=== PATIENT | male | born 1960 | race Caucasian/White ===

== ENCOUNTER 2021-09-21 10:55 | Inpatient (IN) ==
[2021-09-21] MEDS ORDERED: SODIUM CHLORIDE 0.9% 1000ML 1,000 ML IV STA (11:52)
[2021-09-21] MEDS ORDERED: ONDANSETRON INJ 2 MG/ML 2 ML VIAL IV STA (12:28)
[2021-09-21] MEDS ORDERED: FAMOTIDINE 20MG IV PUSH 20 MG/5 ML SYR IV STA (12:28)
[2021-09-21] MEDS ORDERED: PANTOprazole 80 MG in DEXTROSE 5% 100 ML IV ONE (12:28)
[2021-09-21] MEDS ORDERED: PANTOPRAZOLE BOLUS/DRIP 1 EA IV STA (12:28)
[2021-09-21] MEDS ORDERED: HYDROmorphone INJ 0.5 MG/0.5 ML SYR IV PRN (12:28)
[2021-09-21 12:58] LABS: INR 1.2 (0.9-1.1); Partial Thromboplastin Ratio 0.9; Partial Thromboplastin Time 24.8 Seconds (21.0-31.0); Prothrombin Time 12.3 Seconds (9.0-12.0)
[2021-09-21 13:18] LABS: Albumin Globulin Ratio 1.7 (0.9-2); Albumin Level 4.5 gm/dl (3.4-5.0); BUN Creatinine Ratio 21.4 (10-20); Bilirubin,Total 1.4 mg/dl (0.2-1.0); Calcium 8.8 mg/dl (8.5-10.1); Creatinine Clr Calc Pharmacy 108.4 ml/min; Est GFR (African American) 95.4 ml/min; Est GFR (Non-African American) 82.3 ml/min; Globulin 2.6 gm/dl (2.5-4.0); Mean Corpuscular Hgb Conc 33.4 g/dL (32-36); Nucleated RBC # (auto) 0.27 K/uL (0-0); Nucleated RBC % (auto) 0.5 %; Platelet Count 10 K/uL (130-400); Potassium 4.1 mmol/L (3.5-5.1); Total Protein 7.1 gm/dl (6.0-8.3)
[2021-09-21 13:23] LABS: Appearance Urine Clear (Clear); Bilirubin Urine Negative (Negative); Blood Urine Negative (Negative); Color Urine Yellow; Glucose Urine UA Negative (Negative); Ketones Urine Negative (Negative); Leukocyte Esterase Urine Negative (Negative); Nitrite Urine Negative (Negative); Protein Urine Negative (Negative); Specific Gravity Urine 1.008 (1.000-1.030); Urobilinogen Urine Negative (Negative); pH Urine 6.5 (4.5-7.5)
[2021-09-21 13:39] LABS: Hemoglobin 13.7 g/dL (14.0-18.0); Mean Corpuscular Hemoglobin 29.7 pg (25-34); Mean Corpuscular Volume 88.7 fL (80-100); RDW Coefficient of Variation 17.1 % (11.5-14.5); RDW Standard Deviation 54.6 fL (36.4-46.3); Red Blood Count 4.62 M/uL (4.7-6.1); White Blood Count 50.77 K/uL (4.8-10.8)
--- NOTE | 2021-09-21 13:58 | CT Scan Report ---
CT head/brain wo con CLINICAL HISTORY: 61 years-old Male with headache, low plts. Acute headache TECHNIQUE: Multiple axial CT images of the head were obtained without contrast. A dose lowering tech nique was utilized adhering to the principles of ALARA. CT DOSE: 614.27 mGy.cm COMPARISON: CTA head 09/18/2021, 10/23/2020 FINDINGS: No acute intracranial hemorrhage, midline shift, intracranial mass, hydrocephalus, territorial ischem ia or abnormal extra-axial collection. The calvarium is intact. The paranasal sinuses, mastoid air cells, and middle ear cavities are clear . IMPRESSION: No acute intracranial abnormality. ACT 112: Negative or not required by law. The above report was generated using voice recognition software. It may contain grammatical, syntax o r spelling errors. Electronically signed by: Mello Sampson M.D. 09/21/2021 1:56 PM
[2021-09-21 14:03] LABS: Lyme Ab IgG w/WB Rflx Negative (Negative)
[2021-09-21 14:04] LABS: Lyme Ab IgM w/WB Rflx Negative (Negative)
[2021-09-21 14:10] LABS: ALC (manual) 2.03 K/uL (1.2-3.4); ANC (manual) 29.95 K/uL (1.4-6.5); Hypogranular Neutrophils 1+; Lymphocytes # (manual) 2.03 K/uL (1.2-3.4); Metamyelocytes # (manual) 2.54 K/uL (0-0); Monocytes # (manual) 12.69 K/uL (0.11-0.59); Myelocytes # (manual) 3.55 K/uL (0-0); Neutrophils # (manual) 29.95 K/uL (1.4-6.5)
[2021-09-21] MEDS: PANTOprazole 40 MG in DEXTROSE 5% 100 ML IV SCH ×2 (14:27→21:00)
--- NOTE | 2021-09-21 14:40 | History & Physical Report ---
Date of Service September 21, 2021 Assessment & Plan (1) Thrombocytopenia: Plan: Patient with history of CML. ER discussed the case with Dr. Centeno, his buck swamper from [place]. He noted that their target would be a platelet count of 30 and agreed with platelet transfusion. Will transfuse platelets. Will complete 4th dose of 40 mg of decadron. will recheck platelets BID. will consider official hematology consult in AM if number continue to be low. (2) CML (chronic myelocytic leukemia): Plan: No signs of active infection (3) Acute GI bleeding: Plan: melena due to low platelets will hold off endoscopy. no need for transfusion. will monitor hemoglobin (4) Anemia: Plan: hemoglobin is 13. will monitor (5) HTN (hypertension): Plan: resume bp meds (6) Hypercholesteremia: Plan: resume atorvastatin History of Present Illness Chief Complaint: headache Primary Care Provider: Jessica Cuevas MD 61 yo male with history of CML presents to the ER with a subacute headache and new onset melena. Patient has been to the ER multiple times for headache and thrombocytopenia this week. Patient is finishing his 4th dose of 40 mg of decadron today. Patient reports though that his headache is constant, accompanied by photophobia. Patient reports his headache is 6/10 intensity. In regards to his stools, he had 2 BM this AM and they were both black. One was loose, and "regular amount of stool. The other Bowel movement was small. Patient returnd to the ER and again was found to be thrombocytoepenic. Discussion with Hematology from [facility] recommended an admission. ER had discussed the case with Dr. Centeno, his buck swamper from [place]. He noted that their target would be a platelet count of 30 and agreed with platelet transfusion. Allergies Allergy/AdvReac Type Severity Reaction Status Date / Time No Known Allergies Allergy Mild 0 Verified 09/19/21 19:27 Home Medications Medication Instructions Recorded Confirmed Type omeprazole 20 mg capsule,delayed 20 mg PO DAILY PRN 04/30/18 09/19/21 History release amlodipine 5 mg-olmesartan 40 mg 1 tab PO QAM 09/18/21 09/19/21 History tablet atorvastatin 20 mg tablet 20 mg PO QAM 09/18/21 09/19/21 History ondansetron HCl 4 mg tablet 4 mg PO Q6H PRN #20 tab 05/17/22 05/18/22 Rx testosterone cypionate 100 mg/mL 150 mg IM Q14D 09/18/21 09/19/21 History intramuscular oil Past Med/Surg History Medical History Depression HTN (hypertension) Hypercholesteremia Social History Smoking Status: Never smoker Hx Alcohol Use: Yes Alcohol type: beer Hx Substance Use: No Preferred Language: [place] Communication Ability: Effective Slip Seat Coverer Required: No Beliefs That Will Affect Care: None marital status: Current Living Situation: Spouse Other Information That Helps Us Care for You: No Feels Safe at Home: Yes Safety Concerns: Feels Safe At This Time Assistive Devices: None Review of Systems Constitutional: no fever and no body aches Eyes: no blind spots and no discharge Ear, Nose, Mouth, Throat: no ear pain and no tinnitus Respiratory: no cough and no change in sputum Cardiovascular: no chest pain and no radiating jaw, neck or arm pain Gastrointestinal: no abdominal pain Genitourinary: no dysuria Musculoskeletal: no back pain Integumentary: no rash Neurologic: no gait abnormality Psychiatric: no behavioral changes Endocrine: no fatigue and no polyphagia Hematologic / Lymphatic: no lymphadenopathy Allergy / Immunological: no GI upset with certain foods Physical Exam Constitutional: WD/WN, vitals as above Eyes: PERRL, conjunctivae normal, anicteric sclerae ENMT: external ear and nose normal, oropharynx normal Neck: trachea midline, no thyromegaly Respiratory: normal respiratory effort, lungs clear to auscultation Cardiovascular: RRR, no murmur, no edema Gastrointestinal (Abdomen): normal bowel sounds, soft, nontender, no hepatosplenomegaly Musculoskeletal: no cyanosis or clubbing, extremities motor strength 5/5 Skin: no rashes, warm and dry Neurologic: PERRL, EOMI, accommodation nl, no face palsy, no dysarthria Psychiatric: A+Ox3, euthymic affect Lymphatic: no cervical or axillary lymphadenopathy Results & Data Results & Data ([facility]) Vital Signs (Past 12 Hours) Vital Signs Temp Pulse Resp BP Pulse Ox 09/21/21 13:00 63 19 153/81 H 96 09/21/21 12:31 98 09/21/21 11:10 36.8 C 68 20 156/75 H 96 Code Status & VTE Plan VTE Prophylaxis Plan VTE Prophylaxis will be ordered: Yes PG Care Time/CCT Total # of Minutes Spent Total Time Spent with Patient: Total time spent is greater than 50% in coordination of care (as documented) at patient's floor/unit and/or counseling patient: Coding Level of Care Code 43230 Initial Inpt Care Lvl 3 Diagnoses Thrombocytopenia D69.6 CML (chronic myelocytic leukemia) C92.10 Acute GI bleeding K92.2 Anemia D64.9 HTN (hypertension) I10 Hypercholesteremia E78.00
[2021-09-21] MEDS ORDERED: ONDANSETRON 4 MG OD TAB PO PRN (14:42)
[2021-09-21] MEDS ORDERED: PANTOprazole 40 MG TAB PO PRN (14:42)
--- NOTE | 2021-09-21 14:44 | Emergency Department Note ---
Impression & Plan Acute GI bleeding, Headache, Thrombocytopenia, Anemia ED Provider Note INFORMANT: Patient ED PROVIDER(S): Tani Thrasher MD CHIEF COMPLAINT: Black stools PLAN: Disposition: Admitted Condition: Good Outpatient prescription management: none Referral: None MEDICAL DECISION MAKING: Patient presented because of black stool. He was Hemoccult positive. Vital signs stable. He had a headache and underwent head CT imaging due to his history of thrombocytopenia. This was negative. Patient's ECG showed a sinus rhythm. His white blood cell count has increased from his recent priors. His H&H is stable. Patient's platelet count is stable as well. He was given IV Pepcid and Protonix. I did have discussed case with Dr. Keith of [facility]. He agreed with the acid suppression and admission. I discussed the case with Dr. Centeno, his regional sales executive from [place]. He noted that their target would be a platelet count of 30 and agreed with platelet transfusion. He agreed with the GI recommendations. He did asked for the patient to have his 4- day steroid course finished in the hospital here. He is on day 4 today. He also mentioned to have his platelet count checked twice daily. Patient was consented for platelet transfusion and first transfusion ordered. [facility] and outlined the GI and hematology consultation. They will admit the patient for further management. Triage Nursing notes reviewed and agree them. Vital Signs: reviewed and remarkable for no significant abnormalities Differential diagnosis: Diverticulosis, AVM, coagulopathy, colitis, inflammatory bowel disease, malignancy, Nanette-King tear, esophagitis, peptic ulcer disease, variceal bleed, gastritis, intracranial bleeding, hemorrhoids, as well as other pathologies. Diagnostics interpreted by me: EC Lead ECG performed and revealed Normal sinus rhythm at 68, normal [place], QRS normal. No elevation or depression. No PACs or PVCs Cardiac Monitoring: Cardiac monitoring ordered by me: The patient was placed on continuous cardiac monitoring and observed. It revealed a normal sinus rhythm a t 63 beats per minute without ectopy or evidence of dysrhythmia. Imaging studies: Head CT: A noncontrast CT scan of the head was performed and was negative for tumor, fracture, intracranial hemorrhage, or other acute pathology. HPI: The patient is a 61year old male who presents to the Emergency Room with complaints of black stools. This started today and is a new problem for the patient patient has a history of CML and thrombocytopenia. He was recently seen for platelet transfusion on the and here in the ER. Patient was started on steroids per hematology at that time. He does note some mild upset stomach. He did take a dose of Pepto-Bismol on Friday and Friday of this week, 4 and 3 days ago. The patient notes persisting headaches. Rates the pain as a 6 out of 10. Prior head CT was negative. Pt denies LOC, fevers, chills, diaphoresis, visual changes, neck pain, chest pain, breathing difficulties, nausea, vomiting, abdominal pain, back pain, hematochezia, urinary symptoms, numbness, weakness, lymphadenopathy, rash, or other complaints. ROS: See above HPI for pertinent positives & negatives. A total of 10 systems reviewed and were otherwise negative. PAST MEDICAL HISTORY:See Below , normal cytopenia, CML PAST SURGICAL HISTORY:See Below, FAMILY HISTORY:See Below SOCIAL HISTORY:See Below, non-smoker HOME MEDICATIONS:See Below ALLERGIES:See Below VITALS:See Below PHYSICAL EXAMINATION: GENERAL: Awake, alert, well-appearing, in no distress HENT: Normocephalic, atraumatic. Oropharynx unremarkable. EYES: Normal conjunctiva. Sclera non-icteric. NECK: Inspection normal. Non-tender. Supple. No nuchal rigidity. FROM. No masses. RESPIRATORY: Clear to auscultation. No wheezes. No rales. Normal respiratory effort. CARDIAC: Normal rate. Normal rhythm. No murmurs. No rubs. Extremities warm and well perfused. Pulses equal. No JVD. GI: Soft, non-distended. No tenderness to palpation. No rebound or guarding. No masses. RECTAL: Dark brown stool Hemoccult positive.. MUSCULOSKELETAL: Atraumatic. Chest examination reveals no tenderness. The back is symmetrical on inspection without obvious abnormality. There is no CVA tenderness to palpation. No joint edema. LOWER EXTREMITIES: Calves are equal size bilaterally and non-tender. No edema. N o discoloration. NEURO: Normal sensorium. No sensory or motor deficits noted. SKIN: No rash or jaundice noted. Tani Thrasher MD Past Med/Surg History Medical History (Updated 09/21/21 @ 14:44 by Tani Thrasher MD) Depression HTN (hypertension) Hypercholesteremia Social History Smoking Status: Never smoker Preferred Language: [place] Citizen Current Living Situation: Family Feels Safe at Home: Yes Allergies Allergies Allergy/AdvReac Type Severity Reaction Status Date / Time No Known Allergies Allergy Mild 0 Verified 09/19/21 19:27 Home Meds Home Medications Medication Instructions Recorded Confirmed omeprazole 20 mg capsule,delayed 20 mg PO DAILY PRN 04/30/18 09/19/21 release amlodipine 5 mg-olmesartan 40 mg 1 tab PO QAM 09/18/21 09/19/21 tablet atorvastatin 20 mg tablet 20 mg PO QAM 09/18/21 09/19/21 testosterone cypionate 100 mg/mL 150 mg IM Q14D 09/18/21 09/19/21 intramuscular oil Previous Rx's Medication Instructions Recorded ondansetron HCl 4 mg tablet 4 mg PO Q6H PRN #20 tab 09/18/21 Results & Data (ED) Vital Signs Vital Signs - 24 hr 09/21/21 11:10 09/21/21 12:31 09/21/21 13:00 Temperature 36.8 C Temperature Source Temporal Artery Scan Pulse Rate 68 63 Pulse Rate from SpO2 Sensor 63 Respiratory Rate 20 19 Respiratory Effort / Characteristics Non-Labored Spontaneous Respiratory Depth Normal Respiratory Pattern Regular Blood Pressure 156/75 H 153/81 H Blood Pressure Mean 102 105 Blood Pressure Position Sitting Pulse Oximetry 96 98 96 Oxygen Delivery Method Room Air Room Air Room Air Sepsis Recent Fever Within 48 Hours No Sepsis New/Unexplained Change in Mental Status N/A Sepsis Action Taken by Nursing No Action Required Laboratory Data Result diagrams: 09/21/21 12:29 09/21/21 12:29 Lab Results 09/21/21 09/21/21 09/21/21 Range/Units 12:29 12:29 12:29 WBC 50.77 H* (4.8-10.8) K/uL RBC 4.62 L (4.7-6.1) M/uL Hgb 13.7 L (14.0-18.0) g/dL Hct 41.0 L (42-52) % MCV 88.7 (80-100) fL MCH 29.7 (25-34) pg MCHC 33.4 (32-36) g/dL RDW Std Deviation 54.6 H (36.4-46.3) fL RDW Coeff of Sayra 17.1 H (11.5-14.5) % Plt Count 10 L* (130-400) K/uL Absolute Nucleated RBC 0.27 H (0-0) K/uL Nucleated RBC % (auto) 0.5 % Neutrophils % (Manual) 59.0 % Lymphocytes % (Manual) 4.0 % Monocytes % (Manual) 25.0 % Metamyelocytes % (Man) 5.0 % Myelocytes % (Man) 7.0 % Neutrophils # (Manual) 29.95 H (1.4-6.5) K/uL Total Absolute Neuts 29.95 H (1.4-6.5) K/uL Lymphocytes # (Manual) 2.03 (1.2-3.4) K/uL Total Abs Lymphocytes 2.03 (1.2-3.4) K/uL Monocytes # (Manual) 12.69 H (0.11-0.59) K/uL Metamyelocytes # (Man) 2.54 H (0-0) K/uL Myelocytes # (Manual) 3.55 H (0-0) K/uL Hypogranular Neuts 1+ PT 12.3 H (9.0-12.0) Seconds INR 1.2 H (0.9-1.1) APTT 24.8 (21.0-31.0) Seconds PTT Ratio 0.9 Sodium (136-145) mmol/L Potassium (3.5-5.1) mmol/L Chloride (98-107) mmol/L Carbon Dioxide (21-32) mmol/L Anion Gap (3-11) BUN (6-23) mg/dl Creatinine (0.6-1.4) mg/dl Est Cr Clr Drug Dosing ml/min Est GFR ( Amer) ml/min Est GFR (Non-Af Amer) ml/min BUN/Creatinine Ratio (10-20) Glucose (70-99(Fasting)) mg/dl Calcium (8.5-10.1) mg/dl Total Bilirubin (0.2-1.0) mg/dl AST (13-39) U/L ALT (7-52) U/L Alkaline Phosphatase (34-104) U/L Total Protein (6.0-8.3) gm/dl Albumin (3.4-5.0) gm/dl Globulin (2.5-4.0) gm/dl Albumin/Globulin Ratio (0.9-2) Urine Color Urine Appearance (Clear) Urine pH (4.5-7.5) Ur Specific [place] (1.000-1.030) Urine Protein (Negative) Urine Glucose (UA) (Negative) Urine Ketones (Negative) Urine Blood (Negative) Urine Nitrite (Negative) Urine Bilirubin (Negative) Urine Urobilinogen (Negative) Ur Leukocyte Esterase (Negative) POC Stool Occult Blood (Negative) Anaplasma Smear See Comment Lyme Disease IgG Ab (Negative) Lyme Disease IgM Ab (Negative) SARS-CoV-2, RNA, NAAT (NEGATIVE) Blood Type O Positive Antibody Screen NEGATIVE 09/21/21 09/21/21 09/21/21 Range/Units 12:29 12:31 12:33 WBC (4.8-10.8) K/uL RBC (4.7-6.1) M/uL Hgb (14.0-18.0) g/dL Hct (42-52) % MCV (80-100) fL MCH (25-34) pg MCHC (32-36) g/dL RDW Std Deviation (36.4-46.3) fL RDW Coeff of Sayra (11.5-14.5) % Plt Count (130-400) K/uL Absolute Nucleated RBC (0-0) K/uL Nucleated RBC % (auto) % Neutrophils % (Manual) % Lymphocytes % (Manual) % Monocytes % (Manual) % Metamyelocytes % (Man) % Myelocytes % (Man) % Neutrophils # (Manual) (1.4-6.5) K/uL Total Absolute Neuts (1.4-6.5) K/uL Lymphocytes # (Manual) (1.2-3.4) K/uL Total Abs Lymphocytes (1.2-3.4) K/uL Monocytes # (Manual) (0.11-0.59) K/uL Metamyelocytes # (Man) (0-0) K/uL Myelocytes # (Manual) (0-0) K/uL Hypogranular Neuts PT (9.0-12.0) Seconds INR (0.9-1.1) APTT (21.0-31.0) Seconds PTT Ratio Sodium 139 (136-145) mmol/L Potassium 4.1 (3.5-5.1) mmol/L Chloride 106 (98-107) mmol/L Carbon Dioxide 27 (21-32) mmol/L Anion Gap 6 (3-11) BUN 21 (6-23) mg/dl Creatinine 0.98 (0.6-1.4) mg/dl Est Cr Clr Drug Dosing 108.4 ml/min Est GFR ( Amer) 95.4 ml/min Est GFR (Non-Af Amer) 82.3 ml/min BUN/Creatinine Ratio 21.4 H (10-20) Glucose 121 H (70-99(Fasting)) mg/dl Calcium 8.8 (8.5-10.1) mg/dl Total Bilirubin 1.4 H (0.2-1.0) mg/dl AST 22 (13-39) U/L ALT 18 (7-52) U/L Alkaline Phosphatase 48 (34-104) U/L Total Protein 7.1 (6.0-8.3) gm/dl Albumin 4.5 (3.4-5.0) gm/dl Globulin 2.6 (2.5-4.0) gm/dl Albumin/Globulin Ratio 1.7 (0.9-2) Urine Color Urine Appearance (Clear) Urine pH (4.5-7.5) Ur Specific [place] (1.000-1.030) Urine Protein (Negative) Urine Glucose (UA) (Negative) Urine Ketones (Negative) Urine Blood (Negative) Urine Nitrite (Negative) Urine Bilirubin (Negative) Urine Urobilinogen (Negative) Ur Leukocyte Esterase (Negative) POC Stool Occult Blood Positive A (Negative) Anaplasma Smear Cancelled Lyme Disease IgG Ab (Negative) Lyme Disease IgM Ab (Negative) SARS-CoV-2, RNA, NAAT (NEGATIVE) Blood Type Antibody Screen 09/21/21 09/21/21 09/21/21 Range/Units 12:33 12:35 12:38 WBC (4.8-10.8) K/uL RBC (4.7-6.1) M/uL Hgb (14.0-18.0) g/dL Hct (42-52) % MCV (80-100) fL MCH (25-34) pg MCHC (32-36) g/dL RDW Std Deviation (36.4-46.3) fL RDW Coeff of Sayra (11.5-14.5) % Plt Count (130-400) K/uL Absolute Nucleated RBC (0-0) K/uL Nucleated RBC % (auto) % Neutrophils % (Manual) % Lymphocytes % (Manual) % Monocytes % (Manual) % Metamyelocytes % (Man) % Myelocytes % (Man) % Neutrophils # (Manual) (1.4-6.5) K/uL Total Absolute Neuts (1.4-6.5) K/uL Lymphocytes # (Manual) (1.2-3.4) K/uL Total Abs Lymphocytes (1.2-3.4) K/uL Monocytes # (Manual) (0.11-0.59) K/uL Metamyelocytes # (Man) (0-0) K/uL Myelocytes # (Manual) (0-0) K/uL Hypogranular Neuts PT (9.0-12.0) Seconds INR (0.9-1.1) APTT (21.0-31.0) Seconds PTT Ratio Sodium (136-145) mmol/L Potassium (3.5-5.1) mmol/L Chloride (98-107) mmol/L Carbon Dioxide (21-32) mmol/L Anion Gap (3-11) BUN (6-23) mg/dl Creatinine (0.6-1.4) mg/dl Est Cr Clr Drug Dosing ml/min Est GFR ( Amer) ml/min Est GFR (Non-Af Amer) ml/min BUN/Creatinine Ratio (10-20) Glucose (70-99(Fasting)) mg/dl Calcium (8.5-10.1) mg/dl Total Bilirubin (0.2-1.0) mg/dl AST (13-39) U/L ALT (7-52) U/L Alkaline Phosphatase (34-104) U/L Total Protein (6.0-8.3) gm/dl Albumin (3.4-5.0) gm/dl Globulin (2.5-4.0) gm/dl Albumin/Globulin Ratio (0.9-2) Urine Color Yellow Urine Appearance Clear (Clear) Urine pH 6.5 (4.5-7.5) Ur Specific [place] 1.008 (1.000-1.030) Urine Protein Negative (Negative) Urine Glucose (UA) Negative (Negative) Urine Ketones Negative (Negative) Urine Blood Negative (Negative) Urine Nitrite Negative (Negative) Urine Bilirubin Negative (Negative) Urine Urobilinogen Negative (Negative) Ur Leukocyte Esterase Negative (Negative) POC Stool Occult Blood (Negative) Anaplasma Smear Lyme Disease IgG Ab Negative (Negative) Lyme Disease IgM Ab Negative (Negative) SARS-CoV-2, RNA, NAAT NEGATIVE (NEGATIVE) Blood Type Antibody Screen Administered Medications Hydromorphone HCl (Hydromorphone Inj 0.5 Mg/0.5 Ml Syr) 0.5 mg IV Q15M PRN PRN Reason: Pain Stop: 10/05/21 12:27 Last Admin: 09/21/21 13:45 Dose: 0.5 mg Documented by: [id number] Sodium Chloride (Nss 1000ml) 1,000 mls @ 125 mls/hr IV .Q8H STA Stop: 09/21/21 19:51 Last Admin: 09/21/21 13:46 Dose: 125 mls/hr Documented by: [id number] Pantoprazole Sodium 40 mg/ (Dextrose) 100 mls @ 20 mls/hr IV Q5H [id number] Stop: 10/21/21 12:44 Last Admin: 09/21/21 14:27 Dose: 8 mg/hr, 20 mls/hr Documented by: [id number] Discontinued Medications Famotidine (Pepcid 20mg Iv Push) 20 mg in 5 mls @ 2.5 mls/min IV NOW STA Stop: 09/21/21 12:29 Last Admin: 09/21/21 13:45 Dose: 2.5 mls/min Documented by: [id number] Pantoprazole Sodium (Protonix Bolus/Drip) 0 mls @ 1 mls/hr IV ONE STA Stop: 09/21/21 12:29 Last Admin: 09/21/21 13:46 Dose: Not Given Documented by: [id number] Pantoprazole Sodium 80 mg/ (Dextrose) 120 mls @ 400 mls/hr IV NOW ONE Stop: 09/21/21 12:45 Last Admin: 09/21/21 13:44 Dose: 400 mls/hr Documented by: [id number] Ondansetron HCl (Ondansetron Inj 2 Mg/Ml 2 Ml Vial) 4 mg IV NOW STA Stop: 09/21/21 12:29 Last Admin: 09/21/21 13:45 Dose: 4 mg Documented by: [id number] Imaging Data Radiologist's Impression: Head CT 09/21/21 12:27 CT head/brain wo con CLINICAL HISTORY: 61 years-old Male with headache, low plts. Acute headache TECHNIQUE: Multiple axial CT images of the head were obtained without contrast. A dose lowering technique was utilized adhering to the principles of ALARA. CT DOSE: 614.27 mGy.cm COMPARISON: CTA head 09/18/2021, 10/23/2020 FINDINGS: No acute intracranial hemorrhage, midline shift, intracranial mass, hydrocephalus, territorial ischemia or abnormal extra-axial collection. The calvarium is intact. The paranasal sinuses, mastoid air cells, and middle ear cavities are clear. IMPRESSION: No acute intracranial abnormality. ACT 112: Negative or not required by law. The above report was generated using voice recognition software. It may contain grammatical, syntax or spelling errors. Electronically signed by: Mello Sampson M.D. 09/21/2021 1:56 PM Discharge Plan Visit Data Chief Complaint: Referred by Doctor Stated Complaint: BLACK STOOL, REFERRED BY TANISHA PINEDA ED Provider: Tani Thrasher Discharge Problem: Acute GI bleeding, Headache, Thrombocytopenia, Anemia Forms Stand Alone Forms: [facility] Prescriptions Prescriptions: No Action omeprazole 20 mg capsule,delayed release(DR/EC) 20 mg PO DAILY PRN (Reason: Acid Reflux) RF: 0 atorvastatin 20 mg tablet 20 mg PO QAM RF: 0 testosterone cypionate 100 mg/mL oil 150 mg IM Q14D RF: 0 amlodipine-olmesartan 5-40 mg tablet 1 tab PO QAM RF: 0 ondansetron HCl 4 mg tablet 4 mg PO Q6H PRN (Reason: nausea and vomiting) Qty: 20 RF: 0 Referrals Referrals: Jessica Cuevas MD [Primary Care Provider] -
--- NOTE | 2021-09-21 17:15 | Gastrointestinal Consultation ---
Date of Consultation September 21, 2021 Assessment & Plan (1) Anemia: Black stool may have been Peptobismol or UGI bleeding or combination of above. In ER stool brown. Hgb did drift down. Etiology can be from low platelets with normal anatom but PUD also in the diferential. Would not be a good idea to do EGD in setting of low platelets. Recommend sustained reasonable plt count before scoping. If however, he has profuse bleeding then would could do EGD with preop plts give. REcommend PPI. Clear liquids until I make a decision tomorrow in case he rapidly bleeds. I, Gerson Keith MD have spent 33 minutes of discrete time performing the activities of this visit which include but are not limited to review of the medical record, obtaining a history, physical exam, and entering information in the electronic record. History of Present Illness Reason for Consultation: CC black stools HPI with patient for H and P. [place] [facility] [place] with CMML and low platelets. He had recent low plts as low as 3 and on steroids at present. He takes Advid for headaches and recently has been having more of those. Some nausea he wonders if secondary to headaches. He has GERD and takes omeprazole prn. He took peptobismol a couple of doses this week. He noted black stools this am. Stools in ER on rectal exam dark brown but heme positive. Hgb 15 on 09/18/2021 and [address] today neg. Allergies Allergy/AdvReac Type Severity Reaction Status Date / Time No Known Allergies Allergy Mild 0 Verified 09/19/21 19:27 Home Medications Medication Instructions Recorded Confirmed Type omeprazole 20 mg capsule,delayed 20 mg PO DAILY PRN 04/30/18 09/19/21 History release amlodipine 5 mg-olmesartan 40 mg 1 tab PO QAM 09/18/21 09/19/21 History tablet atorvastatin 20 mg tablet 20 mg PO QAM 09/18/21 09/19/21 History ondansetron HCl 4 mg tablet 4 mg PO Q6H PRN #20 tab 09/18/21 09/19/21 Rx testosterone cypionate 100 mg/mL 150 mg IM Q14D 09/18/21 09/19/21 History intramuscular oil Patient History Medical History (Updated 09/21/21 @ 14:44 by Tani Thrasher MD) Depression HTN (hypertension) Hypercholesteremia Social History Smoking Status: Never smoker Preferred Language: [place] Current Living Situation: Family Feels Safe at Home: Yes Review of Systems Review of Systems: All systems reviewed & are unremarkable except as noted in HPI & below Physical Exam Constitutional: WD/WN, vitals as above Eyes: PERRL, conjunctivae normal, anicteric sclerae ENMT: Ears: no external ear abnormality Neck: normal visual inspection and trachea midline Respiratory: normal respiratory effort, lungs clear to auscultation Cardiovascular: RRR, no murmur, no edema Gastrointestinal (Abdomen): normal bowel sounds, soft, nontender, no hepatosplenomegaly Skin: normal turgor Neurologic: PERRL, EOMI, accommodation nl, no face palsy, no dysarthria Psychiatric: A+Ox3, euthymic affect Results & Data ([facility]) Vital Signs (Past 12 Hours) Vital Signs Temp Pulse Resp BP Pulse Ox 09/21/21 16:03 36.8 C 63 20 128/54 L 95 09/21/21 16:00 61 18 128/54 L 95 09/21/21 15:43 36.8 C 69 19 149/68 H 97 09/21/21 15:30 69 24 94 09/21/21 15:21 66 16 98/63 L 96 09/21/21 15:00 69 22 93 09/21/21 14:30 63 23 149/66 H 94 09/21/21 14:19 66 19 147/64 H 95 09/21/21 14:00 64 21 09/21/21 13:31 71 19 204/75 H 09/21/21 13:30 68 21 09/21/21 13:00 63 19 153/81 H 96 09/21/21 12:31 98 09/21/21 11:10 36.8 C 68 20 156/75 H 96
[2021-09-21] MEDS ORDERED: dexAMETHasone 4 MG TAB PO ONE (17:37)
[2021-09-21] MEDS ORDERED: diphenhydrAMINE 50 MG/ML VIAL IV STA (17:38)
[2021-09-21] MEDS ORDERED: PROCHLORPERAZINE 10 MG in SYRINGE 8 ML IV ONE (17:38)
--- NOTE | 2021-09-21 18:14 | Electrocardiogram Report ---
Test Reason : Blood Pressure : / mmHG Vent. Rate : 068 BPM Atrial Rate : 068 BPM P-R Int : 152 ms QRS Dur : 102 ms QT Int : 404 ms P-R-T Axes : 011 032 022 degrees QTc Int : 429 ms Normal sinus rhythm Normal ECG When compared with ECG of 23-OCT-2020 10:18, No significant change was found Confirmed by Babak Sams ([id number]) on 09/21/2021 6:14:34 PM Referred By: Confirmed By:Kayode Sams
[2021-09-21 19:31] LABS: Hematocrit (blood only) 38.3 % (42-52); Hemoglobin 13.1 g/dL (14.0-18.0); Platelet Count 6 K/uL (130-400); Platelet Estimate SIGNIFIC DECREASED (Normal)
[2021-09-21] MEDS: ACETAMINOPHEN 325 MG TAB PO PRN (20:28)
[2021-09-21] MEDS ORDERED: hydrALAZINE 10 MG TAB PO ONE (21:38)
[2021-09-22] MEDS: PANTOprazole 40 MG in DEXTROSE 5% 100 ML IV SCH ×6 (02:20→22:09)
[2021-09-22 07:03] LABS: Hematocrit (blood only) 40.3 % (42-52); Hemoglobin 13.3 g/dL (14.0-18.0); Mean Corpuscular Hemoglobin 29.6 pg (25-34); Mean Corpuscular Volume 89.6 fL (80-100); Nucleated RBC # (auto) 0.69 K/uL (0-0); Nucleated RBC % (auto) 2.1 %; Platelet Count 6 K/uL (130-400); RDW Coefficient of Variation 17.1 % (11.5-14.5); RDW Standard Deviation 55.1 fL (36.4-46.3); White Blood Count 32.84 K/uL (4.8-10.8)
[2021-09-22 07:21] LABS: Platelet Estimate SIGNIFIC DECREASED (Normal)
[2021-09-22] MEDS: ATORVASTATIN 20 MG TAB PO SCH (07:49)
[2021-09-22] MEDS: amLODIPine BESYLATE 5 MG TAB PO SCH (07:49)
[2021-09-22] MEDS: OLMESARTAN MEDOXOMIL 40 MG TAB PO SCH (07:49)
[2021-09-22] MEDS ORDERED: NON-FORMULARY MEDICATION (Amlodipine-Olmesartan 5-40 mg tablet) PO SCH (09:00)
[2021-09-22] MEDS: ACETAMINOPHEN 325 MG TAB PO PRN ×2 (15:08→22:09)
[2021-09-22] MEDS ORDERED: IMMUNE GLOBULIN (HUMAN) SOLN IV ONE (15:34)
[2021-09-22] MEDS: IMMUN GLOBG(IGG)/MALT/IGA OV50 200 ML IV SCH ×5 (16:54→20:55)
--- NOTE | 2021-09-22 17:03 | Hospitalist Progress Note ---
Date of Service September 22, 2021 Assessment & Plan (1) Thrombocytopenia: Plan: Patient with history of CML. ER discussed the case with Dr. Centeno, his city tax auditor from [place]. He noted that their target would be a platelet count of 30 and agreed with platelet transfusion. Will transfuse platelets on 09/22 as count dropped to 6. Consult [facility] hematology On 09/22 completed 4th dose of 40 mg of decadron. will recheck platelets BID. Ordered IVIG on 09/22 (2) CML (chronic myelocytic leukemia): Plan: No signs of active infection (3) Acute GI bleeding: Plan: melena due to low platelets will hold off endoscopy. no need for transfusion. hemoglobin is stable today. (4) Anemia: Plan: hemoglobin is 13. will monitor (5) HTN (hypertension): Plan: BP is elevated. On amlodipine and olmesartan (6) Hypercholesteremia: Plan: resume atorvastatin Admission and Anticipated Discharge Date Admission Date: September 21, 2021 Subjective Patient reports his headache improved after the cocktail. But the headache returned today. Currently it is a 10/12 Review of Systems Review of Systems: All systems reviewed & are unremarkable except as noted in HPI & below Physical Exam Constitutional: WD/WN, vitals as above Eyes: PERRL, conjunctivae normal, anicteric sclerae ENMT: external ear and nose normal, oropharynx normal Neck: trachea midline, no thyromegaly Respiratory: normal respiratory effort, lungs clear to auscultation Cardiovascular: RRR, no murmur, no edema Gastrointestinal (Abdomen): normal bowel sounds, soft, nontender, no hepatosplenomegaly Musculoskeletal: no cyanosis or clubbing, extremities motor strength 5/5 Skin: no rashes, warm and dry Neurologic: PERRL, EOMI, accommodation nl, no face palsy, no dysarthria Psychiatric: A+Ox3, euthymic affect Lymphatic: no cervical or axillary lymphadenopathy Results & Data Results & Data ([facility]) Vital Signs (Past 12 Hours) Vital Signs Temp Pulse Pulse Resp BP BP Pulse Ox 09/22/21 14:18 36.8 C 70 18 137/66 94 09/22/21 14:17 36.8 C 70 17 137/66 94 09/22/21 13:21 36.7 C 72 16 145/68 H 95 09/22/21 12:51 36.7 C 70 17 185/65 H 95 09/22/21 12:36 37.1 C 71 18 170/75 H 94 09/22/21 12:19 36.4 C L 71 18 161/73 H 96 09/22/21 11:00 36.8 C 64 20 150/64 H 95 09/22/21 09:43 59 L 09/22/21 06:00 36.7 C 66 18 140/74 96 PG Care Time/CCT Total # of Minutes Spent Total Time Spent with Patient: Total time spent is greater than 50% in coordination of care (as documented) at patient's floor/unit and/or counseling patient: Coding Level of Care Code 97567 Subseq Hosp Care Lvl 3 Diagnoses Thrombocytopenia D69.6 CML (chronic myelocytic leukemia) C92.10 Acute GI bleeding K92.2 Anemia D64.9 HTN (hypertension) I10 Hypercholesteremia E78.00
--- NOTE | 2021-09-22 17:05 | Gastroenterology Progress Note ---
Date of Service September 22, 2021 Assessment & Plan (1) Anemia: Plan: Black stool may have been Peptobismol or UGI bleeding or combination of above. In ER stool brown. Hgb did drift down prior to admit. Etiology can be from low platelets with normal anatomy but PUD also in the diferential. Would not be a good idea to do EGD in setting of low platelets. Recommend sustained reasonable plt count before scoping. If however, he has profuse bleeding then would could do EGD with preop plts give. Continue PPI to cover UGI bleeding and can convert to oral. No stools today and Hgb stable so active bleeding has stopped at present. Ok to advance to solid diet and I have ordered that. I, Gerson Keith MD have spent 14 minutes of discrete time performing the activities of this visit which include but are not limited to review of the medical record, obtaining a history, physical exam, and entering information in the electronic record. Admission and Anticipated Discharge Date Admission Date: September 21, 2021 Subjective CC f/u GI bleeding HPI with patient for H and P. No abd pain. No stools today. Hgb 13.2 vs 13.1. Physical Exam Constitutional: WD/WN, vitals as above Gastrointestinal (Abdomen): normal bowel sounds, soft, nontender, no hepatosplenomegaly Results & Data ([facility]) Vital Signs (Past 12 Hours) Vital Signs Temp Pulse Pulse Resp BP BP Pulse Ox 09/22/21 14:18 36.8 C 70 18 137/66 94 09/22/21 14:17 36.8 C 70 17 137/66 94 09/22/21 13:21 36.7 C 72 16 145/68 H 95 09/22/21 12:51 36.7 C 70 17 185/65 H 95 09/22/21 12:36 37.1 C 71 18 170/75 H 94 09/22/21 12:19 36.4 C L 71 18 161/73 H 96 09/22/21 11:00 36.8 C 64 20 150/64 H 95 09/22/21 09:43 59 L 09/22/21 06:00 36.7 C 66 18 140/74 96
[2021-09-22 18:49] LABS: Hematocrit (blood only) 39.4 % (42-52); Hemoglobin 13.1 g/dL (14.0-18.0); Platelet Count 11 K/uL (130-400)
[2021-09-22 18:50] LABS: Platelet Estimate SIGNIFIC DECREASED (Normal)
[2021-09-23] MEDS: PANTOprazole 40 MG in DEXTROSE 5% 100 ML IV SCH ×5 (02:19→22:58)
[2021-09-23 07:14] LABS: Hematocrit (blood only) 38.1 % (42-52); Mean Corpuscular Hemoglobin 30.3 pg (25-34); Mean Corpuscular Hgb Conc 34.1 g/dL (32-36); Mean Corpuscular Volume 88.8 fL (80-100); Nucleated RBC % (auto) 5.9 %; Platelet Count 4 K/uL (130-400); Platelet Estimate SIGNIFIC DECREASED (Normal); RDW Coefficient of Variation 17.1 % (11.5-14.5); RDW Standard Deviation 54.6 fL (36.4-46.3); Red Blood Count 4.29 M/uL (4.7-6.1); White Blood Count 37.14 K/uL (4.8-10.8)
[2021-09-23] MEDS ORDERED: IMMUNE GLOBULIN (HUMAN) SOLN IV STA (08:11)
[2021-09-23] MEDS: ATORVASTATIN 20 MG TAB PO SCH (08:15)
[2021-09-23] MEDS: OLMESARTAN MEDOXOMIL 40 MG TAB PO SCH (08:15)
[2021-09-23] MEDS: amLODIPine BESYLATE 5 MG TAB PO SCH (08:15)
[2021-09-23 09:12] LABS: Immature Platelet Fraction 48.3 % (0.9-8.3)
[2021-09-23] MEDS: IMMUN GLOBG(IGG)/MALT/IGA OV50 200 ML IV SCH ×5 (09:37→14:10)
--- NOTE | 2021-09-23 14:44 | Gastroenterology Progress Note ---
Date of Service September 23, 2021 Assessment & Plan (1) Anemia: Plan: Black stool may have been Peptobismol or UGI bleeding or combination of above. In ER stool brown. Hgb did drift down prior to admit. Etiology can be from low platelets with normal anatomy but PUD also in the diferential. Would not be a good idea to do EGD in setting of low platelets. Recommend sustained reasonable plt count before scoping. If however, he has profuse bleeding then would could do EGD with preop plts give. Continue PPI to cover UGI bleeding---ok to convert to oral PPI Stools are brown/green so no active bleeding. Plts continue to be low but if they are markedly improve in am then can do EGD. Will make NPO post MN in case plts are sufficient to do EGD. IGerson MD have spent 12 minutes of discrete time performing the activities of this visit which include but are not limited to review of the medical record, obtaining a history, physical exam, and entering information in the electronic record. Admission and Anticipated Discharge Date Admission Date: September 21, 2021 Subjective cc f/u GI bleeding HPI with patient for H and P. No abd pain. Per patient and nursing 2 stools today brown/green. No black nor bloody stools. Hgb 13 today vs 13.1. Plts 4 this am. Physical Exam Constitutional: WD/WN, vitals as above Gastrointestinal (Abdomen): normal bowel sounds, soft, nontender, no hepatosplenomegaly Results & Data ([facility]) Vital Signs (Past 12 Hours) Vital Signs Temp Pulse Pulse Resp BP BP Pulse Ox 09/23/21 14:20 36.9 C 68 18 151/65 H 96 09/23/21 11:00 36.8 C 61 20 166/76 H 96 09/23/21 06:44 36.9 C 68 18 133/82 96
--- NOTE | 2021-09-23 15:20 | Hospitalist Progress Note ---
Date of Service September 23, 2021 Assessment & Plan (1) Thrombocytopenia: Plan: Patient with history of CMML. ER discussed the case with Dr. Centeno, his three dimensional map modeler from [place]. He noted that their target would be a platelet count of 30 and agreed with platelet transfusion. Will transfuse platelets on 09/22 as count dropped to 6. Consult [facility] hematology On 09/22 completed 4th dose of 40 mg of decadron. will recheck platelets BID. Ordered 1 gr/kg IVIG on 09/22 2nd dose of IVIG 1gr/kg on 09/23 Awaiting response. Platelets dropped to 4 on 09/23 d/w hematology: agree with above plan. ordered immature platelet fraction which was elevated. (2) CML (chronic myelocytic leukemia): Plan: No signs of active infection (3) Acute GI bleeding: Plan: melena due to low platelets will hold off endoscopy. no need for transfusion. hemoglobin is stable today. (4) Anemia: Plan: hemoglobin is 13. will monitor (5) HTN (hypertension): Plan: BP is elevated. On amlodipine and olmesartan (6) Hypercholesteremia: Plan: resume atorvastatin Admission and Anticipated Discharge Date Admission Date: September 21, 2021 Subjective 61 yo male reports no new symptoms today. Patient reports his headaches have improved. updated patient/ Review of Systems Review of Systems: All systems reviewed & are unremarkable except as noted in HPI & below Physical Exam Constitutional: WD/WN, vitals as above Eyes: PERRL, conjunctivae normal, anicteric sclerae ENMT: external ear and nose normal, oropharynx normal Neck: trachea midline, no thyromegaly Respiratory: normal respiratory effort, lungs clear to auscultation Cardiovascular: RRR, no murmur, no edema Gastrointestinal (Abdomen): normal bowel sounds, soft, nontender, no hepatosplenomegaly Musculoskeletal: no cyanosis or clubbing, extremities motor strength 5/5 Skin: no rashes, warm and dry Neurologic: PERRL, EOMI, accommodation nl, no face palsy, no dysarthria Psychiatric: A+Ox3, euthymic affect Lymphatic: no cervical or axillary lymphadenopathy Results & Data Results & Data ([facility]) Vital Signs (Past 12 Hours) Vital Signs Temp Pulse Pulse Resp BP BP Pulse Ox 09/23/21 15:00 36.7 C 70 16 149/64 H 94 05/22/22 14:45 37.5 C 69 18 153/72 H 95 09/23/21 14:20 36.9 C 68 18 151/65 H 96 09/23/21 11:00 36.8 C 61 20 166/76 H 96 09/23/21 08:00 57 L 09/23/21 06:44 36.9 C 68 18 133/82 96 PG Care Time/CCT Total # of Minutes Spent Total Time Spent with Patient: Total time spent is greater than 50% in coordination of care (as documented) at patient's floor/unit and/or counseling patient: Coding Level of Care Code 02324 Subseq Hosp Care Lvl 3 Diagnoses Thrombocytopenia D69.6 CML (chronic myelocytic leukemia) C92.10 Acute GI bleeding K92.2 Anemia D64.9 HTN (hypertension) I10 Hypercholesteremia E78.00 Time Spent (min) 35
[2021-09-23 19:09] LABS: Hematocrit (blood only) 35.4 % (42-52); Hemoglobin 12.1 g/dL (14.0-18.0); Platelet Count 9 K/uL (130-400); Platelet Estimate SIGNIFIC DECREASED (Normal)
[2021-09-23] MEDS: MELATONIN 3 MG TAB PO PRN (21:32)
[2021-09-23] MEDS ORDERED: Nursing to Pharmacy Communication SCH (23:00)
[2021-09-24] MEDS: PANTOprazole 40 MG in DEXTROSE 5% 100 ML IV SCH ×5 (03:44→23:00)
--- NOTE | 2021-09-24 08:32 | Gastroenterology Progress Note ---
Date of Service September 24, 2021 Assessment & Plan (1) Acute GI bleeding: Plan: Anemia: Patient has had no further black stools since admission. No bowel movement yet today but to yesterday which were green in color. Tentative plan was EGD depending on platelet count. His platelet count this morning is 3 so will defer EGD at this time. Okay to ADAT. Patient verbalizes agreement and understanding of this plan. Continue PPI to cover upper GI bleed. Case reviewed with Dr. Keith. Please refer to supervising physician addendum for further recommendations. I have spent 15 minutes of discrete time performing the activities of this visit which include but are not limited to review of the medical record, obtaining a history, physical exam, and entering information in the electronic record. (2) Anemia: (3) CML (chronic myelocytic leukemia): (4) Thrombocytopenia: Admission and Anticipated Discharge Date Admission Date: September 21, 2021 Supervising Physician Co-Signing Physician Notes I have seen and examined the patient. I agree with note above by UNA Watts except as noted below. HPI with patient for H and P. Pt denies abd pain. CT a/p today shows splenomegaly. Stools per patietn normal in color. Plts remain lowat 3k today. Hgb stable. PE Abdomen pos bs, soft, no guarding nor rebound A/P GI bleeding--no active bleeding. plts too low to scope without urgent need. Continue PPI. As the supervising physician, I , Gerson Keith MD have spent 10 minutes of discrete time performing the activities of this visit which include but not limited to review of the medical records, obtaining a history, physical exam and entering information in the electronic record. UNA Watts has reported spending 15 minutes of discrete time with the activities of this visit. Subjective Patient awake alert and oriented this morning sitting in bed and position of comfort. He has no voiced GI complaints this morning. Denies any abdominal pain, nausea, vomiting. No bowel movement yet today. He had 2 bowel movements yesterday which were green in color. He does want me to know that he was eating peanut butter prior to admission that was one of the brands that are currently being recalled. Review of Systems Review of Systems: All systems reviewed & are unremarkable except as noted in Subjective Physical Exam Constitutional: WD/WN, vitals as above Gastrointestinal (Abdomen): normal bowel sounds, soft, nontender, no hepatosplenomegaly Results & Data ([facility]) Vital Signs (Past 12 Hours) Vital Signs Temp Pulse Pulse Resp BP Pulse Ox 09/24/21 07:23 54 L 09/24/21 06:22 37.0 C 63 18 151/80 H 97 09/23/21 22:27 37.1 C 58 L 20 150/77 H 97 09/23/21 22:17 54 L Laboratory Results Laboratory Results - last 24 hr 09/21/21 09/23/21 09/24/21 12:29 18:13 07:44 WBC 23.79 H RBC 4.25 L Hgb 12.1 L 12.4 L Hct 35.4 L 37.7 L MCV 88.7 MCH 29.2 MCHC 32.9 RDW Std Deviation 55.0 H RDW Coeff of Sayra 17.1 H Plt Count 9 L* D 3 L* D Absolute Nucleated RBC 1.85 H Nucleated RBC % (auto) 7.8 Platelet Estimate SIGNIFIC DECREASED SIGNIFIC DECREASED Blood Type O Positive Antibody Screen NEGATIVE
[2021-09-24 08:50] LABS: Hematocrit (blood only) 37.7 % (42-52); Hemoglobin 12.4 g/dL (14.0-18.0); Mean Corpuscular Hemoglobin 29.2 pg (25-34); Mean Corpuscular Volume 88.7 fL (80-100); Nucleated RBC # (auto) 1.85 K/uL (0-0); Nucleated RBC % (auto) 7.8 %; Platelet Count 3 K/uL (130-400); RDW Coefficient of Variation 17.1 % (11.5-14.5); Red Blood Count 4.25 M/uL (4.7-6.1); White Blood Count 23.79 K/uL (4.8-10.8)
[2021-09-24 08:56] LABS: Mean Corpuscular Hgb Conc 32.9 g/dL (32-36); Platelet Estimate SIGNIFIC DECREASED (Normal)
[2021-09-24] MEDS: amLODIPine BESYLATE 5 MG TAB PO SCH (09:33)
[2021-09-24] MEDS: OLMESARTAN MEDOXOMIL 40 MG TAB PO SCH (09:33)
[2021-09-24] MEDS: ATORVASTATIN 20 MG TAB PO SCH (09:33)
[2021-09-24] MEDS: ACETAMINOPHEN 325 MG TAB PO PRN ×2 (10:05→16:50)
[2021-09-24] MEDS ORDERED: IMMUNE GLOBULIN (HUMAN) SOLN IV ONE (10:11)
[2021-09-24 12:11] LABS: ALC (manual) 1.86 K/uL (1.2-3.4); ANC (manual) 11.58 K/uL (1.4-6.5); Lymphocytes # (manual) 1.86 K/uL (1.2-3.4); Lymphocytes % (manual) 7.8 %; Metamyelocytes # (manual) 0.21 K/uL (0-0); Metamyelocytes % (manual) 0.9 %; Monocytes # (manual) 8.69 K/uL (0.11-0.59); Monocytes % (manual) 36.5 %; Myelocytes # (manual) 1.45 K/uL (0-0); Myelocytes % (manual) 6.1 %; Neutrophils # (manual) 11.58 K/uL (1.4-6.5); Neutrophils % (manual) 48.7 %
[2021-09-24] MEDS: IMMUN GLOBG(IGG)/MALT/IGA OV50 200 ML IV SCH ×5 (12:23→16:52)
[2021-09-24] MEDS: PANTOprazole 40 MG TAB PO SCH (13:06)
[2021-09-24] MEDS: predniSONE 10 MG TABLET PO SCH (13:06)
--- NOTE | 2021-09-24 13:06 | CT Scan Report ---
CT abd pelvis wo con CLINICAL HISTORY: ITP, thrombocytopenia . Bilateral flank pain COMPARISON STUDY: 10/23/2020 CT DOSE: 1292.32 mGycm TECHNIQUE: Standard CT of the Abdomen and Pelvis was performed without IV contrast. The patient did not receive oral contrast. A dose lowering technique was utilized adhering to the principles of ALAR A. FINDINGS: Lung base: The lung bases are clear. 3 mm lingular nodule is again seen. Abdominal cavity: There is no evidence for abdominal mass, adenopathy or ascites. Liver: The liver is homogeneous in attenuation on these limited noncontrast images.. Spleen: The spleen is homogeneous in attenuation on these limited noncontrast images. There is again megaly. Pancreas: The pancreas is homogeneous in attenuation on these limited noncontrast images. Gall Bladder: The gallbladder is well distended with no evidence for cholelithiasis, wall thickening or pericholecystic edema.. Adrenal glands: The adrenal glands are normal in size and attenuation on these limited noncontrast im ages. Kidneys: The kidneys are homogeneous in attenuation on these limited noncontrast images. There are 2, 2 to 3 mm nonobstructing right renal calculi and a single 2 mm left renal calculus. There is also no nobstructing with no evidence for hydronephrosis bilaterally. There is no gross renal mass on these l imited noncontrast images. Bowel: The bowel loops are normally placed within the abdomen and pelvis without evidence for dilatat ion or obstruction. There is no evidence for mass lesion. There are no inflammatory changes present. There is no evidence for free air. There is a normal appendix in the right lower quadrant. Bladder: There is no evidence for focal bladder wall thickening, calculus or diverticulum. : There is no evidence for pelvic mass or adenopathy. Vasculature: There is no evidence for focal aneurysmal dilatation of the abdominal aorta. Atheroscler otic calcification is present. Osseous structures: There is no acute osseous pathology. Degenerative changes are seen within the spi ne. IMPRESSION: 1. Compared to the previous examination, there is again evidence for splenomegaly. 2. Otherwise, no acute intra-abdominal or pelvic abnormality on these limited noncontrast images. 3. Nonobstructing bilateral renal calculi are again seen. 4. Additional nonacute findings are delineated above. ACT 112: Negative or not required by law. Electronically signed by: Jesse Rojas M.D. 09/24/2021 1:04 PM
--- NOTE | 2021-09-24 13:47 | Hospitalist Progress Note ---
Date of Service September 24, 2021 Assessment & Plan (1) Thrombocytopenia: Plan: Patient with history of CMML. ER discussed the case with Dr. Centeno, his launderer hand from [place]. He noted that their target would be a platelet count of 30 and agreed with platelet transfusion. Will transfuse platelets on 09/22 as count dropped to 6. Consult [facility] hematology On 09/22 completed 4th dose of 40 mg of decadron. will recheck platelets BID. Ordered 1 gr/kg IVIG on 09/22 2nd dose of IVIG 1gr/kg on 09/23 3rd dose of IVIG on 09/24 Awaiting response. Platelets dropped to 3 on 09/24 transfuse another of platelets. D/W Dr. Centeno, no transfer needed at this time. continue current plan. d/w hematology: agree with above plan. ordered immature platelet fraction which was elevated. (2) CML (chronic myelocytic leukemia): Plan: No signs of active infection (3) Acute GI bleeding: Plan: melena due to low platelets will hold off endoscopy. no need for transfusion. hemoglobin is stable today. (4) Anemia: Plan: hemoglobin is stable will monitor (5) HTN (hypertension): Plan: BP is elevated. On amlodipine and olmesartan (6) Hypercholesteremia: Plan: resume atorvastatin Admission and Anticipated Discharge Date Admission Date: September 21, 2021 Subjective Patient denies any fever, chills, nausea, vomiting. Review of Systems Review of Systems: All systems reviewed & are unremarkable except as noted in HPI & below Physical Exam Constitutional: WD/WN, vitals as above Eyes: PERRL, conjunctivae normal, anicteric sclerae ENMT: external ear and nose normal, oropharynx normal Neck: trachea midline, no thyromegaly Respiratory: normal respiratory effort, lungs clear to auscultation Cardiovascular: RRR, no murmur, no edema Gastrointestinal (Abdomen): normal bowel sounds, soft, nontender, no hepatosplenomegaly Musculoskeletal: no cyanosis or clubbing, extremities motor strength 5/5 Skin: no rashes, warm and dry Neurologic: PERRL, EOMI, accommodation nl, no face palsy, no dysarthria Psychiatric: A+Ox3, euthymic affect Lymphatic: no cervical or axillary lymphadenopathy Results & Data Results & Data ([facility]) Vital Signs (Past 12 Hours) Vital Signs Temp Pulse Pulse Resp BP BP Pulse Ox 09/24/21 11:54 36.6 C 68 18 158/68 H 96 09/24/21 11:25 36.7 C 65 18 160/76 H 95 09/24/21 11:10 36.7 C 63 16 144/84 H 95 09/24/21 10:53 36.7 C 64 18 161/74 H 96 09/24/21 07:23 54 L 09/24/21 06:22 37.0 C 63 18 151/80 H 97 PG Care Time/CCT Total # of Minutes Spent Total Time Spent with Patient: Total time spent is greater than 50% in coordination of care (as documented) at patient's floor/unit and/or counseling patient: Coding Level of Care Code 38539 Subseq Hosp Care Lvl 3 Diagnoses Thrombocytopenia D69.6 CML (chronic myelocytic leukemia) C92.10 Acute GI bleeding K92.2 Anemia D64.9 HTN (hypertension) I10 Hypercholesteremia E78.00 Time Spent (min) 40
--- NOTE | 2021-09-24 17:42 | Consultation Report ---
DATE OF SERVICE: 09/24/2021. REASON FOR CONSULTATION: CMML and ITP. HISTORY OF PRESENT ILLNESS: The patient is a pleasant 61-year-old gentleman being followed primarily by Hematology at [facility] under the care of Dr. Centeno for CMML and ITP. Patient has also had intermittent follow up locally at [facility] with Rubia/Dr. Tim. He was admitted with severe thrombocytopenia, suspected to be due to ITP, for which he has received high dose dexamethasone 40 mg daily x4 days and also received IVIG 1 gram per kg per day x2 days. Despite this, platelet count has remained low with CBC from today demonstrating platelet count of 3000. During my evaluation of patient, he states that he noticed significant headaches several days ago which was similar to prior presentation last year at which time he was found to have severely low platelet count which responsed to dexamethasone 40 mg daily x4 days. CT head obtained during admission was negative for bleeding. He denies recent infections, weight loss, fever, chills, night sweats or any other issues. PAST MEDICAL HISTORY: 1. CMML. 2. Hypertension. 3. Hypercholesterolemia. 4. Depression. SOCIAL HISTORY: Denies smoking history. Drinks alcohol occasionally and denies illicit drug use. HOME MEDICATIONS: Omeprazole 20 mg p.o. daily, amlodipine/olmesartan, atorvastatin 20 mg p.o. daily, Zofran 4 mg p.o. q. 6 hours as needed, testosterone supplementation 150 mg IM every 14 days. ALLERGIES: No known drug allergies. REVIEW OF SYSTEMS: Unremarkable except for occasional headaches. PHYSICAL EXAMINATION: VITAL SIGNS: Blood pressure 145/79, heart rate 60, respiratory rate 18, temperature 37.1, oxygen saturation 95% on room air. GENERAL: Obese gentleman in no obvious distress. RESPIRATORY: Lung sounds were generally clear bilaterally. CARDIOVASCULAR: Heart was regular rate and rhythm without significant murmur, gallops or rubs. GASTROINTESTINAL: Positive for splenomegaly. LYMPHATIC SYSTEM: No palpable peripheral lymphadenopathy. EXTREMITIES: No edema or erythema noted bilaterally. LABORATORY STUDIES: CBC on 09/24/2021, significant for white count of 23,000, hemoglobin of 12.4, hematocrit of 37.5, platelet count 3000. IMAGING STUDIES: CT head on 09/21/2021 negative for acute intracranial abnormality. ASSESSMENT/PLAN: 1. Chronic myelomonocytic leukemia. 2. 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 3. Headaches. 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 Patient has received dexamethasone 40 mg daily x4 days and also received IVIG 1g/kg x2 days with also no significant improvement in platelet count. Of note, last year, patient had received dexamethasone for similar presentation with response to treatment. Given lack of response to IVIG, would be concerned about possible progression of his underlying CMML. As such, would recommend obtaining a flow cytometry on peripheral blood. Also recommend obtaining abdominal imaging to assess for worsening splenomegaly with resultant sequestration. Recommend also given another dose of IVIG 1 gram per kg per day for third day. Would also recommend starting the patient on prednisone 1 mg/ kg/ day with slow taper to see if he responds. Following my discussion with the patient, I also discussed with the patient's over the phone who indicated that his single pointed operator at [facility] has requested for transfer there. I think this is very reasonable as I suspect that he would need a repeat bone marrow biopsy to assess for disease progression. Thank you for this consult. Hematology will sign off at this time and we will see the patient as needed at [facility] in the future. Please feel free to call if you have any further questions. Job ID: [id number] [facility]
[2021-09-24 18:35] LABS: Hematocrit (blood only) 35.6 % (42-52); Hemoglobin 11.8 g/dL (14.0-18.0); Platelet Count 4 K/uL (130-400)
[2021-09-24 18:37] LABS: Platelet Estimate SIGNIFIC DECREASED (Normal)
[2021-09-24] MEDS: MELATONIN 3 MG TAB PO PRN (23:00)
[2021-09-25] MEDS: PANTOprazole 40 MG in DEXTROSE 5% 100 ML IV SCH ×2 (03:29→08:24)
[2021-09-25] MEDS: amLODIPine BESYLATE 5 MG TAB PO SCH (08:20)
[2021-09-25] MEDS: PANTOprazole 40 MG TAB PO SCH (08:20)
[2021-09-25] MEDS: OLMESARTAN MEDOXOMIL 40 MG TAB PO SCH (08:21)
[2021-09-25] MEDS: predniSONE 10 MG TABLET PO SCH (08:21)
[2021-09-25] MEDS: ATORVASTATIN 20 MG TAB PO SCH (08:21)
--- NOTE | 2021-09-25 08:48 | Gastroenterology Progress Note ---
Date of Service September 25, 2021 Assessment & Plan (1) Acute GI bleeding: Plan: Anemia: Patient has had no further black stools since admission. His platelet count continues to be low this morning at 4000 so will defer EGD at this time. Hemoglobin stable at 11.8 and hct 35.6. Tolerating po regular diet. Continue PPI to cover upper GI bleed. Will plan to evaluated patient in outpatient setting once platelets normalize to evaluated for endoscopy. Case reviewed with Dr. Keith. Please refer to supervising physician addendum for further recommendations. I have spent 10 minutes of discrete time performing the activities of this visit which include but are not limited to review of the medical record, obtaining a history, physical exam, and entering information in the electronic record. (2) Anemia: (3) CML (chronic myelocytic leukemia): (4) Thrombocytopenia: Admission and Anticipated Discharge Date Admission Date: September 21, 2021 Supervising Physician Co-Signing Physician Notes I have seen and examined the patient. I agree with note above by UNA Watts except as noted below. HPI wtih patient for H and P. He denies abd pain. Stools normal color. Hgb 12.3 stable, plts 6. PE Abdomen A/P anemia melena No evidence of active bleeding. Plts remain low. Would continue PPI and send patient for outpt followup. Will sign off. As the supervising physician, I , Gerson Keith MD have spent 11 minutes of discrete time performing the activities of this visit which include but not limited to review of the medical records, obtaining a history, physical exam and entering information in the electronic record. UNA Watts has reported spending 10 minutes of discrete time with the activities of this visit. Subjective Patient is awake alert and oriented this morning. He is sitting in a chair eating his regular breakfast this morning. Denies any GI associated symptoms including abdominal pain, nausea, vomiting. No melena or hematochezia with bowel movement. Review of Systems Review of Systems: All systems reviewed & are unremarkable except as noted in Subjective Physical Exam Constitutional: WD/WN, vitals as above Gastrointestinal (Abdomen): normal bowel sounds, soft, nontender, no hepatosplenomegaly Results & Data ([facility]) Vital Signs (Past 12 Hours) Vital Signs Temp Pulse Pulse Resp BP Pulse Ox 09/25/21 07:46 36.5 C 59 L 20 153/83 H 97 09/25/21 07:26 54 L 09/25/21 04:37 36.7 C 58 L 18 162/75 H 93 09/24/21 22:21 36.6 C 56 L 20 151/70 H 98 09/24/21 22:18 53 L Laboratory Results Laboratory Results - last 24 hr 09/24/21 09/24/21 09/24/21 07:44 07:44 17:54 WBC 23.79 H RBC 4.25 L Hgb 12.4 L 11.8 L Hct 37.7 L 35.6 L MCV 88.7 MCH 29.2 MCHC 32.9 RDW Std Deviation 55.0 H RDW Coeff of Sayra 17.1 H Plt Count 3 L* D 4 L* Absolute Nucleated RBC 1.85 H Nucleated RBC % (auto) 7.8 Neutrophils % (Manual) 48.7 Lymphocytes % (Manual) 7.8 Monocytes % (Manual) 36.5 Metamyelocytes % (Man) 0.9 Myelocytes % (Man) 6.1 Neutrophils # (Manual) 11.58 H Total Absolute Neuts 11.58 H Lymphocytes # (Manual) 1.86 Total Abs Lymphocytes 1.86 Monocytes # (Manual) 8.69 H Metamyelocytes # (Man) 0.21 H Myelocytes # (Manual) 1.45 H Platelet Estimate SIGNIFIC DECREASED SIGNIFIC DECREASED Peripher Smr Path Cons Cancelled Diagnostic Findings Abdomen/Pelvis CT 09/24/21 10:07 CT abd pelvis wo con CLINICAL HISTORY: ITP, thrombocytopenia . Bilateral flank pain COMPARISON STUDY: 10/23/2020 CT DOSE: 1292.32 mGycm TECHNIQUE: Standard CT of the Abdomen and Pelvis was performed without IV contrast. The patient did not receive oral contrast. A dose lowering technique was utilized adhering to the principles of ALARA. FINDINGS: Lung base: The lung bases are clear. 3 mm lingular nodule is again seen. Abdominal cavity: There is no evidence for abdominal mass, adenopathy or ascites. Liver: The liver is homogeneous in attenuation on these limited noncontrast images.. Spleen: The spleen is homogeneous in attenuation on these limited noncontrast images. There is again megaly. Pancreas: The pancreas is homogeneous in attenuation on these limited noncontrast images. Gall Bladder: The gallbladder is well distended with no evidence for cholelithiasis, wall thickening or pericholecystic edema.. Adrenal glands: The adrenal glands are normal in size and attenuation on these limited noncontrast images. Kidneys: The kidneys are homogeneous in attenuation on these limited noncontrast images. There are 2, 2 to 3 mm nonobstructing right renal calculi and a single 2 mm left renal calculus. There is also nonobstructing with no evidence for hydronephrosis bilaterally. There is no gross renal mass on these limited no ncontrast images. Bowel: The bowel loops are normally placed within the abdomen and pelvis without evidence for dilatation or obstruction. There is no evidence for mass lesion. There are no inflammatory changes present. There is no evidence for free air. There is a normal appendix in the right lower quadrant. Bladder: There is no evidence for focal bladder wall thickening, calculus or diverticulum. : There is no evidence for pelvic mass or adenopathy. Vasculature: There is no evidence for focal aneurysmal dilatation of the abdominal aorta. Atherosclerotic calcification is present. Osseous structures: There is no acute osseous pathology. Degenerative changes are seen within the spine. IMPRESSION: 1. Compared to the previous examination, there is again evidence for splenomegaly. 2. Otherwise, no acute intra-abdominal or pelvic abnormality on these limited noncontrast images. 3. Nonobstructing bilateral renal calculi are again seen. 4. Additional nonacute findings are delineated above. ACT 112: Negative or not required by law. Electronically signed by: Jeses Rojas M.D. 09/24/2021 1:04 PM
[2021-09-25 10:09] LABS: BUN Creatinine Ratio 26.5 (10-20); Calcium 8.3 mg/dl (8.5-10.1); Creatinine Clr Calc Pharmacy 127.2 ml/min; Est GFR (African American) 109.3 ml/min; Est GFR (Non-African American) 94.3 ml/min; Potassium 3.3 mmol/L (3.5-5.1)
[2021-09-25 10:21] LABS: Hematocrit (blood only) 37.3 % (42-52); Hemoglobin 12.3 g/dL (14.0-18.0); Mean Corpuscular Hemoglobin 29.2 pg (25-34); Mean Corpuscular Volume 88.6 fL (80-100); Nucleated RBC % (auto) 3.6 %; Platelet Count 6 K/uL (130-400); RDW Coefficient of Variation 17.2 % (11.5-14.5); RDW Standard Deviation 54.1 fL (36.4-46.3); Red Blood Count 4.21 M/uL (4.7-6.1); White Blood Count 36.34 K/uL (4.8-10.8)
[2021-09-25 10:23] LABS: Platelet Estimate SIGNIFIC DECREASED (Normal)
[2021-09-25] MEDS: ACETAMINOPHEN 325 MG TAB PO PRN (18:23)
[2021-09-25 19:14] LABS: Platelet Count 3 K/uL (130-400); Platelet Estimate SIGNIFIC DECREASED (Normal)
--- NOTE | 2021-09-25 21:23 | Hospitalist Progress Note ---
Date of Service September 25, 2021 Assessment & Plan (1) Thrombocytopenia: Plan: Patient with history of CMML. ER discussed the case with Dr. Centeno, his primary operator from [place]. He noted that their target would be a platelet count of 30 and agreed with platelet transfusion. Will transfuse platelets on 09/22 as count dropped to 6. Consult [facility] hematology On 09/22 completed 4th dose of 40 mg of decadron. will recheck platelets BID. Ordered 1 gr/kg IVIG on 09/22 2nd dose of IVIG 1gr/kg on 09/23 3rd dose of IVIG on 09/24 Awaiting response. Platelets dropped to 3 on 09/24 transfuse another of platelets. D/W Dr. Centeno, no transfer needed at this time. continue current plan. d/w hematology: agree with above plan. ordered immature platelet fraction which was elevated. Will transfuse platelets on 09/25 as pm lab is low at 3. (2) CML (chronic myelocytic leukemia): Plan: No signs of active infection (3) Acute GI bleeding: Plan: melena due to low platelets will hold off endoscopy. no need for transfusion. hemoglobin is stable today. (4) Anemia: Plan: hemoglobin is stable will monitor (5) HTN (hypertension): Plan: BP is elevated. On amlodipine and olmesartan (6) Hypercholesteremia: Plan: resume atorvastatin Admission and Anticipated Discharge Date Admission Date: September 21, 2021 Subjective Patient reports no new symptoms. Review of Systems Review of Systems: All systems reviewed & are unremarkable except as noted in HPI & below Physical Exam Constitutional: WD/WN, vitals as above Eyes: PERRL, conjunctivae normal, anicteric sclerae ENMT: external ear and nose normal, oropharynx normal Neck: trachea midline, no thyromegaly Respiratory: normal respiratory effort, lungs clear to auscultation Cardiovascular: RRR, no murmur, no edema Gastrointestinal (Abdomen): normal bowel sounds, soft, nontender, no hepatosplenomegaly Musculoskeletal: no cyanosis or clubbing, extremities motor strength 5/5 Skin: no rashes, warm and dry Neurologic: PERRL, EOMI, accommodation nl, no face palsy, no dysarthria Psychiatric: A+Ox3, euthymic affect Lymphatic: no cervical or axillary lymphadenopathy Results & Data Results & Data ([place]) Vital Signs (Past 12 Hours) Vital Signs Temp Pulse Pulse Resp BP BP Pulse Ox 09/25/21 19:00 36.6 C 75 18 146/75 H 96 09/25/21 15:53 69 09/25/21 15:00 09/25/21 14:39 36.8 C 65 20 164/80 H 96 09/25/21 11:10 37.1 C 60 20 135/79 98 Pulse Ox 09/25/21 19:00 09/25/21 15:53 09/25/21 15:00 95 09/25/21 14:39 09/25/21 11:10 PG Care Time/CCT Total # of Minutes Spent Total Time Spent with Patient: Total time spent is greater than 50% in coordination of care (as documented) at patient's floor/unit and/or counseling patient: Coding Level of Care Code 86879 Subseq Hosp Care Lvl 2 Diagnoses Thrombocytopenia D69.6 CML (chronic myelocytic leukemia) C92.10 Acute GI bleeding K92.2 Anemia D64.9 HTN (hypertension) I10 Hypercholesteremia E78.00
[2021-09-25] MEDS: MELATONIN 3 MG TAB PO PRN (22:09)
[2021-09-26 06:36] LABS: Hematocrit (blood only) 30.5 % (42-52); Hemoglobin 9.9 g/dL (14.0-18.0); Mean Corpuscular Hemoglobin 28.9 pg (25-34); Mean Corpuscular Hgb Conc 32.5 g/dL (32-36); Mean Corpuscular Volume 89.2 fL (80-100); Nucleated RBC # (auto) 1.79 K/uL (0-0); Nucleated RBC % (auto) 3.7 %; Platelet Count 11 K/uL (130-400); RDW Coefficient of Variation 17.6 % (11.5-14.5); Red Blood Count 3.42 M/uL (4.7-6.1); White Blood Count 47.94 K/uL (4.8-10.8)
[2021-09-26] MEDS: PANTOprazole 40 MG TAB PO SCH (08:05)
[2021-09-26] MEDS: OLMESARTAN MEDOXOMIL 40 MG TAB PO SCH (08:06)
[2021-09-26] MEDS: amLODIPine BESYLATE 5 MG TAB PO SCH (08:06)
[2021-09-26] MEDS: ATORVASTATIN 20 MG TAB PO SCH (08:06)
[2021-09-26] MEDS ORDERED: predniSONE 20 MG TAB PO SCH (09:00)
--- NOTE | 2021-09-26 09:27 | Ultrasound Report ---
BILATERAL LOWER EXTREMITY VENOUS DOPPLER HISTORY: right lower leg swelling COMPARISON STUDY: None. FINDINGS: There is normal compressibility, flow, and augmentation within the bilateral lower extremit y deep venous systems. Nonocclusive thrombus identified within the superficial vein within the right lateral thigh. This measures 2.4 cm in length. IMPRESSION: 1. No DVT within the right or left lower extremity. 2. A short segment of nonocclusive thrombus seen within a superficial vein of the right lateral thigh . ACT 112: Negative or not required by law. Electronically signed by: Dennis Hernadez M.D. 09/26/2021 9:26 AM
[2021-09-26] MEDS: ACETAMINOPHEN 325 MG TAB PO PRN ×2 (12:21→19:27)
[2021-09-26 19:53] LABS: Hematocrit (blood only) 32.7 % (42-52); Hemoglobin 10.9 g/dL (14.0-18.0); Platelet Count 9 K/uL (130-400); Platelet Estimate SIGNIFIC DECREASED (Normal)
[2021-09-26 20:00] LABS: Iron 74 mcg/dl (35-175); Transferrin 185 mg/dl (200-360)
[2021-09-26] MEDS ORDERED: PANTOprazole 40 MG in SYRINGE 0 ML IV SCH (21:00)
--- NOTE | 2021-09-26 21:08 | Hospitalist Progress Note ---
Date of Service September 26, 2021 Assessment & Plan (1) Thrombocytopenia: Plan: Patient with history of CMML. ER discussed the case with Dr. Centeno, his retirement actuary from [place]. He noted that their target would be a platelet count of 30 and agreed with platelet transfusion. Will transfuse platelets on 09/22 as count dropped to 6. Consult [facility] hematology On 09/22 completed 4th dose of 40 mg of decadron. will recheck platelets BID. Ordered 1 gr/kg IVIG on 09/22 2nd dose of IVIG 1gr/kg on 09/23 3rd dose of IVIG on 09/24 Awaiting response. Platelets dropped to 3 on 09/24 transfuse another of platelets. D/W Dr. Centeno, no transfer needed at this time. continue current plan. d/w hematology: agree with above plan. ordered immature platelet fraction which was elevated. Will transfuse platelets on 09/25 as pm lab is low at 3. (2) CML (chronic myelocytic leukemia): Plan: No signs of active infection (3) Acute GI bleeding: Plan: melena due to low platelets will hold off endoscopy. no need for transfusion. hemoglobin is stable today. (4) Anemia: Plan: hemoglobin is stable will monitor (5) HTN (hypertension): Plan: BP is elevated. On amlodipine and olmesartan (6) Hypercholesteremia: Plan: resume atorvastatin Admission and Anticipated Discharge Date Admission Date: September 21, 2021 Physical Exam Constitutional: WD/WN, vitals as above Eyes: PERRL, conjunctivae normal, anicteric sclerae ENMT: external ear and nose normal, oropharynx normal Neck: trachea midline, no thyromegaly Respiratory: normal respiratory effort, lungs clear to auscultation Cardiovascular: RRR, no murmur, no edema Gastrointestinal (Abdomen): normal bowel sounds, soft, nontender, no hepatosplenomegaly Musculoskeletal: no cyanosis or clubbing, extremities motor strength 5/5 Skin: no rashes, warm and dry Neurologic: PERRL, EOMI, accommodation nl, no face palsy, no dysarthria Psychiatric: A+Ox3, euthymic affect Lymphatic: no cervical or axillary lymphadenopathy Results & Data Results & Data ([facility]) Vital Signs (Past 12 Hours) Vital Signs Temp Pulse Pulse Resp BP Pulse Ox 09/26/21 19:00 36.6 C 65 18 135/78 95 09/26/21 14:56 74 09/26/21 14:45 36.6 C 91 H 20 153/77 H 96 09/26/21 11:23 37.3 C 67 20 137/79 96 PG Care Time/CCT Total # of Minutes Spent Total Time Spent with Patient: Total time spent is greater than 50% in coordination of care (as documented) at patient's floor/unit and/or counseling patient: Coding Diagnoses Thrombocytopenia D69.6 CML (chronic myelocytic leukemia) C92.10 Acute GI bleeding K92.2 Anemia D64.9 HTN (hypertension) I10 Hypercholesteremia E78.00
--- NOTE | 2021-09-27 05:49 | Discharge Summary ---
Date of Service September 26, 2021 Admission HPI Per Admitting Provider 61 yo male with history of CML presents to the ER with a subacute headache and new onset melena. Patient has been to the ER multiple times for headache and thrombocytopenia this week. Patient is finishing his 4th dose of 40 mg of decadron today. Patient reports though that his headache is constant, accompanied by photophobia. Patient reports his headache is 6/10 intensity. In regards to his stools, he had 2 BM this AM and they were both black. One was loose, and "regular amount of stool. The other Bowel movement was small. Patient returnd to the ER and again was found to be thrombocytoepenic. Discussion with Hematology from [facility] recommended an admission. ER had discussed the case with Dr. Centeno, his licsw from [place]. He noted that their target would be a platelet count of 30 and agreed with platelet transfusion. Principal Diagnosis Thrombocytopenia Discharge Exam Constitutional WD/WN, vitals as above Eyes PERRL, conjunctivae normal, anicteric sclerae ENMT external ear and nose normal, oropharynx normal Neck trachea midline, no thyromegaly Respiratory normal respiratory effort, lungs clear to auscultation Cardiovascular RRR, no murmur, no edema Gastrointestinal (Abdomen) normal bowel sounds, soft, nontender, no hepatosplenomegaly Musculoskeletal no cyanosis or clubbing, extremities motor strength 5/5 Skin no rashes, warm and dry Neurologic PERRL, EOMI, accommodation nl, no face palsy, no dysarthria Psychiatric A+Ox3, euthymic affect Lymphatic no cervical or axillary lymphadenopathy Discharge Data Allergies Allergy/AdvReac Type Severity Reaction Status Date / Time No Known Allergies Allergy Mild 0 Verified 09/19/21 19:27 Consultations 09/21/21 14:42 ED Decision to Admit Stat 09/21/21 14:55 Consult Gastroenterology Routine 09/22/21 11:37 Consult Hematology Routine 09/26/21 12:46 Burn CD for patient Routine Ordered Studies 09/21/21 12:27 CT head/brain wo con Stat 09/24/21 10:07 CT abd pelvis wo con Routine 09/26/21 08:03 US venous doppler LE BI Routine Hospital Course (1) Thrombocytopenia: Patient with history of CMML. ER discussed the case with Dr. Centeno, his licsw from [place]. He noted that their target would be a platelet count of 30 and agreed with platelet transfusion. Will transfuse platelets on 09/22 as count dropped to 6. Consult [facility] hematology On 09/22 completed 4th dose of 40 mg of decadron. will recheck platelets BID. Ordered 1 gr/kg IVIG on 09/22 2nd dose of IVIG 1gr/kg on 09/23 3rd dose of IVIG on 09/24 Awaiting response. Platelets dropped to 3 on 09/24 transfuse another of platelets. D/W Dr. Centeno, no transfer needed at this time on 09/24/21 continue current plan. Informed family and patient of Dr. Centeno decision. Informed them that patient could be transferred via patient request. However, insurance may or may not cover transfer. Asked if they wanted to pursue transfer, and and patient stated they did not. d/w hematology: agree with above plan. ordered immature platelet fraction which was elevated. On 09/26/21: Called [facility] again as patient's platelet have not improved, The accepting provider states treatment may require a bone marrow transplant. They are agreeable to transfer AND MAY CONSIDER A BONE MARROW BIOPSY. D/w patient and , who are also agreeable for transfer. (2) CML (chronic myelocytic leukemia): No signs of active infection (3) Acute GI bleeding: melena due to low platelets will hold off endoscopy. no need for transfusion. hemoglobin is stable today. (4) Anemia: hemoglobin is stable will monitor (5) HTN (hypertension): BP is elevated. On amlodipine and olmesartan (6) Hypercholesteremia: resume atorvastatin Total Time Total Time Spent Total Time Spent (In Minutes): 65 Discharge Plan Discharge Items Patient Disposition: Transfer Acute [facility] Reason For Visit: ANEMIA/ DARK STOOLS Discharge Diagnosis: anemia/dark stools; ITP Activity: Resume your previous activity Non-emergency contact: Primary Care Provider Call non-emergency contact if: you have any medication questions Follow-up/Referrals: Jessica Cuevas MD [Primary Care Provider] - Diet: Regular Addtl Attending Provider Instructions: Transferred to [facility]. Pending Studies at Discharge: No Stand-Alone Forms: My [employer] Skilled Items Patient informed of condition?: Yes DNR: No Discharge Level of Care: Other Communicable Disease: No Discharge Prognosis: Stable Lines: None Urinary Catheter: No Medications and DC Order Prescriptions: New prednisone 20 mg Tablet 80 mg PO DAILY Qty: 10 RF: 0 pantoprazole 40 mg Tablet,Delayed Release (Dr/Ec) 40 mg PO BID Qty: 30 RF: 0 Continued atorvastatin 20 mg tablet 20 mg PO QAM RF: 0 testosterone cypionate 100 mg/mL oil 150 mg IM Q14D RF: 0 amlodipine-olmesartan 5-40 mg tablet 1 tab PO QAM RF: 0 ondansetron HCl 4 mg tablet 4 mg PO Q6H PRN (Reason: nausea and vomiting) Qty: 20 RF: 0 Discontinued omeprazole 20 mg capsule,delayed release(DR/EC) 20 mg PO DAILY PRN (Reason: Acid Reflux) RF: 0 Discharge Orders: Discharge Order (Routine); Ordered 09/26/21 Ordered By: Stefan Elkins Admission Data Admit Date/Time: 09/21/21 14:22 Attending Provider: Stefan Elkins Admit Provider: Stefan Elkins Primary Care Provider: Jessica Cuevas Other Providers: Stefan Elkins ; Gerson Keith ; Nikia Regalado Other Interventions: Discharge Summary Assessment (RN) Last Done: 09/26/21 22:11 Coding Level of Care Code D/C DAY MANAGEMENT >30 MINS Diagnoses Thrombocytopenia D69.6 CML (chronic myelocytic leukemia) C92.10 Acute GI bleeding K92.2 Anemia D64.9 HTN (hypertension) I10 Hypercholesteremia E78.00
== END 2021-09-26 23:10 | disposition short-term general hospital (02) | DRG 813 ==
LOC: ED 10:55 → 2W 14:22

== ENCOUNTER 2021-11-20 20:24 | Inpatient (IN) ==
[2021-11-20] MEDS ORDERED: SODIUM CHLORIDE 0.9% 1000ML 1,000 ML IV ONE (20:45)
--- NOTE | 2021-11-20 20:48 | Emergency Department Note ---
Impression & Plan Fever and neutropenia, Thrombocytopenia ED Provider Note NAME: MELISSA ESQUIVEL AGE: 61 SEX: M : 1960 ARRIVES VIA: Walk-In INFORMANT: Patient, ED PROVIDER(S): Manish Cummings DO CHIEF COMPLAINT: Fever HPI: The patient is a 61-year-old male who presented to the emergency department for an evaluation of febrile illness. The patient states that he has a history of leukemia. He was recently in [facility] today for platelet transfusion. The patient states he started having chills earlier in the day. He states he felt "off" yesterday. He states that the had some body aches. He took Tylenol at approximately 5 PM. He states that he has no rashes or swelling in the legs. He denies having any diarrhea but has had some constipation and some abdominal cramping recently but currently has no abdominal pain. He denies having any cough. He does have a port in his right chest wall that was placed approximately a week ago. He had a PICC line removed from his right upper extremity about a week ago. He denies having any swelling or pain in the right upper extremity. There is some ecchymosis around the site of the port in his right chest wall. He had cultures done while he was at [facility] today getting platelet transfusion. ROS: See above HPI for pertinent positives & negatives. A total of 10 systems reviewed and were otherwise negative. PAST MEDICAL HISTORY: See Below PAST SURGICAL HISTORY: See Below FAMILY HISTORY: See Below SOCIAL HISTORY: See Below HOME MEDICATIONS: See Below ALLERGIES: See Below VITALS: See Below PHYSICAL EXAMINATION: GENERAL: Patient is awake alert in no acute distress patient is resting comfortably and showing no signs of anxiety EYES: The conjunctivae are clear. The pupils are round and reactive. EARS, NOSE, MOUTH AND THROAT: The nose is without any evidence of any deformity. Mucous membranes are moist. Tongue is midline. NECK: The neck is nontender and supple. RESPIRATORY: Normal respiratory effort is noted there is no evidence of wheezing rhonchi or rales CARDIOVASCULAR: Regular rate and rhythm noted there no murmurs rubs or gallops normal S1 normal S2. GASTROINTESTINAL: The abdomen is soft. Abdomen is nontender. MUSCULOSKELETAL/EXTREMITIES: There is no evidence of gross deformity full range of motion is noted in the hips and shoulders. SKIN: The skin is warm and dry. There is a previous PICC line site in the right inner upper arm. There is no induration erythema or swelling noted. There is a port placed in the right chest wall. There is surrounding ecchymosis but no tenderness or erythema was appreciated. NEUROLOGIC: Patient is awake alert and oriented x3. MEDICAL DECISION MAKING: The patient is a 61-year-old male who has a history of leukemia who presented to the emergency department for febrile illness. The patient had a fever at home of 101.7. He was treated with IV fluids and IV antibiotics in the emergency department. He was found to have significant neutropenia. He also has thrombocytopenia by history and received a platelet transfusion at [facility] today. He was treated with cefepime as well as vancomycin as he has a newly placed port in his right chest wall. The patient was reevaluated multiple times. He was feeling much better on reevaluation. I discussed his case with the on-call [facility] hospitalist. They have agreed to evaluate the patient in the emergency department for further management and disposition. Triage Nursing notes reviewed. Prior medical records reviewed Vital Signs: reviewed and remarkable for no significant abnormalities Differential diagnosis: Viral syndrome, otitis, pharyngitis, pneumonia, influenza, meningitis, urinary tract infection, sepsis, bacteremia, as well as other pathologies. ER treatment provided: See below Diagnostics interpreted by me: ECG: EKG was obtained in the emergency department. My interpretation is normal sinus rhythm at [address] segment abnormalities were noted. There was no ectopy. This was compared to a tracing from September 24, 2021. No changes were noted. Cardiac Monitoring: An order was placed for continuous cardiac monitoring. The monitor shows a rate of 71 bpm with sinus rhythm. Laboratory studies: As stated above and show below. Imaging studies: See below Consultation(s): I discussed this case with Dr Mor[facility] Past [facility]/Surg History Medical History (Updated 11/20/21 @ 22:57 by Manish Cummings DO) Depression HTN (hypertension) Hypercholesteremia Social History Smoking Status: Former smoker Hx Alcohol Use: Yes Alcohol type: beer Hx Substance Use: No Preferred Language: Portuguese Communication Ability: Effective Retarder Operator Required: No Beliefs That Will Affect Care: None marital status: Current Living Situation: Spouse Feels Safe at Home: Yes Assistive Devices: None Allergies Allergies Allergy/AdvReac Type Severity Reaction Status Date / Time No Known Allergies Allergy Mild 0 Verified 09/19/21 19:27 Home Meds Home Medications Medication Instructions Recorded Confirmed amlodipine 5 mg-olmesartan 40 mg 1 tab PO QAM 09/18/21 09/19/21 tablet atorvastatin 20 mg tablet 20 mg PO QAM 09/18/21 09/19/21 testosterone cypionate 100 mg/mL 150 mg IM Q14D 09/18/21 09/19/21 intramuscular oil Previous Rx's Medication Instructions Recorded ondansetron HCl 4 mg tablet 4 mg PO Q6H PRN nausea and 09/18/21 vomiting #20 tabs pantoprazole 40 mg tablet,delayed 40 mg PO BID #30 tabs 09/26/21 release prednisone 20 mg tablet 80 mg PO DAILY #10 tabs 09/26/21 Results & Data (ED) Vital Signs Vital Signs - 24 hr 11/20/21 20:26 11/20/21 20:41 11/20/21 20:41 Temperature 37.2 C Temperature Source Oral Pulse Rate 96 H 84 Pulse Rate [Apical] Pulse Rate from SpO2 Sensor Pulse Rhythm Regular Pulse Rhythm [Apical] Pulse Strength [Apical] Respiratory Rate 18 20 20 Respiratory Effort / Characteristics Non-Labored Spontaneous Non-Labored Spontaneous Respiratory Depth Normal Respiratory Pattern Regular Blood Pressure 120/70 Blood Pressure [Left Arm] Blood Pressure Mean 86 Blood Pressure Mean [Left Arm] Blood Pressure Position Sitting Blood Pressure Position [Left Arm] Pulse Oximetry 98 98 98 Oxygen Delivery Method Room Air Room Air Room Air Sepsis Recent Fever Within 48 Hours Yes Sepsis New/Unexplained Change in Mental Status N/A Sepsis Action Taken by Nursing No Action Required 11/20/21 20:41 11/20/21 21:09 11/20/21 21:10 Temperature 37.4 C Temperature Source Oral Pulse Rate 78 Pulse Rate [Apical] 69 Pulse Rate from SpO2 Sensor 79 Pulse Rhythm Pulse Rhythm [Apical] Regular Pulse Strength [Apical] Normal Respiratory Rate 19 22 Respiratory Effort / Characteristics Non-Labored Spontaneous Respiratory Depth Normal Respiratory Pattern Regular Blood Pressure 130/70 Blood Pressure [Left Arm] 137/75 Blood Pressure Mean 90 Blood Pressure Mean [Left Arm] 95 Blood Pressure Position Blood Pressure Position [Left Arm] Sitting Pulse Oximetry 97 98 Oxygen Delivery Method Room Air Sepsis Recent Fever Within 48 Hours Sepsis New/Unexplained Change in Mental Status Sepsis Action Taken by Nursing 11/20/21 21:10 11/20/21 21:15 11/20/21 21:30 Temperature Temperature Source Pulse Rate 80 70 Pulse Rate [Apical] Pulse Rate from SpO2 Sensor 80 70 Pulse Rhythm Pulse Rhythm [Apical] Pulse Strength [Apical] Respiratory Rate 24 17 Respiratory Effort / Characteristics Respiratory Depth Respiratory Pattern Blood Pressure 152/68 H Blood Pressure [Left Arm] Blood Pressure Mean 96 Blood Pressure Mean [Left Arm] Blood Pressure Position Blood Pressure Position [Left Arm] Pulse Oximetry 99 99 Oxygen Delivery Method Sepsis Recent Fever Within 48 Hours Sepsis New/Unexplained Change in Mental Status Sepsis Action Taken by Nursing 11/20/21 21:30 11/20/21 21:45 11/20/21 21:11 Temperature Temperature Source Pulse Rate 70 66 Pulse Rate [Apical] Pulse Rate from SpO2 Sensor 70 67 Pulse Rhythm Pulse Rhythm [Apical] Pulse Strength [Apical] Respiratory Rate 22 22 18 Respiratory Effort / Characteristics Non-Labored Spontaneous Respiratory Depth Respiratory Pattern Blood Pressure Blood Pressure [Left Arm] Blood Pressure Mean Blood Pressure Mean [Left Arm] Blood Pressure Position Blood Pressure Position [Left Arm] Pulse Oximetry 99 100 99 Oxygen Delivery Method Room Air Sepsis Recent Fever Within 48 Hours Sepsis New/Unexplained Change in Mental Status Sepsis Action Taken by Nursing 11/20/21 21:41 11/20/21 22:11 11/20/21 22:41 Temperature Temperature Source Pulse Rate Pulse Rate [Apical] Pulse Rate from SpO2 Sensor Pulse Rhythm Pulse Rhythm [Apical] Pulse Strength [Apical] Respiratory Rate 20 20 20 Respiratory Effort / Characteristics Non-Labored Spontaneous Non-Labored Spontaneous Non-Labored Spontaneous Respiratory Depth Respiratory Pattern Blood Pressure Blood Pressure [Left Arm] Blood Pressure Mean Blood Pressure Mean [Left Arm] Blood Pressure Position Blood Pressure Position [Left Arm] Pulse Oximetry 98 98 99 Oxygen Delivery Method Room Air Room Air Room Air Sepsis Recent Fever Within 48 Hours Sepsis New/Unexplained Change in Mental Status Sepsis Action Taken by Nursing 11/20/21 22:00 11/20/21 22:00 11/20/21 22:30 Temperature Temperature Source Pulse Rate 68 Pulse Rate [Apical] Pulse Rate from SpO2 Sensor 68 Pulse Rhythm Pulse Rhythm [Apical] Pulse Strength [Apical] Respiratory Rate Respiratory Effort / Characteristics Respiratory Depth Respiratory Pattern Blood Pressure 120/61 129/65 Blood Pressure [Left Arm] Blood Pressure Mean 80 86 Blood Pressure Mean [Left Arm] Blood Pressure Position Blood Pressure Position [Left Arm] Pulse Oximetry 99 Oxygen Delivery Method Sepsis Recent Fever Within 48 Hours Sepsis New/Unexplained Change in Mental Status Sepsis Action Taken by Nursing 11/20/21 22:30 11/20/21 22:45 Temperature Temperature Source Pulse Rate 71 71 Pulse Rate [Apical] Pulse Rate from SpO2 Sensor 71 71 Pulse Rhythm Pulse Rhythm [Apical] Pulse Strength [Apical] Respiratory Rate 23 17 Respiratory Effort / Characteristics Respiratory Depth Respiratory Pattern Blood Pressure Blood Pressure [Left Arm] Blood Pressure Mean Blood Pressure Mean [Left Arm] Blood Pressure Position Blood Pressure Position [Left Arm] Pulse Oximetry 98 99 Oxygen Delivery Method Sepsis Recent Fever Within 48 Hours Sepsis New/Unexplained Change in Mental Status Sepsis Action Taken by [facility] Medications Current Medication List: was personally reviewed by me Laboratory Data Attestation: I reviewed the patient's lab results. Result diagrams: 11/20/21 21:05 11/20/21 21:05 Lab Results 11/20/21 11/20/21 11/20/21 Range/Units 21:00 21:05 21:05 WBC 0.27 L* (4.8-10.8) K/ul RBC 2.98 L (4.63-6.08) M/uL Hgb 8.6 L (14.0-18.0) g/dl Hct 26.7 L (40.1-51.0) % MCV 89.6 (80.0-100.0) fL MCH 28.9 (25.0-34.0) pg MCHC 32.2 (32.0-36.0) g/dL RDW Std Deviation 65.9 H (36.4-46.3) fL RDW Coeff of Sayra 20.2 H (11.5-14.5) % Plt Count 9 L* (130-400) K/uL Immature Gran % (Auto) Cancelled Neut % (Auto) Cancelled Lymph % (Auto) Cancelled [place] % (Auto) Cancelled Eos % (Auto) Cancelled Baso % (Auto) Cancelled Neut # (Auto) Cancelled Lymph # (Auto) Cancelled [place] # (Auto) Cancelled Eos # (Auto) Cancelled Baso # (Auto) Cancelled Immature Gran # (Auto) Cancelled Neutrophils % (Manual) Cancelled Band Neutrophils % Cancelled Lymphocytes % (Manual) Cancelled Prolymphocyte % Cancelled Reactive Lymphs % (Man) Cancelled Monocytes % (Manual) Cancelled Eosinophils % (Manual) Cancelled Basophils % (Manual) Cancelled Metamyelocytes % (Man) Cancelled Myelocytes % (Man) Cancelled Promyelocytes % (Man) Cancelled Blast Cells % (Manual) Cancelled Plasma Cell % (Manual) Cancelled Other Cells % Cancelled Nucleated RBC % Cancelled Neutrophils # (Manual) Cancelled Band Neutrophils # Cancelled Total Absolute Neuts Cancelled Lymphocytes # (Manual) Cancelled Prolymphocyte # Cancelled Reactive Lymphs # Cancelled Total Abs Lymphocytes Cancelled Monocytes # (Manual) Cancelled Eosinophils # (Manual) Cancelled Basophils # (Manual) Cancelled Metamyelocytes # (Man) Cancelled Myelocytes # (Manual) Cancelled Promyelocytes # (Man) Cancelled Blast Cells # (Man) Cancelled Plasma Cell # (Manual) Cancelled Other Cells # Cancelled Nucleated RBCs # (Man) Cancelled Hypersegmented Neuts Cancelled Hyposegmented Neuts Cancelled Hypogranular Neuts Cancelled Large Granular Lymphs Cancelled # Lrg Granular Lymphs Cancelled Hairy Cells Cancelled Smudge Cells Cancelled Toxic Granulation Cancelled Toxic Vacuolation Cancelled Dohle Bodies Cancelled Karen Rods Cancelled Hypogranular Platelets Cancelled Clumped Platelets Cancelled Giant Platelets Cancelled Platelet Satelliting Cancelled RBC Morphology Cancelled Polychromasia Cancelled Hypochromasia Cancelled Poikilocytosis Cancelled Basophilic Stippling Cancelled Anisocytosis Cancelled Microcytosis Cancelled Macrocytosis Cancelled Spherocytes Cancelled Pappenheimer Bodies Cancelled Sickle Cells Cancelled Target Cells Cancelled Tear Drop Cells Cancelled Ovalocytes Cancelled Stomatocytes Cancelled Rob-Moodus Bodies Cancelled Echinocytes Cancelled Acanthocytes (Spur) Cancelled Rouleaux Cancelled RBC Agglutinates Cancelled Schistocytes Cancelled ESR 19 (0-20) mm/hr Sezary Cell Cancelled PT (9.0-12.0) Seconds INR (0.9-1.1) APTT (21.0-31.0) Seconds PTT Ratio Sodium (136-145) mmol/L Potassium (3.5-5.1) mmol/L Chloride (98-107) mmol/L Carbon Dioxide (21-32) mmol/L Anion Gap (3-11) BUN (6-23) mg/dl Creatinine (0.6-1.4) mg/dl Est Cr Clr Drug Dosing ml/min Est GFR ( Amer) ml/min Est GFR (Non-Af Amer) ml/min BUN/Creatinine Ratio (10-20) Glucose (70-99(Fasting)) mg/dl Lactate (0.4-2.0) mmol/L Calcium (8.5-10.1) mg/dl Magnesium (1.7-2.4) mg/dl Total Bilirubin (0.2-1.0) mg/dl AST (13-39) U/L ALT (7-52) U/L Alkaline Phosphatase (34-104) U/L Troponin I High Sens (0-20) pg/ml C-Reactive Protein (0-0.5) mg/dl Total Protein (6.0-8.3) gm/dl Albumin (3.4-5.0) gm/dl Globulin (2.5-4.0) gm/dl Albumin/Globulin Ratio (0.9-2) Procalcitonin (0-0.5) ng/ml SARS-CoV-2 (PCR) NEGATIVE (Negative) Influenza Type A (PCR) Negative (Neg) Influenza Type B (PCR) Negative (Neg) RSV (RT-PCR) Negative (Neg) Blood Parasites ID Cancelled 11/20/21 11/20/21 11/20/21 Range/Units 21:05 21:05 21:05 WBC (4.8-10.8) K/ul RBC (4.63-6.08) M/uL Hgb (14.0-18.0) g/dl Hct (40.1-51.0) % MCV (80.0-100.0) fL MCH (25.0-34.0) pg MCHC (32.0-36.0) g/dL RDW Std Deviation (36.4-46.3) fL RDW Coeff of Sayra (11.5-14.5) % Plt Count (130-400) K/uL Immature Gran % (Auto) Neut % (Auto) Lymph % (Auto) [place] % (Auto) Eos % (Auto) Baso % (Auto) Neut # (Auto) Lymph # (Auto) [place] # (Auto) Eos # (Auto) Baso # (Auto) Immature Gran # (Auto) Neutrophils % (Manual) Band Neutrophils % Lymphocytes % (Manual) Prolymphocyte % Reactive Lymphs % (Man) Monocytes % (Manual) Eosinophils % (Manual) Basophils % (Manual) Metamyelocytes % (Man) Myelocytes % (Man) Promyelocytes % (Man) Blast Cells % (Manual) Plasma Cell % (Manual) Other Cells % Nucleated RBC % Neutrophils # (Manual) Band Neutrophils # Total Absolute Neuts Lymphocytes # (Manual) Prolymphocyte # Reactive Lymphs # Total Abs Lymphocytes Monocytes # (Manual) Eosinophils # (Manual) Basophils # (Manual) Metamyelocytes # (Man) Myelocytes # (Manual) Promyelocytes # (Man) Blast Cells # (Man) Plasma Cell # (Manual) Other Cells # Nucleated RBCs # (Man) Hypersegmented Neuts Hyposegmented Neuts Hypogranular Neuts Large Granular Lymphs # Lrg Granular Lymphs Hairy Cells Smudge Cells Toxic Granulation Toxic Vacuolation Dohle Bodies Karen Rods Hypogranular Platelets Clumped Platelets Giant Platelets Platelet Satelliting RBC Morphology Polychromasia Hypochromasia Poikilocytosis Basophilic Stippling Anisocytosis Microcytosis Macrocytosis Spherocytes Pappenheimer Bodies Sickle Cells Target Cells Tear Drop Cells Ovalocytes Stomatocytes Rob-Moodus Bodies Echinocytes Acanthocytes (Spur) Rouleaux RBC Agglutinates Schistocytes ESR (0-20) mm/hr Sezary Cell PT 10.9 (9.0-12.0) Seconds INR 1.0 (0.9-1.1) APTT 30.3 (21.0-31.0) Seconds PTT Ratio 1.1 Sodium 134 L (136-145) mmol/L Potassium 3.4 L (3.5-5.1) mmol/L Chloride 103 (98-107) mmol/L Carbon Dioxide 24 (21-32) mmol/L Anion Gap 7 (3-11) BUN 14 (6-23) mg/dl Creatinine 0.75 (0.6-1.4) mg/dl Est Cr Clr Drug Dosing 136.5 ml/min Est GFR ( Amer) 113.9 ml/min Est GFR (Non-Af Amer) 98.3 ml/min BUN/Creatinine Ratio 18.7 (10-20) Glucose 131 H (70-99(Fasting)) mg/dl Lactate 1.5 (0.4-2.0) mmol/L Calcium 8.1 L (8.5-10.1) mg/dl Magnesium 2.1 (1.7-2.4) mg/dl Total Bilirubin 0.7 (0.2-1.0) mg/dl AST 14 (13-39) U/L ALT 22 (7-52) U/L Alkaline Phosphatase 52 (34-104) U/L Troponin I High Sens 6.8 (0-20) pg/ml C-Reactive Protein 6.81 H (0-0.5) mg/dl Total Protein 6.6 (6.0-8.3) gm/dl Albumin 3.9 (3.4-5.0) gm/dl Globulin 2.7 (2.5-4.0) gm/dl Albumin/Globulin Ratio 1.4 (0.9-2) Procalcitonin (0-0.5) ng/ml SARS-CoV-2 (PCR) (Negative) Influenza Type A (PCR) (Neg) Influenza Type B (PCR) (Neg) RSV (RT-PCR) (Neg) Blood Parasites ID 11/20/21 Range/Units 21:05 WBC (4.8-10.8) K/ul RBC (4.63-6.08) M/uL Hgb (14.0-18.0) g/dl Hct (40.1-51.0) % MCV (80.0-100.0) fL MCH (25.0-34.0) pg MCHC (32.0-36.0) g/dL RDW Std Deviation (36.4-46.3) fL RDW Coeff of Sayra (11.5-14.5) % Plt Count (130-400) K/uL Immature Gran % (Auto) Neut % (Auto) Lymph % (Auto) [place] % (Auto) Eos % (Auto) Baso % (Auto) Neut # (Auto) Lymph # (Auto) [place] # (Auto) Eos # (Auto) Baso # (Auto) Immature Gran # (Auto) Neutrophils % (Manual) Band Neutrophils % Lymphocytes % (Manual) Prolymphocyte % Reactive Lymphs % (Man) Monocytes % (Manual) Eosinophils % (Manual) Basophils % (Manual) Metamyelocytes % (Man) Myelocytes % (Man) Promyelocytes % (Man) Blast Cells % (Manual) Plasma Cell % (Manual) Other Cells % Nucleated RBC % Neutrophils # (Manual) Band Neutrophils # Total Absolute Neuts Lymphocytes # (Manual) Prolymphocyte # Reactive Lymphs # Total Abs Lymphocytes Monocytes # (Manual) Eosinophils # (Manual) Basophils # (Manual) Metamyelocytes # (Man) Myelocytes # (Manual) Promyelocytes # (Man) Blast Cells # (Man) Plasma Cell # (Manual) Other Cells # Nucleated RBCs # (Man) Hypersegmented Neuts Hyposegmented Neuts Hypogranular Neuts Large Granular Lymphs # Lrg Granular Lymphs Hairy Cells Smudge Cells Toxic Granulation Toxic Vacuolation Dohle Bodies Karen Rods Hypogranular Platelets Clumped Platelets Giant Platelets Platelet Satelliting RBC Morphology Polychromasia Hypochromasia Poikilocytosis Basophilic Stippling Anisocytosis Microcytosis Macrocytosis Spherocytes Pappenheimer Bodies Sickle Cells Target Cells Tear Drop Cells Ovalocytes Stomatocytes Rob-Moodus Bodies Echinocytes Acanthocytes (Spur) Rouleaux RBC Agglutinates Schistocytes ESR (0-20) mm/hr Sezary Cell PT (9.0-12.0) Seconds INR (0.9-1.1) APTT (21.0-31.0) Seconds PTT Ratio Sodium (136-145) mmol/L Potassium (3.5-5.1) mmol/L Chloride (98-107) mmol/L Carbon Dioxide (21-32) mmol/L Anion Gap (3-11) BUN (6-23) mg/dl Creatinine (0.6-1.4) mg/dl Est Cr Clr Drug Dosing ml/min Est GFR ( Amer) ml/min Est GFR (Non-Af Amer) ml/min BUN/Creatinine Ratio (10-20) Glucose (70-99(Fasting)) mg/dl Lactate (0.4-2.0) mmol/L Calcium (8.5-10.1) mg/dl Magnesium (1.7-2.4) mg/dl Total Bilirubin (0.2-1.0) mg/dl AST (13-39) U/L ALT (7-52) U/L Alkaline Phosphatase (34-104) U/L Troponin I High Sens (0-20) pg/ml C-Reactive Protein (0-0.5) mg/dl Total Protein (6.0-8.3) gm/dl Albumin (3.4-5.0) gm/dl Globulin (2.5-4.0) gm/dl Albumin/Globulin Ratio (0.9-2) Procalcitonin < 0.05 (0-0.5) ng/ml SARS-CoV-2 (PCR) (Negative) Influenza Type A (PCR) (Neg) Influenza Type B (PCR) (Neg) RSV (RT-PCR) (Neg) Blood Parasites ID Administered Medications Vancomycin HCl 2,500 mg/ (Sodium Chloride) 550 mls @ 200 mls/hr IV NOW ONE Stop: 11/21/21 00:30 Last Admin: 11/20/21 22:18 Dose: 200 mls/hr Documented By: RDCheco Discontinued Medications Sodium Chloride (Nss 1000ml) 1,000 mls @ 999 mls/hr IV .[id number] ONE Stop: 11/20/21 21:45 Last Admin: 11/20/21 21:07 Dose: 999 mls/hr Documented By: YESICA Cefepime HCl (Maxipime) 2,000 mg in 20 mls @ 5 mls/min IV NOW STA; Protocol Stop: 11/20/21 21:49 Last Admin: 11/20/21 22:05 Dose: 5 mls/min Documented By: YESICA Imaging Data Attestation: I personally reviewed and interpreted this imaging study as follows: My Impression: 1 view chest x-ray was obtained in the emergency department. My interpretation is no definite trait, no free air, no acute disease. Port was noted in the [facility] upper chest wall Discharge Plan Visit Data Chief Complaint: Fever Stated Complaint: FEVER 101.5 ED Provider: Manish Cummings Discharge Problem: Fever and neutropenia, Thrombocytopenia Patient Disposition: Being Evaluated by Hospitalist Forms Stand Alone Forms: [facility] Prescriptions Prescriptions: No Action atorvastatin 20 mg tablet 20 mg PO QAM testosterone cypionate 100 mg/mL oil 150 mg IM Q14D amlodipine-olmesartan 5-40 mg tablet 1 tab PO QAM ondansetron HCl 4 mg tablet 4 mg PO Q6H PRN (Reason: nausea and vomiting) Qty: 20 0RF prednisone 20 mg Tablet 80 mg PO DAILY Qty: 10 0RF pantoprazole 40 mg Tablet,Delayed Release (Dr/Ec) 40 mg PO BID Qty: 30 0RF Referrals Referrals: Jessica Cuevas MD [Primary Care Provider] -
[2021-11-20 21:39] LABS: Hematocrit (blood only) 26.7 % (40.1-51.0); Hemoglobin 8.6 g/dl (14.0-18.0); White Blood Count 0.27 K/ul (4.8-10.8)
[2021-11-20 21:40] LABS: Partial Thromboplastin Ratio 1.1; Partial Thromboplastin Time 30.3 Seconds (21.0-31.0); Prothrombin Time 10.9 Seconds (9.0-12.0)
[2021-11-20 21:46] LABS: Albumin Globulin Ratio 1.4 (0.9-2); Albumin Level 3.9 gm/dl (3.4-5.0); BUN Creatinine Ratio 18.7 (10-20); Bilirubin,Total 0.7 mg/dl (0.2-1.0); C Reactive Protein 6.81 mg/dl (0-0.5); Calcium 8.1 mg/dl (8.5-10.1); Creatinine Clr Calc Pharmacy 136.5 ml/min; Est GFR (African American) 113.9 ml/min; Est GFR (Non-African American) 98.3 ml/min; Globulin 2.7 gm/dl (2.5-4.0); Magnesium 2.1 mg/dl (1.7-2.4); Potassium 3.4 mmol/L (3.5-5.1); Total Protein 6.6 gm/dl (6.0-8.3)
[2021-11-20] MEDS ORDERED: VANCOMYCIN HCL 2,500 MG in SODIUM CHLORIDE 0.9% 500 ML IV ONE (21:46)
[2021-11-20] MEDS ORDERED: CEFEPIME 2,000 MG/20 ML VIAL IV STA (21:46)
[2021-11-20] MEDS ORDERED: VANCOMYCIN CONSULT ACTIVE PRN (21:46)
[2021-11-20 21:48] LABS: Troponin I High Sensitivity 6.8 pg/ml (0-20)
[2021-11-20 21:55] LABS: Mean Corpuscular Hemoglobin 28.9 pg (25.0-34.0); Mean Corpuscular Hgb Conc 32.2 g/dL (32.0-36.0); Mean Corpuscular Volume 89.6 fL (80.0-100.0); Platelet Count 9 K/uL (130-400); RDW Coefficient of Variation 20.2 % (11.5-14.5); RDW Standard Deviation 65.9 fL (36.4-46.3); Red Blood Count 2.98 M/uL (4.63-6.08)
[2021-11-20 22:06] LABS: Influenza A virus by PCR Negative (Neg); Influenza B virus by PCR Negative (Neg); RSV by PCR Negative (Neg); SARS CoV2 RNA(COVID-19) InHosp NEGATIVE (Negative)
--- NOTE | 2021-11-20 23:04 | History & Physical Report ---
Date of Service November 20, 2021 Assessment & Plan (1) Fever and neutropenia: Plan: Fever with Tmax 101.5F and chills x1 day, generalized weakness/fatigue for ~1 week. No focal respiratory/GI/urinary symptoms. No overt signs of cellulitis around Liao catheter. Patient has had intermittent headache but no AMS or meningeal signs. Fever/chills started the night before his platelet infusion and thus does not represent transfusion reaction. Requires aggressive treatment until infection can be more definitively ruled out. - no sepsis currently, lactate/procalcitonin WNL - admit to med/tele - s/p Vancomycin/Cefepime in ED - will continue with both for now - will also add Caspofungin and Acyclovir, as patient had been on oral anti- fungals for ppx - follow blood cx and adjust regimen as necessary - s/p NSS 1L bolus, will continue with LR @125cc/hr - PRN Tylenol for fever - trend CBC in AM (2) Pancytopenia: Plan: Worsening pancytopenia since initiation of Vyxeos - due to chemotherapy. WBC 0.27, Hgb 8.6, plts 9000. - patient received 1 unit packed platelets at [facility] earlier in the day - trend CBC in AM - transfusion thresholds: Hgb <7, plts <10,000 - patient was consented for blood (3) AML (acute myeloblastic leukemia): Plan: Patient follows with Dr. Rudolph at [facility] for AML. Of note the patient was recently admitted to [facility] from 11/07 - 11/13 for reinduction therapy with Vyxeos. He has had a longstanding history of CMML (chronic myelomonocytic leukemia) that recently transformed to AML (via bone marrow biopsy at [facility] on 10/30) and was s/p cytoreduction therapy with hydroxyurea, azacitidine an venetoclax, with insufficient response, hence his recent admission at [facility] for Vyxeos. - consulted Heme/Onc - appreciate recs - plan to reach out to [facility] for ongoing recommendations in this complicated patient with neutropenic fever - per primary team - continue Allopurinol for hyperuricemia ppx - per [facility] recs (4) Hypokalemia: Plan: K 3.4, repleted. - trend BMP in AM (5) HTN (hypertension): Plan: Hold home Amlodipine-Losartan due to concern for infection and possibility for development of sepsis/hypotension. (6) Hypercholesteremia: Plan: Continue home Rosuvastatin (7) Depression: Plan: Continue home Lexapro (8) GERD (gastroesophageal reflux disease): Plan: Protonix per hospital formulary History of Present Illness Chief Complaint: fever Primary Care Provider: Jessica Cuevas MD Matias Small is a 61yo male with PMHx significant for AML, pancytopenia, h/o GI bleed, HTN, depression, GERD and HLD who presented to [facility] ED on 11/20 for fever up to 101.5F and chills for ~24 hours. Patient follows with Dr. Rudolph at [facility] for AML. Of note the patient was recently admitted to [facility] from 11/07 - 11/13 for reinduction therapy with Vyxeos. He has had a longstanding history of CMML (chronic myelomonocytic leukemia) that recently transformed to AML (via bone marrow biopsy at [facility] on 10/30) and was s/p cytoreduction therapy with hydroxyurea, azacitidine an venetoclax, with insufficient response, hence his recent admission at [facility] for Vyxeos. Patient was treated with Vyxeos from 11/09-11/11, had previous PICC line removed, and had Liao catheter placed on 11/12. He was started on antimicrobial ppx with Acyclovir/Levofloxacin/Posaconazole and these were continued after discharge. Was also started on Allopurinol for hyperuricemia ppx. Patient was scheduled for blood tests three times per week here in [place], with transfusions as necessary (for Hgb <7 and/or plts <10). He was scheduled for re-evaluation at [facility] in ~1 month. Patient reports generalized weakness, nausea, stomach cramping, and occasional headaches since he was started on Vyxeos. However he reports that last night he started to have fever of up to 101.5F and chills. He had labs done here this morning and had to be sent to [facility] for platelet transfusion as he was told there were none available here. At [facility] he had blood cultures taken (peripheral + Liao) but was not admitted. Patient presented here for persistent fever/chills, generalized weakness, and fatigue. He denies increased redness or pain around his Liao site although reports mild bruising around the site which has been stable since insertion. Denies runny nose, cough, chest pain, palpitations, SOB, abdominal pain, diarrhea, dysuria, or rash. In the ED the patient was afebrile and stable on room air. Labs significant for WBC 0.27, Hgb 8.6 (down from 9.6 earlier in the day), and plts 9 (stable from earlier in the day) - progressive pancytopenia since starting chemotherapy. Lactate 1.5, procalcitonin <0.05, CRP 6.81, ESR 19. Na 134, K 3.4. UA clean, COVID-19/influenza/RSV negative. CXR unremarkable. Patient was given NSS 1L bolus and Tylenol 1g IV. Was also given Vancomycin and Cefepime. Blood culture was taken (both from Liao catheter and periphery) before initiation of abx. Allergies Allergy/AdvReac Type Severity Reaction Status Date / Time No Known Allergies Allergy Mild 0 Verified 11/21/21 00:28 Home Medications Medication Instructions Recorded Confirmed Type acyclovir 400 mg tablet 400 mg PO BID 11/21/21 11/21/21 History allopurinol 300 mg tablet 300 mg PO DAILY 11/21/21 11/21/21 History amlodipine 5 mg-olmesartan 40 mg 1 tab PO DAILY 11/21/21 11/21/21 History tablet escitalopram oxalate 20 mg tablet 20 mg PO DAILY 11/21/21 11/21/21 History folic acid 1 mg tablet 1 mg PO DAILY 11/21/21 11/21/21 History omeprazole 20 mg capsule,delayed 20 mg PO DAILY 11/21/21 11/21/21 History release ondansetron HCl 4 mg tablet 4 mg PO Q6 PRN Nausea 11/21/21 11/21/21 History posaconazole 100 mg tablet,delayed 300 mg PO DAILY 11/21/21 11/21/21 History release rosuvastatin 5 mg tablet 5 mg PO QPM 11/21/21 11/21/21 History Past Med/Surg History Medical History (Updated 11/22/21 @ 00:08 by Lyla Page) Acute GI bleeding Anemia COVID-19 Depression Depression GERD (gastroesophageal reflux disease) Head ache HTN (hypertension) Hypercholesteremia Social History Smoking Status: Former smoker Hx Alcohol Use: No Hx Substance Use: No Preferred Language: Indonesian Communication Ability: Effective Licensed Optician Required: No Beliefs That Will Affect Care: None marital status: Current Living Situation: Spouse and Family Current Living Situation Comment: Pt lives with spouse and adult son Other Information That Helps Us Care for You: No Feels Safe at Home: Yes Safety Concerns: Feels Safe At This Time Assistive Devices: None Assistive Devices Comment: pt wears reading glasses Review of Systems Review of Systems: All systems reviewed & are unremarkable except as noted in HPI & below Physical Exam Physical Exam: General: A&Ox3. NAD. Cooperative. Obese. HEENT: Atraumatic, normocephalic. Pulm: CTAB A&P. -wheezes, -rales, -rhonchi. Symmetrical chest rise. No increase work of breathing. No respiratory distress. Cardiac: RRR, -mrg. Radial pulses intact and symmetrical. No LE edema. Chest: Liao catheter in place in right chest, with overlying dressing c/d/i. There is surrounding ecchymosis but no erythema/warmth/discharge/tenderness. Abdominal: soft, non-tender, non-distended, BS x 4 Skin: warm, dry, no rash Results & Data Results & Data ([facility]) Vital Signs (Past 12 Hours) Vital Signs Temp Pulse Pulse Resp BP BP Pulse Ox 11/20/21 22:45 71 17 99 11/20/21 22:30 71 23 98 11/20/21 22:30 129/65 11/20/21 22:00 68 99 11/20/21 22:00 120/61 11/20/21 22:41 20 99 11/20/21 22:11 20 98 11/20/21 21:41 20 98 11/20/21 21:11 18 99 11/20/21 21:45 66 22 100 11/20/21 21:30 70 22 99 11/20/21 21:30 152/68 H 11/20/21 21:15 70 17 99 11/20/21 21:10 80 24 99 11/20/21 21:10 130/70 11/20/21 21:09 78 22 98 11/20/21 20:41 37.4 C 69 19 137/75 97 11/20/21 20:41 84 20 98 11/20/21 20:41 20 98 11/20/21 20:26 37.2 C 96 H 18 120/70 98 O2 Del Method 11/20/21 22:45 11/20/21 22:30 11/20/21 22:30 11/20/21 22:00 11/20/21 22:00 11/20/21 22:41 Room Air 11/20/21 22:11 Room Air 11/20/21 21:41 Room Air 11/20/21 21:11 Room Air 11/20/21 21:45 11/20/21 21:30 11/20/21 21:30 11/20/21 21:15 11/20/21 21:10 11/20/21 21:10 11/20/21 21:09 11/20/21 20:41 Room Air 11/20/21 20:41 Room Air 11/20/21 20:41 Room Air 11/20/21 20:26 Room Air Supervising Physician Co-Signing Physician Notes Attending addendum: I have physically seen this patient, have supervised the medical residents activities, and agree with the H&P unless as otherwise noted. Assessment and Plan: Neutropenic fever/AML actively undergoing treatment with chemotherapy- Empiric treatment with vancomycin IV, cefepime IV, caspofungin IV and acyclovir IV LR at 125 mils per hour Acetaminophen 650 mg p.o. every 6 hours as needed mild pain or fever Follow serial CBC with differential and renal profile Follows with [facility] [place]. Rudolph Consult heme-onc Neutropenic precautions Hypertension- Holding oral medications amlodipine and losartan due to possible hypotension and sepsis Hyperlipidemia- Continue simvastatin Depression- Continue escitalopram GERD- Change omeprazole to pantoprazole per formulary interchange Remaining orders and notations as noted Resident Activity Tracking Resident Involvement: Resident Care Provided Care Provided: Adult Hospital Medicine
[2021-11-20 23:11] LABS: Appearance Urine Clear (Clear); Bilirubin Urine Negative (Negative); Blood Urine Negative (Negative); Color Urine Yellow; Glucose Urine UA Negative (Negative); Ketones Urine Negative (Negative); Leukocyte Esterase Urine Negative (Negative); Nitrite Urine Negative (Negative); Protein Urine Negative (Negative); Specific Gravity Urine 1.007 (1.000-1.030); Urobilinogen Urine Negative (Negative); pH Urine 5.5 (4.5-7.5)
[2021-11-20] MEDS ORDERED: ACETAMINOPHEN 1000 MG/100 ML IV IV ONE (23:26)
[2021-11-21] MEDS ORDERED: ACETAMINOPHEN 1,000 MG/100 ML VIAL IV STA (01:27)
[2021-11-21] MEDS ORDERED: POTASSIUM CHLORIDE CRTAB 20 MEQ TABCR PO STA (02:40)
[2021-11-21] MEDS ORDERED: ACETAMINOPHEN 500 MG TAB PO PRN (02:40)
[2021-11-21] MEDS ORDERED: ONDANSETRON INJ 2 MG/ML 2 ML VIAL IV PRN (02:40)
[2021-11-21] MEDS: LACTATED RINGER'S 1,000 ML IV SCH ×2 (03:04→11:47)
--- NOTE | 2021-11-21 03:15 | Pharmacy Report ---
Pharmacy PK ABX Note - Date of Service November 21, 2021 - Assessment and Plan Assessment 61 year old M receiving Vancomycin/Acyclovir/Cefepime/Caspofungin for treatment of neutropenic fever. Plan Vancomycin * Loading dose: 2500 mg IV x 1 * Maintenance dose: 1500 mg IV every 12 hours * Regimen is predicted to achieve target AUC/KEVIN of 400-600 mg/L.hr * Random level will be ordered if Vancomycin therapy is continued. Pharmacy will continue to follow and will adjust dose/frequency as necessary. Thank you. Pharmacy has transitioned to AUC monitoring for vancomycin. AUC/KEVIN is the preferred PK/PD target and is associated with decreased risk of nephrotoxicity compared to traditional trough targets.
[2021-11-21] MEDS: ACYCLOVIR SOD 500 MG in DEXTROSE 5% 250 ML IV SCH ×2 (03:38→11:47)
[2021-11-21] MEDS ORDERED: CASPOFUNGIN 70 MG in SODIUM CHLORIDE 0.9% 250 ML IV ONE (04:00)
[2021-11-21] MEDS: CEFEPIME 2,000 MG in SYRINGE 0 ML IV SCH ×2 (05:01→14:16)
[2021-11-21 06:38] LABS: Albumin Globulin Ratio 1.3 (0.9-2); Albumin Level 3.6 gm/dl (3.4-5.0); BUN Creatinine Ratio 16.7 (10-20); Bilirubin,Total 0.6 mg/dl (0.2-1.0); Creatinine Clr Calc Pharmacy 149.6 ml/min; Est GFR (African American) 120.1 ml/min; Est GFR (Non-African American) 103.6 ml/min; Globulin 2.7 gm/dl (2.5-4.0); Magnesium 2.1 mg/dl (1.7-2.4); Potassium 4.5 mmol/L (3.5-5.1); Total Protein 6.3 gm/dl (6.0-8.3)
[2021-11-21 06:42] LABS: Hematocrit (blood only) 25.2 % (40.1-51.0); Mean Corpuscular Hemoglobin 28.7 pg (25.0-34.0); Mean Corpuscular Hgb Conc 31.7 g/dL (32.0-36.0); Mean Corpuscular Volume 90.3 fL (80.0-100.0); Platelet Count 6 K/uL (130-400); RDW Coefficient of Variation 20.2 % (11.5-14.5); RDW Standard Deviation 66.4 fL (36.4-46.3); Red Blood Count 2.79 M/uL (4.63-6.08); White Blood Count 0.26 K/ul (4.8-10.8)
--- NOTE | 2021-11-21 07:15 | Hospitalist Progress Note ---
Date of Service November 21, 2021 Assessment & Plan (1) Fever and neutropenia: (2) Pancytopenia: (3) AML (acute myeloblastic leukemia): (4) Hypokalemia: (5) HTN (hypertension): (6) Hypercholesteremia: (7) Depression: (8) GERD (gastroesophageal reflux disease): Plan Matias Small is a 61 y/o male with PMHx significant for AML, pancytopenia, h/o GI bleed, HTN, depression, GERD and HLD who presented to [facility] ED on 11/20 for fever up to 101.5F and chills for ~24 hours. Patient follows with Dr. Rudolph at [facility] for AML. Of note the patient was recently admitted to [facility] from 11/07 - 11/13 for reinduction therapy with Vyxeos. He has had a longstanding history of CMML (chronic myelomonocytic leukemia) that recently transformed to AML (via bone marrow biopsy at [facility] on 10/30) and was s/p cytoreduction therapy with hydroxyurea, azacitidine and venetoclax, with insufficient response, hence his recent admission at [facility] for Vyxeos. Patient was treated with Vyxeos from 11/09-11/11, had previous PICC line removed, and had Liao catheter placed on 11/12. He was started on antimicrobial ppx with Acyclovir/Levofloxacin/Posaconazole and these were continued after discharge. Was also started on Allopurinol for hyperuricemia ppx. Patient was scheduled for blood tests three times per week here in [place], with transfusions as necessary (for Hgb <7 and/or plts <10). He was scheduled for re-evaluation at [facility] in ~1 month. Patient reports generalized weakness, nausea, stomach cramping, and occasional headaches since he was started on Vyxeos. However he reports that last night he started to have fever of up to 101.5F and chills. He had labs done here this morning and had to be sent to [facility] for platelet transfusion as he was told there were none available here. At [facility] he had blood cultures taken (peripheral + Liao) but was not admitted. Patient presented here for persistent fever/chills, generalized weakness, and fatigue. He denies increased redness or pain around his Liao site although reports mild bruising around the site which has been stable since insertion. Denies runny nose, cough, chest pain, palpitations, SOB, abdominal pain, diarrhea, dysuria, or rash. In the ED the patient was afebrile and stable on room air. Labs significant for WBC 0.27, Hgb 8.6 (down from 9.6 earlier in the day), and plts 9 (stable from earlier in the day) - progressive pancytopenia since starting chemotherapy. Lactate 1.5, procalcitonin <0.05, CRP 6.81, ESR 19. Na 134, K 3.4. UA clean, COVID-19/influenza/RSV negative. CXR unremarkable. Patient was given NSS 1L bolus and Tylenol 1g IV. Was also given Vancomycin and Cefepime. Blood culture was taken (both from Liao catheter and periphery) before initiation of abx #Fever and neutropenia Fever with Tmax 101.5F and chills x1 day, generalized weakness/fatigue for ~1 week. No focal respiratory/GI/urinary symptoms. No overt signs of cellulitis around Liao catheter. Patient has had intermittent headache but no AMS or meningeal signs. Fever/chills started the night before his platelet infusion and thus does not represent transfusion reaction. Requires aggressive treatment until infection can be more definitively ruled out. [] no sepsis currently, lactate/procalcitonin WNL [] continue vancomycin/cefepime [] caspofungin and acyclovir for viral and fungal coverage [] f/u blood cx - [facility] NGTD 1 [] LR @125cc/hr [] PRN Tylenol for fever [] AM CBC - WBC 0.26 #Pancytopenia Worsening pancytopenia since initiation of Vyxeos - due to chemotherapy. WBC 0.26, Hgb 8.0, plts 6,000. [] patient received 1 unit packed platelets at [facility] yesterday [] AM CBC - Hgb 8.0, Plt 6 - given one unit irradiated and leukoreduced pl atelets [] transfusion thresholds: Hgb <7, plts <10,000 [] patient was consented for blood #AML Patient follows with Dr. Rudolph at [facility] for AML. Of note the patient was recently admitted to [facility] from 11/07 - 11/13 for reinduction therapy with Vyxeos. He has had a longstanding history of CMML (chronic myelomonocytic leukemia) that recently transformed to AML (via bone marrow biopsy at [facility] on 10/30) and was s/p cytoreduction therapy with hydroxyurea, azacitidine an venetoclax, with insufficient response, hence his recent admission at [facility] for Vyxeos. [] consulted Heme/Onc - appreciate recs [] plan to reach out to [facility] for ongoing recommendations in this complicated patient with neutropenic fever - per primary team [] continue Allopurinol for hyperuricemia ppx - per [facility] recs #Hypokalemia [] K 3.4, repleted. [] AM BMP - K 4.5 #HTN Hold home Amlodipine-Losartan due to concern for infection and possibility for development of sepsis/hypotension. #HLD Continue home Rosuvastatin #Depression Continue home Lexapro #GERD Protonix per hospital formulary FENI: regular code status: full DVT ppx: SCDs dispo: Med/tele Admission and Anticipated Discharge Date Admission Date: November 20, 2021 Review of Systems Review of Systems: See subjective/HPI Physical Exam Physical Exam: General: A&Ox3. NAD. Cooperative. Obese. HEENT: Atraumatic, normocephalic. Pulm: CTAB A&P. -wheezes, -rales, -rhonchi. Symmetrical chest rise. No increase work of breathing. No respiratory distress. Cardiac: RRR, -mrg. Radial pulses intact and symmetrical. No LE edema. Chest: Liao catheter in place in right chest, with overlying dressing c/d/i. No strike through. There is surrounding ecchymosis but no erythema/warmth/discharge/tenderness. Abdominal: soft, non-tender, non-distended, BS x 4 Skin: warm, dry, no rash Results & Data Results & Data ([facility]) Vital Signs (Past 12 Hours) Vital Signs Temp Pulse Pulse Resp BP BP Pulse Ox 11/21/21 05:03 74 19 100 11/21/21 05:03 37.2 C 139/69 11/21/21 02:45 36.8 C 59 L 22 135/71 98 11/21/21 02:38 11/21/21 02:38 36.8 C 64 19 135/71 99 11/21/21 01:31 67 28 H 11/21/21 01:30 64 26 H 148/77 H 96 11/21/21 01:00 62 29 H 119/65 100 11/21/21 00:30 67 24 117/50 L 99 11/21/21 00:00 76 21 137/67 98 11/20/21 23:30 70 26 H 130/72 100 11/20/21 23:00 77 24 143/66 H 98 11/20/21 22:45 71 17 99 11/20/21 22:30 71 23 98 11/20/21 22:30 129/65 11/20/21 22:00 68 99 11/20/21 22:00 120/61 11/20/21 22:41 20 99 11/20/21 22:11 20 98 11/20/21 21:41 20 98 11/20/21 21:11 18 99 11/20/21 21:45 66 22 100 11/20/21 21:30 70 22 99 11/20/21 21:30 152/68 H 11/20/21 21:15 70 17 99 11/20/21 21:10 80 24 99 11/20/21 21:10 130/70 11/20/21 21:09 78 22 98 11/20/21 20:41 37.4 C 69 19 137/75 97 11/20/21 20:41 84 20 98 11/20/21 20:41 20 98 11/20/21 20:26 37.2 C 96 H 18 120/70 98 O2 Del Method 11/21/21 05:03 11/21/21 05:03 11/21/21 02:45 11/21/21 02:38 Room Air 11/21/21 02:38 Room Air 11/21/21 01:31 11/21/21 01:30 Room Air 11/21/21 01:00 Room Air 11/21/21 00:30 Room Air 11/21/21 00:00 Room Air 11/20/21 23:30 Room Air 11/20/21 23:00 Room Air 11/20/21 22:45 11/20/21 22:30 11/20/21 22:30 11/20/21 22:00 11/20/21 22:00 11/20/21 22:41 Room Air 07/19/22 22:11 Room Air 11/20/21 21:41 Room Air 11/20/21 21:11 Room Air 11/20/21 21:45 11/20/21 21:30 11/20/21 21:30 11/20/21 21:15 11/20/21 21:10 11/20/21 21:10 11/20/21 21:09 11/20/21 20:41 Room Air 11/20/21 20:41 Room Air 11/20/21 20:41 Room Air 11/20/21 20:26 Room Air Laboratory Results 11/21/21 11/21/21 11/21/21 Range/Units 05:39 05:39 05:39 WBC 0.26 L* (4.8-10.8) K/ul RBC 2.79 L (4.63-6.08) M/uL Hgb 8.0 L (14.0-18.0) g/dl Hct 25.2 L (40.1-51.0) % MCV 90.3 (80.0-100.0) fL MCH 28.7 (25.0-34.0) pg MCHC 31.7 L (32.0-36.0) g/dL RDW Std Deviation 66.4 H (36.4-46.3) fL RDW Coeff of Sayra 20.2 H (11.5-14.5) % Plt Count 6 L* (130-400) K/uL Immature Gran % (Auto) Cancelled Neut % (Auto) Cancelled Lymph % (Auto) Cancelled [place] % (Auto) Cancelled Eos % (Auto) Cancelled Baso % (Auto) Cancelled Neut # (Auto) Cancelled Lymph # (Auto) Cancelled [place] # (Auto) Cancelled Eos # (Auto) Cancelled Baso # (Auto) Cancelled Immature Gran # (Auto) Cancelled Neutrophils % (Manual) Cancelled Band Neutrophils % Cancelled Lymphocytes % (Manual) Cancelled Prolymphocyte % Cancelled Reactive Lymphs % (Man) Cancelled Monocytes % (Manual) Cancelled Eosinophils % (Manual) Cancelled Basophils % (Manual) Cancelled Metamyelocytes % (Man) Cancelled Myelocytes % (Man) Cancelled Promyelocytes % (Man) Cancelled Blast Cells % (Manual) Cancelled Plasma Cell % (Manual) Cancelled Other Cells % Cancelled Nucleated RBC % Cancelled Neutrophils # (Manual) Cancelled Band Neutrophils # Cancelled Total Absolute Neuts Cancelled Lymphocytes # (Manual) Cancelled Prolymphocyte # Cancelled Reactive Lymphs # Cancelled Total Abs Lymphocytes Cancelled Monocytes # (Manual) Cancelled Eosinophils # (Manual) Cancelled Basophils # (Manual) Cancelled Metamyelocytes # (Man) Cancelled Myelocytes # (Manual) Cancelled Promyelocytes # (Man) Cancelled Blast Cells # (Man) Cancelled Plasma Cell # (Manual) Cancelled Other Cells # Cancelled Nucleated RBCs # (Man) Cancelled Hypersegmented Neuts Cancelled Hyposegmented Neuts Cancelled Hypogranular Neuts Cancelled Large Granular Lymphs Cancelled # Lrg Granular Lymphs Cancelled Hairy Cells Cancelled Smudge Cells Cancelled Toxic Granulation Cancelled Toxic Vacuolation Cancelled Dohle Bodies Cancelled Karen Rods Cancelled Hypogranular Platelets Cancelled Clumped Platelets Cancelled Giant Platelets Cancelled Platelet Satelliting Cancelled RBC Morphology Cancelled Polychromasia Cancelled Hypochromasia Cancelled Poikilocytosis Cancelled Basophilic Stippling Cancelled Anisocytosis Cancelled Microcytosis Cancelled Macrocytosis Cancelled Spherocytes Cancelled Pappenheimer Bodies Cancelled Sickle Cells Cancelled Target Cells Cancelled Tear Drop Cells Cancelled Ovalocytes Cancelled Stomatocytes Cancelled Rob-[place] Bodies Cancelled Echinocytes Cancelled Acanthocytes (Spur) Cancelled Rouleaux Cancelled RBC Agglutinates Cancelled Schistocytes Cancelled ESR (0-20) mm/hr Sezary Cell Cancelled PT (9.0-12.0) Seconds INR (0.9-1.1) APTT (21.0-31.0) Seconds PTT Ratio Sodium 136 (136-145) mmol/L Potassium 4.5 D (3.5-5.1) mmol/L Chloride 107 (98-107) mmol/L Carbon Dioxide 26 (21-32) mmol/L Anion Gap 3 (3-11) BUN 11 (6-23) mg/dl Creatinine 0.66 (0.6-1.4) mg/dl Est Cr Clr Drug Dosing 149.6 ml/min Est GFR ( Amer) 120.1 ml/min Est GFR (Non-Af Amer) 103.6 ml/min BUN/Creatinine Ratio 16.7 (10-20) Glucose 116 H (70-99(Fasting)) mg/dl Lactate (0.4-2.0) mmol/L Calcium 8.0 L (8.5-10.1) mg/dl Magnesium 2.1 (1.7-2.4) mg/dl Total Bilirubin 0.6 (0.2-1.0) mg/dl AST 13 (13-39) U/L ALT 21 (7-52) U/L Alkaline Phosphatase 47 (34-104) U/L Troponin I High Sens (0-20) pg/ml C-Reactive Protein (0-0.5) mg/dl Total Protein 6.3 (6.0-8.3) gm/dl Albumin 3.6 (3.4-5.0) gm/dl Globulin 2.7 (2.5-4.0) gm/dl Albumin/Globulin Ratio 1.3 (0.9-2) Procalcitonin (0-0.5) ng/ml Urine Color Urine Appearance (Clear) Urine pH (4.5-7.5) Ur Specific [place] (1.000-1.030) Urine Protein (Negative) Urine Glucose (UA) (Negative) Urine Ketones (Negative) Urine Blood (Negative) Urine Nitrite (Negative) Urine Bilirubin (Negative) Urine Urobilinogen (Negative) Ur Leukocyte Esterase (Negative) Nasal Screen MRSA (PCR) (Negative) SARS-CoV-2 (PCR) (Negative) Hepatitis C Ab (EIA) Pending Hep C Ab Signal/Cutoff Pending Influenza Type A (PCR) (Neg) Influenza Type B (PCR) (Neg) RSV (RT-PCR) (Neg) Blood Parasites ID Cancelled 11/21/21 11/20/21 11/20/21 Range/Units 02:40 22:30 21:05 WBC (4.8-10.8) K/ul RBC (4.63-6.08) M/uL Hgb (14.0-18.0) g/dl Hct (40.1-51.0) % MCV (80.0-100.0) fL MCH (25.0-34.0) pg MCHC (32.0-36.0) g/dL RDW Std Deviation (36.4-46.3) fL RDW Coeff of Sayra (11.5-14.5) % Plt Count (130-400) K/uL Immature Gran % (Auto) Neut % (Auto) Lymph % (Auto) [place] % (Auto) Eos % (Auto) Baso % (Auto) Neut # (Auto) Lymph # (Auto) [place] # (Auto) Eos # (Auto) Baso # (Auto) Immature Gran # (Auto) Neutrophils % (Manual) Band Neutrophils % Lymphocytes % (Manual) Prolymphocyte % Reactive Lymphs % (Man) Monocytes % (Manual) Eosinophils % (Manual) Basophils % (Manual) Metamyelocytes % (Man) Myelocytes % (Man) Promyelocytes % (Man) Blast Cells % (Manual) Plasma Cell % (Manual) Other Cells % Nucleated RBC % Neutrophils # (Manual) Band Neutrophils # Total Absolute Neuts Lymphocytes # (Manual) Prolymphocyte # Reactive Lymphs # Total Abs Lymphocytes Monocytes # (Manual) Eosinophils # (Manual) Basophils # (Manual) Metamyelocytes # (Man) Myelocytes # (Manual) Promyelocytes # (Man) Blast Cells # (Man) Plasma Cell # (Manual) Other Cells # Nucleated RBCs # (Man) Hypersegmented Neuts Hyposegmented Neuts Hypogranular Neuts Large Granular Lymphs # Lrg Granular Lymphs Hairy Cells Smudge Cells Toxic Granulation Toxic Vacuolation Dohle Bodies Karen Rods Hypogranular Platelets Clumped Platelets Giant Platelets Platelet Satelliting RBC Morphology Polychromasia Hypochromasia Poikilocytosis Basophilic Stippling Anisocytosis Microcytosis Macrocytosis Spherocytes Pappenheimer Bodies Sickle Cells Target Cells Tear Drop Cells Ovalocytes Stomatocytes Rob-[place] Bodies Echinocytes Acanthocytes (Spur) Rouleaux RBC Agglutinates Schistocytes ESR (0-20) mm/hr Sezary Cell PT (9.0-12.0) Seconds INR (0.9-1.1) APTT (21.0-31.0) Seconds PTT Ratio Sodium (136-145) mmol/L Potassium (3.5-5.1) mmol/L Chloride (98-107) mmol/L Carbon Dioxide (21-32) mmol/L Anion Gap (3-11) BUN (6-23) mg/dl Creatinine (0.6-1.4) mg/dl Est Cr Clr Drug Dosing ml/min Est GFR ( Amer) ml/min Est GFR (Non-Af Amer) ml/min BUN/Creatinine Ratio (10-20) Glucose (70-99(Fasting)) mg/dl Lactate (0.4-2.0) mmol/L Calcium (8.5-10.1) mg/dl Magnesium (1.7-2.4) mg/dl Total Bilirubin (0.2-1.0) mg/dl AST (13-39) U/L ALT (7-52) U/L Alkaline Phosphatase (34-104) U/L Troponin I High Sens (0-20) pg/ml C-Reactive Protein (0-0.5) mg/dl Total Protein (6.0-8.3) gm/dl Albumin (3.4-5.0) gm/dl Globulin (2.5-4.0) gm/dl Albumin/Globulin Ratio (0.9-2) Procalcitonin < 0.05 (0-0.5) ng/ml Urine Color Yellow Urine Appearance Clear (Clear) Urine pH 5.5 (4.5-7.5) Ur Specific [place] 1.007 (1.000-1.030) Urine Protein Negative (Negative) Urine Glucose (UA) Negative (Negative) Urine Ketones Negative (Negative) Urine Blood Negative (Negative) Urine Nitrite Negative (Negative) Urine Bilirubin Negative (Negative) Urine Urobilinogen Negative (Negative) Ur Leukocyte Esterase Negative (Negative) Nasal Screen MRSA (PCR) Negative (Negative) SARS-CoV-2 (PCR) (Negative) Hepatitis C Ab (EIA) Hep C Ab Signal/Cutoff Influenza Type A (PCR) (Neg) Influenza Type B (PCR) (Neg) RSV (RT-PCR) (Neg) Blood Parasites ID 11/20/21 11/20/21 11/20/21 Range/Units 21:05 21:05 21:05 WBC (4.8-10.8) K/ul RBC (4.63-6.08) M/uL Hgb (14.0-18.0) g/dl Hct (40.1-51.0) % MCV (80.0-100.0) fL MCH (25.0-34.0) pg MCHC (32.0-36.0) g/dL RDW Std Deviation (36.4-46.3) fL RDW Coeff of Sayra (11.5-14.5) % Plt Count (130-400) K/uL Immature Gran % (Auto) Neut % (Auto) Lymph % (Auto) [place] % (Auto) Eos % (Auto) Baso % (Auto) Neut # (Auto) Lymph # (Auto) [place] # (Auto) Eos # (Auto) Baso # (Auto) Immature Gran # (Auto) Neutrophils % (Manual) Band Neutrophils % Lymphocytes % (Manual) Prolymphocyte % Reactive Lymphs % (Man) Monocytes % (Manual) Eosinophils % (Manual) Basophils % (Manual) Metamyelocytes % (Man) Myelocytes % (Man) Promyelocytes % (Man) Blast Cells % (Manual) Plasma Cell % (Manual) Other Cells % Nucleated RBC % Neutrophils # (Manual) Band Neutrophils # Total Absolute Neuts Lymphocytes # (Manual) Prolymphocyte # Reactive Lymphs # Total Abs Lymphocytes Monocytes # (Manual) Eosinophils # (Manual) Basophils # (Manual) Metamyelocytes # (Man) Myelocytes # (Manual) Promyelocytes # (Man) Blast Cells # (Man) Plasma Cell # (Manual) Other Cells # Nucleated RBCs # (Man) Hypersegmented Neuts Hyposegmented Neuts Hypogranular Neuts Large Granular Lymphs # Lrg Granular Lymphs Hairy Cells Smudge Cells Toxic Granulation Toxic Vacuolation Dohle Bodies Karen Rods Hypogranular Platelets Clumped Platelets Giant Platelets Platelet Satelliting RBC Morphology Polychromasia Hypochromasia Poikilocytosis Basophilic Stippling Anisocytosis Microcytosis Macrocytosis Spherocytes Pappenheimer Bodies Sickle Cells Target Cells Tear Drop Cells Ovalocytes Stomatocytes Rob-[place] Bodies Echinocytes Acanthocytes (Spur) Rouleaux RBC Agglutinates Schistocytes ESR (0-20) mm/hr Sezary Cell PT 10.9 (9.0-12.0) Seconds INR 1.0 (0.9-1.1) APTT 30.3 (21.0-31.0) Seconds PTT Ratio 1.1 Sodium 134 L (136-145) mmol/L Potassium 3.4 L (3.5-5.1) mmol/L Chloride 103 (98-107) mmol/L Carbon Dioxide 24 (21-32) mmol/L Anion Gap 7 (3-11) BUN 14 (6-23) mg/dl Creatinine 0.75 (0.6-1.4) mg/dl Est Cr Clr Drug Dosing 136.5 ml/min Est GFR ( Amer) 113.9 ml/min Est GFR (Non-Af Amer) 98.3 ml/min BUN/Creatinine Ratio 18.7 (10-20) Glucose 131 H (70-99(Fasting)) mg/dl Lactate 1.5 (0.4-2.0) mmol/L Calcium 8.1 L (8.5-10.1) mg/dl Magnesium 2.1 (1.7-2.4) mg/dl Total Bilirubin 0.7 (0.2-1.0) mg/dl AST 14 (13-39) U/L ALT 22 (7-52) U/L Alkaline Phosphatase 52 (34-104) U/L Troponin I High Sens 6.8 (0-20) pg/ml C-Reactive Protein 6.81 H (0-0.5) mg/dl Total Protein 6.6 (6.0-8.3) gm/dl Albumin 3.9 (3.4-5.0) gm/dl Globulin 2.7 (2.5-4.0) gm/dl Albumin/Globulin Ratio 1.4 (0.9-2) Procalcitonin (0-0.5) ng/ml Urine Color Urine Appearance (Clear) Urine pH (4.5-7.5) Ur Specific [place] (1.000-1.030) Urine Protein (Negative) Urine Glucose (UA) (Negative) Urine Ketones (Negative) Urine Blood (Negative) Urine Nitrite (Negative) Urine Bilirubin (Negative) Urine Urobilinogen (Negative) Ur Leukocyte Esterase (Negative) Nasal Screen MRSA (PCR) (Negative) SARS-CoV-2 (PCR) (Negative) Hepatitis C Ab (EIA) Hep C Ab Signal/Cutoff Influenza Type A (PCR) (Neg) Influenza Type B (PCR) (Neg) RSV (RT-PCR) (Neg) Blood Parasites ID 11/20/21 11/20/21 11/20/21 Range/Units 21:05 21:05 21:00 WBC 0.27 L* (4.8-10.8) K/ul RBC 2.98 L (4.63-6.08) M/uL Hgb 8.6 L (14.0-18.0) g/dl Hct 26.7 L (40.1-51.0) % MCV 89.6 (80.0-100.0) fL MCH 28.9 (25.0-34.0) pg MCHC 32.2 (32.0-36.0) g/dL RDW Std Deviation 65.9 H (36.4-46.3) fL RDW Coeff of Sayra 20.2 H (11.5-14.5) % Plt Count 9 L* (130-400) K/uL Immature Gran % (Auto) Cancelled Neut % (Auto) Cancelled Lymph % (Auto) Cancelled [place] % (Auto) Cancelled Eos % (Auto) Cancelled Baso % (Auto) Cancelled Neut # (Auto) Cancelled Lymph # (Auto) Cancelled [place] # (Auto) Cancelled Eos # (Auto) Cancelled Baso # (Auto) Cancelled Immature Gran # (Auto) Cancelled Neutrophils % (Manual) Cancelled Band Neutrophils % Cancelled Lymphocytes % (Manual) Cancelled Prolymphocyte % Cancelled Reactive Lymphs % (Man) Cancelled Monocytes % (Manual) Cancelled Eosinophils % (Manual) Cancelled Basophils % (Manual) Cancelled Metamyelocytes % (Man) Cancelled Myelocytes % (Man) Cancelled Promyelocytes % (Man) Cancelled Blast Cells % (Manual) Cancelled Plasma Cell % (Manual) Cancelled Other Cells % Cancelled Nucleated RBC % Cancelled Neutrophils # (Manual) Cancelled Band Neutrophils # Cancelled Total Absolute Neuts Cancelled Lymphocytes # (Manual) Cancelled Prolymphocyte # Cancelled Reactive Lymphs # Cancelled Total Abs Lymphocytes Cancelled Monocytes # (Manual) Cancelled Eosinophils # (Manual) Cancelled Basophils # (Manual) Cancelled Metamyelocytes # (Man) Cancelled Myelocytes # (Manual) Cancelled Promyelocytes # (Man) Cancelled Blast Cells # (Man) Cancelled Plasma Cell # (Manual) Cancelled Other Cells # Cancelled Nucleated RBCs # (Man) Cancelled Hypersegmented Neuts Cancelled Hyposegmented Neuts Cancelled Hypogranular Neuts Cancelled Large Granular Lymphs Cancelled # Lrg Granular Lymphs Cancelled Hairy Cells Cancelled Smudge Cells Cancelled Toxic Granulation Cancelled Toxic Vacuolation Cancelled Dohle Bodies Cancelled Karen Rods Cancelled Hypogranular Platelets Cancelled Clumped Platelets Cancelled Giant Platelets Cancelled Platelet Satelliting Cancelled RBC Morphology Cancelled Polychromasia Cancelled Hypochromasia Cancelled Poikilocytosis Cancelled Basophilic Stippling Cancelled Anisocytosis Cancelled Microcytosis Cancelled Macrocytosis Cancelled Spherocytes Cancelled Pappenheimer Bodies Cancelled Sickle Cells Cancelled Target Cells Cancelled Tear Drop Cells Cancelled Ovalocytes Cancelled Stomatocytes Cancelled Rob-[place] Bodies Cancelled Echinocytes Cancelled Acanthocytes (Spur) Cancelled Rouleaux Cancelled RBC Agglutinates Cancelled Schistocytes Cancelled ESR 19 (0-20) mm/hr Sezary Cell Cancelled PT (9.0-12.0) Seconds INR (0.9-1.1) APTT (21.0-31.0) Seconds PTT Ratio Sodium (136-145) mmol/L Potassium (3.5-5.1) mmol/L Chloride (98-107) mmol/L Carbon Dioxide (21-32) mmol/L Anion Gap (3-11) BUN (6-23) mg/dl Creatinine (0.6-1.4) mg/dl Est Cr Clr Drug Dosing ml/min Est GFR ( Amer) ml/min Est GFR (Non-Af Amer) ml/min BUN/Creatinine Ratio (10-20) Glucose (70-99(Fasting)) mg/dl Lactate (0.4-2.0) mmol/L Calcium (8.5-10.1) mg/dl Magnesium (1.7-2.4) mg/dl Total Bilirubin (0.2-1.0) mg/dl AST (13-39) U/L ALT (7-52) U/L Alkaline Phosphatase (34-104) U/L Troponin I High Sens (0-20) pg/ml C-Reactive Protein (0-0.5) mg/dl Total Protein (6.0-8.3) gm/dl Albumin (3.4-5.0) gm/dl Globulin (2.5-4.0) gm/dl Albumin/Globulin Ratio (0.9-2) Procalcitonin (0-0.5) ng/ml Urine Color Urine Appearance (Clear) Urine pH (4.5-7.5) Ur Specific [place] (1.000-1.030) Urine Protein (Negative) Urine Glucose (UA) (Negative) Urine Ketones (Negative) Urine Blood (Negative) Urine Nitrite (Negative) Urine Bilirubin (Negative) Urine Urobilinogen (Negative) Ur Leukocyte Esterase (Negative) Nasal Screen MRSA (PCR) (Negative) SARS-CoV-2 (PCR) NEGATIVE (Negative) Hepatitis C Ab (EIA) Hep C Ab Signal/Cutoff Influenza Type A (PCR) Negative (Neg) Influenza Type B (PCR) Negative (Neg) RSV (RT-PCR) Negative (Neg) Blood Parasites ID Cancelled
--- NOTE | 2021-11-21 07:46 | XRay Report ---
XR chest 1V portable CLINICAL HISTORY: SEPSIS. COMPARISON STUDY: 09/18/2021 TECHNIQUE: 1 view of the chest FINDINGS: Single frontal view of the chest demonstrates the cardiomediastinal silhouette to be within normal li mits. There has been interval placement of a central venous catheter on the right. The lungs are eliseo r of alveolar opacities. There is no evidence for pleural effusion. There is no evidence for vascular congestion. There is no acute osseous pathology. Calcification superimposed over the right lower sol st. IMPRESSION: 1. No acute cardiopulmonary disease. ACT 112: Negative or not required by law. Electronically signed by: Jesse Rjoas M.D. 11/21/2021 7:45 AM
[2021-11-21] MEDS ORDERED: VANCOMYCIN HCL 1,500 MG in SODIUM CHLORIDE 0.9% 500 ML IV SCH (08:00)
[2021-11-21] MEDS ORDERED: PANTOprazole 40 MG TAB PO SCH (09:00)
[2021-11-21] MEDS ORDERED: ROSUVASTATIN CALCIUM 5 MG TAB PO SCH (09:00)
[2021-11-21] MEDS ORDERED: FOLIC ACID 1 MG TAB PO SCH (09:00)
[2021-11-21] MEDS ORDERED: ADVANCED PROBIOTIC 1250 MG CAPSULE PO SCH (09:00)
[2021-11-21] MEDS ORDERED: ESCITALOPRAM OXALATE 20 MG TAB PO SCH (09:00)
[2021-11-21] MEDS ORDERED: allopurinoL 300 MG TAB PO SCH (09:00)
[2021-11-21 12:37] LABS: Platelet Count 12 K/uL (130-400)
--- NOTE | 2021-11-21 15:27 | Discharge Summary ---
Date of Service November 21, 2021 Admission HPI Per Admitting Provider Matias Small is a 61yo male with PMHx significant for AML, pancytopenia, h/o GI bleed, HTN, depression, GERD and HLD who presented to [facility] ED on 11/20 for fever up to 101.5F and chills for ~24 hours. Patient follows with Dr. Rudolph at [facility] for AML. Of note the patient was recently admitted to [facility] from 11/07 - 11/13 for reinduction therapy with Vyxeos. 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 on 10/30) and was s/p cytoreduction therapy with hydroxyurea, azacitidine an venetoclax, with insufficient response, hence his recent admission at [facility] for Vyxeos. Patient was treated with Vyxeos from 11/09-11/11, had previous PICC line removed, and had Liao catheter placed on 11/12. He was started on antimicrobial ppx with Acyclovir/Levofloxacin/Posaconazole and these were continued after discharge. Was also started on Allopurinol for hyperuricemia ppx. Patient was scheduled for blood tests three times per week here in [place], with transfusions as necessary (for Hgb <7 and/or plts <10). He was scheduled for re-evaluation at [facility] in ~1 month. Patient reports generalized weakness, nausea, stomach cramping, and occasional headaches since he was started on Vyxeos. However he reports that last night he started to have fever of up to 101.5F and chills. He had labs done here this morning and had to be sent to [facility] for platelet transfusion as he was told there were none available here. At [facility] he had blood cultures taken (peripheral + Liao) but was not admitted. Patient presented here for persistent fev er/chills, generalized weakness, and fatigue. He denies increased redness or pain around his Liao site although reports mild bruising around the site which has been stable since insertion. Denies runny nose, cough, chest pain, palpitations, SOB, abdominal pain, diarrhea, dysuria, or rash. In the ED the patient was afebrile and stable on room air. Labs significant for WBC 0.27, Hgb 8.6 (down from 9.6 earlier in the day), and plts 9 (stable from earlier in the day) - progressive pancytopenia since starting chemotherapy. Lactate 1.5, procalcitonin <0.05, CRP 6.81, ESR 19. Na 134, K 3.4. UA clean, COVID-19/influenza/RSV negative. CXR unremarkable. Patient was given NSS 1L bolus and Tylenol 1g IV. Was also given Vancomycin and Cefepime. Blood culture was taken (both from Liao catheter and periphery) before initiation of abx. Admission Exam Per Admitting Provider General: A&Ox3. NAD. Cooperative. Obese. HEENT: Atraumatic, normocephalic. Pulm: CTAB A&P. -wheezes, -rales, -rhonchi. Symmetrical chest rise. No increase work of breathing. No respiratory distress. Cardiac: RRR, -mrg. Radial pulses intact and symmetrical. No LE edema. Chest: Liao catheter in place in right chest, with overlying dressing c/d/i. There is surrounding ecchymosis but no erythema/warmth/discharge/tenderness. Abdominal: soft, non-tender, non-distended, BS x 4 Skin: warm, dry, no rash Principal Diagnosis Neutropenic Fever Discharge Exam General: A&Ox3. NAD. Cooperative. Obese. HEENT: Atraumatic, normocephalic. Pulm: CTAB A&P. -wheezes, -rales, -rhonchi. Symmetrical chest rise. No increase work of breathing. No respiratory distress. Cardiac: RRR, -mrg. Radial pulses intact and symmetrical. No LE edema. Chest: Liao catheter in place in right chest, with overlying dressing c/d/i. There is surrounding ecchymosis but no erythema/warmth/discharge/tenderness. Abdominal: soft, non-tender, non-distended. Skin: warm, dry, no rash Discharge Data Allergies Allergy/AdvReac Type Severity Reaction Status Date / Time No Known Allergies Allergy Mild 0 Verified 11/21/21 00:28 Consultations 11/20/21 22:31 ED Decision to Admit Stat 11/21/21 11:06 Burn CD for patient Stat Ordered Studies 11/21/21 11/21/21 11/21/21 Range/Units 11:43 05:39 05:39 WBC (4.8-10.8) K/ul RBC (4.63-6.08) M/uL Hgb (14.0-18.0) g/dl Hct (40.1-51.0) % MCV (80.0-100.0) fL MCH (25.0-34.0) pg MCHC (32.0-36.0) g/dL RDW Std Deviation (36.4-46.3) fL RDW Coeff of Sayra (11.5-14.5) % Plt Count 12 L* D (130-400) K/uL Immature Gran % (Auto) Neut % (Auto) Lymph % (Auto) Leslie % (Auto) Eos % (Auto) Baso % (Auto) Neut # (Auto) Lymph # (Auto) Leslie # (Auto) Eos # (Auto) Baso # (Auto) Immature Gran # (Auto) Neutrophils % (Manual) Band Neutrophils % Lymphocytes % (Manual) Prolymphocyte % Reactive Lymphs % (Man) Monocytes % (Manual) Eosinophils % (Manual) Basophils % (Manual) Metamyelocytes % (Man) Myelocytes % (Man) Promyelocytes % (Man) Blast Cells % (Manual) Plasma Cell % (Manual) Other Cells % Nucleated RBC % Neutrophils # (Manual) Band Neutrophils # Total Absolute Neuts Lymphocytes # (Manual) Prolymphocyte # Reactive Lymphs # Total Abs Lymphocytes Monocytes # (Manual) Eosinophils # (Manual) Basophils # (Manual) Metamyelocytes # (Man) Myelocytes # (Manual) Promyelocytes # (Man) Blast Cells # (Man) Plasma Cell # (Manual) Other Cells # Nucleated RBCs # (Man) Hypersegmented Neuts Hyposegmented Neuts Hypogranular Neuts Large Granular Lymphs # Lrg Granular Lymphs Hairy Cells Smudge Cells Toxic Granulation Toxic Vacuolation Dohle Bodies Karen Rods Hypogranular Platelets Clumped Platelets Giant Platelets Platelet Satelliting RBC Morphology Polychromasia Hypochromasia Poikilocytosis Basophilic Stippling Anisocytosis Microcytosis Macrocytosis Spherocytes Pappenheimer Bodies Sickle Cells Target Cells Tear Drop Cells Ovalocytes Stomatocytes Rob-Oxnard Bodies Echinocytes Acanthocytes (Spur) Rouleaux RBC Agglutinates Schistocytes Peripher Smr Path Cons ESR (0-20) mm/hr Sezary Cell PT (9.0-12.0) Seconds INR (0.9-1.1) APTT (21.0-31.0) Seconds PTT Ratio Sodium 136 (136-145) mmol/L Potassium 4.5 D (3.5-5.1) mmol/L Chloride 107 (98-107) mmol/L Carbon Dioxide 26 (21-32) mmol/L Anion Gap 3 (3-11) BUN 11 (6-23) mg/dl Creatinine 0.66 (0.6-1.4) mg/dl Est Cr Clr Drug Dosing 149.6 ml/min Est GFR ( Amer) 120.1 ml/min Est GFR (Non-Af Amer) 103.6 ml/min BUN/Creatinine Ratio 16.7 (10-20) Glucose 116 H (70-99(Fasting)) mg/dl Lactate (0.4-2.0) mmol/L Calcium 8.0 L (8.5-10.1) mg/dl Magnesium 2.1 (1.7-2.4) mg/dl Total Bilirubin 0.6 (0.2-1.0) mg/dl AST 13 (13-39) U/L ALT 21 (7-52) U/L Alkaline Phosphatase 47 (34-104) U/L Troponin I High Sens (0-20) pg/ml C-Reactive Protein (0-0.5) mg/dl Total Protein 6.3 (6.0-8.3) gm/dl Albumin 3.6 (3.4-5.0) gm/dl Globulin 2.7 (2.5-4.0) gm/dl Albumin/Globulin Ratio 1.3 (0.9-2) Procalcitonin (0-0.5) ng/ml Urine Color Urine Appearance (Clear) Urine pH (4.5-7.5) Ur Specific Zenda (1.000-1.030) Urine Protein (Negative) Urine Glucose (UA) (Negative) Urine Ketones (Negative) Urine Blood (Negative) Urine Nitrite (Negative) Urine Bilirubin (Negative) Urine Urobilinogen (Negative) Ur Leukocyte Esterase (Negative) Nasal Screen MRSA (PCR) (Negative) SARS-CoV-2 (PCR) (Negative) Hepatitis C Ab (EIA) Pending Hep C Ab Signal/Cutoff Pending Influenza Type A (PCR) (Neg) Influenza Type B (PCR) (Neg) RSV (RT-PCR) (Neg) Blood Parasites ID 11/21/21 11/21/21 11/20/21 Range/Units 05:39 02:40 22:30 WBC 0.26 L* (4.8-10.8) K/ul RBC 2.79 L (4.63-6.08) M/uL Hgb 8.0 L (14.0-18.0) g/dl Hct 25.2 L (40.1-51.0) % MCV 90.3 (80.0-100.0) fL MCH 28.7 (25.0-34.0) pg MCHC 31.7 L (32.0-36.0) g/dL RDW Std Deviation 66.4 H (36.4-46.3) fL RDW Coeff of Sayra 20.2 H (11.5-14.5) % Plt Count 6 L* (130-400) K/uL Immature Gran % (Auto) Cancelled Neut % (Auto) Cancelled Lymph % (Auto) Cancelled Leslie % (Auto) Cancelled Eos % (Auto) Cancelled Baso % (Auto) Cancelled Neut # (Auto) Cancelled Lymph # (Auto) Cancelled Leslie # (Auto) Cancelled Eos # (Auto) Cancelled Baso # (Auto) Cancelled Immature Gran # (Auto) Cancelled Neutrophils % (Manual) Cancelled Band Neutrophils % Cancelled Lymphocytes % (Manual) Cancelled Prolymphocyte % Cancelled Reactive Lymphs % (Man) Cancelled Monocytes % (Manual) Cancelled Eosinophils % (Manual) Cancelled Basophils % (Manual) Cancelled Metamyelocytes % (Man) Cancelled Myelocytes % (Man) Cancelled Promyelocytes % (Man) Cancelled Blast Cells % (Manual) Cancelled Plasma Cell % (Manual) Cancelled Other Cells % Cancelled Nucleated RBC % Cancelled Neutrophils # (Manual) Cancelled Band Neutrophils # Cancelled Total Absolute Neuts Cancelled Lymphocytes # (Manual) Cancelled Prolymphocyte # Cancelled Reactive Lymphs # Cancelled Total Abs Lymphocytes Cancelled Monocytes # (Manual) Cancelled Eosinophils # (Manual) Cancelled Basophils # (Manual) Cancelled Metamyelocytes # (Man) Cancelled Myelocytes # (Manual) Cancelled Promyelocytes # (Man) Cancelled Blast Cells # (Man) Cancelled Plasma Cell # (Manual) Cancelled Other Cells # Cancelled Nucleated RBCs # (Man) Cancelled Hypersegmented Neuts Cancelled Hyposegmented Neuts Cancelled Hypogranular Neuts Cancelled Large Granular Lymphs Cancelled # Lrg Granular Lymphs Cancelled Hairy Cells Cancelled Smudge Cells Cancelled Toxic Granulation Cancelled Toxic Vacuolation Cancelled Dohle Bodies Cancelled Karen Rods Cancelled Hypogranular Platelets Cancelled Clumped Platelets Cancelled Giant Platelets Cancelled Platelet Satelliting Cancelled RBC Morphology Cancelled Polychromasia Cancelled Hypochromasia Cancelled Poikilocytosis Cancelled Basophilic Stippling Cancelled Anisocytosis Cancelled Microcytosis Cancelled Macrocytosis Cancelled Spherocytes Cancelled Pappenheimer Bodies Cancelled Sickle Cells Cancelled Target Cells Cancelled Tear Drop Cells Cancelled Ovalocytes Cancelled Stomatocytes Cancelled Rob-Oxnard Bodies Cancelled Echinocytes Cancelled Acanthocytes (Spur) Cancelled Rouleaux Cancelled RBC Agglutinates Cancelled Schistocytes Cancelled Peripher Smr Path Cons ESR (0-20) mm/hr Sezary Cell Cancelled PT (9.0-12.0) Seconds INR (0.9-1.1) APTT (21.0-31.0) Seconds PTT Ratio Sodium (136-145) mmol/L Potassium (3.5-5.1) mmol/L Chloride (98-107) mmol/L Carbon Dioxide (21-32) mmol/L Anion Gap (3-11) BUN (6-23) mg/dl Creatinine (0.6-1.4) mg/dl Est Cr Clr Drug Dosing ml/min Est GFR ( Amer) ml/min Est GFR (Non-Af Amer) ml/min BUN/Creatinine Ratio (10-20) Glucose (70-99(Fasting)) mg/dl Lactate (0.4-2.0) mmol/L Calcium (8.5-10.1) mg/dl Magnesium (1.7-2.4) mg/dl Total Bilirubin (0.2-1.0) mg/dl AST (13-39) U/L ALT (7-52) U/L Alkaline Phosphatase (34-104) U/L Troponin I High Sens (0-20) pg/ml C-Reactive Protein (0-0.5) mg/dl Total Protein (6.0-8.3) gm/dl Albumin (3.4-5.0) gm/dl Globulin (2.5-4.0) gm/dl Albumin/Globulin Ratio (0.9-2) Procalcitonin (0-0.5) ng/ml Urine Color Yellow Urine Appearance Clear (Clear) Urine pH 5.5 (4.5-7.5) Ur Specific Zenda 1.007 (1.000-1.030) Urine Protein Negative (Negative) Urine Glucose (UA) Negative (Negative) Urine Ketones Negative (Negative) Urine Blood Negative (Negative) Urine Nitrite Negative (Negative) Urine Bilirubin Negative (Negative) Urine Urobilinogen Negative (Negative) Ur Leukocyte Esterase Negative (Negative) Nasal Screen MRSA (PCR) Negative (Negative) SARS-CoV-2 (PCR) (Negative) Hepatitis C Ab (EIA) Hep C Ab Signal/Cutoff Influenza Type A (PCR) (Neg) Influenza Type B (PCR) (Neg) RSV (RT-PCR) (Neg) Blood Parasites ID Cancelled 11/20/21 11/20/21 11/20/21 Range/Units 21:05 21:05 21:05 WBC (4.8-10.8) K/ul RBC (4.63-6.08) M/uL Hgb (14.0-18.0) g/dl Hct (40.1-51.0) % MCV (80.0-100.0) fL MCH (25.0-34.0) pg MCHC (32.0-36.0) g/dL RDW Std Deviation (36.4-46.3) fL RDW Coeff of Sayra (11.5-14.5) % Plt Count (130-400) K/uL Immature Gran % (Auto) Neut % (Auto) Lymph % (Auto) Leslie % (Auto) Eos % (Auto) Baso % (Auto) Neut # (Auto) Lymph # (Auto) Leslie # (Auto) Eos # (Auto) Baso # (Auto) Immature Gran # (Auto) Neutrophils % (Manual) Band Neutrophils % Lymphocytes % (Manual) Prolymphocyte % Reactive Lymphs % (Man) Monocytes % (Manual) Eosinophils % (Manual) Basophils % (Manual) Metamyelocytes % (Man) Myelocytes % (Man) Promyelocytes % (Man) Blast Cells % (Manual) Plasma Cell % (Manual) Other Cells % Nucleated RBC % Neutrophils # (Manual) Band Neutrophils # Total Absolute Neuts Lymphocytes # (Manual) Prolymphocyte # Reactive Lymphs # Total Abs Lymphocytes Monocytes # (Manual) Eosinophils # (Manual) Basophils # (Manual) Metamyelocytes # (Man) Myelocytes # (Manual) Promyelocytes # (Man) Blast Cells # (Man) Plasma Cell # (Manual) Other Cells # Nucleated RBCs # (Man) Hypersegmented Neuts Hyposegmented Neuts Hypogranular Neuts Large Granular Lymphs # Lrg Granular Lymphs Hairy Cells Smudge Cells Toxic Granulation Toxic Vacuolation Dohle Bodies Karen Rods Hypogranular Platelets Clumped Platelets Giant Platelets Platelet Satelliting RBC Morphology Polychromasia Hypochromasia Poikilocytosis Basophilic Stippling Anisocytosis Microcytosis Macrocytosis Spherocytes Pappenheimer Bodies Sickle Cells Target Cells Tear Drop Cells Ovalocytes Stomatocytes Rob-Oxnard Bodies Echinocytes Acanthocytes (Spur) Rouleaux RBC Agglutinates Schistocytes Peripher Smr Path Cons ESR (0-20) mm/hr Sezary Cell PT (9.0-12.0) Seconds INR (0.9-1.1) APTT (21.0-31.0) Seconds PTT Ratio Sodium 134 L (136-145) mmol/L Potassium 3.4 L (3.5-5.1) mmol/L Chloride 103 (98-107) mmol/L Carbon Dioxide 24 (21-32) mmol/L Anion Gap 7 (3-11) BUN 14 (6-23) mg/dl Creatinine 0.75 (0.6-1.4) mg/dl Est Cr Clr Drug Dosing 136.5 ml/min Est GFR ( Amer) 113.9 ml/min Est GFR (Non-Af Amer) 98.3 ml/min BUN/Creatinine Ratio 18.7 (10-20) Glucose 131 H (70-99(Fasting)) mg/dl Lactate 1.5 (0.4-2.0) mmol/L Calcium 8.1 L (8.5-10.1) mg/dl Magnesium 2.1 (1.7-2.4) mg/dl Total Bilirubin 0.7 (0.2-1.0) mg/dl AST 14 (13-39) U/L ALT 22 (7-52) U/L Alkaline Phosphatase 52 (34-104) U/L Troponin I High Sens 6.8 (0-20) pg/ml C-Reactive Protein 6.81 H (0-0.5) mg/dl Total Protein 6.6 (6.0-8.3) gm/dl Albumin 3.9 (3.4-5.0) gm/dl Globulin 2.7 (2.5-4.0) gm/dl Albumin/Globulin Ratio 1.4 (0.9-2) Procalcitonin < 0.05 (0-0.5) ng/ml Urine Color Urine Appearance (Clear) Urine pH (4.5-7.5) Ur Specific Zenda (1.000-1.030) Urine Protein (Negative) Urine Glucose (UA) (Negative) Urine Ketones (Negative) Urine Blood (Negative) Urine Nitrite (Negative) Urine Bilirubin (Negative) Urine Urobilinogen (Negative) Ur Leukocyte Esterase (Negative) Nasal Screen MRSA (PCR) (Negative) SARS-CoV-2 (PCR) (Negative) Hepatitis C Ab (EIA) Hep C Ab Signal/Cutoff Influenza Type A (PCR) (Neg) Influenza Type B (PCR) (Neg) RSV (RT-PCR) (Neg) Blood Parasites ID 11/20/21 11/20/21 11/20/21 Range/Units 21:05 21:05 21:05 WBC 0.27 L* (4.8-10.8) K/ul RBC 2.98 L (4.63-6.08) M/uL Hgb 8.6 L (14.0-18.0) g/dl Hct 26.7 L (40.1-51.0) % MCV 89.6 (80.0-100.0) fL MCH 28.9 (25.0-34.0) pg MCHC 32.2 (32.0-36.0) g/dL RDW Std Deviation 65.9 H (36.4-46.3) fL RDW Coeff of Sayra 20.2 H (11.5-14.5) % Plt Count 9 L* (130-400) K/uL Immature Gran % (Auto) Cancelled Neut % (Auto) Cancelled Lymph % (Auto) Cancelled Leslie % (Auto) Cancelled Eos % (Auto) Cancelled Baso % (Auto) Cancelled Neut # (Auto) Cancelled Lymph # (Auto) Cancelled Leslie # (Auto) Cancelled Eos # (Auto) Cancelled Baso # (Auto) Cancelled Immature Gran # (Auto) Cancelled Neutrophils % (Manual) Cancelled Band Neutrophils % Cancelled Lymphocytes % (Manual) Cancelled Prolymphocyte % Cancelled Reactive Lymphs % (Man) Cancelled Monocytes % (Manual) Cancelled Eosinophils % (Manual) Cancelled Basophils % (Manual) Cancelled Metamyelocytes % (Man) Cancelled Myelocytes % (Man) Cancelled Promyelocytes % (Man) Cancelled Blast Cells % (Manual) Cancelled Plasma Cell % (Manual) Cancelled Other Cells % Cancelled Nucleated RBC % Cancelled Neutrophils # (Manual) Cancelled Band Neutrophils # Cancelled Total Absolute Neuts Cancelled Lymphocytes # (Manual) Cancelled Prolymphocyte # Cancelled Reactive Lymphs # Cancelled Total Abs Lymphocytes Cancelled Monocytes # (Manual) Cancelled Eosinophils # (Manual) Cancelled Basophils # (Manual) Cancelled Metamyelocytes # (Man) Cancelled Myelocytes # (Manual) Cancelled Promyelocytes # (Man) Cancelled Blast Cells # (Man) Cancelled Plasma Cell # (Manual) Cancelled Other Cells # Cancelled Nucleated RBCs # (Man) Cancelled Hypersegmented Neuts Cancelled Hyposegmented Neuts Cancelled Hypogranular Neuts Cancelled Large Granular Lymphs Cancelled # Lrg Granular Lymphs Cancelled Hairy Cells Cancelled Smudge Cells Cancelled Toxic Granulation Cancelled Toxic Vacuolation Cancelled Dohle Bodies Cancelled Karen Rods Cancelled Hypogranular Platelets Cancelled Clumped Platelets Cancelled Giant Platelets Cancelled Platelet Satelliting Cancelled RBC Morphology Cancelled Polychromasia Cancelled Hypochromasia Cancelled Poikilocytosis Cancelled Basophilic Stippling Cancelled Anisocytosis Cancelled Microcytosis Cancelled Macrocytosis Cancelled Spherocytes Cancelled Pappenheimer Bodies Cancelled Sickle Cells Cancelled Target Cells Cancelled Tear Drop Cells Cancelled Ovalocytes Cancelled Stomatocytes Cancelled Rob-Oxnard Bodies Cancelled Echinocytes Cancelled Acanthocytes (Spur) Cancelled Rouleaux Cancelled RBC Agglutinates Cancelled Schistocytes Cancelled Peripher Smr Path Cons ESR 19 (0-20) mm/hr Sezary Cell Cancelled PT 10.9 (9.0-12.0) Seconds INR 1.0 (0.9-1.1) APTT 30.3 (21.0-31.0) Seconds PTT Ratio 1.1 Sodium (136-145) mmol/L Potassium (3.5-5.1) mmol/L Chloride (98-107) mmol/L Carbon Dioxide (21-32) mmol/L Anion Gap (3-11) BUN (6-23) mg/dl Creatinine (0.6-1.4) mg/dl Est Cr Clr Drug Dosing ml/min Est GFR ( Amer) ml/min Est GFR (Non-Af Amer) ml/min BUN/Creatinine Ratio (10-20) Glucose (70-99(Fasting)) mg/dl Lactate (0.4-2.0) mmol/L Calcium (8.5-10.1) mg/dl Magnesium (1.7-2.4) mg/dl Total Bilirubin (0.2-1.0) mg/dl AST (13-39) U/L ALT (7-52) U/L Alkaline Phosphatase (34-104) U/L Troponin I High Sens (0-20) pg/ml C-Reactive Protein (0-0.5) mg/dl Total Protein (6.0-8.3) gm/dl Albumin (3.4-5.0) gm/dl Globulin (2.5-4.0) gm/dl Albumin/Globulin Ratio (0.9-2) Procalcitonin (0-0.5) ng/ml Urine Color Urine Appearance (Clear) Urine pH (4.5-7.5) Ur Specific Zenda (1.000-1.030) Urine Protein (Negative) Urine Glucose (UA) (Negative) Urine Ketones (Negative) Urine Blood (Negative) Urine Nitrite (Negative) Urine Bilirubin (Negative) Urine Urobilinogen (Negative) Ur Leukocyte Esterase (Negative) Nasal Screen MRSA (PCR) (Negative) SARS-CoV-2 (PCR) (Negative) Hepatitis C Ab (EIA) Hep C Ab Signal/Cutoff Influenza Type A (PCR) (Neg) Influenza Type B (PCR) (Neg) RSV (RT-PCR) (Neg) Blood Parasites ID Cancelled 11/20/21 Range/Units 21:00 WBC (4.8-10.8) K/ul RBC (4.63-6.08) M/uL Hgb (14.0-18.0) g/dl Hct (40.1-51.0) % MCV (80.0-100.0) fL MCH (25.0-34.0) pg MCHC (32.0-36.0) g/dL RDW Std Deviation (36.4-46.3) fL RDW Coeff of Sayra (11.5-14.5) % Plt Count (130-400) K/uL Immature Gran % (Auto) Neut % (Auto) Lymph % (Auto) Leslie % (Auto) Eos % (Auto) Baso % (Auto) Neut # (Auto) Lymph # (Auto) Leslie # (Auto) Eos # (Auto) Baso # (Auto) Immature Gran # (Auto) Neutrophils % (Manual) Band Neutrophils % Lymphocytes % (Manual) Prolymphocyte % Reactive Lymphs % (Man) Monocytes % (Manual) Eosinophils % (Manual) Basophils % (Manual) Metamyelocytes % (Man) Myelocytes % (Man) Promyelocytes % (Man) Blast Cells % (Manual) Plasma Cell % (Manual) Other Cells % Nucleated RBC % Neutrophils # (Manual) Band Neutrophils # Total Absolute Neuts Lymphocytes # (Manual) Prolymphocyte # Reactive Lymphs # Total Abs Lymphocytes Monocytes # (Manual) Eosinophils # (Manual) Basophils # (Manual) Metamyelocytes # (Man) Myelocytes # (Manual) Promyelocytes # (Man) Blast Cells # (Man) Plasma Cell # (Manual) Other Cells # Nucleated RBCs # (Man) Hypersegmented Neuts Hyposegmented Neuts Hypogranular Neuts Large Granular Lymphs # Lrg Granular Lymphs Hairy Cells Smudge Cells Toxic Granulation Toxic Vacuolation Dohle Bodies Karen Rods Hypogranular Platelets Clumped Platelets Giant Platelets Platelet Satelliting RBC Morphology Polychromasia Hypochromasia Poikilocytosis Basophilic Stippling Anisocytosis Microcytosis Macrocytosis Spherocytes Pappenheimer Bodies Sickle Cells Target Cells Tear Drop Cells Ovalocytes Stomatocytes Rob-Oxnard Bodies Echinocytes Acanthocytes (Spur) Rouleaux RBC Agglutinates Schistocytes Peripher Smr Path Cons ESR (0-20) mm/hr Sezary Cell PT (9.0-12.0) Seconds INR (0.9-1.1) APTT (21.0-31.0) Seconds PTT Ratio Sodium (136-145) mmol/L Potassium (3.5-5.1) mmol/L Chloride (98-107) mmol/L Carbon Dioxide (21-32) mmol/L Anion Gap (3-11) BUN (6-23) mg/dl Creatinine (0.6-1.4) mg/dl Est Cr Clr Drug Dosing ml/min Est GFR ( Amer) ml/min Est GFR (Non-Af Amer) ml/min BUN/Creatinine Ratio (10-20) Glucose (70-99(Fasting)) mg/dl Lactate (0.4-2.0) mmol/L Calcium (8.5-10.1) mg/dl Magnesium (1.7-2.4) mg/dl Total Bilirubin (0.2-1.0) mg/dl AST (13-39) U/L ALT (7-52) U/L Alkaline Phosphatase (34-104) U/L Troponin I High Sens (0-20) pg/ml C-Reactive Protein (0-0.5) mg/dl Total Protein (6.0-8.3) gm/dl Albumin (3.4-5.0) gm/dl Globulin (2.5-4.0) gm/dl Albumin/Globulin Ratio (0.9-2) Procalcitonin (0-0.5) ng/ml Urine Color Urine Appearance (Clear) Urine pH (4.5-7.5) Ur Specific Zenda (1.000-1.030) Urine Protein (Negative) Urine Glucose (UA) (Negative) Urine Ketones (Negative) Urine Blood (Negative) Urine Nitrite (Negative) Urine Bilirubin (Negative) Urine Urobilinogen (Negative) Ur Leukocyte Esterase (Negative) Nasal Screen MRSA (PCR) (Negative) SARS-CoV-2 (PCR) NEGATIVE (Negative) Hepatitis C Ab (EIA) Hep C Ab Signal/Cutoff Influenza Type A (PCR) Negative (Neg) Influenza Type B (PCR) Negative (Neg) RSV (RT-PCR) Negative (Neg) Blood Parasites ID Chest X-Ray 11/20/21 20:41 XR chest 1V portable CLINICAL HISTORY: SEPSIS. COMPARISON STUDY: 09/18/2021 TECHNIQUE: 1 view of the chest FINDINGS: Single frontal view of the chest demonstrates the cardiomediastinal silhouette to be within normal limits. There has been interval placement of a central venous catheter on the right. The lungs are clear of alveolar opacities. There is no evidence for pleural effusion. There is no evidence for vascular congestion. There is no acute osseous pathology. Calcification superimposed over the right lower chest. IMPRESSION: 1. No acute cardiopulmonary disease. ACT 112: Negative or not required by law. Electronically signed by: Jesse Rojas M.D. 11/21/2021 7:45 AM Hospital Course (1) Fever and neutropenia: (2) Pancytopenia: (3) AML (acute myeloblastic leukemia): (4) Hypokalemia: (5) HTN (hypertension): (6) Hypercholesteremia: (7) Depression: (8) GERD (gastroesophageal reflux disease): Fallon Matias Small is a 61 y/o male with PMHx significant for AML, pancytopenia, h/o GI bleed, HTN, depression, GERD and HLD who presented to [facility] ED on 11/20 for fever up to 101.5F and chills for ~24 hours. Patient follows with Dr. Rudolph at [facility] for AML. Of note the patient was recently admitted to [facility] from 11/07 - 11/13 for reinduction therapy with Vyxeos. 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 on 10/30) and was s/p cytoreduction therapy with hydroxyurea, azacitidine and venetoclax, with insufficient response, hence his recent admission at [facility] for Vyxeos. Patient was treated with Vyxeos from 11/09-11/11, had previous PICC line removed, and had Liao catheter placed on 11/12. He was started on antimicrobial ppx with Acyclovir/Levofloxacin/Posaconazole and these were continued after discharge. Was also started on Allopurinol for hyperuricemia ppx. Patient was scheduled for blood tests three times per week here in [place], with transfusions as necessary (for Hgb <7 and/or plts <10). He was scheduled for re-evaluation at [facility] in ~1 month. Patient reports generalized weakness, nausea, stomach cramping, and occasional headaches since he was started on Vyxeos. However he reports that last night he started to have fever of up to 101.5F and chills. He had labs done here this morning and had to be sent to [facility] for platelet transfusion as he was told there were none available here. At [facility] he had blood cultures taken (peripheral + Liao) but was not admitted. Patient presented here for persistent fever/chills, generalized weakness, and fatigue. He denies increased redness or pain around his Liao site although reports mild bruising around the site which has been stable since insertion. Denies runny nose, cough, chest pain, palpitations, SOB, abdominal pain, diarrhea, dysuria, or rash. In the ED the patient was afebrile and stable on room air. Labs significant for WBC 0.27, Hgb 8.6 (down from 9.6 earlier in the day), and plts 9 (stable from earlier in the day) - progressive pancytopenia since starting chemotherapy. Lactate 1.5, procalcitonin <0.05, CRP 6.81, ESR 19. Na 134, K 3.4. UA clean, COVID-19/influenza/RSV negative. CXR unremarkable. Patient was given NSS 1L bolus and Tylenol 1g IV. Was also given Vancomycin and Cefepime. Blood culture was taken (both from Liao catheter and periphery) before initiation of abx #Fever and neutropenia Fever with Tmax 101.5F and chills x1 day, generalized weakness/fatigue for ~1 week. No focal respiratory/GI/urinary symptoms. No overt signs of cellulitis around Liao catheter. Patient has had intermittent headache but no AMS or meningeal signs. Fever/chills started the night before his platelet infusion and thus does not represent transfusion reaction. Requires aggressive treatment until infection can be more definitively ruled out. Patient is not currently septic - lactate and procalcitonin WNL. He is on vancomycin/cefepime for presumed bacteria infection. In addition he is on caspofungin and acyclovir for fungal and viral coverage. Blood cultures NGTD 24 hrs. We have him on LR 125 m L/hr maintenance fluids with Tylenol on board for fevers. Highest temp during admission 38.2 C. His white count today was 0.26. #Pancytopenia Worsening pancytopenia since initiation of Vyxeos - due to chemotherapy. WBC 0.26, Hgb 8.0, plts 6,000. Patient received a unit of packed platelets at [facility] yesterday. Plt 6 today, so another unit was given. Transfuse Plt <10, Hgb < 7. #AML Patient follows with Dr. Rudolph at [facility] for AML. Of note the patient was recently admitted to [facility] from 11/07 - 11/13 for reinduction therapy with Vyxeos. 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 on 10/30) and was s/p cytoreduction therapy with hydroxyurea, azacitidine an venetoclax, with insufficient response, hence his recent admission at [facility] for Vyxeos. Continue allopurinol for hyperuricemia ppx. Heme/Onc was consulted and recommended transfer to [facility] for specialty care in the context of a neutropenic fever with a resent transformation from CMML to AML. #Hypokalemia K 3.4, repleted. AM BMP - K 4.5 #HTN Hold home Amlodipine-Losartan due to concern for infection and possibility for development of sepsis/hypotension. #HLD Continue home Rosuvastatin #Depression Continue home Lexapro #GERD Protonix per hospital formulary FENI: regular code status: full DVT ppx: SCDs dispo: [facility] IM Total Time Total Time Spent Total Time Spent (In Minutes): See attending attestation. Discharge Plan Discharge Items Patient Disposition: Transfer Acute Care Hospital Reason For Visit: NEUTROPENIC FEVER Discharge Diagnosis: neutropenic fever and severe thrombocytpenia Activity: Per Instructions section Non-emergency contact: Primary Care Provider and Oncologist Call non-emergency contact if: you have any medication questions, your symptoms worsen and you have a fever Follow-up/Referrals: Jessica Ceuvas MD [Primary Care Provider] - Diet: Regular Addtl Attending Provider Instructions: 61 year old male w/ PMHx of recent conversion of CMML to AML s/p reinduction therapy w/ Vyxeos 11/07/21-11/13/21 who presented to [facility] w/ neutropenic fever. He has had downtrending pancytopenia since the Vyxeos w/ platelets <10, Hb 8.0 and wbc 0.26. Vitals stable. (noon): 114/70. pulse 94. RR 21. Temp 38C. 98% sat on room air. dispo: transfer to [facility]. Accepting physician (hematology) Dr. Sis Ridley. Room 7258. (1) Neutropenic fever: He has had chills all day 11/19/21 and tmax of 100.7F that evening. 11/20/21, he presented for routine labwork at [facility] and was found to have plts <10, so he went to [place] for transfusion of irradiated platelets. He had blood cultures drawn at [place]. That evening, he had tmax of 101.5F and presented to [facility] ED, resulting in the current admission. Given the timing of the fevers, lower suspicion for transfusion reaction. - Vancomycin/Cefepime (started 1030pm 11/20/21) and empiric antifungal/antiviral coverage (started ~3-5am 11/21/21) w/ caspofungin and acyclovir IV. May be reasonable to resume home PO antifungal/antiviral prophylaxis. Continue va nc/cefepime. Hold home levofloxacin. - blood cultures no growth to date. - s/p NSS 1L bolus and maintenance LR. - no obvious source of infection found; cxr, ua reviewed, lungs clear/mildly diminished diffusely. no diarrhea. no URI symptoms. - no altered mentation - Tmax of 38.2C 8AM 11/21/21, 37.8C later morning, and 38C at noon. - [facility] heme/onc recommended transfer to [facility] given complex PMHx of recent transformation to AML w/ recent chemo reinduction (2) Pancytopenia: Worsening pancytopenia since initiation of Vyxeos - due to chemotherapy. WBC 0.27, Hgb 8.6, plts 9000. - patient received 1 unit irradiated platelets at [facility] on 11/20 - received 1 unit pathogen reduced platelets at [facility] on 11/21 w/ plts 6->10. (3) Acute myeloblastic leukemia: Patient follows with Dr. Rudolph at [facility] for AML. Of note the patient was recently admitted to [facility] from 11/07 - 11/13 for reinduction therapy with Vyxeos. 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 on 10/30) and was s/p cytoreduction therapy with hydroxyurea, azacitidine an venetoclax, with insufficient response, hence his recent admission at [facility] for Vyxeos. Liao catheter was placed on 11/12. He was started on antimicrobial ppx with Acyclovir/Levofloxacin/Posaconazole upon 11/13 [facility] discharge. - continue Allopurinol for hyperuricemia ppx - per [facility] recs (4) Hypokalemia: - K 3.4, repleted. follow BMP (5) HTN (hypertension): - Held home Amlodipine-Losartan due to concern for infection and possibility for development of sepsis/hypotension. Restart when appropriate (6) Hypercholesteremia: - Continue home Rosuvastatin (7) Depression: - Continue home Lexapro (8) GERD (gastroesophageal reflux disease): - PPI Patient was full code this admission. Ben Cameron MD. PGY3 Pending Studies at Discharge: No Studies:: Blood cultures Stand-Alone Forms: My [facility] Skilled Items Patient informed of condition?: Yes DNR: No Discharge Level of Care: Other Communicable Disease: No Discharge Prognosis: Stable Lines: Peripheral IV and Liao Urinary Catheter: No Medications and DC Order Prescriptions: Continued ondansetron HCl 4 mg tablet 4 mg PO Q6 PRN (Reason: Nausea) acyclovir 400 mg tablet 400 mg PO BID omeprazole 20 mg capsule,delayed release(DR/EC) 20 mg PO DAILY folic acid 1 mg tablet 1 mg PO DAILY allopurinol 300 mg tablet 300 mg PO DAILY escitalopram oxalate 20 mg tablet 20 mg PO DAILY rosuvastatin 5 mg tablet 5 mg PO QPM amlodipine-olmesartan 5-40 mg tablet 1 tab PO DAILY posaconazole 100 mg tablet,delayed release (DR/EC) 300 mg PO DAILY Discontinued cetirizine [Zyrtec] 10 mg Tablet 10 mg PO DAILY levofloxacin 750 mg tablet 750 mg PO DAILY Discharge Orders: Discharge Order (Routine); Ordered 11/21/21 Ordered By: Ben Cameron Admission Data Admit Date/Time: 11/20/21 23:18 Attending Provider: Casimiro Ramírez Admit Provider: Gildardo Herzog Primary Care Provider: Jessica Cuevas Other Providers: Terry Morales Other Interventions: Discharge Summary Assessment (RN) Last Done: 11/21/21 15:09 Supervising Physician Co-Signing Physician Notes I personally examined the patient and verified all dia points of history and exam, discussed case, and agree with decision making with Dr Petty feeling OK. for transfer. no new symptoms vitals noted no distress. Breathing unlabored no accessory muscle use good effort. Skin shows no rashes no pallor or icterus. Neuro without focal deficits. Neutropenic feverscontinue Vanco and cefepime. For transfer per hematology recommendations. Otherwise as above. Resident Activity Tracking Resident Involvement: Resident Care Provided Care Provided: Adult Hospital Medicine
--- NOTE | 2021-11-21 16:41 | Electrocardiogram Report ---
Test Reason : Blood Pressure : / mmHG Vent. Rate : 076 BPM Atrial Rate : 076 BPM P-R Int : 146 ms QRS Dur : 094 ms QT Int : 382 ms P-R-T Axes : 002 006 011 degrees QTc Int : 429 ms Normal sinus rhythm Nonspecific ST abnormality Abnormal ECG When compared with ECG of 21-SEP-2021 12:46, No significant change was found Confirmed by Manish Hayden ([id number]) on 11/21/2021 4:40:29 PM Referred By: REFERRED SELF Confirmed By:Manish Hayden
--- NOTE | 2021-11-21 17:36 | Billing Data ---
Date of Service November 21, 2021 Coding Level of Care Code D/C DAY MANAGEMENT <30 MINS
--- NOTE | 2021-11-22 03:06 | Billing Data ---
Date of Service November 22, 2021 Coding Level of Care Code 37359 Initial Inpt Care Lvl 3
[2021-11-22] MEDS ORDERED: CASPOFUNGIN 50 MG in SODIUM CHLORIDE 0.9% 250 ML IV SCH (04:00)
== END 2021-11-21 15:30 | disposition short-term general hospital (02) | DRG 809 ==
LOC: ED 20:24 → SUATTDRO 23:18 → 1E 23:18

== ENCOUNTER 2021-12-05 21:05 | Inpatient (IN) ==
[2021-12-05] MEDS ORDERED: PROMETHAZINE 12.5 MG/50.5 ML BAG IV STA (21:38)
[2021-12-05] MEDS ORDERED: KETOROLAC TROMETHAMINE 15 MG/ML VIAL IV ONE (21:38)
--- NOTE | 2021-12-05 21:58 | Emergency Department Note ---
Impression & Plan Fever and neutropenia, Thrombocytopenia ED Provider Note NAME: MELISSA ESQUIVEL AGE: 61 SEX: M : 1960 ARRIVES VIA: Walk-In INFORMANT: Patient, ED PROVIDER(S): Manish Cummings DO CHIEF COMPLAINT: Fever HPI: The patient is a 61-year-old male who presented to the emergency department for an evaluation of fever. The patient has a history of AML. The patient noticed a fever of 101.9 prior to arrival. He was seen in our facility recently similar complaints. At that time he had a complete work-up which included blood cultures and he was found to be neutropenic. He was ultimately transferred to [place] because this is where his care is usually managed. While he was at [place] had a blood culture again drawn from the port that was in his left chest wall. This blood culture is positive. The port was removed and the patient was placed on a PICC line. He is currently receiving daptomycin. The patient does complain of a headache but he denies having any neck stiffness. He denies having any chest pain or difficulty breathing. He denies having lower extremity swelling. He does notice a rash which is his usual petechial rash from having thrombocytopenia. He also notices that he has sores in his mouth. ROS: See above HPI for pertinent positives & negatives. A total of 10 systems reviewed and were otherwise negative. PAST MEDICAL HISTORY: See Below PAST SURGICAL HISTORY: See Below FAMILY HISTORY: See Below SOCIAL HISTORY: See Below HOME MEDICATIONS: See Below ALLERGIES: See Below VITALS: See Below PHYSICAL EXAMINATION: GENERAL: Patient is awake alert in no acute distress patient is resting comfortably and showing no signs of anxiety EYES: The conjunctivae are clear. The pupils are round and reactive. EARS, NOSE, MOUTH AND THROAT: The nose is without any evidence of any deformity. Mucous membranes are moist. There are some ulcerations on the side of the tongu e as well as the roof of the mouth. NECK: The neck is nontender and supple. RESPIRATORY: Normal respiratory effort is noted there is no evidence of wheezing rhonchi or rales CARDIOVASCULAR: Regular rate and rhythm noted there no murmurs rubs or gallops normal S1 normal S2. GASTROINTESTINAL: The abdomen is soft. Abdomen is nontender. MUSCULOSKELETAL/EXTREMITIES: There is no evidence of gross deformity full range of motion is noted in the hips and shoulders. SKIN: There is a petechial rash noted on both ankles. Trace pedal edema was noted bilaterally. NEUROLOGIC: Patient is awake alert and oriented x3 strength is symmetric patellar reflexes are 2+ bilaterally MEDICAL DECISION MAKING: The patient is a 61-year-old male who presented to the emergency department for an evaluation of fever. The patient has a history of AML. He has a history of neutropenic fever as well. The patient was treated for headache in the emergency department. He did not have any focal neurologic deficits or meningismus. I discussed patient's laboratory and radiographic studies with him. I discussed his condition with the on-call [facility] hospitalist. The patient was only recently discharged from [facility]. He is receiving IV daptomycin. Hospitalist will evaluate the patient in the emergency department. Triage Nursing notes reviewed. Prior medical records reviewed Vital Signs: reviewed and remarkable for fever. Differential diagnosis: Viral syndrome, otitis, pharyngitis, pneumonia, influenza, meningitis, urinary tract infection, sepsis, bacteremia, as well as other pathologies. ER treatment provided: See below Diagnostics interpreted by me: ECG: EKG was obtained in the emergency department. My interpretation is normal sinus rhythm at 79 bpm. There is no ectopy. Nonspecific ST segment abnormalities noted. This was compared to a tracing from November 20, 2021. No changes were noted. Cardiac Monitoring: An order was placed for continuous cardiac monitoring. The monitor shows a rate of 94 bpm with sinus rhythm. Laboratory studies: As stated above and show below. Imaging studies: See below Consultation(s): I discussed this case with Dr. Morales who is on-call for the [facility] hospitalist group. Past Med/Surg History Medical History Acute GI bleeding Anemia COVID-19 Depression Depression GERD (gastroesophageal reflux disease) Head ache HTN (hypertension) Hypercholesteremia Social History Smoking Status: Never smoker Hx Alcohol Use: No Hx Substance Use: No Preferred Language: Frisian Communication Ability: Effective Certified Ophthalmic Technician Required: No Beliefs That Will Affect Care: None marital status: Current Living Situation: Spouse and Family Current Living Situation Comment: Pt lives with spouse and adult son Feels Safe at Home: Yes Assistive Devices: None Allergies Allergies Allergy/AdvReac Type Severity Reaction Status Date / Time No Known Allergies Allergy Mild 0 Verified 12/04/21 10:46 Home Meds Home Medications Medication Instructions Recorded Confirmed acyclovir 400 mg tablet 400 mg PO BID 11/21/21 12/06/21 allopurinol 300 mg tablet 300 mg PO DAILY 11/21/21 12/06/21 amlodipine 5 mg-olmesartan 40 mg 1 tab PO DAILY 11/21/21 12/06/21 tablet escitalopram oxalate 20 mg tablet 20 mg PO DAILY 11/21/21 12/06/21 folic acid 1 mg tablet 1 mg PO DAILY 11/21/21 12/06/21 omeprazole 20 mg capsule,delayed 20 mg PO DAILY 11/21/21 12/06/21 release ondansetron HCl 4 mg tablet 4 mg PO Q6 PRN Nausea 11/21/21 12/06/21 posaconazole 100 mg tablet,delayed 300 mg PO DAILY 11/21/21 12/06/21 release rosuvastatin 5 mg tablet 5 mg PO QPM 11/21/21 12/06/21 daptomycin 350 mg intravenous 750 mg IV DAILY 12/04/21 12/06/21 solution Magic Swizzle 5 ml PO Q6 PRN .SORE MOUTH 12/06/21 12/06/21 Saline Rinse 1 dose PO DIRECTED PRN sore 12/06/21 12/06/21 mouth levofloxacin 750 mg tablet 750 mg PO DAILY 12/06/21 12/06/21 Results & Data (ED) Vital Signs Vital Signs - 24 hr 12/05/21 21:12 12/05/21 21:53 Temperature 38.8 C H Temperature Source Oral Pulse Rate 94 H Respiratory Rate 20 Respiratory Effort / Characteristics Non-Labored Spontaneous Non-Labored Spontaneous Respiratory Depth Normal Respiratory Pattern Regular Blood Pressure 155/73 H Blood Pressure Mean 100 Pulse Oximetry 99 Oxygen Delivery Method Room Air Sepsis Recent Fever Within 48 Hours Yes Sepsis New/Unexplained Change in Mental Status No Sepsis Action Taken by Nursing No Action Required Home Medications Current Medication List: was personally reviewed by me Laboratory Data Attestation: I reviewed the patient's lab results. Result diagrams: 12/05/21 22:04 12/05/21 22:04 Lab Results 12/05/21 12/05/21 12/05/21 Range/Units 22:04 22:04 22:04 WBC 0.11 L* (4.8-10.8) K/ul RBC 2.85 L (4.63-6.08) M/uL Hgb 7.9 L (14.0-18.0) g/dl Hct 23.5 L (40.1-51.0) % MCV 82.5 (80.0-100.0) fL MCH 27.7 (25.0-34.0) pg MCHC 33.6 (32.0-36.0) g/dL RDW Std Deviation 50.7 H (36.4-46.3) fL RDW Coeff of Sayra 16.8 H (11.5-14.5) % Plt Count 19 L* D (130-400) K/uL MPV 12.0 (9.4-12.4) fL Immature Gran % (Auto) Cancelled Neut % (Auto) Cancelled Lymph % (Auto) Cancelled Gilchrist % (Auto) Cancelled Eos % (Auto) Cancelled Baso % (Auto) Cancelled Neut # (Auto) Cancelled Lymph # (Auto) Cancelled Gilchrist # (Auto) Cancelled Eos # (Auto) Cancelled Baso # (Auto) Cancelled Immature Gran # (Auto) Cancelled Neutrophils % (Manual) Cancelled Band Neutrophils % Cancelled Lymphocytes % (Manual) Cancelled Prolymphocyte % Cancelled Reactive Lymphs % (Man) Cancelled Monocytes % (Manual) Cancelled Eosinophils % (Manual) Cancelled Basophils % (Manual) Cancelled Metamyelocytes % (Man) Cancelled Myelocytes % (Man) Cancelled Promyelocytes % (Man) Cancelled Blast Cells % (Manual) Cancelled Plasma Cell % (Manual) Cancelled Other Cells % Cancelled Nucleated RBC % Cancelled Neutrophils # (Manual) Cancelled Band Neutrophils # Cancelled Total Absolute Neuts Cancelled Lymphocytes # (Manual) Cancelled Prolymphocyte # Cancelled Reactive Lymphs # Cancelled Total Abs Lymphocytes Cancelled Monocytes # (Manual) Cancelled Eosinophils # (Manual) Cancelled Basophils # (Manual) Cancelled Metamyelocytes # (Man) Cancelled Myelocytes # (Manual) Cancelled Promyelocytes # (Man) Cancelled Blast Cells # (Man) Cancelled Plasma Cell # (Manual) Cancelled Other Cells # Cancelled Nucleated RBCs # (Man) Cancelled Hypersegmented Neuts Cancelled Hyposegmented Neuts Cancelled Hypogranular Neuts Cancelled Large Granular Lymphs Cancelled # Lrg Granular Lymphs Cancelled Hairy Cells Cancelled Smudge Cells Cancelled Toxic Granulation Cancelled Toxic Vacuolation Cancelled Dohle Bodies Cancelled Karen Rods Cancelled Hypogranular Platelets Cancelled Clumped Platelets Cancelled Giant Platelets Cancelled Platelet Satelliting Cancelled RBC Morphology Cancelled Polychromasia Cancelled Hypochromasia Cancelled Poikilocytosis Cancelled Basophilic Stippling Cancelled Anisocytosis Cancelled Microcytosis Cancelled Macrocytosis Cancelled Spherocytes Cancelled Pappenheimer Bodies Cancelled Sickle Cells Cancelled Target Cells Cancelled Tear Drop Cells Cancelled Ovalocytes Cancelled Stomatocytes Cancelled Rob-Grindstone Bodies Cancelled Echinocytes Cancelled Acanthocytes (Spur) Cancelled Rouleaux Cancelled RBC Agglutinates Cancelled Schistocytes Cancelled ESR 27 H (0-20) mm/hr Sezary Cell Cancelled PT Cancelled INR Cancelled APTT Cancelled PTT Ratio Cancelled Sodium (136-145) mmol/L Potassium (3.5-5.1) mmol/L Chloride (98-107) mmol/L Carbon Dioxide (21-32) mmol/L Anion Gap (3-11) BUN (6-23) mg/dl Creatinine (0.6-1.4) mg/dl Est Cr Clr Drug Dosing ml/min Est GFR ( Amer) ml/min Est GFR (Non-Af Amer) ml/min BUN/Creatinine Ratio (10-20) Glucose (70-99(Fasting)) mg/dl Lactate (0.4-2.0) mmol/L Calcium (8.5-10.1) mg/dl Magnesium (1.7-2.4) mg/dl Total Bilirubin (0.2-1.0) mg/dl AST (13-39) U/L ALT (7-52) U/L Alkaline Phosphatase (34-104) U/L Troponin I High Sens (0-20) pg/ml C-Reactive Protein (0-0.5) mg/dl Total Protein (6.0-8.3) gm/dl Albumin (3.4-5.0) gm/dl Globulin (2.5-4.0) gm/dl Albumin/Globulin Ratio (0.9-2) Procalcitonin (0-0.5) ng/ml SARS-CoV-2, RNA, NAAT (NEGATIVE) Blood Parasites ID Cancelled 12/05/21 12/05/21 12/05/21 Range/Units 22:04 22:04 23:24 WBC (4.8-10.8) K/ul RBC (4.63-6.08) M/uL Hgb (14.0-18.0) g/dl Hct (40.1-51.0) % MCV (80.0-100.0) fL MCH (25.0-34.0) pg MCHC (32.0-36.0) g/dL RDW Std Deviation (36.4-46.3) fL RDW Coeff of Sayra (11.5-14.5) % Plt Count (130-400) K/uL MPV (9.4-12.4) fL Immature Gran % (Auto) Neut % (Auto) Lymph % (Auto) Gilchrist % (Auto) Eos % (Auto) Baso % (Auto) Neut # (Auto) Lymph # (Auto) Gilchrist # (Auto) Eos # (Auto) Baso # (Auto) Immature Gran # (Auto) Neutrophils % (Manual) Band Neutrophils % Lymphocytes % (Manual) Prolymphocyte % Reactive Lymphs % (Man) Monocytes % (Manual) Eosinophils % (Manual) Basophils % (Manual) Metamyelocytes % (Man) Myelocytes % (Man) Promyelocytes % (Man) Blast Cells % (Manual) Plasma Cell % (Manual) Other Cells % Nucleated RBC % Neutrophils # (Manual) Band Neutrophils # Total Absolute Neuts Lymphocytes # (Manual) Prolymphocyte # Reactive Lymphs # Total Abs Lymphocytes Monocytes # (Manual) Eosinophils # (Manual) Basophils # (Manual) Metamyelocytes # (Man) Myelocytes # (Manual) Promyelocytes # (Man) Blast Cells # (Man) Plasma Cell # (Manual) Other Cells # Nucleated RBCs # (Man) Hypersegmented Neuts Hyposegmented Neuts Hypogranular Neuts Large Granular Lymphs # Lrg Granular Lymphs Hairy Cells Smudge Cells Toxic Granulation Toxic Vacuolation Dohle Bodies Karen Rods Hypogranular Platelets Clumped Platelets Giant Platelets Platelet Satelliting RBC Morphology Polychromasia Hypochromasia Poikilocytosis Basophilic Stippling Anisocytosis Microcytosis Macrocytosis Spherocytes Pappenheimer Bodies Sickle Cells Target Cells Tear Drop Cells Ovalocytes Stomatocytes Rob-Grindstone Bodies Echinocytes Acanthocytes (Spur) Rouleaux RBC Agglutinates Schistocytes ESR (0-20) mm/hr Sezary Cell PT INR APTT PTT Ratio Sodium 135 L (136-145) mmol/L Potassium 3.7 (3.5-5.1) mmol/L Chloride 103 (98-107) mmol/L Carbon Dioxide 25 (21-32) mmol/L Anion Gap 7 (3-11) BUN 9 (6-23) mg/dl Creatinine 0.68 (0.6-1.4) mg/dl Est Cr Clr Drug Dosing 143.0 ml/min Est GFR ( Amer) 118.6 ml/min Est GFR (Non-Af Amer) 102.4 ml/min BUN/Creatinine Ratio 13.2 (10-20) Glucose 120 H (70-99(Fasting)) mg/dl Lactate (0.4-2.0) mmol/L Calcium 8.1 L (8.5-10.1) mg/dl Magnesium 1.9 (1.7-2.4) mg/dl Total Bilirubin 0.7 (0.2-1.0) mg/dl AST 10 L (13-39) U/L ALT 13 (7-52) U/L Alkaline Phosphatase 66 (34-104) U/L Troponin I High Sens 9.7 (0-20) pg/ml C-Reactive Protein 8.14 H (0-0.5) mg/dl Total Protein 6.4 (6.0-8.3) gm/dl Albumin 3.7 (3.4-5.0) gm/dl Globulin 2.7 (2.5-4.0) gm/dl Albumin/Globulin Ratio 1.4 (0.9-2) Procalcitonin 0.09 (0-0.5) ng/ml SARS-CoV-2, RNA, NAAT NEGATIVE (NEGATIVE) Blood Parasites ID 12/05/21 12/05/21 Range/Units 23:34 23:34 WBC (4.8-10.8) K/ul RBC (4.63-6.08) M/uL Hgb (14.0-18.0) g/dl Hct (40.1-51.0) % MCV (80.0-100.0) fL MCH (25.0-34.0) pg MCHC (32.0-36.0) g/dL RDW Std Deviation (36.4-46.3) fL RDW Coeff of Sayra (11.5-14.5) % Plt Count (130-400) K/uL MPV (9.4-12.4) fL Immature Gran % (Auto) Neut % (Auto) Lymph % (Auto) Gilchrist % (Auto) Eos % (Auto) Baso % (Auto) Neut # (Auto) Lymph # (Auto) Gilchrist # (Auto) Eos # (Auto) Baso # (Auto) Immature Gran # (Auto) Neutrophils % (Manual) Band Neutrophils % Lymphocytes % (Manual) Prolymphocyte % Reactive Lymphs % (Man) Monocytes % (Manual) Eosinophils % (Manual) Basophils % (Manual) Metamyelocytes % (Man) Myelocytes % (Man) Promyelocytes % (Man) Blast Cells % (Manual) Plasma Cell % (Manual) Other Cells % Nucleated RBC % Neutrophils # (Manual) Band Neutrophils # Total Absolute Neuts Lymphocytes # (Manual) Prolymphocyte # Reactive Lymphs # Total Abs Lymphocytes Monocytes # (Manual) Eosinophils # (Manual) Basophils # (Manual) Metamyelocytes # (Man) Myelocytes # (Manual) Promyelocytes # (Man) Blast Cells # (Man) Plasma Cell # (Manual) Other Cells # Nucleated RBCs # (Man) Hypersegmented Neuts Hyposegmented Neuts Hypogranular Neuts Large Granular Lymphs # Lrg Granular Lymphs Hairy Cells Smudge Cells Toxic Granulation Toxic Vacuolation Dohle Bodies Karen Rods Hypogranular Platelets Clumped Platelets Giant Platelets Platelet Satelliting RBC Morphology Polychromasia Hypochromasia Poikilocytosis Basophilic Stippling Anisocytosis Microcytosis Macrocytosis Spherocytes Pappenheimer Bodies Sickle Cells Target Cells Tear Drop Cells Ovalocytes Stomatocytes Rob-Grindstone Bodies Echinocytes Acanthocytes (Spur) Rouleaux RBC Agglutinates Schistocytes ESR (0-20) mm/hr Sezary Cell PT 11.9 INR 1.1 APTT 31.7 H PTT Ratio 1.2 Sodium (136-145) mmol/L Potassium (3.5-5.1) mmol/L Chloride (98-107) mmol/L Carbon Dioxide (21-32) mmol/L Anion Gap (3-11) BUN (6-23) mg/dl Creatinine (0.6-1.4) mg/dl Est Cr Clr Drug Dosing ml/min Est GFR ( Amer) ml/min Est GFR (Non-Af Amer) ml/min BUN/Creatinine Ratio (10-20) Glucose (70-99(Fasting)) mg/dl Lactate 0.8 (0.4-2.0) mmol/L Calcium (8.5-10.1) mg/dl Magnesium (1.7-2.4) mg/dl Total Bilirubin (0.2-1.0) mg/dl AST (13-39) U/L ALT (7-52) U/L Alkaline Phosphatase (34-104) U/L Troponin I High Sens (0-20) pg/ml C-Reactive Protein (0-0.5) mg/dl Total Protein (6.0-8.3) gm/dl Albumin (3.4-5.0) gm/dl Globulin (2.5-4.0) gm/dl Albumin/Globulin Ratio (0.9-2) Procalcitonin (0-0.5) ng/ml SARS-CoV-2, RNA, NAAT (NEGATIVE) Blood Parasites ID Administered Medications Discontinued Medications Hydromorphone HCl (Hydromorphone Inj 1 Mg/Ml Syringe) 1 mg IV NOW STA Stop: 12/05/21 23:01 Last Admin: 12/05/21 23:14 Dose: 1 mg Documented By: JARRET Promethazine HCl (Phenergan) 12.5 mg in 50.5 mls @ 202 mls/hr IV NOW STA Stop: 12/05/21 21:52 Last Admin: 12/05/21 22:16 Dose: 202 mls/hr Documented By: JARRET Ketorolac Tromethamine (Ketorolac Tromethamine 15 Mg/Ml Vial) 10 mg IV NOW ONE Stop: 12/05/21 21:39 Last Admin: 12/05/21 23:31 Dose: Not Given Documented By: JARRET Imaging Data Attestation: I personally reviewed and interpreted this imaging study as follows: My Impression: 1 view chest x-ray was obtained in the emergency department. My interpretation is no definite filtrate, no free air, no acute disease Discharge Plan Visit Data Chief Complaint: Fever Stated Complaint: FEVER, HEADACHE ED Provider: Manish Cummings Discharge Problem: Fever and neutropenia, Thrombocytopenia Patient Disposition: Being Evaluated by Hospitalist Forms Stand Alone Forms: My [facility] Prescriptions Prescriptions: No Action ondansetron HCl 4 mg tablet 4 mg PO Q6 PRN (Reason: Nausea) acyclovir 400 mg tablet 400 mg PO BID omeprazole 20 mg capsule,delayed release(DR/EC) 20 mg PO DAILY folic acid 1 mg tablet 1 mg PO DAILY allopurinol 300 mg tablet 300 mg PO DAILY escitalopram oxalate 20 mg tablet 20 mg PO DAILY rosuvastatin 5 mg tablet 5 mg PO QPM amlodipine-olmesartan 5-40 mg tablet 1 tab PO DAILY posaconazole 100 mg tablet,delayed release (DR/EC) 300 mg PO DAILY daptomycin 350 mg Recon Soln 750 mg IV DAILY Rx Instructions: administer over 30 mins, end 12/10/21 levofloxacin 750 mg tablet 750 mg PO DAILY Magic Swizzle 5 ml PO Q6 PRN (Reason: .SORE MOUTH) Saline Rinse 1 dose PO DIRECTED PRN (Reason: sore mouth) Referrals Referrals: Jessica Cuevas MD [Primary Care Provider] -
[2021-12-05 22:48] LABS: Albumin Globulin Ratio 1.4 (0.9-2); Albumin Level 3.7 gm/dl (3.4-5.0); BUN Creatinine Ratio 13.2 (10-20); Bilirubin,Total 0.7 mg/dl (0.2-1.0); C Reactive Protein 8.14 mg/dl (0-0.5); Calcium 8.1 mg/dl (8.5-10.1); Est GFR (African American) 118.6 ml/min; Est GFR (Non-African American) 102.4 ml/min; Globulin 2.7 gm/dl (2.5-4.0); Magnesium 1.9 mg/dl (1.7-2.4); Potassium 3.7 mmol/L (3.5-5.1); Total Protein 6.4 gm/dl (6.0-8.3)
[2021-12-05 22:51] LABS: Troponin I High Sensitivity 9.7 pg/ml (0-20)
[2021-12-05 23:00] LABS: Hematocrit (blood only) 23.5 % (40.1-51.0); Hemoglobin 7.9 g/dl (14.0-18.0); Mean Corpuscular Hemoglobin 27.7 pg (25.0-34.0); Mean Corpuscular Hgb Conc 33.6 g/dL (32.0-36.0); Mean Corpuscular Volume 82.5 fL (80.0-100.0); Platelet Count 19 K/uL (130-400); RDW Coefficient of Variation 16.8 % (11.5-14.5); RDW Standard Deviation 50.7 fL (36.4-46.3); Red Blood Count 2.85 M/uL (4.63-6.08); White Blood Count 0.11 K/ul (4.8-10.8)
[2021-12-05] MEDS ORDERED: HYDROmorphone INJ 1 MG/ML SYRINGE IV STA (23:00)
[2021-12-06 00:03] LABS: INR 1.1 (0.9-1.1); Partial Thromboplastin Ratio 1.2; Partial Thromboplastin Time 31.7 Seconds (21.0-31.0); Prothrombin Time 11.9 Seconds (9.0-12.0)
--- NOTE | 2021-12-06 00:45 | History & Physical Report ---
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 Rudolph at [facility]), history of bone marrow biopsy (at [facility] on 10/30/2021), pancytopenia, HTN, HLD, history of GI bleed, and GERD presents with a one-day history of neutropenic fever (Tmax 101.9), chills, mild headache, mild nausea, and mouth sores. Currently in the process of transferring patient to [facility] so that his neutropenic fever can be managed by his own heme/oncology team. The transfer was accepted by Dr. Regalado (heme/oncology). Neutropenic fever, pancytopenia, AML, history of CMML, recent chemotherapy induction Patient with a one-day history of neutropenic fever in the setting of pancytopenia secondary to acute myeloblastic leukemia in addition to recent chemotherapy induction Upon arrival, vitals were notable for mild hypertension and a fever of 38.8; no tachycardia or tachypnea; SpO2 adequate on room air Initial labs were notable for pancytopenia (leukopenia to 0.11 with differential pending, anemia to 7.9, and thrombocytopenia to 19), elevated ESR (27), elevated CRP (8.14), and mild hypocalcemia (8.1 - ionized pending) No other major electrolyte abnormalities. INR, lactate, magnesium, LFTs, troponin all wnl; covid testing negative Blood and urine cultures pending CXR without acute intrathoracic abnormality (per my read) Stat CT abdomen/pelvis to evaluate for neutropenic enterocolitis: no abnormalities of the liver, spleen, pancreas, gallbladder, adrenal glands; no abnormal fluid or regional inflammatory reaction; no mass or lymphadenopathy; nonobstructing calculi in the kidneys noted ([facility] read; in-house over-read pending) In the ED, patient was given an NSS 1L bolus (x1), promethazine 12.5mg IV (x1), toradol 10mg IV (x1), and dilaudid 1mg IV (x1) I held patient's home prophylactic levofloxacin and daptomycin, and started vancomycin IV and cefepime IV Transfer accepted by (accepting physician: Dr. Regalado, heme/oncology) - paperwork complete, transfer pending available [facility] room and transportation arrangements NSS @ 125mL/hr (x1 bag ordered; patient does not need to be on IVF during transport) Continue microbial prophylaxis with acyclovir and posaconazole Continue hyperuricemia prophylaxis with allopurinol Continue magic swizzle for oral ulcers Transfuse for Hgb<7.0, platelets<10k or if signs of active bleeding AM labs ordered: CBC, CMP, PT/INR, magnesium, phosphorous, ionized calcium Neutropenic precautions Hypertension: continue home amlodipine-olmesartan Hyperlipidemia: continue home rosuvastatin GERD: continue home omeprazole MDD: continue home escitalopram FEN: heart-healthy, neutropenic diet, NSS @ 125mL/hr (x1 bag ordered; patient does not need to be on IVF during transport) Code status: full code DVT ppx: SCDs Held home meds: levofloxacin, daptomycin Isolation: neutropenic precautions Dispo: med/tele pending transfer to [facility] (2) Pancytopenia: (3) AML (acute myeloblastic leukemia): (4) HTN (hypertension): (5) Hypercholesteremia: (6) Hypokalemia: (7) GERD (gastroesophageal reflux disease): (8) Depression: (9) History of recent chemotherapy: History of Present Illness Primary Care Provider: Jessica Cuevas MD 61yo male with a 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 Rudolph at [facility]), history of bone marrow biopsy (at [facility] on 10/30/2021), pancytopenia, HTN, HLD, history of GI bleed, and GERD presents with a one-day history of fever (Tmax 101.9), chills, mild headache, mild nausea, and mouth sores. Patient was admitted to [facility] (11/20 to 11/21/2021) for similar symptoms. Patient was also admitted to [facility] earlier last month (11/07 - 11/13/2021) for reinduction therapy with vyxeos after insufficiently responding to cytoreduction therapy with hydroxyurea, azacitidine, and venetoclax. Patient was treated with vyxeos (from 11/09 to 11/11/2021) and had a Liao catheter placed (11/12/2021). Upon discharge from [facility], patient was placed on antimicrobial prophylaxis with acyclovir, levofloxacin, daptomycin, and posaconazole, as well as allopurinol for hyperuricemia prophylaxis. Patient's thresholds for blood product transfusions has been Hgb<7.0 and platelets<10. Patient underwent a platelet transfusion earlier today (12/05) and yesterday (12/04) at the [facility], and one last Friday (12/02) at [facility]. Patient reports developing a fever and chills earlier today (12/05); Tmax 101.9. Also endorses mild nausea, pain secondary to mouth sores, and a headache, though these symptoms are no worse than patient's baseline symptoms as of the past few weeks since starting a new chemotherapy regimen. Patient denies vision changes, CP, palpitations, SOB, edema, abdominal pain, vomiting, dysuria, hematochezia, melena, lightheadedness, dizziness, numbness, tingling, weakness, or other symptoms. Upon arrival, vitals were notable for mild hypertension and a fever of 38.8. No tachycardia or tachypnea; SpO2 adequate on room air. Initial labs were notable for pancytopenia (leukopenia to 0.11 with differential pending, anemia to 7.9, and thrombocytopenia to 19), elevated ESR (27), elevated CRP (8.14), and mild hypocalcemia (8.1 - ionized pending). No other major electrolyte abnormalities. INR, lactate, magnesium, LFTs, troponin all wnl. Covid testing negative. Blood and urine cultures pending. In the ED, patient was given an NSS 1L bolus (x1), promethazine 12.5mg IV (x1), toradol 10mg IV (x1), and dilaudid 1mg IV (x1). Upon admission, I held patient's home prophylactic levofloxacin and daptomycin, and started vancomycin IV and cefepime IV. I continued patient's home prophylactic acyclovir and posaconazole. Patient denies any abdominal pain or diarrhea, but to evaluate for neutropenic enterocolitis, I ordered a stat CT abdomen/pelvis; read currently pending. Patient and patient's request possible transfer because patient's heme/oncology team is at [facility], which I agree is reasonable in order to optimize continuity of care. I called [facility] to discuss possible transfer; transfer was accepted by Dr. Regalado (heme/oncology). Surrogate decision-maker in case of an emergency: Melissa Small (cell: [phone]) Allergies Allergy/AdvReac Type Severity Reaction Status Date / Time No Known Allergies Allergy Mild 0 Verified 12/04/21 10:46 Home Medications Medication Instructions Recorded Confirmed Type acyclovir 400 mg tablet 400 mg PO BID 11/21/21 12/06/21 History allopurinol 300 mg tablet 300 mg PO DAILY 11/21/21 12/06/21 History amlodipine 5 mg-olmesartan 40 mg 1 tab PO DAILY 11/21/21 12/06/21 History tablet escitalopram oxalate 20 mg tablet 20 mg PO DAILY 11/21/21 12/06/21 History folic acid 1 mg tablet 1 mg PO DAILY 11/21/21 12/06/21 History omeprazole 20 mg capsule,delayed 20 mg PO DAILY 11/21/21 12/06/21 History release ondansetron HCl 4 mg tablet 4 mg PO Q6 PRN Nausea 11/21/21 12/06/21 History posaconazole 100 mg tablet,delayed 300 mg PO DAILY 11/21/21 12/06/21 History release rosuvastatin 5 mg tablet 5 mg PO QPM 11/21/21 12/06/21 History Magic Swizzle 5 ml PO Q6 PRN .SORE MOUTH 12/06/21 12/06/21 History Saline Rinse 1 dose PO DIRECTED PRN sore 12/06/21 12/06/21 History mouth acetaminophen 500 mg tablet 1,000 mg PO Q8H PRN fever #1 tab 12/06/21 Rx (Tylenol Extra Strength) olmesartan 40 mg tablet (Benicar) 40 mg PO DAILY #1 tab 12/06/21 Rx ondansetron HCl (PF) 4 mg/2 mL 4 mg (2 mL) IV Q6H PRN nausea and 12/06/21 Rx injection solution vomiting #10 mL Past Med/Surg History Medical History (Updated 12/06/21 @ 02:31 by Antoine Berry MD) Acute GI bleeding Anemia COVID-19 Depression Depression GERD (gastroesophageal reflux disease) Head ache HTN (hypertension) Hypercholesteremia Neutropenic fever Social History Smoking Status: Never smoker Hx Alcohol Use: No Hx Substance Use: No Preferred Language: Bolivian Communication Ability: Effective Tax Auditor Required: No Beliefs That Will Affect Care: None marital status: Current Living Situation: Spouse and Family Current Living Situation Comment: Pt lives with spouse and adult son Feels Safe at Home: Yes Assistive Devices: None Physical Exam Physical Exam: Constitutional: well-appearing, no acute distress HEENT: NCAT, no conjunctival injection, no scleral icterus, some nonbleeding tongue / oral mucosa ulcerations noted CV: regular rhythm, no murmur appreciated, extremities well-perfused, no LE edema Resp: CTABL, no wheezes/rales/rhonchi appreciated, no increased work of breathing GI: soft, nondistended, nontender, BS present MSK: no gross deformities appreciated Skin: petechial rash noted on ankles bilaterally Neuro: alert, oriented, no focal neurologic deficit appreciated Results & Data Results & Data ([facility]) Vital Signs (Past 12 Hours) Vital Signs Temp Pulse Resp BP Pulse Ox O2 Del Method 12/05/21 21:12 38.8 C H 94 H 20 155/73 H 99 Room Air Supervising Physician Co-Signing Physician Notes Attending addendum: I have physically seen this patient, have supervised the medical residents activities, and agree with the H&P unless as otherwise noted. Assessment and Plan: Neutropenic fever/pancytopenia/AML/history of CMML/recent chemotherapy induction- Patient recently admitted to [facility] 11/20-11/21, and transferred to [facility] 11/21 due to severe nature of illness and continuing care Patient with similar presentation, prefers to be transferred to [facility], and I agree. Will continue therapy as noted until transport can be arranged. Remaining orders and notations as noted Resident Activity Tracking Resident Involvement: Resident Care Provided and Counterintelligence/[employer] Specialist Coverage Note Care Provided: Adult Hospital Medicine
[2021-12-06] MEDS ORDERED: VANCOMYCIN CONSULT ACTIVE PRN (01:00)
[2021-12-06] MEDS ORDERED: [UNRECOGNIZED DRUG - OTHER] PO PRN (01:02)
[2021-12-06] MEDS ORDERED: MAGIC SWIZZLE PO PRN (01:02)
[2021-12-06] MEDS ORDERED: ONDANSETRON 4 MG OD TAB PO PRN (01:02)
[2021-12-06] MEDS ORDERED: SODIUM CHLORIDE 0.9% 1000ML 1,000 ML IV SCH (02:10)
[2021-12-06] MEDS ORDERED: ONDANSETRON INJ 2 MG/ML 2 ML VIAL IV PRN (02:10)
[2021-12-06] MEDS ORDERED: VANCOMYCIN HCL 2,250 MG in SODIUM CHLORIDE 0.9% 500 ML IV STA (02:18)
[2021-12-06] MEDS: CEFEPIME 2,000 MG in SYRINGE 0 ML IV SCH ×2 (02:38→09:16)
[2021-12-06] MEDS ORDERED: FIRST - Mouthwash BLM 119 ML PO PRN (03:37)
[2021-12-06 05:24] LABS: INR 1.2 (0.9-1.1); Prothrombin Time 12.4 Seconds (9.0-12.0)
[2021-12-06 05:30] LABS: Albumin Globulin Ratio 1.3 (0.9-2); Albumin Level 3.6 gm/dl (3.4-5.0); BUN Creatinine Ratio 15.2 (10-20); Bilirubin,Total 0.7 mg/dl (0.2-1.0); Creatinine Clr Calc Pharmacy 147.3 ml/min; Est GFR (African American) 120.1 ml/min; Est GFR (Non-African American) 103.6 ml/min; Globulin 2.8 gm/dl (2.5-4.0); Magnesium 1.9 mg/dl (1.7-2.4); Phosphorus 2.7 mg/dl (2.5-4.9); Potassium 3.8 mmol/L (3.5-5.1); Total Protein 6.4 gm/dl (6.0-8.3)
[2021-12-06 05:32] LABS: Hematocrit (blood only) 21.1 % (40.1-51.0); Mean Corpuscular Hemoglobin 27.9 pg (25.0-34.0); Mean Corpuscular Hgb Conc 33.2 g/dL (32.0-36.0); Mean Corpuscular Volume 84.1 fL (80.0-100.0); Platelet Count 13 K/uL (130-400); RDW Standard Deviation 52.4 fL (36.4-46.3); Red Blood Count 2.51 M/uL (4.63-6.08); White Blood Count 0.14 K/ul (4.8-10.8)
[2021-12-06] MEDS: ACETAMINOPHEN 500 MG TAB PO PRN ×2 (05:39→12:48)
[2021-12-06] MEDS ORDERED: KETOROLAC TROMETHAMINE 15 MG/ML VIAL IV ONE (06:29)
--- NOTE | 2021-12-06 08:28 | CT Scan Report ---
ABDOMEN AND PELVIS CT WITHOUT CONTRAST CT DOSE: 1529.38 mGy.cm HISTORY: Acute fever with chemotherapy neutropenic fever, AML, recent chemo induction TECHNIQUE: Multiaxial CT images of the abdomen and pelvis were performed without contrast. A dose lo wering technique was utilized adhering to the principles of ALARA. COMPARISON STUDY: CT abdomen and pelvis 09/24/2021, 10/23/2020 FINDINGS: Cardiomegaly with coronary artery calcifications. Mildly decreased attenuation of the cardi ac blood pool may represent anemia. The lung bases appear clear. Unchanged likely benign 5 mm solid n odule of the inferior segment lingula. No pneumatosis or pneumoperitoneum. The unenhanced spleen is m ildly enlarged, 14.3 cm. Unremarkable pancreas, adrenal glands, gallbladder and liver. Mild nonspecific bilateral perinephric inflammatory stranding. 3 mm nonobstructing calculus of the in ferior pole left kidney. There are 2 nonobstructing calculi of the right kidney measuring up to 3 mm. No ureteral calculi or hydronephrosis. Stone burden appears stable from prior. Mild nonspecific urin ludwig bladder wall thickening. Atherosclerosis of the aorta without aneurysm. There is no lymphadenopat hy. Tiny hiatal hernia. There is no bowel obstruction or bowel wall thickening. Mild colonic fecal retent ion. Normal appendix. Tiny fat filled periumbilical hernia. Mild generalized body wall edema. Degener ative changes of the spine, pelvis and hips. Healed chronic right-sided rib fractures. IMPRESSION: 1. No acute intra-abdominal or intrapelvic abnormality. 2. No bowel obstruction or bowel wall thickening. 3. Nonobstructing bilateral renal calculi. 4. Splenomegaly. 5. Additional findings as above. ACT 112: Negative or not required by law. The above report was generated using voice recognition software. It may contain grammatical, syntax o r spelling errors. Electronically signed by: Mello Sampson M.D. 12/06/2021 8:26 AM
--- NOTE | 2021-12-06 08:42 | XRay Report ---
SINGLE VIEW CHEST CLINICAL HISTORY: Sepsis. FINDINGS: 2 AP, portable, upright chest radiographs are compared to study dated 11/20/2021. Correlated with chest CT dated 02/16/2009. A right-sided central venous catheter has been removed from previous . A left PICC line is new from previous. The tip of the catheter projects over the cavoatrial junctio n. The heart is enlarged. The pulmonary vasculature is noncongested. There is mild bibasilar scarring /atelectasis. The lungs and pleural spaces are otherwise clear. No pneumothorax is seen. There are he aled right-sided rib fractures. IMPRESSION: 1. Cardiomegaly with no acute cardiopulmonary abnormality. 2. A left-sided PICC line is new from previous. ACT 112: Negative or not required by law. Electronically signed by: Noel Avelar M.D. 12/06/2021 8:40 AM
[2021-12-06] MEDS ORDERED: ACYCLOVIR 400 MG TAB PO SCH (09:00)
[2021-12-06] MEDS ORDERED: allopurinoL 300 MG TAB PO SCH (09:00)
[2021-12-06] MEDS ORDERED: OLMESARTAN MEDOXOMIL 40 MG TAB PO SCH (09:00)
[2021-12-06] MEDS ORDERED: ESCITALOPRAM OXALATE 20 MG TAB PO SCH (09:00)
[2021-12-06] MEDS ORDERED: FOLIC ACID 1 MG TAB PO SCH (09:00)
[2021-12-06] MEDS ORDERED: amLODIPine BESYLATE 5 MG TAB PO SCH (09:00)
[2021-12-06] MEDS ORDERED: PANTOprazole 40 MG TAB PO SCH (09:00)
[2021-12-06] MEDS ORDERED: VANCOMYCIN HCL 1,500 MG in SODIUM CHLORIDE 0.9% 500 ML IV SCH (10:00)
[2021-12-06 13:22] LABS: Appearance Urine Clear (Clear); Bacteria Urine Automated Negative (Negative); Bilirubin Urine Negative (Negative); Blood Urine 1+ (Negative); Color Urine Yellow; Glucose Urine UA Negative (Negative); Ketones Urine Negative (Negative); Leukocyte Esterase Urine Negative (Negative); Nitrite Urine Negative (Negative); Protein Urine Negative (Negative); RBC Urine Automated 0-4 /hpf (0-4); Specific Gravity Urine 1.013 (1.000-1.030); Urobilinogen Urine Negative (Negative); pH Urine 5.5 (4.5-7.5)
--- NOTE | 2021-12-06 16:57 | Discharge Summary ---
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 Rudolph [place] [facility] history of bone marrow biopsy (at [facility] [place] 10/[place]21), pancytopenia, HTN, HLD, history of GI bleed, and GERD presents with a one-day history of fever (Tmax 101.9), chills, mild headache, mild nausea, and mouth sores. Patient was admitted to [facility] (11/20 to 11/21/2021) for similar symptoms. Patient was also admitted to [facility] earlier last month (11/07 - 11/13/2021) for reinduction therapy with vyxeos after insufficiently responding to cytoreduction therapy with hydroxyurea, azacitidine, and venetoclax. Patient was treated with vyxeos (from 11/09 to 11/11/2021) and had a Liao catheter placed (11/12/2021). Upon discharge from [facility], patient was placed on antimicrobial prophylaxis with acyclovir, levofloxacin, daptomycin, and posaconazole, as well as allopurinol for hyperuricemia prophylaxis. Patient's thresholds for blood product transfusions has been Hgb<7.0 and platelets<10. Patient underwent a platelet transfusion earlier today (12/05) and yesterday (12/04) at the [facility], and one last Friday (12/02) at [facility]. Patient reports developing a fever and chills earlier today (12/05); Tmax 101.9. Also endorses mild nausea, pain secondary to mouth sores, and a headache, though these symptoms are no worse than patient's baseline symptoms as of the past few weeks since starting a new chemotherapy regimen. Patient denies vision changes, CP, palpitations, SOB, edema, abdominal pain, vomiting, dysuria, hematochezia, melena, lightheadedness, dizziness, numbness, tingling, weakness, or other symptoms. Upon arrival, vitals were notable for mild hypertension and a fever of 38.8. No tachycardia or tachypnea; SpO2 adequate on room air. Initial labs were notable for pancytopenia (leukopenia to 0.11 with differential pending, anemia to 7.9, and thrombocytopenia to 19), elevated ESR (27), elevated CRP (8.14), and mild hypocalcemia (8.1 - ionized pending). No other major electrolyte abnormalities. INR, lactate, magnesium, LFTs, troponin all wnl. Covid testing negative. Blood and urine cultures pending. In the ED, patient was given an NSS 1L bolus (x1), promethazine 12.5mg IV (x1), toradol 10mg IV (x1), and dilaudid 1mg IV (x1). Upon admission, I held patient's home prophylactic levofloxacin and daptomycin, and started vancomycin IV and cefepime IV. I continued patient's home prophylactic acyclovir and posaconazole. Patient denies any abdominal pain or diarrhea, but to evaluate for neutropenic enterocolitis, I ordered a stat CT abdomen/pelvis; read currently pending. Patient and patient's request possible transfer because patient's heme/oncology team is at [facility], which I agree is reasonable in order to optimize continuity of care. I called [facility] to discuss possible transfer; transfer was accepted by Dr. Regalado (heme/oncology). Surrogate decision-maker in case of an emergency: Melissa Small (cell: [phone]) Admission Exam Per Admitting Provider Constitutional: well-appearing, no acute distress HEENT: NCAT, no conjunctival injection, no scleral icterus, some nonbleeding tongue / oral mucosa ulcerations noted CV: regular rhythm, no murmur appreciated, extremities well-perfused, no LE edema Resp: CTABL, no wheezes/rales/rhonchi appreciated, no increased work of breathing GI: soft, nondistended, nontender, BS present MSK: no gross deformities appreciated Skin: petechial rash noted on ankles bilaterally Neuro: alert, oriented, no focal neurologic deficit appreciated Principal Diagnosis Neutropenic fever Discharge Exam Constitutional: well-appearing, no acute distress HEENT: NCAT, no conjunctival injection, no scleral icterus, some nonbleeding tongue / oral mucosa ulcerations noted CV: regular rhythm, no murmur appreciated, extremities well-perfused, no LE edema Resp: CTABL, no wheezes/rales/rhonchi appreciated, no increased work of breathing GI: soft, nondistended, nontender, BS present MSK: no gross deformities appreciated Skin: petechial rash noted on ankles bilaterally Neuro: alert, oriented, no focal neurologic deficit appreciated Discharge Data Allergies Allergy/AdvReac Type Severity Reaction Status Date / Time No Known Allergies Allergy Mild 0 Verified 12/04/21 10:46 Consultations 12/06/21 00:12 ED Decision to Admit Stat Ordered Studies 12/06/21 01:00 CT Abd and Pelvis [CT abd pelvis wo con] Urgent Hospital Course (1) Neutropenic fever: 61yo male with a 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 Rudolph at [facility] history of bone marrow biopsy (at [facility] [place] 10/[place]21), ingram cytopenia, HTN, HLD, history of GI bleed, and GERD presents with a one-day history of neutropenic fever (Tmax 101.9), chills, mild headache, mild nausea, and mouth sores. Currently in the process of transferring patient to [facility] so that his neutropenic fever can be managed by his own heme/oncology team. The transfer was accepted by Dr. Regalado (heme/oncology). Neutropenic fever, pancytopenia, AML, history of CMML, recent chemotherapy induction Patient with a one-day history of neutropenic fever in the setting of pancytopenia secondary to acute myeloblastic leukemia in addition to recent chemotherapy induction Upon arrival, vitals were notable for mild hypertension and a fever of 38.8; no tachycardia or tachypnea; SpO2 adequate on room air Initial labs were notable for pancytopenia (leukopenia to 0.11 with differential pending, anemia to 7.9, and thrombocytopenia to 19), elevated ESR (27), elevated CRP (8.14), and mild hypocalcemia (8.1 - ionized pending) No other major electrolyte abnormalities. INR, lactate, magnesium, LFTs, troponin all wnl; covid testing negative Blood and urine cultures pending CXR without acute intrathoracic abnormality (per my read) Stat CT abdomen/pelvis to evaluate for neutropenic enterocolitis: no abnormalities of the liver, spleen, pancreas, gallbladder, adrenal glands; no abnormal fluid or regional inflammatory reaction; no mass or lymphadenopathy; nonobstructing calculi in the kidneys noted (Stat[employer] read; in-house over-read pending) In the ED, patient was given an NSS 1L bolus (x1), promethazine 12.5mg IV (x1), toradol 10mg IV (x1), and dilaudid 1mg IV (x1) I held patient's home prophylactic levofloxacin and daptomycin, and started vancomycin IV and cefepime IV Transfer accepted by [facility] (accepting physician: Dr. Regalado, heme/oncology) - paperwork complete, transfer pending available [facility] room and transportation arrangements NSS @ 125mL/hr (x1 bag ordered; patient does not need to be on IVF during transport) Continue microbial prophylaxis with acyclovir and posaconazole Continue hyperuricemia prophylaxis with allopurinol Continue magic swizzle for oral ulcers Transfuse for Hgb<7.0, platelets<10k or if signs of active bleeding AM labs ordered: CBC, CMP, PT/INR, magnesium, phosphorous, ionized calcium Neutropenic precautions Hypertension: continue home amlodipine-olmesartan Hyperlipidemia: continue home rosuvastatin GERD: continue home omeprazole MDD: continue home escitalopram FEN: heart-healthy, neutropenic diet, NSS @ 125mL/hr (x1 bag ordered; patient does not need to be on IVF during transport) Code status: full code DVT ppx: SCDs Held home meds: levofloxacin, daptomycin Isolation: neutropenic precautions Dispo: med/tele pending transfer to [facility] (2) Pancytopenia: (3) AML (acute myeloblastic leukemia): (4) HTN (hypertension): (5) Hypercholesteremia: (6) Hypokalemia: (7) GERD (gastroesophageal reflux disease): (8) Depression: (9) History of recent chemotherapy: Total Time Total Time Spent Total Time Spent (In Minutes): Less than 30 Total Time Includes: Examination of the Patient, Discharge Planning, Medication Reconciliation, Communication With Other Providers and Other Discharge Plan Discharge Items Patient Disposition: [facility] Reason For Visit: NEUTROPENIC FEVER,HX AML,RECENT CHEMO INDUCTION Discharge Diagnosis: NEUTROPENIC FEVER,HX AML,RECENT CHEMO INDUCTION Activity: Per Instructions section Non-emergency contact: Primary Care Provider Call non-emergency contact if: your symptoms worsen and your pain is concerning for you Follow-up/Referrals: Jessica Cuevas MD [Primary Care Provider] - Diet: Heart Healthy Addtl Attending Provider Instructions: HPI: 61yo male with a 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 Rudolph at [facility] history of bone marrow biopsy (at [facility] [place] 10/[place]21), pancytopenia, HTN, HLD, history of GI bleed, and GERD presents with a one-day history of fever (Tmax 101.9), chills, mild headache, mild nausea, and mouth sores. Patient was admitted to [facility] (11/20 to 11/21/2021) for similar symptoms. Patient was also admitted to [facility] earlier last month (11/07 - 11/13/2021) for reinduction therapy with vyxeos after insufficiently responding to cytoreduction therapy with hydroxyurea, azacitidine, and venetoclax. Patient was treated with vyxeos (from 11/09 to 11/11/2021) and had a Liao catheter placed (11/12/2021). Upon discharge from [facility], patient was placed on antimicrobial prophylaxis with acyclovir, levofloxacin, daptomycin, and posaconazole, as well as allopurinol for hyperuricemia prophylaxis. Patient's thresholds for blood product transfusions has been Hgb<7.0 and platelets<10. Patient underwent a platelet transfusion earlier today (12/05) and yesterday (12/04) at the [facility], and one last Friday (12/02) at [facility]. Patient reports developing a fever and chills earlier today (12/05); Tmax 101.9. Also endorses mild nausea, pain secondary to mouth sores, and a headache, though these symptoms are no worse than patient's baseline symptoms as of the past few weeks since starting a new chemotherapy regimen. Patient denies vision changes, CP, palpitations, SOB, edema, abdominal pain, vomiting, dysuria, hematochezia, melena, lightheadedness, dizziness, numbness, tingling, weakness, or other symptoms. Upon arrival, vitals were notable for mild hypertension and a fever of 38.8. No tachycardia or tachypnea; SpO2 adequate on room air. Initial labs were notable for pancytopenia (leukopenia to 0.11 with differential pending, anemia to 7.9, and thrombocytopenia to 19), elevated ESR (27), elevated CRP (8.14), and mild hypocalcemia (8.1 - ionized pending). No other major electrolyte abnormalities. INR, lactate, magnesium, LFTs, troponin all wnl. Covid testing negative. Blood and urine cultures pending. In the ED, patient was given an NSS 1L bolus (x1), promethazine 12.5mg IV (x1), toradol 10mg IV (x1), and dilaudid 1mg IV (x1). Upon admission, I held patient's home prophylactic levofloxacin and daptomycin, and started vancomycin IV and cefepime IV. I continued patient's home prophylactic acyclovir and posaconazole. Patient denies any abdominal pain or diarrhea, but to evaluate for neutropenic enterocolitis, I ordered a stat CT abdomen/pelvis; read currently pending. Patient and patient's request possible transfer because patient's heme/oncology team is at [facility], which I agree is reasonable in order to optimize continuity of care. I called [facility] to discuss possible transfer; transfer was accepted by Dr. Regalado (heme/oncology). Hospital course: Neutropenic fever, pancytopenia, AML, history of CMML, recent chemotherapy induction Patient with a one-day history of neutropenic fever in the setting of pancytopenia secondary to acute myeloblastic leukemia in addition to recent chemotherapy induction Upon arrival, vitals were notable for mild hypertension and a fever of 38.8; no tachycardia or tachypnea; SpO2 adequate on room air Initial labs were notable for pancytopenia (leukopenia to 0.11 with differential pending, anemia to 7.9, and thrombocytopenia to 19), elevated ESR (27), elevated CRP (8.14), and mild hypocalcemia (8.1 - ionized pending) No other major electrolyte abnormalities. INR, lactate, magnesium, LFTs, troponin all wnl; covid testing negative Blood and urine cultures pending CXR without acute intrathoracic abnormality (per my read) Stat CT abdomen/pelvis to evaluate for neutropenic enterocolitis: no abnormalities of the liver, spleen, pancreas, gallbladder, adrenal glands; no abnormal fluid or regional inflammatory reaction; no mass or lymphadenopathy; nonobstructing calculi in the kidneys noted (Stat[facility] read; in-house over-read pending) In the ED, patient was given an NSS 1L bolus (x1), promethazine 12.5mg IV (x1), toradol 10mg IV (x1), and dilaudid 1mg IV (x1) I held patient's home prophylactic levofloxacin and daptomycin, and started vancomycin IV and cefepime IV Transfer accepted by [facility] (accepting physician: Dr. Regalado, heme/oncology) - paperwork complete, transfer pending available [facility] room and transportation arrangements NSS @ 125mL/hr (x1 bag ordered; patient does not need to be on IVF during transport) Continue microbial prophylaxis with acyclovir and posaconazole Continue hyperuricemia prophylaxis with allopurinol Continue magic swizzle for oral ulcers Transfuse for Hgb<7.0, platelets<10k or if signs of active bleeding Patient's Hgb is at 7.0 at time of discharge. Patient had a fever and was given Tylenol at 5:30 am and IV Toradol at 6:30. No fever at time of discharge. Neutropenic precautions Hypertension: continue home amlodipine-olmesartan Hyperlipidemia: continue home rosuvastatin GERD: continue home omeprazole MDD: continue home escitalopram FEN: heart-healthy, neutropenic diet, NSS @ 125mL/hr (x1 bag ordered; patient does not need to be on IVF during transport) Code status: full code DVT ppx: SCDs Held home meds: levofloxacin, daptomycin Isolation: neutropenic precautions Dispo: med/tele pending transfer to [facility] Pending Studies at Discharge: No Stand-Alone Forms: [facility] Patient informed of condition?: Yes DNR: No Discharge Level of Care: Other Communicable Disease: No Discharge Prognosis: Stable Lines: PICC Urinary Catheter: No Medications and DC Order Prescriptions: New acetaminophen [Tylenol Extra Strength] 500 mg Tablet 1,000 mg PO Q8H PRN (Reason: fever) Qty: 1 0RF olmesartan [Benicar] 40 mg Tablet 40 mg PO DAILY Qty: 1 0RF ondansetron HCl (PF) 4 mg/2 mL Solution 4 mg IV Q6H PRN (Reason: nausea and vomiting) Qty: 10 0RF Continued ondansetron HCl 4 mg tablet 4 mg PO Q6 PRN (Reason: Nausea) acyclovir 400 mg tablet 400 mg PO BID omeprazole 20 mg capsule,delayed release(DR/EC) 20 mg PO DAILY folic acid 1 mg tablet 1 mg PO DAILY allopurinol 300 mg tablet 300 mg PO DAILY escitalopram oxalate 20 mg tablet 20 mg PO DAILY rosuvastatin 5 mg tablet 5 mg PO QPM amlodipine-olmesartan 5-40 mg tablet 1 tab PO DAILY posaconazole 100 mg tablet,delayed release (DR/EC) 300 mg PO DAILY Magic Swizzle 5 ml PO Q6 PRN (Reason: .SORE MOUTH) Saline Rinse 1 dose PO DIRECTED PRN (Reason: sore mouth) Discontinued daptomycin 350 mg Recon Soln 750 mg IV DAILY Rx Instructions: administer over 30 mins, end 12/10/21 levofloxacin 750 mg tablet 750 mg PO DAILY Discharge Orders: Discharge Order (Routine); Ordered 12/06/21 Ordered By: Noel Barbosa Admission Data Admit Date/Time: 12/06/21 01:35 Attending Provider: Casimiro Ramírez Admit Provider: Antoine Berry Primary Care Provider: Jessica Cuevas Other Providers: Terry Morales Supervising Physician Co-Signing Physician Notes I personally examined the patient and verified all dia points of history and exam, discussed case, and agree with decision making with Dr Chelsey Beltrandanisha. Febrile. Awaiting transfer to [place]. Has fevers chills sweats body aches headache, but no other focal symptoms outside of the mouth being sore. To clarifyhis mouth is probably a little more sore than recentlybut he has not noticed any dramatic worsening or major change in his mouth soreness or ulcerations around or immediately preceding his current bout with fevers. In general he is awake and alert pleasant no distress. HEENT normocephalic atraumatic mucous membranes moist. He does have scattered shallow ulcerations on his mucous membranes mostly cheek and soft palate1 on the soft palate is maybe mildly erythematous, none have exudates there are no plaques, no noted tongue lesions to my exam. Breathing unlabored no accessory muscle use good effort. Skin shows no rashes no pallor or icterus. Neuro without focal deficits. 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 For transfer to [place]. Otherwise as above Resident Activity Tracking Resident Involvement: Resident Care Provided Care Provided: Adult Hospital Medicine
--- NOTE | 2021-12-06 18:03 | Billing Data ---
Date of Service December 06, 2021 Coding Level of Care Code D/C DAY MANAGEMENT <30 MINS
--- NOTE | 2021-12-06 18:44 | Electrocardiogram Report ---
Test Reason : Blood Pressure : / mmHG Vent. Rate : 079 BPM Atrial Rate : 079 BPM P-R Int : 142 ms QRS Dur : 090 ms QT Int : 386 ms P-R-T Axes : 002 005 030 degrees QTc Int : 442 ms Normal sinus rhythm When compared with ECG of 20-NOV-2021 20:49, No significant change was found Confirmed by Babak Sams ([id number]) on 12/06/2021 6:43:52 PM Referred By: REFERRED SELF Confirmed By:Kayode Sams
[2021-12-06] MEDS ORDERED: ROSUVASTATIN CALCIUM 5 MG TAB PO SCH (21:00)
--- NOTE | 2021-12-07 03:19 | Billing Data ---
Date of Service December 07, 2021 Coding Level of Care Code 87531 Initial Inpt Care Lvl 3
[2021-12-08 13:45] LABS: A calco-baum cmplx NotReported Not Detected (NotDetected); Bact fragilis Not Reported Not Detected (NotDetected); C auris Not Reported Not Detected (NotDetected); Calbicans Not Reported Not Detected (NotDetected); Candida glabrata Not Reported Not Detected (NotDetected); Candida krusei Not Reported Not Detected (NotDetected); Cneoformans/gatti Not Reported Not Detected (NotDetected); Cparapsilosis Not Reported Not Detected (NotDetected); Ctropicalis Not Reported Not Detected (NotDetected); E cloacae compx Not Reported Not Detected (NotDetected); Efaecalis Not Reported Not Detected (NotDetected); Efaecium Not Reported Not Detected (NotDetected); Enterobacterales Not Reported Not Detected (NotDetected); Escherichia coli Not Reported Not Detected (NotDetected); H influenzae Not Reported Not Detected (NotDetected); K aerogenes Not Reported Not Detected (NotDetected); Koxytoca Not Reported Not Detected (NotDetected); Kpneumoniae grp Not Reported Not Detected (NotDetected); Lmonocyt Not Reported Not Detected (NotDetected); N meningitidis Not Reported Not Detected (NotDetected); P aeruginosa Not Reported Not Detected (NotDetected); Proteus spp Not Reported Not Detected (NotDetected); Salmonella spp Not Reported Not Detected (NotDetected); Smarcescens Not Reported Not Detected (NotDetected); Staph lugdunensis Not Reported Not Detected (NotDetected); Staph spp. Not Reported Not Detected (NotDetected); Staphaureus Not Reported Not Detected (NotDetected); Staphepi Not Reported Not Detected (NotDetected); Stenmaltophilia Not Reported Not Detected (NotDetected); Strep agal(GrpB) Not Reported Not Detected (NotDetected); Strep pneum Not Reported Not Detected (NotDetected); Strep pyog (GrpA) Not Reported Not Detected (NotDetected); Strep spp Not Reported Not Detected (NotDetected)
== END 2021-12-06 13:05 | disposition short-term general hospital (02) | DRG 871 ==
LOC: ED 21:05 → SUATTDRO 12-06 01:35 → EDINP 12-06 01:35
DX: T45.1X5A Adverse effect of antineoplastic and immunosuppressive drugs, initial encounter; K21.9 Gastro-esophageal reflux disease without esophagitis; K12.1 Other forms of stomatitis; D61.810 Antineoplastic chemotherapy induced pancytopenia; I10 Essential (primary) hypertension; C92.00 Acute myeloblastic leukemia, not having achieved remission; D84.821 Immunodeficiency due to drugs; K13.79 Other lesions of oral mucosa; E78.5 Hyperlipidemia, unspecified; R50.81 Fever presenting with conditions classified elsewhere; F32.A Depression, unspecified; Y92.009 Unspecified place in unspecified non-institutional (private) residence as the place of occurrence of the external cause; A41.9 Sepsis, unspecified organism; Z86.16 Personal history of COVID-19; D46.9 Myelodysplastic syndrome, unspecified; Z95.828 Presence of other vascular implants and grafts; E83.51 Hypocalcemia

== ENCOUNTER 2021-12-17 16:53 | Inpatient (IN) ==
[2021-12-17] MEDS ORDERED: ACETAMINOPHEN 500 MG TAB PO STA (17:09)
[2021-12-17] MEDS ORDERED: CEFEPIME 2,000 MG/20 ML VIAL IV STA (17:13)
[2021-12-17 17:50] LABS: White Blood Count 0.26 K/ul (4.8-10.8)
[2021-12-17 17:51] LABS: Hematocrit (blood only) 23.2 % (40.1-51.0); Hemoglobin 7.9 g/dl (14.0-18.0)
[2021-12-17 18:01] LABS: Mean Corpuscular Hemoglobin 27.7 pg (25.0-34.0); Mean Corpuscular Hgb Conc 34.1 g/dL (32.0-36.0); Mean Corpuscular Volume 81.4 fL (80.0-100.0); Mean Platelet Volume 10.8 fL (9.4-12.4); RDW Coefficient of Variation 15.9 % (11.5-14.5); Red Blood Count 2.85 M/uL (4.63-6.08)
[2021-12-17] MEDS: SODIUM CHLORIDE 0.9% 1000ML 1,000 ML IV SCH (18:02)
[2021-12-17 18:03] LABS: Albumin Globulin Ratio 1.2 (0.9-2); Albumin Level 4.1 gm/dl (3.4-5.0); Calcium 8.7 mg/dl (8.5-10.1); Creatinine Clr Calc Pharmacy 171.7 ml/min; Est GFR (African American) 125.8 ml/min; Est GFR (Non-African American) 108.5 ml/min; Globulin 3.4 gm/dl (2.5-4.0); Magnesium 1.8 mg/dl (1.7-2.4); Potassium 3.5 mmol/L (3.5-5.1); Total Protein 7.5 gm/dl (6.0-8.3)
[2021-12-17 18:06] LABS: Troponin I High Sensitivity 9.1 pg/ml (0-20)
--- NOTE | 2021-12-17 18:08 | Emergency Department Note ---
History of Present Illness General Chief complaint: Fever Stated complaint: REF BY , FEVER Time Seen by Provider: 12/17/21 17:09 History of Present Illness Provider complaint: Neutropenic fever Onset (ago): day(s) 1 Maximum Pain Intensity: 6 Associated symptoms: + fever/chills and + headaches; no cough, no nausea/vomiting or no shortness of breath 61-year-old male presents emergency department for neutropenic fever. Patient has a history of AML is currently being treated with chemotherapy by [facility]. Patient reports he went for platelet transfusion today. He states prior to transfusion his temperature was 99-100. He states after he finished blood transfusion his temperature went up to 101.9. The patient states he called his oncologist who referred him to the emergency department to be admitted for neutropenic fever. Patient states he took his last dose of cefepime IV through the PICC line 1 hour ago. Home Medications Medication Instructions Recorded Confirmed Type acyclovir 400 mg tablet 400 mg PO BID 11/21/21 12/17/21 History allopurinol 300 mg tablet 300 mg PO DAILY 11/21/21 12/17/21 History amlodipine 5 mg-olmesartan 40 mg 1 tab PO DAILY 11/21/21 12/17/21 History tablet escitalopram oxalate 20 mg tablet 20 mg PO DAILY 11/21/21 12/17/21 History (Lexapro) folic acid 1 mg tablet 1 mg PO DAILY 11/21/21 12/17/21 History omeprazole 20 mg capsule,delayed 20 mg PO DAILY 11/21/21 12/17/21 History release ondansetron HCl 4 mg tablet 4 mg PO Q6 PRN Nausea 11/21/21 12/17/21 History posaconazole 100 mg tablet,delayed 300 mg PO DAILY 11/21/21 12/17/21 History release rosuvastatin 5 mg tablet (Crestor) 5 mg PO QPM 11/21/21 12/17/21 History Magic Swizzle 5 ml PO Q6 PRN .SORE MOUTH 12/06/21 12/17/21 History Saline Rinse 1 dose PO DIRECTED PRN sore 12/06/21 12/17/21 History mouth acetaminophen 500 mg tablet 1,000 mg PO Q8H PRN fever #1 tab 12/06/21 12/17/21 Rx (Tylenol Extra Strength) ondansetron HCl (PF) 4 mg/2 mL 4 mg (2 mL) IV Q6H PRN nausea and 12/06/21 12/17/21 Rx injection solution vomiting #10 mL cefepime 2 gram intravenous 2 g IV TID 12/12/21 12/17/21 History piggyback metronidazole 250 mg tablet 500 mg PO TID 12/12/21 12/17/21 History sodium di- and 1 tab PO BID 12/17/21 12/17/21 History monophosphate-potassium phos monobasic 250 mg tablet ([id number]) Allergies Allergy/AdvReac Type Severity Reaction Status Date / Time No Known Allergies Allergy Mild 0 Verified 12/17/21 12:31 Past Med/Surg History Medical History Acute GI bleeding Anemia COVID-19 Depression Depression GERD (gastroesophageal reflux disease) Head ache HTN (hypertension) Hypercholesteremia Neutropenic fever Social History Smoking Status: Former smoker Tobacco Type: Cigarettes Hx Alcohol Use: No Hx Substance Use: No Preferred Language: Ecuadorean 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 Beliefs That Will Affect Care: None marital status: Current Living Situation: Spouse and Family Current Living Situation Comment: Pt lives with spouse and adult son Feels Safe at Home: Yes Assistive Devices: None Review of Systems A total of 10 systems reviewed and were otherwise negative Physical Exam Vital Signs Vital Signs - 24 hr 12/17/21 16:59 12/17/21 18:00 12/17/21 18:00 Temperature 38.0 C H 38.8 C H Temperature Source Oral Rectal Pulse Rate 96 H Pulse Rate [Apical] 77 Pulse Rate from SpO2 Sensor Pulse Rhythm Respiratory Rate 20 20 Respiratory Effort / Characteristics Non-Labored Non-Labored Spontaneous Respiratory Depth Normal Normal Respiratory Pattern Regular Blood Pressure 132/69 Blood Pressure [Right Arm] 159/72 H Blood Pressure Mean 90 Blood Pressure Mean [Right Arm] 101 Blood Pressure Position [Right Arm] Semi-fowlers Pulse Oximetry 97 98 97 Oxygen Delivery Method Room Air Room Air Room Air Sepsis Recent Fever Within 48 Hours No Sepsis New/Unexplained Change in Mental Status N/A Sepsis Action Taken by Nursing No Action Required 12/17/21 18:00 12/17/21 18:45 12/17/21 19:00 Temperature 38.8 C H Temperature Source Rectal Pulse Rate 77 77 Pulse Rate [Apical] Pulse Rate from SpO2 Sensor 77 Pulse Rhythm Regular Respiratory Rate 20 22 Respiratory Effort / Characteristics Respiratory Depth Respiratory Pattern Blood Pressure 167/83 H Blood Pressure [Right Arm] Blood Pressure Mean 111 Blood Pressure Mean [Right Arm] Blood Pressure Position [Right Arm] Pulse Oximetry 97 99 Oxygen Delivery Method Room Air Sepsis Recent Fever Within 48 Hours Sepsis New/Unexplained Change in Mental Status Sepsis Action Taken by Nursing Physical Exam GENERAL: He is oriented to person, place, and time. He appears well-developed and well-nourished. He does not appear distressed. HENT: Exam performed. - Head: Normocephalic and atraumatic. - Right Ear: External ear normal. No mastoid tenderness. - Left Ear: External ear normal. No mastoid tenderness. - Mouth/Throat: The oropharynx is clear and moist. No trismus in the jaw. No dental abscesses or uvula swelling. No oropharyngeal exudate or tonsillar abscesses. No wet purpura. EYES: Conjunctivae and EOM are normal. Pupils are equal, round, and reactive to light. Right eye exhibits no discharge. Left eye exhibits no discharge. No scleral icterus. NECK: Normal range of motion. Neck supple. No JVD present. No spinous process tenderness present. No carotid bruit present. No rigidity. No tracheal deviation and normal range of motion present. No Brudzinski's sign and no Kernig's sign noted. CV: Normal rate, regular rhythm, normal heart sounds and intact distal pulses. There is no peripheral edema. Palpable radial pulses bue. PULM/CHEST: Effort normal and breath sounds normal. No respiratory distress. No stridor. He has no wheezes. He has no rales. - Chest Wall: He exhibits no tenderness. ABD: The abdomen is soft. Bowel sounds are normal. He has no distension. No mass is present. There is no tenderness. There is no rebound, no guarding, no Campos's sign and no tenderness at McBurney's point. Rovsig negative. MUSC/SKEL: Normal range of motion. There is no peripheral edema, tenderness or deformity. Upper extremity PICC line. LYMPH: No cervical adenopathy. NEURO: He is alert and oriented to person, place, and time. He has normal strength. No cranial nerve deficit or sensory deficit. Coordination and gait normal. GCS eye subscore is 4. GCS verbal subscore is 5. GCS motor subscore is 6. Cerebellar tests wnl. SKIN: Skin is warm and dry. He is not diaphoretic. PSYCH: He has a normal mood and affect. Behavior is normal. Judgment and thought content normal. Course Course 1708: The patient was evaluated in room B8. A complete history and physical exam was performed Cardiac monitoring: An order was placed for continuous cardiac monitoring. The monitor shows a rate of 80 with sinus rhythm 1813: Labs show improvements of platelets to 15 from 5 earlier today. White blood cell count 0.26. Labs spoke with charge nurse and stated there was not enough blood to do differential. Patient will be admitted for presumed neutropenic fever. Dr. Garcia team [facility] hospitalist team notified. 1843: Dr. Garcia doctors hospitalist met with the patient and states that the patient wants to be transferred to [place] and is recommending his transfer based off his wishes. [facility] will be contacted. 1924: Spoke with [place] oncology Dr. Dominguez who states that if the patient truly desires a transfer he can be transferred to their system however they would not do anything differently than we would do at this facility and just follow cultures. She recommends adding vancomycin to the patient's cefepime. She states there would be no additional interventions done until the cultures come back and then once the cultures come back they would treat according to the cultures. She stated it would be up to the patient if he really wants to be transferred down there. I spoke with the patient and the patient states he does not Nestl want to be transferred unless necessary. He states that as long as his medications that are necessary can be given to him here he is happy to stay at this facility. Given this, I feel it would be okay for this patient to stay at this facility until the cultures come back. Vancomycin will be ordered at the recommendation of Dr. Beltre and Dr. Garcia will be renotified to admit the patient. Administered Medications Sodium Chloride (Nss 1000ml) 1,000 mls @ 125 mls/hr IV .Q8H GUANAKITO Stop: 01/16/22 17:14 Last Admin: 12/17/21 18:02 Dose: 125 mls/hr Documented By: RACHELLE Vancomycin HCl 2,500 mg/ (Sodium Chloride) 550 mls @ 200 mls/hr IV NOW ONE Stop: 12/17/21 22:04 Last Admin: 12/17/21 20:01 Dose: 200 mls/hr Documented By: JOSE Discontinued Medications Acetaminophen (Acetaminophen 500 Mg Tab) 1,000 mg PO NOW STA Stop: 12/17/21 17:10 Last Admin: 12/17/21 17:59 Dose: 1,000 mg Documented By: RACHELLE Cefepime HCl (Maxipime) 2,000 mg in 20 mls @ 5 mls/min IV NOW STA; Protocol Stop: 12/17/21 17:16 Last Admin: 12/17/21 17:58 Dose: Not Given Documented By: RACHELLE Ondansetron HCl (Ondansetron Inj 2 Mg/Ml 2 Ml Vial) 4 mg IV NOW STA Stop: 12/17/21 19:26 Last Admin: 12/17/21 19:30 Dose: 4 mg Documented By: KASSIE Medical Decision Making Laboratory Data Result diagrams: 12/17/21 17:19 12/17/21 17:19 Lab Results 12/17/21 12/17/21 12/17/21 Range/Units 17:19 17:19 17:19 WBC 0.26 L* (4.8-10.8) K/ul RBC 2.85 L (4.63-6.08) M/uL Hgb 7.9 L (14.0-18.0) g/dl Hct 23.2 L (40.1-51.0) % MCV 81.4 (80.0-100.0) fL MCH 27.7 (25.0-34.0) pg MCHC 34.1 (32.0-36.0) g/dL RDW Std Deviation 48.0 H (36.4-46.3) fL RDW Coeff of Sayra 15.9 H (11.5-14.5) % Plt Count 15 L* D (130-400) K/uL MPV 10.8 (9.4-12.4) fL Immature Gran % (Auto) Cancelled Neut % (Auto) Cancelled Lymph % (Auto) Cancelled [place] % (Auto) Cancelled Eos % (Auto) Cancelled Baso % (Auto) Cancelled Neut # (Auto) Cancelled Lymph # (Auto) Cancelled [place] # (Auto) Cancelled Eos # (Auto) Cancelled Baso # (Auto) Cancelled Immature Gran # (Auto) Cancelled Neutrophils % (Manual) Cancelled Band Neutrophils % Cancelled Lymphocytes % (Manual) Cancelled Prolymphocyte % Cancelled Reactive Lymphs % (Man) Cancelled Monocytes % (Manual) Cancelled Eosinophils % (Manual) Cancelled Basophils % (Manual) Cancelled Metamyelocytes % (Man) Cancelled Myelocytes % (Man) Cancelled Promyelocytes % (Man) Cancelled Blast Cells % (Manual) Cancelled Plasma Cell % (Manual) Cancelled Other Cells % Cancelled Nucleated RBC % Cancelled Neutrophils # (Manual) Cancelled Band Neutrophils # Cancelled Total Absolute Neuts Cancelled Lymphocytes # (Manual) Cancelled Prolymphocyte # Cancelled Reactive Lymphs # Cancelled Total Abs Lymphocytes Cancelled Monocytes # (Manual) Cancelled Eosinophils # (Manual) Cancelled Basophils # (Manual) Cancelled Metamyelocytes # (Man) Cancelled Myelocytes # (Manual) Cancelled Promyelocytes # (Man) Cancelled Blast Cells # (Man) Cancelled Plasma Cell # (Manual) Cancelled Other Cells # Cancelled Nucleated RBCs # (Man) Cancelled Hypersegmented Neuts Cancelled Hyposegmented Neuts Cancelled Hypogranular Neuts Cancelled Large Granular Lymphs Cancelled # Lrg Granular Lymphs Cancelled Hairy Cells Cancelled Smudge Cells Cancelled Toxic Granulation Cancelled Toxic Vacuolation Cancelled Dohle Bodies Cancelled Karen Rods Cancelled Hypogranular Platelets Cancelled Clumped Platelets Cancelled Giant Platelets Cancelled Platelet Satelliting Cancelled RBC Morphology Cancelled Polychromasia Cancelled Hypochromasia Cancelled Poikilocytosis Cancelled Basophilic Stippling Cancelled Anisocytosis Cancelled Microcytosis Cancelled Macrocytosis Cancelled Spherocytes Cancelled Pappenheimer Bodies Cancelled Sickle Cells Cancelled Target Cells Cancelled Tear Drop Cells Cancelled Ovalocytes Cancelled Stomatocytes Cancelled [place] Bodies Cancelled Echinocytes Cancelled Acanthocytes (Spur) Cancelled Rouleaux Cancelled RBC Agglutinates Cancelled Schistocytes Cancelled Sezary Cell Cancelled PT 11.9 (9.0-12.0) Seconds INR 1.1 (0.9-1.1) APTT 28.2 (21.0-31.0) Seconds PTT Ratio 1.0 Sodium 135 L (136-145) mmol/L Potassium 3.5 (3.5-5.1) mmol/L Chloride 102 (98-107) mmol/L Carbon Dioxide 27 (21-32) mmol/L Anion Gap 6 (3-11) BUN 13 (6-23) mg/dl Creatinine 0.59 L (0.6-1.4) mg/dl Est Cr Clr Drug Dosing 171.7 ml/min Est GFR ( Amer) 125.8 ml/min Est GFR (Non-Af Amer) 108.5 ml/min BUN/Creatinine Ratio 22.0 H (10-20) Glucose 107 H (70-99(Fasting)) mg/dl Lactate (0.4-2.0) mmol/L Calcium 8.7 (8.5-10.1) mg/dl Magnesium 1.8 (1.7-2.4) mg/dl Total Bilirubin 1.0 (0.2-1.0) mg/dl AST 12 L (13-39) U/L ALT 18 (7-52) U/L Alkaline Phosphatase 65 (34-104) U/L Troponin I High Sens 9.1 (0-20) pg/ml Total Protein 7.5 (6.0-8.3) gm/dl Albumin 4.1 (3.4-5.0) gm/dl Globulin 3.4 (2.5-4.0) gm/dl Albumin/Globulin Ratio 1.2 (0.9-2) Procalcitonin (0-0.5) ng/ml Anaplasma Smear See Comment Babesia Smear See Comment Lyme Disease IgG Ab (Negative) Lyme Disease IgM Ab (Negative) SARS-CoV-2 (PCR) (Negative) Influenza Type A (PCR) (Neg) Influenza Type B (PCR) (Neg) RSV (RT-PCR) (Neg) Blood Parasites ID Cancelled 12/17/21 12/17/21 12/17/21 Range/Units 17:19 17:49 18:49 WBC (4.8-10.8) K/ul RBC (4.63-6.08) M/uL Hgb (14.0-18.0) g/dl Hct (40.1-51.0) % MCV (80.0-100.0) fL MCH (25.0-34.0) pg MCHC (32.0-36.0) g/dL RDW Std Deviation (36.4-46.3) fL RDW Coeff of Sayra (11.5-14.5) % Plt Count (130-400) K/uL MPV (9.4-12.4) fL Immature Gran % (Auto) Neut % (Auto) Lymph % (Auto) [place] % (Auto) Eos % (Auto) Baso % (Auto) Neut # (Auto) Lymph # (Auto) [place] # (Auto) Eos # (Auto) Baso # (Auto) Immature Gran # (Auto) Neutrophils % (Manual) Band Neutrophils % Lymphocytes % (Manual) Prolymphocyte % Reactive Lymphs % (Man) Monocytes % (Manual) Eosinophils % (Manual) Basophils % (Manual) Metamyelocytes % (Man) Myelocytes % (Man) Promyelocytes % (Man) Blast Cells % (Manual) Plasma Cell % (Manual) Other Cells % Nucleated RBC % Neutrophils # (Manual) Band Neutrophils # Total Absolute Neuts Lymphocytes # (Manual) Prolymphocyte # Reactive Lymphs # Total Abs Lymphocytes Monocytes # (Manual) Eosinophils # (Manual) Basophils # (Manual) Metamyelocytes # (Man) Myelocytes # (Manual) Promyelocytes # (Man) Blast Cells # (Man) Plasma Cell # (Manual) Other Cells # Nucleated RBCs # (Man) Hypersegmented Neuts Hyposegmented Neuts Hypogranular Neuts Large Granular Lymphs # Lrg Granular Lymphs Hairy Cells Smudge Cells Toxic Granulation Toxic Vacuolation Dohle Bodies Karen Rods Hypogranular Platelets Clumped Platelets Giant Platelets Platelet Satelliting RBC Morphology Polychromasia Hypochromasia Poikilocytosis Basophilic Stippling Anisocytosis Microcytosis Macrocytosis Spherocytes Pappenheimer Bodies Sickle Cells Target Cells Tear Drop Cells Ovalocytes Stomatocytes [place] Bodies Echinocytes Acanthocytes (Spur) Rouleaux RBC Agglutinates Schistocytes Sezary Cell PT (9.0-12.0) Seconds INR (0.9-1.1) APTT (21.0-31.0) Seconds PTT Ratio Sodium (136-145) mmol/L Potassium (3.5-5.1) mmol/L Chloride (98-107) mmol/L Carbon Dioxide (21-32) mmol/L Anion Gap (3-11) BUN (6-23) mg/dl Creatinine (0.6-1.4) mg/dl Est Cr Clr Drug Dosing ml/min Est GFR ( Amer) ml/min Est GFR (Non-Af Amer) ml/min BUN/Creatinine Ratio (10-20) Glucose (70-99(Fasting)) mg/dl Lactate 1.0 (0.4-2.0) mmol/L Calcium (8.5-10.1) mg/dl Magnesium (1.7-2.4) mg/dl Total Bilirubin (0.2-1.0) mg/dl AST (13-39) U/L ALT (7-52) U/L Alkaline Phosphatase (34-104) U/L Troponin I High Sens (0-20) pg/ml Total Protein (6.0-8.3) gm/dl Albumin (3.4-5.0) gm/dl Globulin (2.5-4.0) gm/dl Albumin/Globulin Ratio (0.9-2) Procalcitonin 0.05 (0-0.5) ng/ml Anaplasma Smear Babesia Smear Lyme Disease IgG Ab Negative (Negative) Lyme Disease IgM Ab Negative (Negative) SARS-CoV-2 (PCR) NEGATIVE (Negative) Influenza Type A (PCR) Negative (Neg) Influenza Type B (PCR) Negative (Neg) RSV (RT-PCR) Negative (Neg) Blood Parasites ID Imaging Data Radiologist's Impression: Chest X-Ray 12/17/21 17:10 XR chest 1V portable CLINICAL HISTORY: Sepsis COMPARISON STUDY: Chest radiograph December 05, 2021. FINDINGS: Left PICC is in place. Lung volumes are normal. Lungs are clear. There is no pneumothorax or pleural effusion. Cardiomegaly is unchanged. Mediastinal contours are normal. There is no evidence for pulmonary edema. Old right-sided rib fractures are incidentally noted. IMPRESSION: No acute cardiopulmonary findings. Cardiomegaly. ACT 112: Negative or not required by law. Electronically signed by: Daryl Lucero M.D. 12/17/2021 6:08 PM ECG Data Indication: + other (neutropenic fever) Rate (beats per minute): 80 Rhythm: + normal sinus ECG Intervals/blocks: + Normal QRS, + Normal GA and + Normal QT-c ECG ST segments: + Normal ST segments [facility] Narrative 1709: The patient was evaluated in room B8. A complete history and physical exam was performed Cardiac monitoring: An order was placed for continuous cardiac monitoring. The monitor shows a rate of 80 with sinus rhythm 1813: Labs show improvements of platelets to 15 from 5 earlier today. White blood cell count 0.26. Labs spoke with charge nurse and stated there was not enough blood to do differential. Patient will be admitted for presumed neutropenic fever. Dr. Garcia team [facility] hospitalist team notified. 1843: Dr. Garcia [facility] hospitalist met with the patient and states that the patient wants to be transferred to [place] and is recommending his transfer based off his wishes. [facility] will be contacted. 1924: Spoke with [place] oncology Dr. Dominguez who states that if the patient truly desires a transfer he can be transferred to their system however they would not do anything differently than we would do at this facility and just follow cultures. She recommends adding vancomycin to the patient's cefepime. She states there would be no additional interventions done until the cultures come back and then once the cultures come back they would treat according to the cultures. She stated it would be up to the patient if he really wants to be transferred down there. I spoke with the patient and the patient states he does not Nestl want to be transferred unless necessary. He states that as long as his medications that are necessary can be given to him here he is happy to stay at this facility. Given this, I feel it would be okay for this patient to stay at this facility until the cultures come back. Vancomycin will be ordered at the recommendation of Dr. Beltre and Dr. Garcia will be renotified to admit the patient. Impression & Plan Fever and neutropenia, Thrombocytopenia Discharge Plan Visit Data Chief Complaint: Fever Stated Complaint: REF BY DR FEVER ED Provider: Daniel Robledo Discharge Problem: Fever and neutropenia, Thrombocytopenia Patient Disposition: Admitted As Inpatient Forms Stand Alone Forms: My [facility] Prescriptions Prescriptions: No Action ondansetron HCl 4 mg tablet 4 mg PO Q6 PRN (Reason: Nausea) acyclovir 400 mg tablet 400 mg PO BID omeprazole 20 mg capsule,delayed release(DR/EC) 20 mg PO DAILY folic acid 1 mg tablet 1 mg PO DAILY allopurinol 300 mg tablet 300 mg PO DAILY escitalopram oxalate [Lexapro] 20 mg tablet 20 mg PO DAILY rosuvastatin [Crestor] 5 mg tablet 5 mg PO QPM amlodipine-olmesartan 5-40 mg tablet 1 tab PO DAILY posaconazole 100 mg tablet,delayed release (DR/EC) 300 mg PO DAILY metronidazole [Flagyl] 250 mg Tablet 500 mg PO TID Rx Instructions: pt unsure of dose cefepime 2 gram Piggyback 2 g IV TID [id number] 250 mg Tablet 1 tab PO BID Magic Swizzle 5 ml PO Q6 PRN (Reason: .SORE MOUTH) Saline Rinse 1 dose PO DIRECTED PRN (Reason: sore mouth) acetaminophen [Tylenol Extra Strength] 500 mg Tablet 1,000 mg PO Q8H PRN (Reason: fever) Qty: 1 0RF ondansetron HCl (PF) 4 mg/2 mL Solution 4 mg IV Q6H PRN (Reason: nausea and vomiting) Qty: 10 0RF Referrals Referrals: Jessica Cuevas MD [Primary Care Provider] -
[2021-12-17 18:14] LABS: INR 1.1 (0.9-1.1); Partial Thromboplastin Time 28.2 Seconds (21.0-31.0); Prothrombin Time 11.9 Seconds (9.0-12.0)
[2021-12-17 18:40] LABS: Platelet Count 15 K/uL (130-400); Procalcitonin 0.05 ng/ml (0-0.5)
[2021-12-17 18:45] LABS: Lyme Ab IgG w/WB Rflx Negative (Negative); Lyme Ab IgM w/WB Rflx Negative (Negative)
[2021-12-17] MEDS ORDERED: VANCOMYCIN HCL 2,500 MG in SODIUM CHLORIDE 0.9% 500 ML IV ONE (19:20)
[2021-12-17] MEDS ORDERED: VANCOMYCIN CONSULT ACTIVE PRN (19:20)
[2021-12-17] MEDS ORDERED: ONDANSETRON INJ 2 MG/ML 2 ML VIAL IV STA (19:25)
[2021-12-17 19:42] LABS: Influenza A virus by PCR Negative (Neg); Influenza B virus by PCR Negative (Neg); RSV by PCR Negative (Neg); SARS CoV2 RNA(COVID-19) InHosp NEGATIVE (Negative)
--- NOTE | 2021-12-17 19:55 | History & Physical Report ---
Date of Service December 17, 2021 Assessment & Plan (1) Neutropenic fever: Plan: Now with fever to 38.8. ANC < 260 as this is his total WBC. - ED provider spoke with [place] [facility]ology: -> Continue home cefepime and metronidazole, start vancomycin, monitor cultures and any for any other source of infection. (2) AML (acute myeloblastic leukemia): Plan: Follows with [place] onc[facility], (Dr. West?). Was given "Nadaperio" per patient and . - Continue home ppx with allopurinol, acyclovir, and posaconazole - Inpatient needs as above (3) Thrombocytopenia: Plan: Due to cancer and chemotherapy. - Transfuse for plts > 10k (4) HTN (hypertension): Plan: BP in the ER is 167/80. - Continue home meds: amlodipine/olmesartan combo (5) Hypercholesteremia: Plan: - Continue rosuvastatin (6) Depression: Plan: - Continue home escitalopram (7) GERD (gastroesophageal reflux disease): Plan: - Continue home PPI (8) DVT prophylaxis: Plan: SCDs - Heparin contraindicated with plts < 50k History of Present Illness Primary Care Provider: Jessica Cuevas MD 61yo M w/ hx of AML who presents with neutropenic fever. The patient had platelets of 5 today on routine lab testing and [facility] transfusion. The patient had been in our hospital on 12/06 with the same, but was transferred to [facility] on the same day. The patient reports that he was recultured, but that nothing grew. He has been on cefepime 2 g IV Q8h since discharge from [facility]. He reports he was running a sub-fever (99.0 - 99.5) degrees over the last 2-3 days. He had his platelets transfused and immediately on the car ride home had chills and had to turn the heat up in the car. He had a temperature at home, and he called his oncologist who told him to come to the ER. The patient reports no new infectious symptoms other than the fevers/chills. He denies any cough, shortness of breath, no chest pain, no new rashes or hot areas on his skin, no dysuria, no other symptoms. Allergies Allergy/AdvReac Type Severity Reaction Status Date / Time No Known Allergies Allergy Mild 0 Verified 12/17/21 12:31 Home Medications Medication Instructions Recorded Confirmed Type acyclovir 400 mg tablet 400 mg PO BID 11/21/21 12/17/21 History allopurinol 300 mg tablet 300 mg PO DAILY 11/21/21 12/17/21 History amlodipine 5 mg-olmesartan 40 mg 1 tab PO DAILY 11/21/21 12/17/21 History tablet escitalopram oxalate 20 mg tablet 20 mg PO DAILY 11/21/21 12/17/21 History (Lexapro) folic acid 1 mg tablet 1 mg PO DAILY 11/21/21 12/17/21 History omeprazole 20 mg capsule,delayed 20 mg PO DAILY 11/21/21 12/17/21 History release ondansetron HCl 4 mg tablet 4 mg PO Q6 PRN Nausea 11/21/21 12/17/21 History posaconazole 100 mg tablet,delayed 300 mg PO DAILY 11/21/21 12/17/21 History release rosuvastatin 5 mg tablet (Crestor) 5 mg PO QPM 11/21/21 12/17/21 History Magic Swizzle 5 ml PO Q6 PRN .SORE MOUTH 12/06/21 12/17/21 History Saline Rinse 1 dose PO DIRECTED PRN sore 12/06/21 12/17/21 History mouth acetaminophen 500 mg tablet 1,000 mg PO Q8H PRN fever #1 tab 12/06/21 12/17/21 Rx (Tylenol Extra Strength) ondansetron HCl (PF) 4 mg/2 mL 4 mg (2 mL) IV Q6H PRN nausea and 12/06/21 12/17/21 Rx injection solution vomiting #10 mL cefepime 2 gram intravenous 2 g IV TID 12/12/21 12/17/21 History piggyback metronidazole 250 mg tablet 500 mg PO TID 12/12/21 12/17/21 History sodium di- and 1 tab PO BID 12/17/21 12/17/21 History monophosphate-potassium phos monobasic 250 mg tablet ([id number]) Past Med/Surg History Medical History Acute GI bleeding Anemia COVID-19 Depression Depression GERD (gastroesophageal reflux disease) Head ache HTN (hypertension) Hypercholesteremia Neutropenic fever Social History Smoking Status: Former smoker Tobacco Type: Cigarettes Hx Alcohol Use: No Hx Substance Use: No Preferred Language: Faroese Communication Ability: Effective Cigar Head Piercer Required: No Beliefs That Will Affect Care: None marital status: Current Living Situation: Spouse and Family Current Living Situation Comment: Pt lives with spouse and adult son Feels Safe at Home: Yes Assistive Devices: None Review of Systems Review of Systems: All systems reviewed & are unremarkable except as noted in HPI & below Physical Exam Constitutional: WD/WN, vitals as above Eyes: EOM intact bilaterally; no conjunctival abnormality ENMT: external ear and nose normal, oropharynx normal Neck: trachea midline, no thyromegaly normal visual inspection Respiratory: normal respiratory effort, lungs clear to auscultation no respiratory distress Cardiovascular: RRR, no murmur, no edema Gastrointestinal (Abdomen): Inspection/Auscultation: abdomen normal to inspection; abdomen not distended Musculoskeletal: no cyanosis or clubbing, extremities motor strength 5/5 Skin: no rashes, warm and dry Neurologic: moves all extremities and awake Psychiatric: Orientation: alert, oriented to person and cooperative Results & Data Results & Data ([facility]) Vital Signs (Past 12 Hours) Vital Signs Temp Pulse Pulse Resp BP BP Pulse Ox 12/17/21 19:00 77 22 167/83 H 99 12/17/21 18:45 38.8 C H 12/17/21 18:00 77 20 97 12/17/21 18:00 97 12/17/21 18:00 38.8 C H 77 20 159/72 H 98 12/17/21 16:59 38.0 C H 96 H 20 132/69 97 O2 Del Method 12/17/21 19:00 12/17/21 18:45 12/17/21 18:00 Room Air 12/17/21 18:00 Room Air 12/17/21 18:00 Room Air 12/17/21 16:59 Room Air PG Care Time/CCT Total # of Minutes Spent Total Time Spent with Patient: Total time spent is greater than 50% in coordination of care (as documented) at patient's floor/unit and/or counseling patient: Coding Level of Care Code 07423 Initial Inpt Care Lvl 3 Diagnoses Neutropenic fever D70.9; R50.81 AML (acute myeloblastic leukemia) C92.00 Thrombocytopenia D69.6 HTN (hypertension) I10 Hypercholesteremia E78.00 Depression F32.A GERD (gastroesophageal reflux disease) K21.9 DVT prophylaxis Z29.9
[2021-12-17] MEDS ORDERED: FIRST - Mouthwash BLM 119 ML PO PRN (22:43)
[2021-12-17] MEDS ORDERED: KETOROLAC TROMETHAMINE 15 MG/ML VIAL IV ONE (23:22)
[2021-12-18] MEDS: ACYCLOVIR 400 MG TAB PO SCH ×3 (00:22→21:36)
[2021-12-18] MEDS: metroNIDAZOLE 500 MG TAB PO SCH ×4 (00:22→21:36)
[2021-12-18] MEDS: CEFEPIME 2,000 MG in SYRINGE 0 ML IV SCH ×4 (00:22→23:38)
[2021-12-18] MEDS: ROSUVASTATIN CALCIUM 5 MG TAB PO SCH ×2 (01:00→21:36)
[2021-12-18] MEDS: POT PHOSPHATE MONOBASIC W/ SOD TAB PO SCH ×3 (01:01→21:37)
[2021-12-18] MEDS: SODIUM CHLORIDE 0.9% 1000ML 1,000 ML IV SCH ×4 (01:02→21:35)
[2021-12-18] MEDS: VANCOMYCIN HCL 1,500 MG in SODIUM CHLORIDE 0.9% 500 ML IV SCH ×2 (04:00→17:46)
[2021-12-18] MEDS: ACETAMINOPHEN 500 MG TAB PO PRN ×2 (05:01→16:22)
[2021-12-18 06:41] LABS: Albumin Globulin Ratio 1.2 (0.9-2); Albumin Level 3.4 gm/dl (3.4-5.0); Bilirubin,Total 0.8 mg/dl (0.2-1.0); Creatinine Clr Calc Pharmacy 165.2 ml/min; Est GFR (African American) 123.2 ml/min; Est GFR (Non-African American) 106.3 ml/min; Globulin 2.9 gm/dl (2.5-4.0); Magnesium 1.7 mg/dl (1.7-2.4); Phosphorus 2.7 mg/dl (2.5-4.9); Potassium 3.6 mmol/L (3.5-5.1); Total Protein 6.3 gm/dl (6.0-8.3)
[2021-12-18 06:47] LABS: Hematocrit (blood only) 19.2 % (40.1-51.0); Hemoglobin 6.5 g/dl (14.0-18.0); Mean Corpuscular Hemoglobin 27.7 pg (25.0-34.0); Mean Corpuscular Hgb Conc 33.9 g/dL (32.0-36.0); Mean Corpuscular Volume 81.7 fL (80.0-100.0); Platelet Count 5 K/uL (130-400); RDW Coefficient of Variation 16.2 % (11.5-14.5); RDW Standard Deviation 48.8 fL (36.4-46.3); Red Blood Count 2.35 M/uL (4.63-6.08); White Blood Count 0.13 K/ul (4.8-10.8)
[2021-12-18] MEDS ORDERED: SODIUM CHLORIDE 0.9% 250 ML IV PRN (07:39)
[2021-12-18 08:18] LABS: Appearance Urine Cloudy (Clear); Bacteria Urine Automated Negative (Negative); Bilirubin Urine Negative (Negative); Blood Urine Negative (Negative); Color Urine Dark Yellow; Glucose Urine UA Negative (Negative); Ketones Urine Negative (Negative); Leukocyte Esterase Urine Negative (Negative); Nitrite Urine Positive (Negative); Protein Urine 1+ (Negative); RBC Urine Automated 0-4 /hpf (0-4); Specific Gravity Urine 1.019 (1.000-1.030); Urobilinogen Urine Negative (Negative); pH Urine 5.5 (4.5-7.5)
[2021-12-18] MEDS ORDERED: SODIUM CHLORIDE 0.65% NA SOLN 45 ML (OCEAN) ONE ×2 (09:16→09:32)
[2021-12-18] MEDS: FOLIC ACID 1 MG TAB PO SCH (09:27)
[2021-12-18] MEDS: amLODIPine BESYLATE 5 MG TAB PO SCH (09:27)
[2021-12-18] MEDS: OLMESARTAN MEDOXOMIL 40 MG TAB PO SCH (09:27)
[2021-12-18] MEDS: allopurinoL 300 MG TAB PO SCH (09:27)
[2021-12-18] MEDS: PANTOprazole 40 MG TAB PO SCH (09:27)
[2021-12-18] MEDS: ESCITALOPRAM OXALATE 20 MG TAB PO SCH (09:28)
[2021-12-18] MEDS: ONDANSETRON INJ 2 MG/ML 2 ML VIAL IV PRN ×2 (09:33→18:16)
--- NOTE | 2021-12-18 11:37 | Pharmacy Report ---
Pharmacy PK ABX Note - Date of Service December 18, 2021 - Assessment and Plan Assessment * Mr Small is a 61 year old M receiving Vancomycin/Cefepime for treatment of febrile neutropenia. * Pertinent microbiologic data includes: blood cx pending; blood smear negative for parasites * PMH is significant for AML (currently on chemo), recent hospitalization * Pt has been on cefepime IV since discharge earlier this month. Vancomycin added on admission. Plan Vancomycin * Loading dose: Vanc 2500 mg (~20mg/kg) IV x 1 * Maintenance dose: Vanc 1500 mg IV every 12 hours * Regimen is predicted to achieve target AUC/KEVIN of 400-600 mg/L.hr * Vanc level ordered for tomorrow Cefepime 2gm IV q8h Pharmacy will continue to follow and will adjust dose/frequency as necessary. Thank you. Pharmacy has transitioned to AUC monitoring for vancomycin. AUC/KEVIN is the preferred PK/PD target and is associated with decreased risk of nephrotoxicity compared to traditional trough targets.
[2021-12-18] MEDS: POSACONAZOLE 100 MG PO SCH (14:17)
--- NOTE | 2021-12-18 14:44 | Electrocardiogram Report ---
Test Reason : Blood Pressure : / mmHG Vent. Rate : 079 BPM Atrial Rate : 079 BPM P-R Int : 156 ms QRS Dur : 092 ms QT Int : 410 ms P-R-T Axes : 009 008 055 degrees QTc Int : 470 ms Normal sinus rhythm Poor R wave progression, consider anterior ID vs. lead placement vs. LVH Abnormal ECG When compared with ECG of 05-DEC-2021 23:11, No significant change was found Confirmed by Manish Hayden ([id number]) on 12/18/2021 2:44:06 PM Referred By: REFERRED SELF Confirmed By:Manish Hayden
--- NOTE | 2021-12-18 14:53 | Electrocardiogram Report ---
Test Reason : Blood Pressure : / mmHG Vent. Rate : 081 BPM Atrial Rate : 081 BPM P-R Int : 156 ms QRS Dur : 094 ms QT Int : 398 ms P-R-T Axes : 019 007 045 degrees QTc Int : 462 ms Normal sinus rhythm Nonspecific ST and T wave abnormality Abnormal ECG When compared with ECG of 17-DEC-2021 17:50, (unconfirmed) No significant change was found Confirmed by Manish Hayden ([id number]) on 12/18/2021 2:52:34 PM Referred By: REFERRED SELF Confirmed By:Manish Hayden
--- NOTE | 2021-12-18 16:32 | Hospitalist Progress Note ---
Date of Service December 18, 2021 Assessment & Plan (1) Neutropenic fever: Plan: Now with fever to 38.8. ANC < 260 as this is his total WBC. - ED provider spoke with [place] [facility]ology: -> Continue home cefepime and metronidazole, continue vancomycin. - No growth at 24 hours. - Will reach out to [place] oncologist. (2) AML (acute myeloblastic leukemia): Plan: Follows with [place] oncology, (Dr. West?). Was given "Nadaperio" per patient and . - Continue home ppx with allopurinol, acyclovir, and posaconazole - Inpatient needs as above (3) Thrombocytopenia: Plan: Due to cancer and chemotherapy. - Transfuse for plts > 10k - Down to 5k today. (4) HTN (hypertension): Plan: BP in the ER is 155/85. - Continue home meds: amlodipine/olmesartan combo (5) Hypercholesteremia: Plan: - Continue rosuvastatin (6) Depression: Plan: - Continue home escitalopram (7) GERD (gastroesophageal reflux disease): Plan: - Continue home PPI (8) DVT prophylaxis: Plan: SCDs - Heparin contraindicated with plts < 50k Admission and Anticipated Discharge Date Admission Date: December 17, 2021 Subjective Had some fevers overnight. No major issues in the morning. Counts are lower, so will need blood, but he is ok with this and has had many transfusions in the past. Reports no chest pain, shortness of breath, abdominal pain, nausea, or vomiting. Physical Exam Constitutional: WD/WN, vitals as above Eyes: EOM intact bilaterally; no conjunctival abnormality ENMT: external ear and nose normal, oropharynx normal Neck: trachea midline, no thyromegaly normal visual inspection Respiratory: normal respiratory effort, lungs clear to auscultation no respiratory distress Cardiovascular: RRR, no murmur, no edema Gastrointestinal (Abdomen): Inspection/Auscultation: abdomen normal to insp ection; abdomen not distended Musculoskeletal: no cyanosis or clubbing, extremities motor strength 5/5 Skin: no rashes, warm and dry Neurologic: moves all extremities and awake Psychiatric: Orientation: alert, oriented to person and cooperative Results & Data Results & Data ([facility]) Vital Signs (Past 12 Hours) Vital Signs Temp Pulse Pulse Resp BP BP Pulse Ox 12/18/21 15:00 37.4 C 79 18 151/78 H 97 12/18/21 16:00 37.9 C H 78 18 156/84 H 98 12/18/21 13:48 37.3 C 71 17 164/77 H 95 12/18/21 12:05 37.7 C H 72 169/74 H 95 12/18/21 13:31 37.3 C 73 16 165/79 H 12/18/21 12:05 37.3 C 74 18 165/79 H 12/18/21 11:26 37.7 C H 73 18 126/63 97 12/18/21 10:56 37.4 C 73 19 146/74 H 97 12/18/21 09:00 80 12/18/21 09:00 12/18/21 10:41 37.6 C H 72 19 146/71 H 97 12/18/21 10:41 37.0 C 80 151/75 H 12/18/21 10:16 37.8 C H 73 18 134/72 96 12/18/21 08:05 38.1 C H 77 18 122/69 97 12/18/21 06:07 37.7 C H O2 Del Method 12/18/21 15:00 12/18/21 16:00 12/18/21 13:48 12/18/21 12:05 12/18/21 13:31 12/18/21 12:05 12/18/21 11:26 12/18/21 10:56 12/18/21 09:00 12/18/21 09:00 Room Air 12/18/21 10:41 12/18/21 10:41 12/18/21 10:16 12/18/21 08:05 Room Air 12/18/21 06:07 PG Care Time/CCT Total # of Minutes Spent Total Time Spent with Patient: Total time spent is greater than 50% in coordination of care (as documented) at patient's floor/unit and/or counseling patient: Coding Level of Care Code 52139 Subseq Hosp Care Lvl 2 Diagnoses Neutropenic fever D70.9; R50.81 AML (acute myeloblastic leukemia) C92.00 Thrombocytopenia D69.6 HTN (hypertension) I10 Hypercholesteremia E78.00 Depression F32.A GERD (gastroesophageal reflux disease) K21.9 DVT prophylaxis Z29.9
[2021-12-18] MEDS: PSYLLIUM or GUAR GUM FIBER POWDER PACKET PO SCH (21:35)
[2021-12-18] MEDS: CETIRIZINE HCL 10 MG TABLET PO SCH (21:35)
[2021-12-19] MEDS: VANCOMYCIN HCL 1,500 MG in SODIUM CHLORIDE 0.9% 500 ML IV SCH ×2 (05:44→18:25)
[2021-12-19] MEDS: SODIUM CHLORIDE 0.9% 1000ML 1,000 ML IV SCH ×3 (05:44→21:08)
[2021-12-19 07:04] LABS: Albumin Globulin Ratio 1.1 (0.9-2); Albumin Level 3.2 gm/dl (3.4-5.0); BUN Creatinine Ratio 20.8 (10-20); Bilirubin,Total 0.8 mg/dl (0.2-1.0); Creatinine Clr Calc Pharmacy 214.9 ml/min; Est GFR (African American) 136.9 ml/min; Est GFR (Non-African American) 118.1 ml/min; Globulin 2.9 gm/dl (2.5-4.0); Magnesium 1.8 mg/dl (1.7-2.4); Potassium 3.6 mmol/L (3.5-5.1); Total Protein 6.1 gm/dl (6.0-8.3)
[2021-12-19 07:12] LABS: Hematocrit (blood only) 21.1 % (40.1-51.0); Hemoglobin 7.1 g/dl (14.0-18.0); Mean Corpuscular Hgb Conc 33.6 g/dL (32.0-36.0); Mean Corpuscular Volume 83.1 fL (80.0-100.0); Platelet Count 4 K/uL (130-400); RDW Coefficient of Variation 15.6 % (11.5-14.5); RDW Standard Deviation 46.9 fL (36.4-46.3); Red Blood Count 2.54 M/uL (4.63-6.08); White Blood Count 0.16 K/ul (4.8-10.8)
[2021-12-19] MEDS: CEFEPIME 2,000 MG in SYRINGE 0 ML IV SCH ×3 (07:41→23:46)
[2021-12-19] MEDS: PSYLLIUM or GUAR GUM FIBER POWDER PACKET PO SCH (07:43)
[2021-12-19] MEDS: FLUTICASONE PROPIONATE NA SPR 16 GM BTL SCH (07:44)
[2021-12-19] MEDS: metroNIDAZOLE 500 MG TAB PO SCH ×3 (07:46→21:09)
[2021-12-19] MEDS: allopurinoL 300 MG TAB PO SCH (07:46)
[2021-12-19] MEDS: amLODIPine BESYLATE 5 MG TAB PO SCH (07:46)
[2021-12-19] MEDS: PANTOprazole 40 MG TAB PO SCH (07:46)
[2021-12-19] MEDS: ACYCLOVIR 400 MG TAB PO SCH ×2 (07:46→21:09)
[2021-12-19] MEDS: CETIRIZINE HCL 10 MG TABLET PO SCH (07:46)
[2021-12-19] MEDS: ESCITALOPRAM OXALATE 20 MG TAB PO SCH (07:47)
[2021-12-19] MEDS: FOLIC ACID 1 MG TAB PO SCH (07:47)
[2021-12-19] MEDS ORDERED: SODIUM CHLORIDE 0.9% 250 ML IV PRN (09:03)
[2021-12-19] MEDS: POT PHOSPHATE MONOBASIC W/ SOD TAB PO SCH ×2 (09:05→21:08)
[2021-12-19] MEDS: OLMESARTAN MEDOXOMIL 40 MG TAB PO SCH (09:06)
--- NOTE | 2021-12-19 09:15 | Hospitalist Progress Note ---
Date of Service December 19, 2021 Assessment & Plan (1) Neutropenic fever: Plan: Now with fever to 38.8. ANC < 260 as this is his total WBC. - ED provider spoke with [place] oncology: -> Continue home cefepime and metronidazole, continue vancomycin. - No growth so far. - Reached out to [place] oncologist (Venkata Rudolph) -> If no further fevers in next 24 hours and cultures remain negative tomorrow morning, can stop vancomycin and likely discharge home on home cefepime + metronidazole. Low counts do not need to impede discharge. Would give transfusions of any needed products and discharge. Either [place] or PCP can order repeat CBC in 3-4 days. (2) AML (acute myeloblastic leukemia): Plan: Follows with [place] oncology, (Dr. West?). Was given "Nadaperio" per patient and . - Continue home ppx with allopurinol, acyclovir, and posaconazole - Inpatient needs as above (3) Thrombocytopenia: Plan: Due to cancer and chemotherapy. - Transfuse for plts > 10k - Down to 4k today. 2 units pooled platelets ordered. (4) HTN (hypertension): Plan: BP is 125/50. - Continue home meds: amlodipine/olmesartan combo (5) Hypercholesteremia: Plan: - Continue rosuvastatin (6) Depression: Plan: - Continue home escitalopram (7) GERD (gastroesophageal reflux disease): Plan: - Continue home PPI (8) DVT prophylaxis: Plan: SCDs - Heparin contraindicated with plts < 50k Admission and Anticipated Discharge Date Admission Date: December 17, 2021 Subjective No fevers overnight. [place] comfortable. Last fever was yesterday morning (ie ~24 hours). Reports no chest pain, shortness of breath, abdominal pain, nausea, or vomiting. Physical Exam Constitutional: WD/WN, vitals as above Eyes: EOM intact bilaterally; no conjunctival abnormality ENMT: external ear and nose normal, oropharynx normal Neck: trachea midline, no thyromegaly normal visual inspection Respiratory: normal respiratory effort, lungs clear to auscultation no respiratory distress Cardiovascular: RRR, no murmur, no edema Gastrointestinal (Abdomen): Inspection/Auscultation: abdomen normal to inspection; abdomen not distended Musculoskeletal: no cyanosis or clubbing, extremities motor strength 5/5 Skin: no rashes, warm and dry Neurologic: moves all extremities and awake Psychiatric: Orientation: alert, oriented to person and cooperative Results & Data Results & Data ([facility]) Vital Signs (Past 12 Hours) Vital Signs Temp Pulse Resp BP Pulse Ox O2 Del Method 12/19/21 07:32 37.4 C 74 18 121/52 L 98 Room Air 12/19/21 05:05 37.1 C 80 18 135/74 98 CPAP 12/18/21 23:01 36.9 C 73 16 135/70 98 CPAP PG Care Time/CCT Total # of Minutes Spent Total Time Spent with Patient: Total time spent is greater than 50% in coordination of care (as documented) at patient's floor/unit and/or counseling patient: Coding Level of Care Code 74117 Subseq Hosp Care Lvl 3 Diagnoses Neutropenic fever D70.9; R50.81 AML (acute myeloblastic leukemia) C92.00 Thrombocytopenia D69.6 HTN (hypertension) I10 Hypercholesteremia E78.00 Depression F32.A GERD (gastroesophageal reflux disease) K21.9 DVT prophylaxis Z29.9
[2021-12-19] MEDS: POSACONAZOLE 100 MG PO SCH (13:43)
[2021-12-19] MEDS: ONDANSETRON 4 MG OD TAB PO PRN (16:03)
[2021-12-19] MEDS: ACETAMINOPHEN 500 MG TAB PO PRN (16:04)
[2021-12-19] MEDS: ROSUVASTATIN CALCIUM 5 MG TAB PO SCH (21:09)
[2021-12-20] MEDS ORDERED: VANCOMYCIN LEVEL ONE (05:30)
[2021-12-20] MEDS: SODIUM CHLORIDE 0.9% 1000ML 1,000 ML IV SCH ×3 (05:37→23:48)
[2021-12-20 06:27] LABS: Hematocrit (blood only) 23.5 % (40.1-51.0); Hemoglobin 7.9 g/dl (14.0-18.0); Mean Corpuscular Hemoglobin 27.5 pg (25.0-34.0); Mean Corpuscular Hgb Conc 33.6 g/dL (32.0-36.0); Mean Corpuscular Volume 81.9 fL (80.0-100.0); Platelet Count 11 K/uL (130-400); RDW Coefficient of Variation 15.4 % (11.5-14.5); RDW Standard Deviation 46.5 fL (36.4-46.3); Red Blood Count 2.87 M/uL (4.63-6.08); White Blood Count 0.24 K/ul (4.8-10.8)
[2021-12-20 06:35] LABS: Albumin Level 3.3 gm/dl (3.4-5.0); Bilirubin,Total 0.7 mg/dl (0.2-1.0); Calcium 8.2 mg/dl (8.5-10.1); Creatinine Clr Calc Pharmacy 206.4 ml/min; Est GFR (African American) 134.6 ml/min; Est GFR (Non-African American) 116.1 ml/min; Globulin 3.2 gm/dl (2.5-4.0); Magnesium 1.8 mg/dl (1.7-2.4); Potassium 3.5 mmol/L (3.5-5.1); Total Protein 6.5 gm/dl (6.0-8.3)
[2021-12-20] MEDS: VANCOMYCIN HCL 1,500 MG in SODIUM CHLORIDE 0.9% 500 ML IV SCH ×3 (06:45→21:35)
[2021-12-20] MEDS: CEFEPIME 2,000 MG in SYRINGE 0 ML IV SCH ×3 (06:56→22:47)
--- NOTE | 2021-12-20 07:18 | Pharmacy Report ---
Pharmacy PK ABX Note - Date of Service December 20, 2021 - Assessment and Plan Assessment * Mr Small is a 61 year old M receiving Vancomycin/Cefepime for treatment of febrile neutropenia. * Pertinent microbiologic data includes: blood cx NGTD; blood smear negative for parasites * PMH is significant for AML (currently on chemo), recent hospitalization * Pt has been on cefepime IV since discharge earlier this month. Vancomycin added on admission. Plan Vancomycin * Increase maintenance dose: Vanc 1500 mg IV every 8 hours * Regimen is predicted to achieve target AUC/KEVIN of 400-600 mg/L.hr * Vanc level ordered for tomorrow Cefepime 2gm IV q8h Pharmacy will continue to follow and will adjust dose/frequency as necessary. Thank you. Pharmacy has transitioned to AUC monitoring for vancomycin. AUC/KEVIN is the preferred PK/PD target and is associated with decreased risk of nephrotoxicity compared to traditional trough targets.
--- NOTE | 2021-12-20 07:56 | Hospitalist Progress Note ---
Date of Service December 20, 2021 Assessment & Plan (1) Neutropenic fever: Plan: Neutropenic Fever - Patient afebrile since 12/19 1420, Tmax 38.8 12/17 - [facility] recommended continuation of Cefepime, Metronidazole, and Vancomycin - Cultures NGTD - Patient's [facility]ologist recommended that if afebrile for 24 hours and cultures remain negative, can discharge patient to home on Cefepime and Metronidazole (discontinue Vancomycin), low blood counts not to prevent d/c, can transfuse any necessary products prior to discharge, repeat CBC in 3-4 days. AML Follows with [facility]ology, (Dr. West?). Was given "Nadaperio" per patient and . - Continue home ppx with allopurinol, acyclovir, and posaconazole - Inpatient needs as above Thromocytopenia Due to cancer and chemotherapy. - Transfuse for plts > 10k - Down to 4k today. 2 units pooled platelets ordered. Hypertension BP is 125/50. 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 Rudolph at [facility]), bone marrow biopsy (10/30), pancytopenia, HTN, HLD, GI bleeding, and GERD presented 12/06 for a neutropenic fever. He was subsequently transferred to [facility]. He was evaluated there and discharged to home Cefepime. Patient returned to [facility] 12/17 for fever and has remained admitted for management of neutropenic fever (Tmax 38.8 12/17). Today 12/20/21: - Fevers/chills overnight: - Patient resting comfortably - Last febrile 1400 12/19 - No chest pain, shortness of breath, abdominal pain, nausea, or emesis Review of Systems Review of Systems: See HPI. Physical Exam Physical Exam: Gen: NAD, alert, interactive HEENT: Supple, no LAD, no thyromegaly, no JVD Resp:Non-labored, no wheezing/rhonchi/rales, CTAB CV:RRR, normal S1/S2, no M/R/G Abd: Soft, non-distended, no TTP, normoactive bowels, no masses Extr: 2+ dp bilaterally, no edema Skin: No rashes lesions or erythema Results & Data Results & Data ([facility]) Vital Signs (Past 12 Hours) Vital Signs Temp Pulse Resp BP Pulse Ox O2 Del Method 12/20/21 04:00 37.0 C 71 16 144/79 H 97 CPAP 12/19/21 20:00 Room Air, CPAP 12/19/21 22:57 36.7 C 72 18 147/79 H 99 CPAP
--- NOTE | 2021-12-20 08:16 | Discharge Summary ---
Date of Service December 20, 2021 Admission HPI Per Admitting Provider 61yo M w/ hx of AML who presents with neutropenic fever. The patient had platelets of 5 today on routine lab testing and [facility]. The patient had been in our hospital on 12/06 with the same, but was transferred to [facility] on the same day. The patient reports that he was recultured, but that nothing grew. He has been on cefepime 2 g IV Q8h since discharge from [facility]. He reports he was running a sub-fever (99.0 - 99.5) degrees over the last 2-3 days. He had his platelets transfused and immediately on the car ride home had chills and had to turn the heat up in the car. He had a temperature at home, and he called his oncologist who told him to come to the ER. The patient reports no new infectious symptoms other than the fevers/chills. He denies any cough, shortness of breath, no chest pain, no new rashes or hot areas on his skin, no dysuria, no other symptoms. Admission Exam Per Admitting Provider Constitutional: WD/WN, vitals as above Eyes: EOM intact bilaterally; no conjunctival abnormality ENMT: external ear and nose normal, oropharynx normal Neck: trachea midline, no thyromegaly normal visual inspection Respiratory: normal respiratory effort, lungs clear to auscultation no respiratory distress Cardiovascular: RRR, no murmur, no edema Gastrointestinal (Abdomen): Inspection/Auscultation: abdomen normal to inspection; abdomen not distended Musculoskeletal: no cyanosis or clubbing, extremities motor strength 5/5 Skin: no rashes, warm and dry Neurologic: moves all extremities and awake Psychiatric: Orientation: alert, oriented to person and cooperative Principal Diagnosis Neutropenic Fever Discharge Exam Gen: NAD, alert, interactive Resp:Non-labored, no wheezing/rhonchi/rales, CTAB CV:RRR, normal S1/S2, no M/R/G Abd: Soft, non-distended, no TTP, normoactive bowels, no masses Extr: 2+ dp bilaterally, no edema Skin: No rashes lesions or erythema Discharge Data Allergies Allergy/AdvReac Type Severity Reaction Status Date / Time No Known Allergies Allergy Mild 0 Verified 12/31/21 10:27 Consultations 12/17/21 18:03 ED Decision to Admit Stat Hospital Course (1) AML (acute myeloblastic leukemia): (2) Thrombocytopenia: (3) HTN (hypertension): (4) Hypercholesteremia: (5) Depression: (6) GERD (gastroesophageal reflux disease): Total Time Total Time Spent Total Time Spent (In Minutes): See attending attestation Discharge Plan Discharge Items Patient Disposition: Home - Self-Care Reason For Visit: NEUTROPENIC FEVER Discharge Diagnosis: Neutropenic Fever, bacteremia due to unknown source Condition on Discharge: Good Activity: Per Instructions section Non-emergency contact: Primary Care Provider and Oncologist Call non-emergency contact if: you have any medication questions, your symptoms worsen and you have a fever Follow-up/Referrals: Jessica Cuevas MD [Primary Care Provider] - Diet: Regular Addtl Attending Provider Instructions: You were admitted to the hospital for a neutropenic fever (a fever in the setting of low neutrophils in your blood). You were thoroughly evaluated and treated with Vancomycin, in addition to the Cefepime and Metronidazole you were already on, to cover potential sources of infection. Your condition had been improving and you were set to be discharged. However, you then developed another fever, at which time discharge was postponed and you were restarted on broad spectrum antibiotics after blood cultures were redrawn. Those blood cultures grew a resistant organism called ESBL Klebsiella. This was only sensitive to an IV antibiotic called meropenem and as such, our case management team has helped to set up the remainder of your treatment at home. A discharge summary will be sent to your primary care physician to ensure continuity of care. Please bring this discharge summary with you to your next office appointment so that your provider can review it at that time. Follow-up appointments: - Make a follow-up appointment with your PCP within the next week. It is very important that you follow up with them shortly after discharge from the hospital. We have requested a follow-up appointment with your primary care physician within one week of discharge. Please call their office if you do not hear from them. - Please continue to follow closely with your oncology doctors at [facility] (Dr. Rudolph). Medications: - Your medication list has been reviewed and reconciled upon discharge to ensure accuracy and continuity of care. An updated list of all your medications is included with your hospital discharge paperwork. Please review this list closely, and make note of any changes. - The only antibiotic you will be taking at home is meropenem. This will be delivered through your PICC line every 6 hours for a total of 11 days at home. Home nursing will help you. - We sent a new medication called Martha. You may take this up to 6 times a day as needed for nausea. - We have also sent you two different ointments for your perianal area. The nitroglycerin ointment and zinc oxide barrier cream can be used twice a day. - If you have any issues filling these prescriptions, please call [phone] and ask to leave a message for Dr. Isabel. - Take your medications as instructed; do not skip a dose of your medicines. Make sure all of your doctors know every medicine you are taking (including pkin-hcy-owpclpf medicines, vitamins, and supplements). - Call your primary care provider before taking any new medicines (including over- the-counter medicines, vitamins, and supplements), because some of these may interact with your current medications, or may make your symptoms worse. - Tell your primary care provider if you cannot afford your medications. Contact your Primary Care Provider if you experience: - Difficulty following your treatment plan or taking medications Call 911 or go to the emergency department if you experience: - Fever - Abnormal bleeding - Sudden, severe abdominal pain or nausea/vomiting - Severe chest pain, or chest pain that radiates (moves) to your jaw or arm - Sudden, severe shortness of breath or difficulty breathing Pending Studies at Discharge: No Visit Report Forms: Wound Care Instructions Stand-Alone Forms: My [facility] Medications and DC Order Prescriptions: New ondansetron 4 mg tablet,disintegrating 4 mg PO Q6 PRN (Reason: nausea) Qty: 60 0RF zinc oxide 16 % Ointment 1 applic EXT BID Qty: 454 1RF Rx Instructions: Use twice a day as needed for perineal/anal pain Nitroglycerin 0.2% 1 tube ointment 1 bead topical BID Qty: 1 1RF Rx Instructions: Make 1/2 strength to 0.2%; rub pea-sized bead of ointment to rectal area two times a day; 1-30g tube Continued acyclovir 400 mg tablet 400 mg PO BID omeprazole 20 mg capsule,delayed release(DR/EC) 20 mg PO DAILY folic acid 1 mg tablet 1 mg PO DAILY allopurinol 300 mg tablet 300 mg PO DAILY escitalopram oxalate [Lexapro] 20 mg tablet 20 mg PO DAILY rosuvastatin [Crestor] 5 mg tablet 5 mg PO QPM amlodipine-olmesartan 5-40 mg tablet 1 tab PO DAILY posaconazole 100 mg tablet,delayed release (DR/EC) 300 mg PO DAILY K-Qxbm-Ldzaodq 250 mg Tablet 1 tab PO BID Magic Swizzle 5 ml PO Q6 PRN (Reason: .SORE MOUTH) Saline Rinse 1 dose PO DIRECTED PRN (Reason: sore mouth) acetaminophen [Tylenol Extra Strength] 500 mg Tablet 1,000 mg PO Q8H PRN (Reason: fever) Qty: 1 0RF fluticasone propionate [Flonase Allergy Relief] 50 mcg/actuation [place],Suspension 2 spray INTRANASAL BID Rx Instructions: administer into each nostril cetirizine [Zyrtec] 10 mg Tablet 10 mg PO DAILY Discontinued ondansetron HCl 4 mg tablet 4 mg PO Q6 PRN (Reason: Nausea) metronidazole 250 mg Tablet 500 mg PO TID cefepime 2 gram Piggyback 2 g IV TID No Action meropenem 500 mg Recon Soln 500 mg IV Q6 Discharge Orders: Discharge Order (Routine); Ordered 12/27/21 Ordered By: Lesley Isabel Admission Data Admit Date/Time: 12/17/21 19:56 Attending Provider: Carlita Mane Admit Provider: Bret Garcia Primary Care Provider: Jessica Cuevas Other Providers: Bret Garcia ; Casimiro Ramírez Carlos M. ; Roxanne Ga ; Tj Boswell I. ; Maurice Garnica II ; Mayte Burden ; Saud Vega ; Kendrick Diaz ; Austin Garcia Other Interventions: Discharge Summary Assessment (RN) Last Done: 12/27/21 10:29 Supervising Physician Co-Signing Physician Notes Patient was not dischargedsigning document so that it is no longer left in "open" as I am unable to delete it Resident Activity Tracking Resident Involvement: Resident Care Provided Care Provided: Adult Hospital Medicine
[2021-12-20] MEDS: metroNIDAZOLE 500 MG TAB PO SCH ×3 (08:50→21:39)
[2021-12-20] MEDS: PANTOprazole 40 MG TAB PO SCH (08:51)
[2021-12-20] MEDS: CETIRIZINE HCL 10 MG TABLET PO SCH (08:51)
[2021-12-20] MEDS: amLODIPine BESYLATE 5 MG TAB PO SCH (08:51)
[2021-12-20] MEDS: OLMESARTAN MEDOXOMIL 40 MG TAB PO SCH (08:51)
[2021-12-20] MEDS: FLUTICASONE PROPIONATE NA SPR 16 GM BTL SCH (08:52)
[2021-12-20] MEDS: allopurinoL 300 MG TAB PO SCH (08:52)
[2021-12-20] MEDS: FOLIC ACID 1 MG TAB PO SCH (08:52)
[2021-12-20] MEDS: POT PHOSPHATE MONOBASIC W/ SOD TAB PO SCH ×2 (08:52→21:38)
[2021-12-20] MEDS: ACYCLOVIR 400 MG TAB PO SCH ×2 (08:52→21:40)
[2021-12-20] MEDS: ESCITALOPRAM OXALATE 20 MG TAB PO SCH (08:52)
[2021-12-20] MEDS: PSYLLIUM or GUAR GUM FIBER POWDER PACKET PO SCH (08:53)
[2021-12-20] MEDS: ONDANSETRON 4 MG OD TAB PO PRN (08:56)
[2021-12-20] MEDS: POSACONAZOLE 100 MG PO SCH (13:46)
[2021-12-20] MEDS: ACETAMINOPHEN 500 MG TAB PO PRN ×2 (16:09→23:48)
--- NOTE | 2021-12-20 16:49 | Hospitalist Progress Note ---
Date of Service December 20, 2021 Assessment & Plan (1) Neutropenic fever: Plan: Matias is a 61 year old male with history of AML (transitioned from [facility], following Dr. Rudolph at [facility] [place]), thrombocytopenia, HTN, GERD, and hypercholesterolemia who presented for fever and was found to be neutropenic. Patient is admitted for neutropenic fever and evaluation of potential infectious sources. Neutropenic Fever - Febrile at 1500 12/20, Tmax 38.8 12/17 - [facility] [place] recommended continuation of Cefepime, Metronidazole, and Vancomycin while inpatient - Cultures 12/18 NGTD @ 48 hours, Cultures redrawn 12/20 due to return of fever after 24 hours w/o - Patient's [facility] Oncologist recommended that if afebrile for 24 hours and cultures remain negative, can discharge patient to home on Cefepime and Metronidazole (discontinue Vancomycin), low blood counts not to prevent d/c, can transfuse any necessary products prior to discharge, repeat CBC in 3-4 days of discharge. - Will recheck CBC and CMP in AM AML - Patient follows with [place] oncology, he was given "Nadaperio" per patient and . - Continue home ppx with allopurinol, acyclovir, and posaconazole Thromocytopenia - A/w cancer and chemotherapy. - Transfuse for plts < 10k - Down to 4k 12/19. 2 units pooled platelets given, 11k on 12/20 Hypertension - BP 146/79 at discharge - Continue home meds: amlodipine/olmesartan combo Hypercholesterolemia - Continue rosuvastatin Depression - Continue home escitalopram GERD - Continue home PPI (2) AML (acute myeloblastic leukemia): (3) Thrombocytopenia: (4) HTN (hypertension): (5) Hypercholesteremia: (6) Depression: (7) GERD (gastroesophageal reflux disease): Plan FEN: Regular Code status: Full Code DVT ppx: None d/t bleeding risk (low platelets) Isolation: Caution due to neutropenia Dispo:Med/Surg Admission and Anticipated Discharge Date Admission Date: December 17, 2021 Supervising Physician Co-Signing Physician Notes I personally examined the patient and verified all dia points of history and exam, discussed case, and agree with decision making with Dr Sarabia. Feeling pretty good no focal symptoms, was excited about going home. Actually after everything was set up to get him home, he started to have chills asked for his temperature to be checked and it was about 101.7 F. Obviously because of that discharge was held. Vitals noted, in general he is awake and alert pleasant no distress. HEENT normocephalic atraumatic mucous membranes moist. Breathing unlabored no accessory muscle use good effort. Skin shows no rashes no pallor or icterus. Neuro without focal deficits. Neutropenic feverwas doing much better, no recurrent feverrepeat blood cultures, ongoing serial examsalthough he has no focal signs or symptoms. Continue empiric antibiotics and supportive care and continue monitoring. Otherwise as above Subjective Matias is a 61 year old male with history of AML (transitioned from CMML, following Dr. Rudolph at [facility] [place]), thrombocytopenia, HTN, GERD, and hypercholesterolemia who presented for fever and was found to be neutropenic. Patient is admitted for neutropenic fever and evaluation of potential infectious sources. Today 12/20/21: - Patient prepared for discharge d/t being 24 hours fever free, developed fever prior to leaving hospital - Patient was experiencing chills and requested nursing check his temperature - He notes a headache and nausea, but that is not new for this admission - minimal improvement form Tylenol and Zofran, respectively. - Patient denies chest pain, shortness of breath, abdominal pain, dysuria, or bowel changes. Review of Systems Review of Systems: See HPI. Physical Exam Physical Exam: Gen: NAD, alert, interactive Resp:Non-labored, no wheezing/rhonchi/rales, CTAB CV:RRR, normal S1/S2, no M/R/G Abd: Soft, non-distended, no TTP, normoactive bowels, no masses Extr: 2+ dp bilaterally, no edema Skin: No rashes lesions or erythema Results & Data Results & Data ([facility]) Vital Signs (Past 12 Hours) Vital Signs Temp Pulse Pulse Resp BP Pulse Ox O2 Del Method 12/20/21 16:18 37.8 C H 72 18 150/60 H 97 Room Air 12/20/21 15:24 38.7 C H 12/20/21 14:52 37.4 C 70 18 146/79 H 98 12/20/21 11:25 37.4 C 70 18 146/79 H 98 Room Air 12/20/21 08:00 67 12/20/21 08:00 Room Air, CPAP 12/20/21 07:45 37.1 C 66 18 127/71 99 Room Air Resident Activity Tracking Resident Involvement: Resident Care Provided Care Provided: Adult Hospital Medicine
--- NOTE | 2021-12-20 19:14 | Billing Data ---
Date of Service December 20, 2021 Coding Level of Care Code 21292 Subseq Hosp Care Lvl 3
[2021-12-20] MEDS ORDERED: KETOROLAC TROMETHAMINE 15 MG/ML VIAL IV ONE (21:34)
[2021-12-20] MEDS: ROSUVASTATIN CALCIUM 5 MG TAB PO SCH (21:40)
[2021-12-20 21:51] LABS: Babesia microti DNA Not Detected (Not Detected)
[2021-12-21] MEDS ORDERED: VANCOMYCIN LEVEL ONE (03:30)
[2021-12-21 04:35] LABS: Albumin Globulin Ratio 1.2 (0.9-2); Albumin Level 3.4 gm/dl (3.4-5.0); BUN Creatinine Ratio 19.3 (10-20); Bilirubin,Total 0.8 mg/dl (0.2-1.0); Calcium 7.9 mg/dl (8.5-10.1); Est GFR (African American) 127.6 ml/min; Est GFR (Non-African American) 110.1 ml/min; Globulin 2.9 gm/dl (2.5-4.0); Potassium 3.3 mmol/L (3.5-5.1); Total Protein 6.3 gm/dl (6.0-8.3)
[2021-12-21 04:37] LABS: Hematocrit (blood only) 22.8 % (40.1-51.0); Hemoglobin 7.7 g/dl (14.0-18.0); Mean Corpuscular Hemoglobin 27.9 pg (25.0-34.0); Mean Corpuscular Hgb Conc 33.8 g/dL (32.0-36.0); Mean Corpuscular Volume 82.6 fL (80.0-100.0); Platelet Count 6 K/uL (130-400); RDW Coefficient of Variation 15.5 % (11.5-14.5); RDW Standard Deviation 46.7 fL (36.4-46.3); Red Blood Count 2.76 M/uL (4.63-6.08); White Blood Count 0.13 K/ul (4.8-10.8)
[2021-12-21] MEDS: VANCOMYCIN HCL 1,500 MG in SODIUM CHLORIDE 0.9% 500 ML IV SCH (04:53)
[2021-12-21] MEDS ORDERED: SODIUM CHLORIDE 0.9% 250 ML IV PRN (07:03)
[2021-12-21] MEDS ORDERED: POTASSIUM CHLORIDE CRTAB 20 MEQ TABCR PO ONE (07:08)
[2021-12-21 07:15] LABS: A calco-baum cmplx NotReported Not Detected (NotDetected); Bact fragilis Not Reported Not Detected (NotDetected); C auris Not Reported Not Detected (NotDetected); CTX-M Resistant Gene DETECTED (NotDetected); Calbicans Not Reported Not Detected (NotDetected); Candida glabrata Not Reported Not Detected (NotDetected); Candida krusei Not Reported Not Detected (NotDetected); Cneoformans/gatti Not Reported Not Detected (NotDetected); Cparapsilosis Not Reported Not Detected (NotDetected); Ctropicalis Not Reported Not Detected (NotDetected); E cloacae compx Not Reported Not Detected (NotDetected); Efaecalis Not Reported Not Detected (NotDetected); Efaecium Not Reported Not Detected (NotDetected); Enterobacterales DETECTED (NotDetected); Enterobacterales Not Reported DETECTED (NotDetected); Escherichia coli Not Reported Not Detected (NotDetected); H influenzae Not Reported Not Detected (NotDetected); IMP Resistant Gene Not Detected (NotDetected); K aerogenes Not Reported Not Detected (NotDetected); KPC Resistant Gene Not Detected (NotDetected); Koxytoca Not Reported Not Detected (NotDetected); Kpneumoniae grp Not Reported DETECTED (NotDetected); Lmonocyt Not Reported Not Detected (NotDetected); N meningitidis Not Reported Not Detected (NotDetected); NDM Resistant Gene Not Detected (NotDetected); OXA 48 Like Resistant Gene Not Detected (NotDetected); P aeruginosa Not Reported Not Detected (NotDetected); Proteus spp Not Reported Not Detected (NotDetected); Salmonella spp Not Reported Not Detected (NotDetected); Smarcescens Not Reported Not Detected (NotDetected); Staph lugdunensis Not Reported Not Detected (NotDetected); Staph spp. Not Reported Not Detected (NotDetected); Staphaureus Not Reported Not Detected (NotDetected); Staphepi Not Reported Not Detected (NotDetected); Stenmaltophilia Not Reported Not Detected (NotDetected); Strep agal(GrpB) Not Reported Not Detected (NotDetected); Strep pneum Not Reported Not Detected (NotDetected); Strep pyog (GrpA) Not Reported Not Detected (NotDetected); Strep spp Not Reported Not Detected (NotDetected); VIM Resistant Gene Not Detected (NotDetected); mcr-1 Colistin Resistant Gene Not Detected (NotDetected)
--- NOTE | 2021-12-21 07:20 | Hospitalist Progress Note ---
Date of Service December 21, 2021 Assessment & Plan (1) AML (acute myeloblastic leukemia): (2) Thrombocytopenia: (3) HTN (hypertension): (4) Hypercholesteremia: (5) Depression: (6) GERD (gastroesophageal reflux disease): Plan FEN: Regular Code status: Full Code DVT ppx: None d/t bleeding risk (low platelets) Isolation: Caution due to neutropenia Dispo:Med/Surg Admission and Anticipated Discharge Date Admission Date: December 17, 2021 Supervising Physician Co-Signing Physician Notes I personally examined the patient and verified all dia points of history and exam, discussed case, and agree with decision making with Dr Sarabia. Fevers off and on. Exhausted. Notes that he is actually had fairly poor appetite for several weeks or maybe even more than a month. The last few days he has only had very small bowel movements. Vitals noted, in general he is awake and alert pleasant no distress. HEENT normocephalic atraumatic mucous membranes moist. Breathing unlabored no accessory muscle use good effort. Skin shows no rashes no pallor or icterus. Neuro without focal deficits. Neutropenic fever/sepsis in an immunocompromised patientblood cultures from yesterday showing gram-negative rods, PCR suggests Enterococcus and Klebsiellacephalosporin resistant. Changed to ertapenem pending final sensitivities and full identification. Fortunately he is overall stable. Extensive discussion with patient and in regards to how easy he can become septic right now with his immune system so downreally with the bacteria showing up on the PCR, I harbor suspicion that it may even simply have been intestinal bacterial translocation. (If his abdominal exam were to localize, if he were started to have focal abdominal painwould then harbor more concerned about something like an abscessbut given how benign his belly examines, I doubt this is the case; he has no urinary symptoms to suggest that this is bacteremia subsequent to a UTI). Continue antibiotics, supportive care, time. Nausea, poor p.o. intake, concern on protein calorie malnutritionextensive discussion with patient and in this regard. Looking at it is a multifaceted approachmedically, goal will be to try to minimize nausea and increase appetite as best as possibleto that and Protonix twice daily, Pepcid twice daily, Zofran every 6 scheduled, trial of Marinol starting at 2.5 twice daily and titrate up as tolerated. Also bowel regimen with MiraLAX 17 g twice daily. Nutritionallygoal of about 2200 mark a day minimumdiscussed ways to track this, discussed the critical importance of adding the calorie goalobviously with good nutrients if possible, but with things like boost and ice cream if needed so as to not come up short on calorie goals. Extensively discussed ways to go about this, "cheaters" to pack and a lot of calories without a lot of volume, etc. 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 Otherwise as above, time in the room about 3:20 PM, time in the room about 3:56 PM, greater than 30 minutes [id number] discussing/educating/etc. Jeremy Salcedo is a 61 year old male with history of AML (transitioned from CMML, following Dr. Rudolph at [facility] [place]), thrombocytopenia, HTN, GERD, and hypercholesterolemia who presented for fever and was found to be neutropenic. Patient is admitted for neutropenic fever and evaluation of potential infectious sources. Today 12/21/21: - Today, patient states that he is feeling fatigued and has a headache (neither of which are new for this admission) - He continues to feel hot, but notes that he 'cant seem to sweat it out' - Patient states he has no appetite, but that he has been attempting to drink boost - He is nauseous, Zofran helps minimally - Patient denies chest pain, shortness of breath, abdominal pain, dysuria, or bowel changes. Review of Systems Review of Systems: See HPI. Physical Exam Physical Exam: Gen: NAD, alert, interactive Resp:Non-labored, no wheezing/rhonchi/rales, CTAB CV:RRR, normal S1/S2, no M/R/G Abd: Soft, non-distended, no TTP, normoactive bowels, no masses Extr: 2+ dp bilaterally, no edema Skin: No rashes lesions or erythema, no evidence of infection at pic site Results & Data Results & Data ([facility]) Vital Signs (Past 12 Hours) Vital Signs Temp Pulse Resp BP Pulse Ox O2 Del Method 12/21/21 03:00 37.2 C 70 18 148/73 H 98 Room Air 12/21/21 01:10 39.1 C H 12/21/21 00:26 39.1 C H 12/20/21 20:00 Room Air, CPAP 12/20/21 22:40 36.8 C 83 18 160/77 H 98 CPAP 12/20/21 23:45 39.4 C H 12/20/21 21:29 38.8 C H 12/20/21 20:40 36.8 C 73 18 155/75 H 98 Room Air Resident Activity Tracking Resident Involvement: Resident Care Provided Care Provided: Adult Hospital Medicine
[2021-12-21 07:24] LABS: Klebsiella pneumoniae group DETECTED (NotDetected)
[2021-12-21] MEDS: CEFEPIME 2,000 MG in SYRINGE 0 ML IV SCH (07:54)
[2021-12-21] MEDS: ACETAMINOPHEN 500 MG TAB PO PRN ×2 (08:00→16:59)
[2021-12-21] MEDS: ONDANSETRON 4 MG OD TAB PO PRN (08:13)
[2021-12-21] MEDS: PSYLLIUM or GUAR GUM FIBER POWDER PACKET PO SCH (08:14)
[2021-12-21] MEDS: SODIUM CHLORIDE 0.9% 1000ML 1,000 ML IV SCH ×2 (08:14→20:42)
[2021-12-21] MEDS: ERTAPENEM SODIUM 1,000 MG in SODIUM CHLORIDE 0.9% 50 ML IV SCH (08:20)
[2021-12-21] MEDS: ACYCLOVIR 400 MG TAB PO SCH ×2 (08:28→20:40)
[2021-12-21] MEDS: allopurinoL 300 MG TAB PO SCH (08:29)
[2021-12-21] MEDS: POT PHOSPHATE MONOBASIC W/ SOD TAB PO SCH ×2 (08:29→20:41)
[2021-12-21] MEDS: CETIRIZINE HCL 10 MG TABLET PO SCH (08:29)
[2021-12-21] MEDS: ESCITALOPRAM OXALATE 20 MG TAB PO SCH (08:29)
[2021-12-21] MEDS: OLMESARTAN MEDOXOMIL 40 MG TAB PO SCH (08:29)
[2021-12-21] MEDS: PANTOprazole 40 MG TAB PO SCH ×2 (08:29→20:42)
[2021-12-21] MEDS: amLODIPine BESYLATE 5 MG TAB PO SCH (08:29)
[2021-12-21] MEDS: FLUTICASONE PROPIONATE NA SPR 16 GM BTL SCH (08:30)
[2021-12-21] MEDS: metroNIDAZOLE 500 MG TAB PO SCH ×3 (08:30→20:41)
[2021-12-21] MEDS: FOLIC ACID 1 MG TAB PO SCH (08:30)
--- NOTE | 2021-12-21 08:45 | Pharmacy Report ---
Pharmacy PK ABX Note - Date of Service December 21, 2021 - Assessment and Plan Assessment * Mr Small is a 61 year old M receiving Vancomycin/Cefepime for treatment of febrile neutropenia. * Pertinent microbiologic data includes: blood cx with Gram negative amado biofire positive for K pneumoniae with resistance marker CTX-M; blood smear negative for parasites * PMH is significant for AML (currently on chemo), recent hospitalization * Pt has been on cefepime IV since discharge earlier this month. Vancomycin added on admission. Plan Vancomycin * Continue maintenance dose: Vanc 1500 mg IV every 8 hours * Regimen is predicted to achieve target AUC/KEVIN of 400-600 mg/L.hr * Vanc level to be re-ordered based upon duration Cefepime changed to Invanz due to possibility of ESBL Pharmacy will continue to follow and will adjust dose/frequency as necessary. Thank you. Pharmacy has transitioned to AUC monitoring for vancomycin. AUC/KEVIN is the preferred PK/PD target and is associated with decreased risk of nephrotoxicity compared to traditional trough targets.
[2021-12-21 13:29] LABS: Hematocrit (blood only) 24.7 % (40.1-51.0); Hemoglobin 8.3 g/dl (14.0-18.0); Mean Corpuscular Hgb Conc 33.6 g/dL (32.0-36.0); Mean Corpuscular Volume 83.4 fL (80.0-100.0); Mean Platelet Volume 9.1 fL (9.4-12.4); Platelet Count 10 K/uL (130-400); RDW Coefficient of Variation 15.5 % (11.5-14.5); RDW Standard Deviation 47.3 fL (36.4-46.3); Red Blood Count 2.96 M/uL (4.63-6.08); White Blood Count 0.17 K/ul (4.8-10.8)
[2021-12-21] MEDS: POSACONAZOLE 100 MG PO SCH (14:19)
[2021-12-21] MEDS ORDERED: POLYETHYLENE (MIRALAX) 17 GM PACK PO SCH (18:00)
--- NOTE | 2021-12-21 18:03 | Billing Data ---
Date of Service December 21, 2021 Coding Level of Care Code 87934 Subseq Hosp Care Lvl 3
--- NOTE | 2021-12-21 18:03 | Billing Data ---
Date of Service December 21, 2021 Coding Level of Care Code 03460 Prolonged Care (int'l)
[2021-12-21] MEDS ORDERED: FAMOTIDINE 20 MG TAB PO ONE (19:00)
[2021-12-21] MEDS: ONDANSETRON 4 MG OD TAB PO SCH ×2 (20:37→23:52)
[2021-12-21] MEDS: ROSUVASTATIN CALCIUM 5 MG TAB PO SCH (20:41)
[2021-12-21] MEDS: POLYETHYLENE (MIRALAX) 17 GM PACK PO SCH (20:42)
[2021-12-22] MEDS: ACETAMINOPHEN 500 MG TAB PO PRN (01:08)
[2021-12-22] MEDS: ONDANSETRON 4 MG OD TAB PO SCH ×3 (05:40→17:12)
[2021-12-22 06:46] LABS: BUN Creatinine Ratio 19.6 (10-20); Calcium 8.2 mg/dl (8.5-10.1); Creatinine Clr Calc Pharmacy 202.4 ml/min; Est GFR (African American) 133.5 ml/min; Est GFR (Non-African American) 115.2 ml/min; Potassium 3.4 mmol/L (3.5-5.1)
[2021-12-22 06:49] LABS: Hematocrit (blood only) 23.1 % (40.1-51.0); Hemoglobin 7.9 g/dl (14.0-18.0); Mean Corpuscular Hemoglobin 28.2 pg (25.0-34.0); Mean Corpuscular Hgb Conc 34.2 g/dL (32.0-36.0); Mean Corpuscular Volume 82.5 fL (80.0-100.0); Mean Platelet Volume 8.9 fL (9.4-12.4); Platelet Count 7 K/uL (130-400); RDW Coefficient of Variation 15.3 % (11.5-14.5); RDW Standard Deviation 45.6 fL (36.4-46.3); White Blood Count 0.19 K/ul (4.8-10.8)
[2021-12-22] MEDS: FLUTICASONE PROPIONATE NA SPR 16 GM BTL SCH (08:06)
[2021-12-22] MEDS: FAMOTIDINE 20 MG TAB PO SCH ×2 (08:07→21:03)
[2021-12-22] MEDS: PANTOprazole 40 MG TAB PO SCH ×2 (08:07→21:03)
[2021-12-22] MEDS: CETIRIZINE HCL 10 MG TABLET PO SCH (08:09)
[2021-12-22] MEDS: PSYLLIUM or GUAR GUM FIBER POWDER PACKET PO SCH (08:09)
[2021-12-22] MEDS: POLYETHYLENE (MIRALAX) 17 GM PACK PO SCH ×2 (08:09→21:02)
[2021-12-22] MEDS: amLODIPine BESYLATE 5 MG TAB PO SCH (08:09)
[2021-12-22] MEDS: ESCITALOPRAM OXALATE 20 MG TAB PO SCH (08:09)
[2021-12-22] MEDS: metroNIDAZOLE 500 MG TAB PO SCH ×3 (08:10→21:02)
[2021-12-22] MEDS: POT PHOSPHATE MONOBASIC W/ SOD TAB PO SCH ×2 (08:10→21:03)
[2021-12-22] MEDS: ACYCLOVIR 400 MG TAB PO SCH ×2 (08:10→21:02)
[2021-12-22] MEDS: OLMESARTAN MEDOXOMIL 40 MG TAB PO SCH (08:10)
[2021-12-22] MEDS: allopurinoL 300 MG TAB PO SCH (08:10)
[2021-12-22] MEDS: FOLIC ACID 1 MG TAB PO SCH (08:10)
[2021-12-22] MEDS: ERTAPENEM SODIUM 1,000 MG in SODIUM CHLORIDE 0.9% 50 ML IV SCH (08:11)
[2021-12-22] MEDS: SODIUM CHLORIDE 0.9% 1000ML 1,000 ML IV SCH ×2 (08:23→21:00)
[2021-12-22] MEDS: POTASSIUM CHLORIDE CRTAB 20 MEQ TABCR PO SCH (08:58)
[2021-12-22] MEDS: POSACONAZOLE 100 MG PO SCH (13:15)
--- NOTE | 2021-12-22 19:53 | Hospitalist Progress Note ---
Date of Service December 22, 2021 Assessment & Plan (1) Fever and neutropenia: Admission and Anticipated Discharge Date Admission Date: December 17, 2021 Supervising Physician Co-Signing Physician Notes Neutropenic fever/sepsis in an immunocompromised patientblood cultures from showing gram-negative rods, PCR suggests Enterococcus and Klebsiellacephalosporin resistant. Continue ertapenem pending final sensitivities and full identification. Fortunately he is overall stable. No new symptoms have evolved. Await sensitivities. Anticipate fevers resolving soon. Nausea, poor p.o. intake, concern on protein calorie malnutritioncontinue aggressive regimen, and showing some degree of improvement. Increase Marinol to 5 twice daily Pancytopenia due to chemotherapy and AMLplt transfuse again. no bleeding . Subjective Hemorrhoids are bothering him a lotstarted have some bowel movements. Still some nausea but eating better. Still a bit of a fever. No focal symptomsno chest pain no cough no pleuritic pain no dysuria no new skin rashes. Review of Systems Review of Systems: All systems reviewed & are unremarkable except as noted in HPI & below Physical Exam Physical Exam: In general he is awake and alert pleasant no distress. HEENT normocephalic atraumatic mucous membranes moist. Breathing unlabored no accessory muscle use good effort. Abdomen is soft very mild epigastric tenderness no guarding rebound or rigidity. Neuro without focal deficits. Skin without rashes, pallor, icterusin doing skin exam, his actually notes he had several petechiae just a few days ago that is now totally gone. Results & Data Results & Data ([facility]) Vital Signs (Past 12 Hours) Vital Signs Temp Pulse Pulse Resp BP BP Pulse Ox 12/22/21 19:00 99.3 F 72 16 158/75 H 99 12/22/21 16:30 99.9 F H 74 17 143/96 H 96 12/22/21 15:43 75 12/22/21 11:24 99.1 F 73 18 151/75 H 98 12/22/21 11:21 99.1 F 73 18 151/75 H 98 12/22/21 10:14 12/22/21 09:47 61 12/22/21 10:21 99.5 F 74 18 146/87 H 97 12/22/21 09:51 98.8 F 71 16 158/84 H 96 12/22/21 09:36 98.4 F 73 18 155/80 H 97 12/22/21 09:21 98.4 F 73 18 150/83 H 98 O2 Del Method 12/22/21 19:00 Room Air 12/22/21 16:30 Room Air 12/22/21 15:43 12/22/21 11:24 12/22/21 11:21 12/22/21 10:14 Room Air 12/22/21 09:47 12/22/21 10:21 12/22/21 09:51 12/22/21 09:36 12/22/21 09:21 PG Care Time/CCT Total # of Minutes Spent Total Time Spent with Patient: Total time spent is greater than 50% in coordination of care (as documented) at patient's floor/unit and/or counseling patient: Coding Level of Care Code 05256 Subseq Hosp Care Lvl 3 Diagnoses Fever and neutropenia D70.9; R50.81
[2021-12-22] MEDS: ANUSOL SUPP 1 EA PR SCH (20:14)
[2021-12-22] MEDS: ROSUVASTATIN CALCIUM 5 MG TAB PO SCH (21:02)
[2021-12-23 06:36] LABS: White Blood Count 0.24 K/ul (4.8-10.8)
[2021-12-23 06:37] LABS: BUN Creatinine Ratio 23.5 (10-20); Calcium 8.2 mg/dl (8.5-10.1); Creatinine Clr Calc Pharmacy 203.1 ml/min; Est GFR (African American) 133.5 ml/min; Est GFR (Non-African American) 115.2 ml/min; Potassium 3.5 mmol/L (3.5-5.1)
[2021-12-23 06:38] LABS: Hemoglobin 7.5 g/dl (14.0-18.0); Mean Corpuscular Hemoglobin 28.1 pg (25.0-34.0); Mean Corpuscular Hgb Conc 34.1 g/dL (32.0-36.0); Mean Corpuscular Volume 82.4 fL (80.0-100.0); Platelet Count 10 K/uL (130-400); RDW Coefficient of Variation 15.4 % (11.5-14.5); RDW Standard Deviation 46.3 fL (36.4-46.3); Red Blood Count 2.67 M/uL (4.63-6.08)
[2021-12-23] MEDS: ERTAPENEM SODIUM 1,000 MG in SODIUM CHLORIDE 0.9% 50 ML IV SCH (07:36)
[2021-12-23] MEDS: PANTOprazole 40 MG TAB PO SCH ×2 (07:38→21:09)
[2021-12-23] MEDS: ACYCLOVIR 400 MG TAB PO SCH ×2 (07:38→21:03)
[2021-12-23] MEDS: FAMOTIDINE 20 MG TAB PO SCH ×2 (07:38→21:08)
[2021-12-23] MEDS: POT PHOSPHATE MONOBASIC W/ SOD TAB PO SCH ×2 (07:38→21:10)
[2021-12-23] MEDS: FLUTICASONE PROPIONATE NA SPR 16 GM BTL SCH (07:38)
[2021-12-23] MEDS: metroNIDAZOLE 500 MG TAB PO SCH ×3 (07:38→21:09)
[2021-12-23] MEDS: POLYETHYLENE (MIRALAX) 17 GM PACK PO SCH ×2 (07:39→21:10)
[2021-12-23] MEDS: FOLIC ACID 1 MG TAB PO SCH (07:39)
[2021-12-23] MEDS: OLMESARTAN MEDOXOMIL 40 MG TAB PO SCH (07:39)
[2021-12-23] MEDS: allopurinoL 300 MG TAB PO SCH (07:39)
[2021-12-23] MEDS: amLODIPine BESYLATE 5 MG TAB PO SCH (07:39)
[2021-12-23] MEDS: ESCITALOPRAM OXALATE 20 MG TAB PO SCH (07:39)
[2021-12-23] MEDS: CETIRIZINE HCL 10 MG TABLET PO SCH (07:39)
[2021-12-23] MEDS: PSYLLIUM or GUAR GUM FIBER POWDER PACKET PO SCH (07:40)
[2021-12-23] MEDS: ANUSOL SUPP 1 EA PR SCH ×2 (07:40→21:04)
[2021-12-23] MEDS: POTASSIUM CHLORIDE CRTAB 20 MEQ TABCR PO SCH (07:45)
[2021-12-23] MEDS: SODIUM CHLORIDE 0.9% 1000ML 1,000 ML IV SCH ×2 (07:47→21:13)
[2021-12-23] MEDS: POSACONAZOLE 100 MG PO SCH (13:12)
[2021-12-23] MEDS ORDERED: VANCOMYCIN CONSULT ACTIVE PRN (17:21)
[2021-12-23] MEDS ORDERED: VANCOMYCIN HCL 2,750 MG in SODIUM CHLORIDE 0.9% 500 ML IV ONE (18:00)
[2021-12-23] MEDS: ONDANSETRON 4 MG OD TAB PO PRN (18:36)
--- NOTE | 2021-12-23 18:42 | Hospitalist Progress Note ---
Date of Service December 23, 2021 Assessment & Plan Admission and Anticipated Discharge Date Admission Date: December 17, 2021 Supervising Physician Co-Signing Physician Notes Neutropenic fever/sepsis in an immunocompromised patientblood cultures from showing gram-negative rods, PCR suggests Enterococcus and Klebsiellacephalosporin resistant. Discussed with micro lab as final cultures are still listed as gram-negative rodsthey noted that it needed to be replated and results will likely be finalized by tomorrow (12/24). Patient looks good on ertapenemdiscussed with him and that this likely will be the final choice for antibiotics, but after we discussed the potential pitfalls of home on empiric therapy while we are waiting for final sensitivities, we all agreed it would be much more prudent to keep him here on the ertapenem. Anticipate 2 weeks total treatment. There will be a bit of a "loosened" to coordinate with his oncologist at [facility] is that he was to be on Levaquin prophylaxis at this point in time. I feel that would likely be better to hold until after he is off of the ertapenem, but obviously will want this to be discussed with his oncologist. His previous bacteremia with Prevotella is still under treatmentlikely can come off of metronidazole after he has had 2 weeks of itbut this also would be something we would want to discuss with his primary oncologist. Nausea, poor p.o. intake, concern on protein calorie malnutritioncontinue aggressive regimen, fortunately is showing some degree of improvement. Given that Zofran was not really helping all that muchreduced it from scheduled to as needed. Continue twice daily PPI, twice daily H2, and Marinol 5 mg twice daily. Pancytopenia due to chemotherapy and AMLhas had several platelet transfusions during his stay. No bleeding today. Traumatic mouth ulcerwhile it does look okay, and was simply from pizza crust, given his marked immune compromise, as well as recent mucositisafter we discussed the situation it seemed more prudent to cover with vancomycin. Whenever he is doing well enough to be discharged, as long as he continues to look well, could consider p.o. treatment if it is still a prophylactic, rather than therapeutic regimen. Hemorrhoidscontinue Anusol. Fortunately physical exam reassuring Subjective For the most part feeling better. Ate 3 slices of pizza! unfortunately did have a small tear in the roof of his mouth. Does not really hurt all that much no exudatebut notes that it is concerning to him given that he has had mucositis before. Also notes that hemorrhoids are still bothering him quite a bit. After he gets Anusol suppository, he also has a degree of rectal urgency and has had a tiny bit of fecal incontinence from it. Fortunately his stomach/appetite/nausea are feeling a little bit better. He has not had fevers for about a day. Review of Systems Review of Systems: All systems reviewed & are unremarkable except as noted in HPI & below Physical Exam Physical Exam: In general he is awake and alert pleasant no distress. HEENT normocephalic atraumatic mucous membranes moist. Behind his top right front to oth, he does have a small area of ulceration with no exudate or surrounding erythema right where he notes it got caught on the pizza. Breathing unlabored no accessory muscle use good effort. Skin shows no rashes no pallor or icterus. Neuro without focal deficits. Rectal exam shows small but notable external hemorrhoids, no perianal cellulitis, fistulas, no areas of fluctuancenontender. Results & Data Results & Data ([facility]) Vital Signs (Past 12 Hours) Vital Signs Temp Pulse Pulse Resp BP Pulse Ox O2 Del Method 12/23/21 15:49 98.2 F 67 19 129/68 99 Room Air 12/23/21 15:27 68 12/23/21 11:09 98.2 F 67 20 137/84 98 Room Air 12/23/21 09:45 59 L 12/23/21 09:31 Room Air 12/23/21 07:01 97.9 F 73 20 149/77 H 99 Room Air PG Care Time/CCT Total # of Minutes Spent Total Time Spent with Patient: Total time spent is greater than 50% in coordination of care (as documented) at patient's floor/unit and/or counseling patient: Coding Level of Care Code 90362 Subseq Hosp Care Lvl 3
--- NOTE | 2021-12-23 19:37 | Pharmacy Report ---
Pharmacy PK ABX Note - Date of Service December 23, 2021 - Assessment and Plan Assessment * Vancomycin restarted today (12/23/21) for mucositis (patient is immunocompromised) with concerns of neutropenic fever. Background information from 12/20/21 * Mr Small is a 61 year old M receiving Vancomycin/Cefepime for treatment of febrile neutropenia. * Pertinent microbiologic data includes: blood cx with Gram negative amado biofire positive for K pneumoniae with resistance marker CTX-M; blood smear negative for parasites * PMH is significant for AML (currently on chemo), recent hospitalization * Pt has been on cefepime IV since discharge earlier this month. Vancomycin added on admission. Plan Vancomycin * Load: Vancomycin 2,750 mg IV once on 12/23/21 at 18:30. * Restart maintenance dose: Vancomycin 1,500 mg IV every 8 hours. * Regimen is predicted to achieve target AUC/KEVIN of 400-600 mg/L.hr * Vancomycin level re-ordered for 12/25/21 at 11:30. Continuing Invanz due to possibility of ESBL Pharmacy will continue to follow and will adjust dose/frequency as necessary. Thank you. Pharmacy has transitioned to AUC monitoring for vancomycin. AUC/KEVIN is the preferred PK/PD target and is associated with decreased risk of nephrotoxicity compared to traditional trough targets.
[2021-12-23] MEDS: ROSUVASTATIN CALCIUM 5 MG TAB PO SCH (21:11)
--- NOTE | 2021-12-23 21:23 | Electrocardiogram Report ---
Test Reason : Blood Pressure : / mmHG Vent. Rate : 066 BPM Atrial Rate : 066 BPM P-R Int : 164 ms QRS Dur : 094 ms QT Int : 432 ms P-R-T Axes : 003 005 007 degrees QTc Int : 452 ms Normal sinus rhythm Normal ECG When compared with ECG of 18-DEC-2021 06:06, No significant change was found Confirmed by Nic Schmitz ([id number]) on 12/23/2021 9:23:33 PM Referred By: REFERRED SELF Confirmed By:Nic Schmitz
[2021-12-24] MEDS: VANCOMYCIN HCL 1,500 MG in SODIUM CHLORIDE 0.9% 500 ML IV SCH ×3 (04:58→20:59)
[2021-12-24 05:18] LABS: BUN Creatinine Ratio 19.2 (10-20); Calcium 8.2 mg/dl (8.5-10.1); Creatinine Clr Calc Pharmacy 199.2 ml/min; Est GFR (African American) 132.5 ml/min; Est GFR (Non-African American) 114.3 ml/min; Potassium 3.6 mmol/L (3.5-5.1)
[2021-12-24 06:16] LABS: Hematocrit (blood only) 21.8 % (40.1-51.0); Hemoglobin 7.3 g/dl (14.0-18.0); Mean Corpuscular Hemoglobin 27.7 pg (25.0-34.0); Mean Corpuscular Hgb Conc 33.5 g/dL (32.0-36.0); Mean Corpuscular Volume 82.6 fL (80.0-100.0); Platelet Count 7 K/uL (130-400); RDW Coefficient of Variation 15.4 % (11.5-14.5); RDW Standard Deviation 46.2 fL (36.4-46.3); Red Blood Count 2.64 M/uL (4.63-6.08)
[2021-12-24 06:17] LABS: Platelet Estimate Signific. Decreased (Normal)
--- NOTE | 2021-12-24 08:15 | Hospitalist Progress Note ---
Date of Service December 24, 2021 Assessment & Plan (1) AML (acute myeloblastic leukemia): Plan: 61 y/o M recently discharged from [facility] after getting transferred for neutropenic fever with gram neg bacteremia (Provotella - [facility] culture) and treated with cefepime/metronidazole and vanco and discharged home--- here with recurrence of neutropenic fever Neutropenic fever with associated bacteremia of unknown source - On admission [facility] recommended continuation of Cefepime, Metronidazole, and Vancomycin while inpatient d/t tx of Prevotella bacteremia (12/05/2021) - Afebrile today, last fever noted 12/21 at 39.2 C - Most recent blood culture 12/20 grew Klebsiella pneumoniae only susceptible to meropenem - Possible source of infection from anal region of what pt describes as "hemorrhoids", consider pelvic CT tomorrow if anal pain persistent/worsen - Cefepime discontinued, ertapenem (1 g) given 1 dose but switched to meropenem d/t sensitivities (500 mg q6hr x14 days), continue vancomycin (1.5 g q 8hr) and metronidazole (500 mg TID) - First dose of meropenem given at 13:00 today (12/24/2021) - Patient's [place] Oncologist (Dr. Rudolph) aware of pt's current admission and agrees with continuing meropenem for full course of 14 days - Pt likely to go home with meropenem, involving case management for involvement of home health services - ID consult placed - Will recheck CBC and CMP in AM AML - Patient follows with [place] oncology, he was given "Nadaperio" per patient and . - Continue home ppx with allopurinol, acyclovir, and posaconazole Thromocytopenia - A/w cancer and chemotherapy - Transfuse for plts < 10k - Plt 7 this AM, given 1 unit of platelets Hypertension - Continue home meds: amlodipine/olmesartan combo Hypercholesterolemia - Continue rosuvastatin Depression - Continue home escitalopram GERD - Continue home PPI (2) Thrombocytopenia: (3) HTN (hypertension): (4) Hypercholesteremia: (5) Depression: (6) GERD (gastroesophageal reflux disease): Plan FEN: Regular Code status: Full Code DVT ppx: None d/t bleeding risk (low platelets) Isolation: Caution due to neutropenia Dispo:Med/Surg, possible d/c tomorrow or Friday Admission and Anticipated Discharge Date Admission Date: December 17, 2021 Supervising Physician Co-Signing Physician Notes Resident Physician Supervision Note: I independently interviewed and examined the patient and verified the dia history and physical, reviewed labs and image studies and agree with resident Dr. Isabel findings and care plan. Subjective Pt is a 61 yo male with PMH of HTN, GERD, hemorrhoids, HLD, and AML (in current treatment) admitted for neutropenic fever with bacteremia of unknown source. 12/24/2021: Overall, feeling better today. He was able to eat 2 pancakes and eggs for breakfast. He has what he describes as hemorrhoidal pain, but no other pain. The suppositories help minimally. He does feel nausea quite often but the zofran helps with this after it kicks in. Denies fever, chills, chest pain, SOB. Physical Exam Constitutional: NAD, afebrile, vitals WNL Respiratory: CTA bilaterally. No increased work of breathing. No rhonchi, rales, or crackles Cardiovascular: RRR. No murmur noted. Normal S1 and S2. Gastrointestinal (Abdomen): Nontender, +BS. No masses noted. External anal exam did not reveal any obvious external hemorrhoids. There is induration on the left side of the anus from about 9 o clock to 12 o clock that is noticeably different from the right side. There is pain upon palpation on the left side. No erythema or unusual skin color changes. Results & Data Results & Data ([facility]) Vital Signs (Past 12 Hours) Vital Signs Temp Pulse Pulse Pulse Resp BP Pulse Ox 12/24/21 07:16 36.2 C L 64 16 148/79 H 99 12/24/21 04:15 36.9 C 66 16 121/69 98 12/23/21 23:40 65 12/23/21 23:17 37.2 C 75 17 128/80 92 12/23/21 23:10 O2 Del Method 12/24/21 07:16 Room Air 12/24/21 04:15 CPAP 12/23/21 23:40 12/23/21 23:17 CPAP 12/23/21 23:10 Room Air Resident Activity Tracking Resident Involvement: Resident Care Provided Care Provided: [facility] Medicine
[2021-12-24] MEDS: ERTAPENEM SODIUM 1,000 MG in SODIUM CHLORIDE 0.9% 50 ML IV SCH (08:33)
[2021-12-24] MEDS: ESCITALOPRAM OXALATE 20 MG TAB PO SCH (08:34)
[2021-12-24] MEDS: CETIRIZINE HCL 10 MG TABLET PO SCH (08:34)
[2021-12-24] MEDS: POTASSIUM CHLORIDE CRTAB 20 MEQ TABCR PO SCH (08:34)
[2021-12-24] MEDS: FOLIC ACID 1 MG TAB PO SCH (08:34)
[2021-12-24] MEDS: OLMESARTAN MEDOXOMIL 40 MG TAB PO SCH (08:34)
[2021-12-24] MEDS: POT PHOSPHATE MONOBASIC W/ SOD TAB PO SCH ×2 (08:34→21:09)
[2021-12-24] MEDS: allopurinoL 300 MG TAB PO SCH (08:35)
[2021-12-24] MEDS: ACYCLOVIR 400 MG TAB PO SCH ×2 (08:35→21:08)
[2021-12-24] MEDS: FLUTICASONE PROPIONATE NA SPR 16 GM BTL SCH (08:36)
[2021-12-24] MEDS: PANTOprazole 40 MG TAB PO SCH ×2 (08:36→21:07)
[2021-12-24] MEDS: FAMOTIDINE 20 MG TAB PO SCH ×2 (08:36→21:08)
[2021-12-24] MEDS: metroNIDAZOLE 500 MG TAB PO SCH ×3 (08:36→21:09)
[2021-12-24] MEDS: POLYETHYLENE (MIRALAX) 17 GM PACK PO SCH ×2 (08:37→21:07)
[2021-12-24] MEDS: amLODIPine BESYLATE 5 MG TAB PO SCH (08:39)
[2021-12-24] MEDS: ONDANSETRON 4 MG OD TAB PO PRN ×2 (08:39→17:07)
[2021-12-24] MEDS: ANUSOL SUPP 1 EA PR SCH ×2 (08:39→21:10)
[2021-12-24 08:46] LABS: KPC Carbapenemase NOT DETECTED (NotDetected); NDM Carbapenemase NOT DETECTED (NotDetected)
[2021-12-24] MEDS ORDERED: MEROPENEM 500 MG in SYRINGE 0 ML IV SCH (09:45)
[2021-12-24] MEDS: PSYLLIUM or GUAR GUM FIBER POWDER PACKET PO SCH (10:06)
[2021-12-24] MEDS: MEROPENEM 500 MG in SYRINGE 0 ML IV SCH ×3 (13:00→20:59)
[2021-12-24] MEDS: POSACONAZOLE 100 MG PO SCH (17:07)
[2021-12-24] MEDS: SODIUM CHLORIDE 0.9% 1000ML 1,000 ML IV SCH (19:00)
[2021-12-24] MEDS: ROSUVASTATIN CALCIUM 5 MG TAB PO SCH (21:10)
[2021-12-25 01:06] LABS: Ehrlichia chaff DNA Bld Negative (Negative)
[2021-12-25] MEDS: SODIUM CHLORIDE 0.9% 1000ML 1,000 ML IV SCH ×2 (04:15→05:02)
[2021-12-25] MEDS: VANCOMYCIN HCL 1,500 MG in SODIUM CHLORIDE 0.9% 500 ML IV SCH ×2 (04:57→14:40)
[2021-12-25] MEDS: MEROPENEM 500 MG in SYRINGE 0 ML IV SCH ×4 (04:58→22:15)
[2021-12-25 06:51] LABS: Hematocrit (blood only) 20.5 % (40.1-51.0); Mean Corpuscular Hgb Conc 34.1 g/dL (32.0-36.0); Platelet Count 8 K/uL (130-400); RDW Coefficient of Variation 15.4 % (11.5-14.5); RDW Standard Deviation 45.7 fL (36.4-46.3); White Blood Count 0.29 K/ul (4.8-10.8)
[2021-12-25 07:16] LABS: BUN Creatinine Ratio 15.5 (10-20); Calcium 8.3 mg/dl (8.5-10.1); Est GFR (African American) 126.6 ml/min; Est GFR (Non-African American) 109.3 ml/min; Potassium 3.7 mmol/L (3.5-5.1)
[2021-12-25] MEDS: ACYCLOVIR 400 MG TAB PO SCH ×2 (08:01→22:04)
[2021-12-25] MEDS: allopurinoL 300 MG TAB PO SCH (08:01)
[2021-12-25] MEDS: metroNIDAZOLE 500 MG TAB PO SCH ×2 (08:01→14:40)
[2021-12-25] MEDS: FOLIC ACID 1 MG TAB PO SCH (08:01)
[2021-12-25] MEDS: ESCITALOPRAM OXALATE 20 MG TAB PO SCH (08:01)
[2021-12-25] MEDS: amLODIPine BESYLATE 5 MG TAB PO SCH (08:01)
[2021-12-25] MEDS: CETIRIZINE HCL 10 MG TABLET PO SCH (08:01)
[2021-12-25] MEDS: FAMOTIDINE 20 MG TAB PO SCH ×2 (08:01→22:03)
[2021-12-25] MEDS: POT PHOSPHATE MONOBASIC W/ SOD TAB PO SCH ×2 (08:02→22:03)
[2021-12-25] MEDS: PANTOprazole 40 MG TAB PO SCH ×2 (08:02→22:03)
[2021-12-25] MEDS: PSYLLIUM or GUAR GUM FIBER POWDER PACKET PO SCH (08:02)
[2021-12-25] MEDS: OLMESARTAN MEDOXOMIL 40 MG TAB PO SCH (08:02)
[2021-12-25] MEDS: FLUTICASONE PROPIONATE NA SPR 16 GM BTL SCH (08:04)
[2021-12-25] MEDS: ANUSOL SUPP 1 EA PR SCH ×2 (08:04→22:04)
[2021-12-25] MEDS: POLYETHYLENE (MIRALAX) 17 GM PACK PO SCH ×2 (08:06→22:02)
[2021-12-25] MEDS: POTASSIUM CHLORIDE CRTAB 20 MEQ TABCR PO SCH (08:07)
[2021-12-25] MEDS: ONDANSETRON INJ 2 MG/ML 2 ML VIAL IV PRN (09:32)
[2021-12-25] MEDS ORDERED: VANCOMYCIN LEVEL ONE (11:30)
--- NOTE | 2021-12-25 13:30 | Pharmacy Report ---
Pharmacy Vanc AUC Short Note - Date of Service December 25, 2021 - Assessment & Plan Assessment 61 year old M receiving vancomycin, meropenem, and metronidazole for treatment of mucositis with concerns of neutropenic fever/sepsis. Pertinent microbiology: klebsiella pneumoniae ESBL bacteremia. Day # 3 of antimicrobial therapy (vancomycin restarted on 12/23; received therapy 12/17 through 12/21) Plan Vancomycin * Trough obtained today (12/25): 14 mcg/dL * Continue vancomycin 1,500 mg IV q8h * AUC guided dosing is effective and associated with decreased risk of nephrotoxicity compared to traditional trough targets * Trough level of 13.8 mcg/mL is predicted to achieve target AUC/KEVIN of 400-600 mg/L.hr and may be associated with a 9% risk of nephrotoxicity * Plan to order level in next 2-3 days unless renal function changes. Pharmacy will continue to follow and will adjust dose/frequency as necessary. Thank you.
--- NOTE | 2021-12-25 14:03 | Hospitalist Progress Note ---
Date of Service December 25, 2021 Assessment & Plan (1) AML (acute myeloblastic leukemia): Plan: Pt is a 61 y/o M recently discharged from [facility] after getting transferred for neutropenic fever with gram neg bacteremia (Provotella - [facility] culture) and treated with cefepime/metronidazole and vanco and discharged home--- here with recurrence of neutropenic fever Neutropenic fever with associated bacteremia of unknown source - On admission [facility] recommended continuation of Cefepime, Metronidazole, and Vancomycin while inpatient d/t tx of Prevotella bacteremia (12/05/2021) - Afebrile today, last fever noted 12/21 at 39.2 C - Most recent blood culture 12/20 grew Klebsiella pneumoniae only susceptible to meropenem - Possible source of infection from anal region of what pt describes as "hemorrhoids" - Results pending- Pelvic MRI w/ and w/o contrast ordered d/t continued anal pain after discussion with radiology. - Continue meropenem d/t sensitivities (500 mg q6hr x14 days), d/neisha vanco/flagyl - Day 2 of meropenem today - Patient's [place] Oncologist (Dr. Rudolph) aware of pt's current admission and agrees with continuing meropenem for full course of 14 days - Pt likely to go home with meropenem, pt able to use PICC line for this. Pt's aware of how to use line - ID consult pending - Will recheck CBC and CMP in AM AML - Patient follows with [place] oncology, he was given "Nadaperio" per patient and . - Continue home ppx with allopurinol, acyclovir, and posaconazole Thromocytopenia - A/w cancer and chemotherapy - Transfuse for plts < 10k - Plt 8 this AM, given 1 unit of platelets Hypertension - Continue home meds: amlodipine/olmesartan combo Hypercholesterolemia - Continue rosuvastatin Depression - Continue home escitalopram GERD - Continue home PPI (2) Thrombocytopenia: (3) HTN (hypertension): (4) Hypercholesteremia: (5) Depression: (6) GERD (gastroesophageal reflux disease): Plan FEN: Regular Code status: Full Code DVT ppx: None d/t bleeding risk (low platelets) Isolation: Caution due to neutropenia Dispo:Med/Surg, d/c home pending results of pelvic MRI (either today or tomorrow if neg) Admission and Anticipated Discharge Date Admission Date: December 17, 2021 Supervising Physician Co-Signing Physician Notes Resident Physician Supervision Note: I independently interviewed and examined the patient and verified the dia history and physical, reviewed labs and image studies and agree with resident Dr. Isabel findings and care plan. Subjective Pt is a 61 yo male with PMH of HTN, GERD, hemorrhoids, HLD, and AML (in current treatment) admitted for neutropenic fever with bacteremia of unknown source. 12/24/2021: Overall, feeling better today. He was able to eat 2 pancakes and eggs for breakfast. He has what he describes as hemorrhoidal pain, but no other pain. The suppositories help minimally. He does feel nausea quite often but the zofran helps with this after it kicks in. Denies fever, chills, chest pain, SOB. 12/25/2021: Pt doing about the same today. He ate breakfast without issue. He is still having anal pain, no better or worse than yesterday. Denies fevers, chills, chest pain, SOB, or leg pain. Last fever >38 was 12/21 at 39.2. Physical Exam Constitutional: NAD, afebrile, vitals WNL Respiratory: CTA bilaterally. No rhonchi, wheezing, or crackles. No increased work of breathing. Cardiovascular: RRR. No murmur noted. S1 and S2 normal. Gastrointestinal (Abdomen): Nontender, + BS. No overt masses noted. Anal exam revealed no changes from yesterday's exam. Painful, induration present on left side from 9-12 o'clock. Soft on right side without pain. No skin changes. Results & Data Results & Data ([facility]) Vital Signs (Past 12 Hours) Vital Signs Temp Pulse Pulse Resp BP BP Pulse Ox 12/25/21 09:27 36.9 C 68 16 138/78 95 12/25/21 09:09 36.9 C 65 14 140/79 96 12/25/21 08:39 37.0 C 70 16 146/82 H 96 12/25/21 08:24 36.5 C 63 16 144/81 H 95 12/25/21 08:09 37.0 C 65 18 139/75 96 08/23/22 07:00 36.8 C 64 20 136/79 96 12/25/21 04:00 36.9 C 76 16 136/73 96 O2 Del Method 12/25/21 09:27 12/25/21 09:09 12/25/21 08:39 12/25/21 08:24 12/25/21 08:09 12/25/21 07:00 Room Air 12/25/21 04:00 CPAP Resident Activity Tracking Resident Involvement: Resident Care Provided Care Provided: Adult Hospital Medicine
[2021-12-25] MEDS: POSACONAZOLE 100 MG PO SCH (14:41)
[2021-12-25] MEDS ORDERED: GADOBUTROL 65ML VIAL IV ONE (18:10)
[2021-12-25] MEDS: ROSUVASTATIN CALCIUM 5 MG TAB PO SCH (22:03)
[2021-12-26] MEDS: MEROPENEM 500 MG in SYRINGE 0 ML IV SCH ×4 (03:35→21:47)
[2021-12-26 05:37] LABS: BUN Creatinine Ratio 16.9 (10-20); Calcium 8.4 mg/dl (8.5-10.1); Est GFR (African American) 125.8 ml/min; Est GFR (Non-African American) 108.5 ml/min
[2021-12-26 06:49] LABS: Hematocrit (blood only) 20.4 % (40.1-51.0); Hemoglobin 6.9 g/dl (14.0-18.0); Mean Corpuscular Hemoglobin 27.9 pg (25.0-34.0); Mean Corpuscular Hgb Conc 33.8 g/dL (32.0-36.0); Mean Corpuscular Volume 82.6 fL (80.0-100.0); Platelet Count 7 K/uL (130-400); RDW Coefficient of Variation 15.3 % (11.5-14.5); RDW Standard Deviation 46.2 fL (36.4-46.3); Red Blood Count 2.47 M/uL (4.63-6.08); White Blood Count 0.38 K/ul (4.8-10.8)
[2021-12-26] MEDS ORDERED: SODIUM CHLORIDE 0.9% 250 ML IV PRN (07:15)
[2021-12-26] MEDS: allopurinoL 300 MG TAB PO SCH (09:58)
[2021-12-26] MEDS: OLMESARTAN MEDOXOMIL 40 MG TAB PO SCH (09:58)
[2021-12-26] MEDS: POT PHOSPHATE MONOBASIC W/ SOD TAB PO SCH ×2 (09:58→20:33)
[2021-12-26] MEDS: amLODIPine BESYLATE 5 MG TAB PO SCH (09:58)
[2021-12-26] MEDS: ESCITALOPRAM OXALATE 20 MG TAB PO SCH (09:58)
[2021-12-26] MEDS: FAMOTIDINE 20 MG TAB PO SCH ×2 (09:59→20:33)
[2021-12-26] MEDS: ACYCLOVIR 400 MG TAB PO SCH ×2 (09:59→20:33)
[2021-12-26] MEDS: POTASSIUM CHLORIDE CRTAB 20 MEQ TABCR PO SCH (09:59)
[2021-12-26] MEDS: CETIRIZINE HCL 10 MG TABLET PO SCH (09:59)
[2021-12-26] MEDS: FOLIC ACID 1 MG TAB PO SCH (09:59)
[2021-12-26] MEDS: FLUTICASONE PROPIONATE NA SPR 16 GM BTL SCH (10:00)
[2021-12-26] MEDS: POLYETHYLENE (MIRALAX) 17 GM PACK PO SCH ×2 (10:02→20:33)
[2021-12-26] MEDS: ONDANSETRON 4 MG OD TAB PO PRN (10:09)
--- NOTE | 2021-12-26 10:10 | Magnetic Resonance Report ---
MRI OF THE PELVIS WITH AND WITHOUT CONTRAST CLINICAL HISTORY: Neutropenic fever. Leukemia. Rectal pain. Eval for potential perirectal abscess. COMPARISON STUDY: CT of the abdomen and pelvis December 06, 2021. TECHNIQUE: Utilizing a 1.5 Roxane magnet and dedicated coil, multiplanar, multiecho imaging of the pel vis was performed pre and postcontrast administration. Intravenous injection of 12.5 cc of Gadavist w as uneventful. FINDINGS: Trace presacral fluid is present. No perirectal or perianal fluid collection is identified to suggest an abscess. No perirectal or perianal fistula is identified. There may be mild perianal en hancement. There is no pelvic lymphadenopathy. No mass within the pelvis is noted. There is no eviden ce for acute osteomyelitis within the pelvis, sacrum, coccyx or hips. No hip joint effusions are pres ent. Sacroiliac joints and symphysis pubis are intact. Note is made of a tiny rim enhancing 7 mm flui d collection within the subcutaneous tissues of the left parotid shown on axial image 16 of 64. There is adjacent enhancement. No additional fluid collections are identified on this exam. IMPRESSION: 1. No perirectal or perianal abscess. Possible mild perianal enhancement. This could reflect cellulit is. 2. Tiny 7 mm subcutaneous fluid collection of the left left buttock with adjacent enhancement. The MR I appearance is nonspecific and this could reflect a tiny abscess or hematoma. No drainable fluid col lection. 3. Trace presacral fluid. ACT 112: Negative or not required by law. Electronically signed by: Daryl Lucero M.D. 12/26/2021 10:08 AM
[2021-12-26] MEDS: PSYLLIUM or GUAR GUM FIBER POWDER PACKET PO SCH (10:17)
[2021-12-26] MEDS: ANUSOL SUPP 1 EA PR SCH ×2 (10:17→20:49)
--- NOTE | 2021-12-26 10:32 | Discharge Summary ---
Date of Service December 26, 2021 Admission HPI Per Admitting Provider 61yo M w/ hx of AML who presents with neutropenic fever. The patient had platelets of 5 today on routine lab testing and [facility]. The patient had been in our hospital on 12/06 with the same, but was transferred to [facility] on the same day. The patient reports that he was recultured, but that nothing grew. He has been on cefepime 2 g IV Q8h since discharge from [facility]. He reports he was running a sub-fever (99.0 - 99.5) degrees over the last 2-3 days. He had his platelets transfused and immediately on the car ride home had chills and had to turn the heat up in the car. He had a temperature at home, and he called his oncologist who told him to come to the ER. The patient reports no new infectious symptoms other than the fevers/chills. He denies any cough, shortness of breath, no chest pain, no new rashes or hot areas on his skin, no dysuria, no other symptoms. Principal Diagnosis neutropenic fever due to bacteremic of unknown source Discharge Exam Constitutional NAD, afebrile, vitals WNL Respiratory CTA bilaterally, no rhonchi, rales, or wheezing. No increased work of breathing. Cardiovascular RRR. No murmur noted. Gastrointestinal (Abdomen) Nontender, +BS. No masses noted. Anal exam: Similar appearance to yesterday's exam. Slightly less induration than yesterday, but still present. No skin changes. Discharge Data Allergies Allergy/AdvReac Type Severity Reaction Status Date / Time No Known Allergies Allergy Mild 0 Verified 12/17/21 21:36 Consultations 12/17/21 18:03 ED Decision to Admit Stat 12/24/21 09:56 Consult Infectious Diseases Routine Ordered Studies 12/25/21 12:00 MRI Pelvis [MR pelvis wo/w con] Routine 1. No perirectal or perianal abscess. Possible mild perianal enhancement. This could reflect cellulitis. 2. Tiny 7 mm subcutaneous fluid collection of the left left buttock with adjacent enhancement. The MRI appearance is nonspecific and this could reflect a tiny abscess or hematoma. No drainable fluid collection. 3. Trace presacral fluid. Hospital Course (1) AML (acute myeloblastic leukemia): Pt is a 61 y/o M [place] [facility] [place] getting transferred for neutropenic fever with gram neg bacteremia (Provotella - [facility] culture) and treated with cefepime/metronidazole and vanco and discharged home--- here with recurrence of neutropenic fever Neutropenic fever with associated bacteremia of unknown source - On [place] [facility] [place] continuation of Cefepime, Metronidazole, and Vancomycin while inpatient d/t tx of Prevotella bacteremia (12/05/2021) - Afebrile today, last fever noted 12/21 at 39.2 C - Most recent blood culture 12/20 grew Klebsiella pneumoniae only susceptible to meropenem - Possible source of infection from anal region of what pt describes as "hemorrhoids" - Pelvic MRI w/ and w/o contrast ordered d/t continued anal pain after discussion with radiology - Pelvic MRI showed no perianal abscess with 7 mm pocket of subQ fluid on left buttock that is either tiny abscess or hematoma - Continue meropenem d/t sensitivities (500 mg q6hr x14 days), d/neisha vanco/flagyl - Day 2 of meropenem today - Patient's [facility] Oncologist (Dr. Rudolph) aware of pt's current admission and agrees with continuing meropenem for full course of 14 days - Pt likely to go home with meropenem, pt able to use PICC line for this. Pt's aware of how to use line - ID consult pending - Will recheck CBC and CMP in AM AML - Patient follows with [facility], he was given "Nadaperio" per patient and . - Continue home ppx with allopurinol, acyclovir, and posaconazole Low Hgb - downtrending over the last few days - 6.9 today from 7.0 yesterday - transfused 1 unit pRBC Thrombocytopenia - A/w cancer and chemotherapy - Transfuse for plts < 10k - Plt 7 this AM, given 1 unit of platelets Hypertension - Continue home meds: amlodipine/olmesartan combo Hypercholesterolemia - Continue rosuvastatin Depression - Continue home escitalopram GERD - Continue home PPI (2) Thrombocytopenia: (3) HTN (hypertension): (4) Hypercholesteremia: (5) Depression: (6) GERD (gastroesophageal reflux disease): Plan FEN: Regular Code status: Full Code DVT ppx: None d/t bleeding risk (low platelets) Isolation: Caution due to neutropenia Dispo:Home with ABX x12 days Total Time Total Time Spent Total Time Spent (In Minutes): Per attending attestation Discharge Plan Discharge Items Patient Disposition: Home - Self-Care Reason For Visit: NEUTROPENIC FEVER Discharge Diagnosis: Neutropenic Fever Condition on Discharge: Good Activity: Resume your previous activity Non-emergency contact: Primary Care Provider Call non-emergency contact if: you have any medication questions, your symptoms worsen and you have a fever Follow-up/Referrals: Jessica Cuevas MD [Primary Care Provider] - Diet: Regular Addtl Attending Provider Instructions: You were admitted to the hospital for a neutropenic fever (a fever in the setting of low neutrophils in your blood). You were thoroughly evaluated and treated with Vancomycin, in addition to the Cefepime and Metronidazole you were already on, to cover potential sources of infection. Your condition had been improving and you were set to be discharged. However, you then developed another fever, at which time discharge was postponed and you were restarted on broad spectrum antibiotics after blood cultures were redrawn. Those blood cultures grew a resistant organism called ESBL Klebsiella. This was only sensitive to an IV antibiotic called meropenem and as such, our case management team has helped to set up the remainder of your treatment at home. A discharge summary will be sent to your primary care physician to ensure continuity of care. Please bring this discharge summary with you to your next office appointment so that your provider can review it at that time. Follow-up appointments: - Make a follow-up appointment with your PCP within the next week. It is very important that you follow up with them shortly after discharge from the hospital. We have requested a follow-up appointment with your primary care physician within one week of discharge. Please call their office if you do not hear from them. - Please continue to follow closely with your oncology doctors at [facility] (Dr. Rudolph) Medications: - Your medication list has been reviewed and reconciled upon discharge to ensure accuracy and continuity of care. An updated list of all your medications is included with your hospital discharge paperwork. Please review this list closely, and make note of any changes. - The only antibiotic you will be taking at home is meropenem. This will be delivered through your PICC line every 6 hours for a total of 12 days at home. - We sent a new medication called Martha. You may take this up to 6 times a day as needed for nausea. - If you have any issues filling these prescriptions, please call [phone] and ask to leave a message for Dr. Isabel. - Take your medications as instructed; do not skip a dose of your medicines. Make sure all of your doctors know every medicine you are taking (including apfq-jzi-bxhxjwd medicines, vitamins, and supplements). - Call your primary care provider before taking any new medicines (including over- the-counter medicines, vitamins, and supplements), because some of these may interact with your current medications, or may make your symptoms worse. - Tell your primary care provider if you cannot afford your medications. Contact your Primary Care Provider if you experience: - Difficulty following your treatment plan or taking medications Call [phone] or go to the emergency department if you experience: - Fever - Abnormal bleeding - Sudden, severe abdominal pain or nausea/vomiting - Severe chest pain, or chest pain that radiates (moves) to your jaw or arm - Sudden, severe shortness of breath or difficulty breathing Pending Studies at Discharge: No Stand-Alone Forms: My [facility] Medications and DC Order Prescriptions: New ondansetron 4 mg tablet,disintegrating 4 mg PO Q6 PRN (Reason: nausea) Qty: 60 0RF Continued acyclovir 400 mg tablet 400 mg PO BID omeprazole 20 mg capsule,delayed release(DR/EC) 20 mg PO DAILY folic acid 1 mg tablet 1 mg PO DAILY allopurinol 300 mg tablet 300 mg PO DAILY escitalopram oxalate [Lexapro] 20 mg tablet 20 mg PO DAILY rosuvastatin [Crestor] 5 mg tablet 5 mg PO QPM amlodipine-olmesartan 5-40 mg tablet 1 tab PO DAILY posaconazole 100 mg tablet,delayed release (DR/EC) 300 mg PO DAILY metronidazole 250 mg Tablet 500 mg PO TID cefepime 2 gram Piggyback 2 g IV TID E-Ebob-Mhneoeo 250 mg Tablet 1 tab PO BID Magic Swizzle 5 ml PO Q6 PRN (Reason: .SORE MOUTH) Saline Rinse 1 dose PO DIRECTED PRN (Reason: sore mouth) acetaminophen [Tylenol Extra Strength] 500 mg Tablet 1,000 mg PO Q8H PRN (Reason: fever) Qty: 1 0RF fluticasone propionate [Flonase Allergy Relief] 50 mcg/actuation Ch[place]ell,Suspension 2 spray INTRANASAL BID Rx Instructions: administer into each nostril cetirizine [Zyrtec] 10 mg Tablet 10 mg PO DAILY Discontinued ondansetron HCl 4 mg tablet 4 mg PO Q6 PRN (Reason: Nausea) Admission Data Admit Date/Time: 12/17/21 19:56 Attending Provider: Carlita Mane Admit Provider: Bret Garcia Primary Care Provider: Jessica Cuevas Other Providers: Bret Garcia ; Casimiro Ramírez ; Tam Linton ; Roxanne Ga ; Tj Boswell I. ; Maurice Garnica II ; Mayte Burden ; Saud Vega ; Kendrick Diaz Other Interventions: Discharge Summary Assessment (RN) Last Done: 12/20/21 14:52
[2021-12-26] MEDS: PANTOprazole 40 MG TAB PO SCH ×2 (11:05→20:33)
[2021-12-26] MEDS: POSACONAZOLE 100 MG PO SCH (14:02)
--- NOTE | 2021-12-26 15:09 | Surgery Consultation ---
Date of Consultation December 26, 2021 Assessment & Plan (1) Fever and neutropenia: (2) Perianal pain: Plan 59-year-old gentleman with history of CMML and neutropenia presents with pain in his perianal region. On MRI there is no drainable collection. He does have some indurated tissue. Although there is no erythema, he is neutropenic and may present without all signs of infection. I recommend continuing antibiotic therapy. Although no definitive fissures identified, some of his symptoms are suggestive of a fissure. We would recommend nitro glycerin ointment to the area twice daily. Would also recommend barrier cream for the surrounding perianal tissue as it appears somewhat macerated. We will continue to follow. History of Present Illness Reason for Consultation: Question perianal abscess Requesting Physician: Carlita Mane MD Attending Physician: Carlita Mane MD History of Present Illness 61-year-old gentleman with history of CMML, currently neutropenic, with complaint of pain in his anal region. He has been having significant pain with bowel movements. He has been using Preparation H due to suspected hemorrhoids. He denies fevers. He has been having fairly normal bowel movements although he was having diarrhea. MRI of his pelvis was completed earlier today which demonstrates no evidence of fluid collection/abscess in the perianal/gluteal region. Allergies Allergy/AdvReac Type Severity Reaction Status Date / Time No Known Allergies Allergy Mild 0 Verified 12/17/21 21:36 Home Medications Medication Instructions Recorded Confirmed Type acyclovir 400 mg tablet 400 mg PO BID 11/21/21 12/17/21 History allopurinol 300 mg tablet 300 mg PO DAILY 11/21/21 12/17/21 History amlodipine 5 mg-olmesartan 40 mg 1 tab PO DAILY 11/21/21 12/17/21 History tablet escitalopram oxalate 20 mg tablet 20 mg PO DAILY 11/21/21 12/17/21 History (Lexapro) folic acid 1 mg tablet 1 mg PO DAILY 11/21/21 12/17/21 History omeprazole 20 mg capsule,delayed 20 mg PO DAILY 11/21/21 12/17/21 History release posaconazole 100 mg tablet,delayed 300 mg PO DAILY 11/21/21 12/17/21 History release rosuvastatin 5 mg tablet (Crestor) 5 mg PO QPM 11/21/21 12/17/21 History Magic Swizzle 5 ml PO Q6 PRN .SORE MOUTH 12/06/21 12/17/21 History Saline Rinse 1 dose PO DIRECTED PRN sore 12/06/21 12/17/21 History mouth acetaminophen 500 mg tablet 1,000 mg PO Q8H PRN fever #1 tab 12/06/21 12/17/21 Rx (Tylenol Extra Strength) cefepime 2 gram intravenous 2 g IV TID 12/12/21 12/17/21 History piggyback metronidazole 250 mg tablet 500 mg PO TID 12/12/21 12/17/21 History cetirizine 10 mg tablet (Zyrtec) 10 mg PO DAILY 12/17/21 12/17/21 History fluticasone propionate 50 2 spray intranasal BID 12/17/21 12/17/21 History mcg/actuation nasal spray,suspension (Flonase Allergy Relief) sodium di- and 1 tab PO BID 12/17/21 12/17/21 History monophosphate-potassium phos monobasic 250 mg tablet (E-Zzvw-Cvvobbj) ondansetron 4 mg disintegrating 4 mg PO Q6 PRN nausea #60 tabs 12/20/21 Rx tablet Patient History Medical History Acute GI bleeding Anemia COVID-19 Depression Depression DVT prophylaxis GERD (gastroesophageal reflux disease) Head ache HTN (hypertension) Hypercholesteremia Neutropenic fever Social History Smoking Status: Former smoker Tobacco Type: Cigarettes Hx Alcohol Use: No Hx Substance Use: No Preferred Language: Irish Communication Ability: Effective [employer] Required: No Beliefs That Will Affect Care: None marital status: Current Living Situation: Spouse and Family Current Living Situation Comment: Pt lives with spouse and adult son Feels Safe at Home: Yes Safety Concerns: Feels Safe At This Time Assistive Devices: None Review of Systems Review of Systems: All systems reviewed & are unremarkable except as noted in HPI & below Physical Exam Constitutional: WD/WN, vitals as above Neck: trachea midline, no thyromegaly Respiratory: normal respiratory effort; no respiratory distress Cardiovascular: Rate/Rhythm: regular rate and regular rhythm Gastrointestinal (Abdomen): Percussion/Palpation: abdomen soft; abdomen nontender Rectal Exam: + rectal tenderness Perianal tenderness on the right side, slight induration of the tissue here; no definitive erythema or fluctuance; no fissure identified Musculoskeletal: Extremities: no cyanosis and no clubbing Skin: no rashes, warm and dry Psychiatric: A+Ox3, euthymic affect Results & Data ([facility]) Vital Signs (Past 12 Hours) Vital Signs Temp Pulse Pulse Resp BP BP Pulse Ox 12/26/21 14:34 37 C 64 18 145/80 H 99 12/26/21 13:34 36.9 C 66 18 125/68 98 12/26/21 13:04 36.8 C 61 18 150/82 H 98 12/26/21 12:49 36.9 C 66 20 164/85 H 99 12/26/21 12:32 36.9 C 66 16 130/64 98 12/26/21 11:39 37.1 C 58 L 18 150/84 H 97 12/26/21 11:22 36.5 C 60 18 156/77 H 98 12/26/21 08:00 85 12/26/21 07:04 36.8 C 61 19 138/76 95 12/26/21 03:26 36.9 C 60 18 129/72 98 O2 Del Method 12/26/21 14:34 12/26/21 13:34 12/26/21 13:04 12/26/21 12:49 12/26/21 12:32 12/26/21 11:39 12/26/21 11:22 12/26/21 08:00 12/26/21 07:04 Room Air 12/26/21 03:26 Room Air Laboratory Results 12/26/21 12/26/21 12/26/21 Range/Units 07:32 04:23 04:23 WBC 0.38 L* (4.8-10.8) K/ul RBC 2.47 L (4.63-6.08) M/uL Hgb 6.9 L* (14.0-18.0) g/dl Hct 20.4 L* (40.1-51.0) % MCV 82.6 (80.0-100.0) fL MCH 27.9 (25.0-34.0) pg MCHC 33.8 (32.0-36.0) g/dL RDW Std Deviation 46.2 (36.4-46.3) fL RDW Coeff of Sayra 15.3 H (11.5-14.5) % Plt Count 7 L* (130-400) K/uL Immature Gran % (Auto) Cancelled Neut % (Auto) Cancelled Lymph % (Auto) Cancelled [place] % (Auto) Cancelled Eos % (Auto) Cancelled Baso % (Auto) Cancelled Neut # (Auto) Cancelled Lymph # (Auto) Cancelled [place] # (Auto) Cancelled Eos # (Auto) Cancelled Baso # (Auto) Cancelled Immature Gran # (Auto) Cancelled Neutrophils % (Manual) Cancelled Band Neutrophils % Cancelled Lymphocytes % (Manual) Cancelled Prolymphocyte % Cancelled Reactive Lymphs % (Man) Cancelled Monocytes % (Manual) Cancelled Eosinophils % (Manual) Cancelled Basophils % (Manual) Cancelled Metamyelocytes % (Man) Cancelled Myelocytes % (Man) Cancelled Promyelocytes % (Man) Cancelled Blast Cells % (Manual) Cancelled Plasma Cell % (Manual) Cancelled Other Cells % Cancelled Nucleated RBC % Cancelled Neutrophils # (Manual) Cancelled Band Neutrophils # Cancelled Total Absolute Neuts Cancelled Lymphocytes # (Manual) Cancelled Prolymphocyte # Cancelled Reactive Lymphs # Cancelled Total Abs Lymphocytes Cancelled Monocytes # (Manual) Cancelled Eosinophils # (Manual) Cancelled Basophils # (Manual) Cancelled Metamyelocytes # (Man) Cancelled Myelocytes # (Manual) Cancelled Promyelocytes # (Man) Cancelled Blast Cells # (Man) Cancelled Plasma Cell # (Manual) Cancelled Other Cells # Cancelled Nucleated RBCs # (Man) Cancelled Hypersegmented Neuts Cancelled Hyposegmented Neuts Cancelled Hypogranular Neuts Cancelled Large Granular Lymphs Cancelled # Lrg Granular Lymphs Cancelled Hairy Cells Cancelled Smudge Cells Cancelled Toxic Granulation Cancelled Toxic Vacuolation Cancelled Dohle Bodies Cancelled Karen Rods Cancelled Hypogranular Platelets Cancelled Clumped Platelets Cancelled Giant Platelets Cancelled Platelet Satelliting Cancelled RBC Morphology Cancelled Polychromasia Cancelled Hypochromasia Cancelled Poikilocytosis Cancelled Basophilic Stippling Cancelled Anisocytosis Cancelled Microcytosis Cancelled Macrocytosis Cancelled Spherocytes Cancelled Pappenheimer Bodies Cancelled Sickle Cells Cancelled Target Cells Cancelled Tear Drop Cells Cancelled Ovalocytes Cancelled Stomatocytes Cancelled Rob-[place] Bodies Cancelled Echinocytes Cancelled Acanthocytes (Spur) Cancelled Rouleaux Cancelled RBC Agglutinates Cancelled Schistocytes Cancelled Sezary Cell Cancelled Sodium 139 (136-145) mmol/L Potassium 4.0 (3.5-5.1) mmol/L Chloride 106 (98-107) mmol/L Carbon Dioxide 29 (21-32) mmol/L Anion Gap 4 (3-11) BUN 10 (6-23) mg/dl Creatinine 0.59 L (0.6-1.4) mg/dl Est Cr Clr Drug Dosing 175.0 ml/min Est GFR ( Amer) 125.8 ml/min Est GFR (Non-Af Amer) 108.5 ml/min BUN/Creatinine Ratio 16.9 (10-20) Glucose 94 (70-99(Fasting)) mg/dl Calcium 8.4 L (8.5-10.1) mg/dl Blood Parasites ID Cancelled Blood Type O Positive Antibody Screen NEGATIVE Crossmatch See Detail Diagnostic Findings MRI OF THE PELVIS WITH AND WITHOUT CONTRAST CLINICAL HISTORY: Neutropenic fever. Leukemia. Rectal pain. Eval for potential perirectal abscess. COMPARISON STUDY: CT of the abdomen and pelvis December 06, 2021. TECHNIQUE: Utilizing a 1.5 Roxane magnet and dedicated coil, multiplanar, multiecho imaging of the pelvis was performed pre and postcontrast administration. Intravenous injection of 12.5 cc of Gadavist was uneventful. FINDINGS: Trace presacral fluid is present. No perirectal or perianal fluid collection is identified to suggest an abscess. No perirectal or perianal fistula is identified. There may be mild perianal enhancement. There is no pelvic lymphadenopathy. No mass within the pelvis is noted. There is no evidence for acute osteomyelitis within the pelvis, sacrum, coccyx or hips. No hip joint effusions are present. Sacroiliac joints and symphysis pubis are intact. Note is made of a tiny rim enhancing 7 mm fluid collection within the subcutaneous tissues of the left parotid shown on axial image 16 of 64. There is adjacent enhancement. No additional fluid collections are identified on this exam. IMPRESSION: 1. No perirectal or perianal abscess. Possible mild perianal enhancement. This could reflect cellulitis. 2. Tiny 7 mm subcutaneous fluid collection of the left left buttock with adjacent enhancement. The MRI appearance is nonspecific and this could reflect a tiny abscess or hematoma. No drainable fluid collection. 3. Trace presacral fluid.
--- NOTE | 2021-12-26 17:25 | Hospitalist Progress Note ---
Date of Service December 26, 2021 Assessment & Plan (1) AML (acute myeloblastic leukemia): Plan: Pt is a 61 y/o M recently discharged from [facility] after getting transferred for neutropenic fever with gram neg bacteremia (Provotella - [facility] culture) and treated with cefepime/metronidazole and vanco and discharged home--- here with recurrence of neutropenic fever Neutropenic fever with associated bacteremia of unknown source - On admission [facility] recommended continuation of Cefepime, Metronidazole, and Vancomycin while inpatient d/t tx of Prevotella bacteremia (12/05/2021) - Afebrile today, last fever noted 12/21 at 39.2 C - Most recent blood culture 12/20 grew Klebsiella pneumoniae only susceptible to meropenem - Possible source of infection from anal region of what pt describes as "hemorrhoids" -Pelvic MRI w/ and w/o contrast ordered d/t continued anal pain after discussion with radiology resulted no perianal abscess, but 7mm fluid collection in left buttock (hematoma vs. abscess) - Continue meropenem d/t sensitivities (500 mg q6hr x14 days), d/neisha vanco/flagyl - Day 2 of meropenem today - Patient's [place] Oncologist (Dr. Rudolph) aware of pt's current admission and agrees with continuing meropenem for full course of 14 days - Pt likely to go home with meropenem, pt able to use PICC line for this. Home nursing has been arranged - ID consult pending - Pt to be d/c tomorrow to home with ABX AML - Patient follows with [place] oncology, he was given "Nadaperio" per patient and . - Continue home ppx with allopurinol, acyclovir, and posaconazole Anal pain - Pelvic MRI w/ and w/o contrast results as above - Gen surg consulted for possible abscess on MRI- recommended continued ABX, nitroglycerin ointment BID with barrier cream for surrounding perineal area - ordered. Thromocytopenia - A/w cancer and chemotherapy - Transfuse for plts < 10k - Plt 7 this AM, given 1 unit of platelets Low Hgb - downtrending for a few days - no dizziness or lightheadedness - 8.3 on 12/21, 7.0 on 12/25, 6.9 today - transfuse 1 unit PRBCs Hypertension - Continue home meds: amlodipine/olmesartan combo Hypercholesterolemia - Continue rosuvastatin Depression - Continue home escitalopram GERD - Continue home PPI Plan FEN: Regular Code status: Full Code DVT ppx: None d/t bleeding risk (low platelets) Isolation: Caution due to neutropenia Dispo:Med/Surg, d/c home tomorrow before 5 PM in order for nurse to be available for ABX administration (2) Thrombocytopenia: (3) HTN (hypertension): (4) Anal pain: (5) Hypercholesteremia: (6) Depression: (7) GERD (gastroesophageal reflux disease): Admission and Anticipated Discharge Date Admission Date: December 17, 2021 Supervising Physician Co-Signing Physician Notes Resident Physician Supervision Note: I independently interviewed and examined the patient and verified the dia history and physical, reviewed labs and image studies and agree with resident Dr. Isabel findings and care plan. Subjective Pt is a 61 yo male with PMH of HTN, GERD, hemorrhoids, HLD, and AML (in current treatment) admitted for neutropenic fever with bacteremia of unknown source. 12/24/2021: Overall, feeling better today. He was able to eat 2 pancakes and eggs for breakfast. He has what he describes as hemorrhoidal pain, but no other pain. The suppositories help minimally. He does feel nausea quite often but the zofran helps with this after it kicks in. Denies fever, chills, chest pain, SOB. 12/25/2021: Pt doing about the same today. He ate breakfast without issue. He is still having anal pain, no better or worse than yesterday. Denies fevers, chills, chest pain, SOB, or leg pain. Last fever >38 was 12/21 at 39.2. 12/26/2021: Pt feeling well today. Appetite stable. His anal pain is also the same. Denies fevers, chills, pain anywhere other than rectal, and SOB. Physical Exam Constitutional: NAD, afebrile Respiratory: CTA bilaterally. No rhonchi, wheezing, or rales. No increased work of breathing. Cardiovascular: RRR. No murmur noted. Gastrointestinal (Abdomen): Nontender, +BS. No masses noted. Anal exam: about the same as previous. No changes in skin color or induration. No obvious masses/abscess felt on left buttock. Results & Data Results & Data ([facility]) Vital Signs (Past 12 Hours) Vital Signs Temp Pulse Pulse Resp BP BP Pulse Ox 12/26/21 16:49 36.9 C 66 18 148/68 H 99 12/26/21 16:26 37.2 C 64 18 125/62 99 12/26/21 14:34 37 C 64 18 145/80 H 99 12/26/21 13:34 36.9 C 66 18 125/68 98 12/26/21 13:04 36.8 C 61 18 150/82 H 98 12/26/21 12:49 36.9 C 66 20 164/85 H 99 12/26/21 12:32 36.9 C 66 16 130/64 98 12/26/21 11:39 37.1 C 58 L 18 150/84 H 97 12/26/21 11:22 36.5 C 60 18 156/77 H 98 12/26/21 08:00 85 12/26/21 07:04 36.8 C 61 19 138/76 95 O2 Del Method 12/26/21 16:49 12/26/21 16:26 12/26/21 14:34 12/26/21 13:34 12/26/21 13:04 12/26/21 12:49 12/26/21 12:32 12/26/21 11:39 12/26/21 11:22 12/26/21 08:00 12/26/21 07:04 Room Air Resident Activity Tracking Resident Involvement: Resident Care Provided Care Provided: Adult Hospital Medicine
[2021-12-26] MEDS ORDERED: OR MISCELLANEOUS MED TOP ONE (19:01)
[2021-12-26] MEDS: ROSUVASTATIN CALCIUM 5 MG TAB PO SCH (20:33)
[2021-12-26] MEDS: NITROGLYCERIN 2% 7.5 INCH, AQUAPHOR 67.5 GM, BARCODE IDENTIFIER 1 EACH EXT SCH (21:47)
[2021-12-26] MEDS: BUTT PASTE (ZINC OXIDE 16%) 171 APPLN/57 GM JAR EXT SCH (21:49)
[2021-12-27] MEDS: MEROPENEM 500 MG in SYRINGE 0 ML IV SCH ×2 (03:49→10:03)
[2021-12-27 05:20] LABS: BUN Creatinine Ratio 22.7 (10-20); Calcium 6.9 mg/dl (8.5-10.1); Creatinine Clr Calc Pharmacy 234.5 ml/min; Est GFR (African American) 141.9 ml/min; Est GFR (Non-African American) 122.4 ml/min; Potassium 3.5 mmol/L (3.5-5.1)
[2021-12-27 05:29] LABS: Hematocrit (blood only) 24.6 % (40.1-51.0); Hemoglobin 8.4 g/dl (14.0-18.0); Mean Corpuscular Hemoglobin 28.5 pg (25.0-34.0); Mean Corpuscular Hgb Conc 34.1 g/dL (32.0-36.0); Mean Corpuscular Volume 83.4 fL (80.0-100.0); Mean Platelet Volume 11.5 fL (9.4-12.4); Platelet Count 12 K/uL (130-400); RDW Coefficient of Variation 14.9 % (11.5-14.5); Red Blood Count 2.95 M/uL (4.63-6.08); White Blood Count 0.37 K/ul (4.8-10.8)
--- NOTE | 2021-12-27 07:04 | Discharge Summary ---
Date of Service December 27, 2021 Admission HPI Per Admitting Provider 61yo M w/ hx of AML who presents with neutropenic fever. The patient had platelets of 5 today on routine lab testing and [facility]. The patient had been in our hospital on 12/06 with the same, but was transferred to [facility] on the same day. The patient reports that he was recultured, but that nothing grew. He has been on cefepime 2 g IV Q8h since discharge from [place]. He reports he was running a sub-fever (99.0 - 99.5) degrees over the last 2-3 days. He had his platelets transfused and immediately on the car ride home had chills and had to turn the heat up in the car. He had a temperature at home, and he called his oncologist who told him to come to the ER. The patient reports no new infectious symptoms other than the fevers/chills. He denies any cough, shortness of breath, no chest pain, no new rashes or hot areas on his skin, no dysuria, no other symptoms. Admission Exam Per Admitting Provider WD/WN, vitals as above Eyes: EOM intact bilaterally; no conjunctival abnormality ENMT: external ear and nose normal, oropharynx normal Neck: trachea midline, no thyromegaly normal visual inspection Respiratory: normal respiratory effort, lungs clear to auscultation no respiratory distress Cardiovascular: RRR, no murmur, no edema Gastrointestinal (Abdomen): Inspection/Auscultation: abdomen normal to inspection; abdomen not distended Musculoskeletal: no cyanosis or clubbing, extremities motor strength 5/5 Skin: no rashes, warm and dry Neurologic: moves all extremities and awake Psychiatric: Orientation: alert, oriented to person and cooperative Principal Diagnosis neutropenic fever with bacteremia of unknown origin Discharge Exam Constitutional NAD, afebrile (36.6 C). Vitals WNL. Respiratory CTA bilaterally. No rhonchi, wheezing, or rales. Non labored breathing. Cardiovascular RRR. No murmur noted. No LE edema. Gastrointestinal (Abdomen) Nontender, +BS. No masses noted. Discharge Data Allergies Allergy/AdvReac Type Severity Reaction Status Date / Time No Known Allergies Allergy Mild 0 Verified 12/17/21 21:36 Consultations 12/17/21 18:03 ED Decision to Admit Stat 12/24/21 09:56 Consult Infectious Diseases Routine 12/26/21 11:27 Consult General Surgery Routine 59-year-old gentleman with history of CMML and neutropenia presents with pain in his perianal region. On MRI there is no drainable collection. He does have some indurated tissue. Although there is no erythema, he is neutropenic and may present without all signs of infection. I recommend continuing antibiotic therapy. Although no definitive fissures identified, some of his symptoms are suggestive of a fissure. We would recommend nitro glycerin ointment to the area twice daily. Would also recommend barrier cream for the surrounding perianal tissue as it appears somewhat macerated. Ordered Studies 12/25/21 12:00 MRI Pelvis [MR pelvis wo/w con] Routine 1. No perirectal or perianal abscess. Possible mild perianal enhancement. This could reflect cellulitis. 2. Tiny 7 mm subcutaneous fluid collection of the left left buttock with adjacent enhancement. The MRI appearance is nonspecific and this could reflect a tiny abscess or hematoma. No drainable fluid collection. 3. Trace presacral fluid. Hospital Course (1) AML (acute myeloblastic leukemia): Pt is a 61 y/o M recently discharged from [facility] after getting transferred for neutropenic fever with gram neg bacteremia (Provotella - [facility] culture) and treated with cefepime/metronidazole and vanco and discharged home--- here with recurrence of neutropenic fever Neutropenic fever with associated bacteremia of unknown source - On recent admission at [facility] - was recommended continuation of Cefepime, Metronidazole, and Vancomycin while inpatient d/t tx of Prevotella bacteremia (12/05/2021) - Blood culture 12/20 grew Klebsiella pneumoniae only susceptible to meropenem - Possible source of infection from anal region of what pt describes as "hemorrhoids" -Pelvic MRI w/ and w/o contrast ordered d/t continued anal pain - showed 7mm fluid collection in left buttock. Evaluated by surgery. No concern of abscess. - Patient's [place] Oncologist (Dr. Rudolph) aware of pt's current admission and agrees with continuing meropenem for full course of 14 days - Continue meropenem d/t sensitivities (500 mg q6hr x14 days). To finish 11 more days at home. - Pt able to use PICC line for this. Home nursing has been arranged Anal pain - Pelvic MRI w/ and w/o contrast results as above - Gen surg consulted for possible abscess on MRI- recommended continued ABX, nitroglycerin ointment BID with barrier cream for surrounding perineal area - ointments ordered for home use AML - Patient follows with [facility]. - Continue home ppx with allopurinol, acyclovir, and posaconazole Thromocytopenia - Sec to cancer and chemotherapy - Pt received multiple platelet transfusions during his stay for platelet count <10 - Plt 12 day of discharge Anemia - no dizziness or lightheadedness - 8.3 on 12/21, 7.0 on 12/25, 6.9 12/26 (transfused 1 unit PRBCs) - Post transfusion on Day of d/c - Hgb stable at 8.4. Hypertension - Continue home meds: amlodipine/olmesartan combo Hypercholesterolemia - Continue rosuvastatin Depression - Continue home escitalopram GERD - Continue home PPI Plan FEN: Regular Code status: Full Code DVT ppx: None d/t bleeding risk (low platelets) Dispo:d/c home with home nursing set up for home ABX administration (2) Thrombocytopenia: (3) HTN (hypertension): (4) Anal pain: (5) Hypercholesteremia: (6) Depression: (7) GERD (gastroesophageal reflux disease): Total Time Total Time Spent Total Time Spent (In Minutes): As per attending attestation Discharge Plan Discharge Items Patient Disposition: Home - Self-Care Reason For Visit: NEUTROPENIC FEVER Discharge Diagnosis: Neutropenic Fever, bacteremia due to unknown source Condition on Discharge: Good Activity: Per Instructions section Non-emergency contact: Primary Care Provider and Oncologist Call non-emergency contact if: you have any medication questions, your symptoms worsen and you have a fever Follow-up/Referrals: Jessica Cuevas MD [Primary Care Provider] - Diet: Regular Addtl Attending Provider Instructions: You were admitted to the hospital for a neutropenic fever (a fever in the setting of low neutrophils in your blood). You were thoroughly evaluated and treated with Vancomycin, in addition to the Cefepime and Metronidazole you were already on, to cover potential sources of infection. Your condition had been improving and you were set to be discharged. However, you then developed another fever, at which time discharge was postponed and you were restarted on broad spectrum antibiotics after blood cultures were redrawn. Those blood cultures grew a resistant organism called ESBL Klebsiella. This was only sensitive to an IV antibiotic called meropenem and as such, our case management team has helped to set up the remainder of your treatment at home. A discharge summary will be sent to your primary care physician to ensure continuity of care. Please bring this discharge summary with you to your next office appointment so that your provider can review it at that time. Follow-up appointments: - Make a follow-up appointment with your PCP within the next week. It is very important that you follow up with them shortly after discharge from the hospital. We have requested a follow-up appointment with your primary care physician within one week of discharge. Please call their office if you do not hear from them. - Please continue to follow closely with your oncology doctors at [facility] (Dr. Rudolph). Medications: - Your medication list has been reviewed and reconciled upon discharge to ensure accuracy and continuity of care. An updated list of all your medications is included with your hospital discharge paperwork. Please review this list closely, and make note of any changes. - The only antibiotic you will be taking at home is meropenem. This will be delivered through your PICC line every 6 hours for a total of 11 days at home. Home nursing will help you. - We sent a new medication called Zofran. You may take this up to 6 times a day as needed for nausea. - We have also sent you two different ointments for your perianal area. The nitroglycerin ointment and zinc oxide barrier cream can be used twice a day. - If you have any issues filling these prescriptions, please call [phone] and ask to leave a message for Dr. Isabel. - Take your medications as instructed; do not skip a dose of your medicines. Make sure all of your doctors know every medicine you are taking (including [id number] medicines, vitamins, and supplements). - Call your primary care provider before taking any new medicines (including over- the-counter medicines, vitamins, and supplements), because some of these may interact with your current medications, or may make your symptoms worse. - Tell your primary care provider if you cannot afford your medications. Contact your Primary Care Provider if you experience: - Difficulty following your treatment plan or taking medications Call 911 or go to the emergency department if you experience: - Fever - Abnormal bleeding - Sudden, severe abdominal pain or nausea/vomiting - Severe chest pain, or chest pain that radiates (moves) to your jaw or arm - Sudden, severe shortness of breath or difficulty breathing Pending Studies at Discharge: No Visit Report Forms: Wound Care Instructions Stand-Alone Forms: My [facility] Medications and DC Order Prescriptions: New ondansetron 4 mg tablet,disintegrating 4 mg PO Q6 PRN (Reason: nausea) Qty: 60 0RF zinc oxide 16 % Ointment 1 applic EXT BID Qty: 454 1RF Rx Instructions: Use twice a day as needed for perineal/anal pain Nitroglycerin 0.2% 1 tube ointment 1 bead topical BID Qty: 1 1RF Rx Instructions: Make 1/2 strength to 0.2%; rub pea-sized bead of ointment to rectal area two times a day; 1-30g tube Continued acyclovir 400 mg tablet 400 mg PO BID omeprazole 20 mg capsule,delayed release(DR/EC) 20 mg PO DAILY folic acid 1 mg tablet 1 mg PO DAILY allopurinol 300 mg tablet 300 mg PO DAILY escitalopram oxalate [Lexapro] 20 mg tablet 20 mg PO DAILY rosuvastatin [Crestor] 5 mg tablet 5 mg PO QPM amlodipine-olmesartan 5-40 mg tablet 1 tab PO DAILY posaconazole 100 mg tablet,delayed release (DR/EC) 300 mg PO DAILY L-Ldgr-Vfjycwc 250 mg Tablet 1 tab PO BID Magic Swizzle 5 ml PO Q6 PRN (Reason: .SORE MOUTH) Saline Rinse 1 dose PO DIRECTED PRN (Reason: sore mouth) acetaminophen [Tylenol Extra Strength] 500 mg Tablet 1,000 mg PO Q8H PRN (Reason: fever) Qty: 1 0RF fluticasone propionate [Flonase Allergy Relief] 50 mcg/actuation [place],Suspension 2 spray INTRANASAL BID Rx Instructions: administer into each nostril cetirizine [Zyrtec] 10 mg Tablet 10 mg PO DAILY Discontinued ondansetron HCl 4 mg tablet 4 mg PO Q6 PRN (Reason: Nausea) metronidazole 250 mg Tablet 500 mg PO TID cefepime 2 gram Piggyback 2 g IV TID Discharge Orders: Discharge Order (Routine); Ordered 12/27/21 Ordered By: Lesley Isabel Admission Data Admit Date/Time: 12/17/21 19:56 Attending Provider: Carlita Mane Admit Provider: Bret Garcia Primary Care Provider: Jessica Cuevas Other Providers: Bret Garcia ; Casimiro Ramírez ; Tam Linton ; Roxanne Ga ; Tj Boswell I. ; Maurice Garnica II ; Mayte Burden ; Saud Vega ; Kendrick Diaz ; Austin Garcia Other Interventions: Discharge Summary Assessment (RN) Last Done: 12/27/21 10:29 Supervising Physician Co-Signing Physician Notes Resident Physician Supervision Note: I independently interviewed and examined the patient and verified the dia history and physical, reviewed labs and image studies and agree with resident Dr. Isabel findings and care plan. Resident Activity Tracking Resident Involvement: Resident Care Provided Care Provided: Adult [facility] Medicine
[2021-12-27] MEDS: OLMESARTAN MEDOXOMIL 40 MG TAB PO SCH (09:57)
[2021-12-27] MEDS: FAMOTIDINE 20 MG TAB PO SCH (09:57)
[2021-12-27] MEDS: POTASSIUM CHLORIDE CRTAB 20 MEQ TABCR PO SCH (09:57)
[2021-12-27] MEDS: FOLIC ACID 1 MG TAB PO SCH (09:57)
[2021-12-27] MEDS: CETIRIZINE HCL 10 MG TABLET PO SCH (09:57)
[2021-12-27] MEDS: ESCITALOPRAM OXALATE 20 MG TAB PO SCH (09:57)
[2021-12-27] MEDS: ACYCLOVIR 400 MG TAB PO SCH (09:57)
[2021-12-27] MEDS: allopurinoL 300 MG TAB PO SCH (09:57)
[2021-12-27] MEDS: PANTOprazole 40 MG TAB PO SCH (09:57)
[2021-12-27] MEDS: POT PHOSPHATE MONOBASIC W/ SOD TAB PO SCH (09:57)
[2021-12-27] MEDS: amLODIPine BESYLATE 5 MG TAB PO SCH (09:57)
[2021-12-27] MEDS: POLYETHYLENE (MIRALAX) 17 GM PACK PO SCH (09:58)
[2021-12-27] MEDS: FLUTICASONE PROPIONATE NA SPR 16 GM BTL SCH (09:58)
[2021-12-27] MEDS: ANUSOL SUPP 1 EA PR SCH (10:00)
[2021-12-27] MEDS: PSYLLIUM or GUAR GUM FIBER POWDER PACKET PO SCH (10:01)
[2021-12-27] MEDS: NITROGLYCERIN 2% 7.5 INCH, AQUAPHOR 67.5 GM, BARCODE IDENTIFIER 1 EACH EXT SCH (10:02)
[2021-12-27] MEDS: BUTT PASTE (ZINC OXIDE 16%) 171 APPLN/57 GM JAR EXT SCH (10:02)
--- NOTE | 2022-01-09 08:22 | Coding Query ---
MALNUTRITION To promote full compliance with coding requirements relating to patient care, physician participation is requested in all cases of counter stitcher uncertainty. Please assist us with the question(s) below: Please place an X within the parenthesis (x). If other, please document: "Malnutrition" is documented in this record on Progress Notes from 12/21 - 12/23. If possible, please check the box that provides a more specific diagnosis: ( ) Mild malnutrition ( ) Moderate malnutrition ( ) Severe malnutrition ( ) Protein malnutrition (kwashiorkor) ( ) Severe protein calorie malnutrition ( ) Protein calorie malnutrition, unspecified ( x) Other (please specify): acute calorie malnutrition Was this diagnosis present on admission? Please place an X within the parenthesis (x). (x ) Present on admission ( ) Not present on admission ( ) Unable to be clinically determined Thank you Lisa Wright [facility]ENTERChe[facility]
--- NOTE | 2022-01-09 08:24 | Coding Query ---
To promote full compliance with coding requirements relating to patient care, provider participation is requested in all cases of casting sorter uncertainty. Please assist us with the question(s) below: Coding Question(s): The diagnosis below was documented in the Progress Notes from 12/21 - 12/23, then subsequently fell off all further documentation and Bacteremia is documented. Please indicate if it is still a possible diagnosis or ruled out. Physician's Response(s): SEPSIS ( ) Diagnosed and POA ( ) Diagnosed and not POA ( x ) Ruled out ( ) Other (please specify) MTDD
[2022-01-13 17:57] LABS: Q Fever IgG, Phase I NEGATIVE; Q Fever Phase I IgM Antibody NEGATIVE; Q Fever Phase II IgG Antibody NEGATIVE; Q Fever Phase II IgM Antibody NEGATIVE; R. typhi IgG Ab NOT DETECTED; R. typhi IgM Ab NOT DETECTED; RMSF IgG Ab NOT DETECTED; RMSF IgM Ab NOT DETECTED
== END 2021-12-27 12:14 | disposition home or self-care (01) | DRG 809 ==
LOC: ED 16:53 → SUATTDRO 19:56 → 4W 19:56